=== PATIENT | male | born 1955 | race Caucasian/White ===

== ENCOUNTER 2017-04-17 06:22 | Emergency (ER) | payer SELFPAY ==
[~2017-04-17] VITALS: Ht 188 cm; Wt 73.0 kg
[~2017-04-17 06:22] MED LIST: ADVAI500I PO; ALBU8I INH; BENZ1TAB PO; CLIN1CAP5 PO; HYDR1CAP30 PO; IBUP800T23 PO; OMEP20CA5 PO; PARO40TA PO; PERP8TAB7 PO
[2017-04-17 06:31] VITALS: PULSE 69; RESP 18; TEMP 98.8; O2SAT 97
--- NOTE | 2017-04-17 06:38 | PD ---
HPI Chief Complaint: alcohol intoxication Time Seen by Provider: 06:31 Travel History International Travel<30 days: No Contact w/Intl Traveler<30days: No Traveled to known affect area: No History of Present Illness HPI 61-year-old male was [place] acted and brought in for evaluation. Patient admitted to alcohol consumption tonight. Patient denies any headache. Patient denies any neck pain. Patient denies any chest pain or shortness of breath. Patient denies abdominal pain. Patient denies any focal weakness or numbness of extremity. Patient denies any illicit drug abuse. PFSH Past Medical History Blood Disorders: Yes (hep a) Depression: Yes COPD: Yes Respiratory: Yes (copd) Integumentary: Yes (schizoeffective disorder) Immunizations Current: Yes Past Surgical History Appendectomy: Yes Other Surgery: Yes (ing hernia) Social History Alcohol Use: Yes (12 beers Per day) Tobacco Use: Yes Substance Use: Yes (occasional marijuana) Allergies-Medications (Allergen,Severity, Reaction): Coded Allergies: No Known Allergies (Unverified , 06/21/15) Reported Meds & Prescriptions Reported Meds & Active Scripts Active Prilosec 20 mg (Omeprazole) 20 Mg Capcr 20 Mg PO DAILY Ventolin Hfa (Albuterol Sulfate) 8 Gm Aero 1 Puff INH Q6 * SHAKE WELL BEFORE USE * Advair Diskus 500/50 (Salmeterol Xinafoate/Fluticasone) Fluticasone/Salmeterol 500/50 Inh 1 Puff PO BID Ibuprofen 800 Mg Tab 800 Mg PO TID PRN Reported Clindamycin Hcl (Clindamycin HCl) 150 Mg Cap 300 Mg PO QID Hydroxyzine Pamoate 25 Mg Cap 25 Mg PO HS PRN Trilafon 8 mg (Perphenazine) 8 Mg Tab 1 Tab PO HS Paroxetine Hcl (Paroxetine HCl) 40 Mg Tab 40 Mg PO HS Benztropine Mesylate 1 Mg Tab 1 Mg PO DAILY Review of Systems General / Constitutional: No: Fever Eyes: No: Visual changes HENT: No: Headaches Cardiovascular: No: Chest Pain or Discomfort Respiratory: No: Shortness of Breath Gastrointestinal: No: Abdominal Pain Genitourinary: No: Dysuria Musculoskeletal: No: Pain Skin: No Rash Neurologic: No: Weakness Psychiatric: No: Depression Endocrine: No: Polydipsia Hematologic/Lymphatic: No: Easy Bruising Physical Exam Narrative GENERAL: Well-nourished, well-developed patient. SKIN: Focused skin assessment warm/dry. HEAD: Normocephalic. EYES: No scleral icterus. No injection or drainage. NECK: Supple, trachea midline. No JVD or lymphadenopathy. CARDIOVASCULAR: Regular rate and rhythm without murmurs, gallops, or rubs. RESPIRATORY: Breath sounds equal bilaterally. No accessory muscle use. GASTROINTESTINAL: Abdomen soft, non-tender, nondistended. MUSCULOSKELETAL: No cyanosis, or edema. BACK: Nontender without obvious deformity. No CVA tenderness. Neurologic exam: Patient's intoxicated however answer questions appropriately. Patient moves all extremity well. No obvious focal neurological deficit. Data Data Orders Orders Complete Blood Count With Diff (04/17/17 06:31) Comprehensive Metabolic Panel (04/17/17 06:31) Lipase (04/17/17 06:31) Iv Access Insert/Monitor (04/17/17 06:31) Ecg Monitoring (04/17/17 06:31) Oximetry (04/17/17 06:31) Alcohol (Ethanol) (04/17/17 06:31) MDM Medical Decision Making Medical Screen Exam Complete: Yes Emergency Medical Condition: Yes Differential Diagnosis Differential diagnosis including alcohol intoxication, electrolyte abnormality, dehydration. Narrative Course 61-year-old male was [place] acted and brought in for evaluation. Jaskaran Vila MD Apr 17, 2017 06:38
[2017-04-17 07:34] LABS: AUTOMATED NEUTROPHIL # 4.2 TH/MM3 (1.8-7.7); BASOPHIL % 0.6 % (0.0-2.0); EOSINOPHIL % 0.5 % (0.0-4.0); HEMATOCRIT 38.2 % (39.0-51.0); HEMO FLAGS DIFF FINAL; LYMPH % 32.3 % (9.0-44.0); LYMPHOCYTE # 2.5 TH/MM3 (1.0-4.8); MEAN CORPUSCULAR HEMOGLOBIN 29.4 PG (27.0-34.0); MEAN CORPUSCULAR HGB CONC 33.5 % (32.0-36.0); MONO % 13.4 % (0.0-8.0); NEUT % 53.2 % (16.0-70.0); PLATELET COUNT 211 TH/MM3 (150-450); RED BLOOD COUNT 4.34 MIL/MM3 (4.50-5.90); RED CELL DISTRIBUTION WIDTH 13.5 % (11.6-17.2); WHITE BLOOD COUNT 7.9 TH/MM3 (4.0-11.0)
[2017-04-17 08:00] LABS: ALT (GPT) 158 U/L (12-78); ANION GAP 10 MEQ/L (5-15); AST (GOT) 66 U/L (15-37); BICARBONATE 25.7 MEQ/L (21.0-32.0); BLOOD UREA NITROGEN 13 MG/DL (7-18); CHLORIDE 102 MEQ/L (98-107); GLOMERULAR FILTRATION RATE 87 ML/MIN (>89); POTASSIUM 3.3 MEQ/L (3.5-5.1); SODIUM (NA) 138 MEQ/L (136-145)
[2017-04-17 08:02] LABS: ALKALINE PHOSPHATASE 105 U/L (45-117); TOTAL BILIRUBIN ADULT 0.4 MG/DL (0.2-1.0)
[2017-04-17 08:06] LABS: ALCOHOL 166 MG/DL (0-5)
--- NOTE | 2017-04-17 10:10 | PD ---
Physical Exam Date Seen by Provider: Apr 17, 2017 Time Seen by Provider: 10:08 Narrative 61-year-old male was brought to the emergency room intoxicated. He was seen by the previous ER physician. Sign out was to follow-up on the blood test result and once patient shelly up he can go home. Alcohol level is 166. Patient has been walking around and appears to be clinically sober. I'm okay discharging him home at this point. He's been in the department for almost 4 hours. Data Data Last Documented VS Vital Signs Date Time Temp Pulse Resp B/P (MAP) Pulse Ox O2 Delivery O2 Flow Rate FiO2 04/17/17 07:25 Room Air 04/17/17 06:31 98.8 69 18 97 Orders Orders Complete Blood Count With Diff (04/17/17 06:31) Comprehensive Metabolic Panel (04/17/17 06:31) Lipase (04/17/17 06:31) Iv Access Insert/Monitor (04/17/17 06:31) Ecg Monitoring (04/17/17 06:31) Oximetry (04/17/17 06:31) Alcohol (Ethanol) (04/17/17 06:31) Labs Laboratory Tests Test 04/17/17 07:20 White Blood Count 7.9 TH/MM3 Red Blood Count 4.34 MIL/MM3 Hemoglobin 12.8 GM/DL Hematocrit 38.2 % Mean Corpuscular Volume 88.0 FL Mean Corpuscular Hemoglobin 29.4 PG Mean Corpuscular Hemoglobin Concent 33.5 % Red Cell Distribution Width 13.5 % Platelet Count 211 TH/MM3 Mean Platelet Volume 8.0 FL Neutrophils (%) (Auto) 53.2 % Lymphocytes (%) (Auto) 32.3 % Monocytes (%) (Auto) 13.4 % Eosinophils (%) (Auto) 0.5 % Basophils (%) (Auto) 0.6 % Neutrophils # (Auto) 4.2 TH/MM3 Lymphocytes # (Auto) 2.5 TH/MM3 Monocytes # (Auto) 1.1 TH/MM3 Eosinophils # (Auto) 0.0 TH/MM3 Basophils # (Auto) 0.0 TH/MM3 CBC Comment DIFF FINAL Differential Comment Blood Urea Nitrogen 13 MG/DL Creatinine 0.88 MG/DL Random Glucose 99 MG/DL Total Protein 7.4 GM/DL Albumin 3.7 GM/DL Calcium Level 8.0 MG/DL Alkaline Phosphatase 105 U/L Aspartate Amino Transf (AST/SGOT) 66 U/L Alanine Aminotransferase (ALT/SGPT) 158 U/L Total Bilirubin 0.4 MG/DL Sodium Level 138 MEQ/L Potassium Level 3.3 MEQ/L Chloride Level 102 MEQ/L Carbon Dioxide Level 25.7 MEQ/L Anion Gap 10 MEQ/L Estimat Glomerular Filtration Rate 87 ML/MIN Lipase 147 U/L Ethyl Alcohol Level 166 MG/DL MDM Supervised Visit with RANJANA: No Diagnosis Primary Impression: Alcohol intoxication Qualified Codes: F10.929 - Alcohol use, unspecified with intoxication, unspecified Referrals: Primary Care Physician Additional Instruction: Drink alcohol in moderation only. Follow-up with your primary care. Disposition: 01 DISCHARGE HOME Condition: Stable Octavio Roy MD Apr 17, 2017 10:10
== END 2017-04-17 10:50 | disposition home or self-care (01) ==
LOC: NEPE 06:22
DX: F10.129 Alcohol abuse with intoxication, unspecified (principal); B15.9 Hepatitis A without hepatic coma; J44.9 Chronic obstructive pulmonary disease, unspecified; F25.9 Schizoaffective disorder, unspecified; Z72.0 Tobacco use; Z79.1 Long term (current) use of non-steroidal anti-inflammatories (NSAID); Z79.52 Long term (current) use of systemic steroids; Z79.899 Other long term (current) drug therapy
CPT/HCPCS: 80053; 80307; 83690; 85025; 99283

== ENCOUNTER 2017-09-12 20:25 | Inpatient (IN) | payer SELFPAY ==
[~2017-09-12] VITALS: Ht 188 cm; Wt 67.3 kg
[2017-09-12 20:29] VITALS: BP 138/84; PULSE 84; RESP 18; TEMP 98; O2SAT 97
[2017-09-12] MEDS ORDERED: OMEP20TA93 PO (20:40)
[2017-09-12] MEDS ORDERED: VIST50CA PO (20:40)
[2017-09-12] MEDS ORDERED: PROZ40CA PO (20:40)
[2017-09-12] MEDS ORDERED: IBUP1TAB7 PO (20:40)
[2017-09-12] MEDS ORDERED: BENZ0.5T PO (20:40)
--- NOTE | 2017-09-12 21:00 | PD ---
HPI Chief Complaint: Fall Time Seen by Provider: 20:48 Travel History International Travel<30 days: No Contact w/Intl Traveler<30days: No Traveled to known affect area: No History of Present Illness HPI 62-year-old white male presents to emergency department by EMS for evaluation of a trip and fall. Patient admits to drinking this evening. The patient states that he had fallen on his right side injuring his right hip, neck and back. Patient states the pain is moderate but can be more severe when he attempts to move and stand. He denies syncope. Denies any focal numbness, tingling. He states that he feels somewhat weak in his right leg due to pain. Denies seizure. PFSH Past Medical History Narrative Medical Hepatitis A, COPD, schizoaffective disorder, alcohol abuse Blood Disorders: Yes (hep a) Depression: Yes COPD: Yes Psychiatric: Yes (schizoeffective disorder) Respiratory: Yes (copd) Integumentary: Yes (schizoeffective disorder) Immunizations Current: Yes Tetanus Vaccination: Unknown Past Surgical History Narrative Surgical Appendectomy, herniorrhaphy Appendectomy: Yes Other Surgery: Yes (ing hernia) Social History Alcohol Use: Yes Tobacco Use: Yes (/2 ppd) Substance Use: No Allergies-Medications (Allergen,Severity, Reaction): Coded Allergies: No Known Allergies (Unverified , 06/21/15) Reported Meds & Prescriptions Reported Meds & Active Scripts Active Reported Ibuprofen 800 Mg Tab 800 Mg PO TID Benztropine (Benztropine Mesylate) 0.5 Mg Tab 0.5 Mg PO BID Omeprazole 20 Mg Tab 20 Mg PO DAILY Vistaril (Hydroxyzine Pamoate) 50 Mg Cap 50 Mg PO BID Prozac (Fluoxetine HCl) 40 Mg Cap 40 Mg PO DAILY Review of Systems General / Constitutional: No: Fever Eyes: No: Visual changes HENT: Positive: Neck Pain, No: Headaches, Neck Stiffness Cardiovascular: No: Chest Pain or Discomfort Respiratory: Positive: Shortness of Breath (chronic) Gastrointestinal: No: Abdominal Pain Genitourinary: No: Dysuria Musculoskeletal: Positive: Arthralgias, Limited ROM, Weakness, Pain Skin: No Rash Neurologic: No: Weakness, Syncope, Paresthesia, Incontinence, Seizures Psychiatric: No: Depression Endocrine: No: Polydipsia Hematologic/Lymphatic: No: Easy Bruising Physical Exam Narrative GENERAL: Well-developed, well-nourished in no apparent distress. Nontoxic appearing. HEAD: Normocephalic, atraumatic. EYES: Pupils equal round and reactive. Extraocular motions intact. No scleral icterus. No injection or drainage. ENT: Nose clear. Throat without erythema, tonsillar hypertrophy or exudate. Uvula midline. Airway patent. NECK: Trachea midline. Supple, nontender, moves head freely. No central bony tenderness or spasm. CARDIOVASCULAR: Regular rate and rhythm without murmurs, gallops, or rubs. RESPIRATORY: Clear to auscultation. Breath sounds equal bilaterally. No wheezes , rales, or rhonchi. GASTROINTESTINAL: Abdomen soft, non-tender, nondistended. No hepato-splenomegaly , or palpable masses. No guarding. EXTREMITIES: No clubbing, cyanosis, or edema. Examination of the upper extremities are unremarkable. Examination of the left lower extremities unremarkable. Examination of the right lower extremity reveals pain in the right groin and hip. He has decreased ability to internally and externally rotate the hip. No pain in the knee, ankle or foot. He has intact gross sensation. BACK: No central bony tenderness to palpation of the dorsal and lumbar spine. She complains of upper parathoracic tenderness. No lower lumbar tenderness. Able to sit up in bed at 90. Without deformity. No flank tenderness. NEUROLOGICAL: Awake, alert and oriented x 3 .Cranial nerves grossly intact. Motor and sensory grossly within normal limits. Normal speech. Data Data Last Documented VS Vital Signs Date Time Temp Pulse Resp B/P (MAP) Pulse Ox O2 Delivery O2 Flow Rate FiO2 09/12/17 20:29 98.0 84 18 138/84 (102) 97 Orders Orders Hip, Uni(Ap&Lat) W Ap Pelvis (09/12/17 20:53) Spine, Cervical - Ltd (Ap&Lat) (09/12/17 20:53) Chest, Single Ap (09/12/17 21:00) Spine, Thoracic - Ap Only (09/12/17 20:53) Electrocardiogram (09/12/17 22:56) Complete Blood Count With Diff (09/12/17 22:56) Comprehensive Metabolic Panel (09/12/17 22:56) Prothrombin Time / Inr (Pt) (09/12/17 22:56) Act Partial Throm Time (Ptt) (1/20/18 22:56) Ua Includes Microscopic (09/12/17 22:56) Iv Access Insert/Monitor (09/12/17 22:56) Ecg Monitoring (09/12/17 22:56) Type And Screen (09/12/17 22:56) Alcohol (Ethanol) (09/12/17 22:56) Lactated Ringer's 1000 Ml Inj (Lr 1000 M (09/12/17 23:00) Fentanyl Inj (Fentanyl Inj) (09/12/17 23:00) Ondansetron Inj (Zofran Inj) (09/12/17 23:00) Admit To Inpatient (09/12/17 ) Vital Signs (Adult) Q4H (09/12/17 23:06) Activity Bed Rest (09/12/17 23:06) Diet Npo (09/13/17 Breakfast) Sodium Chloride 0.9% Flush (Ns Flush) (09/12/17 23:15) Sodium Chloride 0.9% Flush (Ns Flush) (09/13/17 09:00) Acetaminophen (Tylenol) (09/12/17 23:15) Ondansetron Inj (Zofran Inj) (09/12/17 23:15) Basic Metabolic Panel (Bmp) (09/13/17 06:00) Complete Blood Count With Diff (09/13/17 06:00) Scd Bilateral/Knee High CATRACHITA.BID (09/12/17 23:06) Inpatient Certification (09/12/17 ) Consult Orthopedic (09/12/17 ) Vital Signs (Adult) Q4H (09/12/17 23:07) Activity Bed Rest (09/12/17 23:07) Notify Dr: Other (09/12/17 23:07) Admit Order (Ed Use Only) (09/12/17 ) Vital Signs (Adult) Q4H (09/12/17 23:07) Activity Bed Rest (09/12/17 23:07) Notify Dr: Other (09/12/17 23:07) [facility] Medical Decision Making Medical Screen Exam Complete: Yes Emergency Medical Condition: Yes Medical Record Reviewed: Yes Interpretation(s) Last 24 hours Impressions Hip and Pelvis X-Ray 09/12/172052 Signed Impressions: Service Date/Time: Tuesday, September 12, 2017 22:38 - CONCLUSION: 1. Right femoral intertrochanteric fracture. Sahil Gregorio MD Chest x-ray: Negative for infiltrate. COPD changes, evidence of old rib fractures C-spine: Negative for acute fracture. Degenerative changes. T-spine: Limited T-spine no obvious fractured and 5. Pelvis with right hip: Patient has an intertrochanteric fracture. Differential Diagnosis MDM: High Differential diagnoses: Fracture, sprain, strain, dislocation, contusion, neurovascular injury Narrative Course IV access is obtained. Patient's given 1 L bolus of lactated Ringer's, Zofran form a grams IV, fentanyl 25 g IV. X-rays confirm a right hip fracture. This is right hip fracture, intoxication, fall I spoke with Mackenzie the nurse practitioner that works with Dr. Egan who is excepted the patient is admission with orthopedic consult. She is aware that he has a closed right intertrochanteric fracture. Diagnosis Primary Impression: Closed right hip fracture Qualified Codes: S72.001A - Fracture of unspecified part of neck of right femur, initial encounter for closed fracture Additional Impressions: intoxication fall Admitting Information Admitting Physician Requests: Admit Condition: Stable Matthieu Persaud Sep 12, 2017 21:00
[2017-09-12] MEDS ORDERED: ONDANSETRON HCL 4 MG/2 ML VIAL IV PUSH ONE (23:00)
[2017-09-12] MEDS ORDERED: LACTATED RINGER'S 1000 ML INJ 1,000 ML IV ONE (23:00)
--- NOTE | 2017-09-12 23:02 | RADRPT ---
EXAM DATE/TIME: 09/12/2017 22:38 [facility] COMPARISON: No previous studies available for comparison. INDICATIONS : Right hip pain, fall. MEDICAL HISTORY : None. SURGICAL HISTORY : Left hip replacement. ENCOUNTER: Initial ACUITY: 1 day PAIN SCORE: 10 LOCATION: Right hip FINDINGS: Right intertrochanteric femoral fracture with angulation of the distal fragment. Compression screw an d intramedullary rob fixation of the left femur. Remaining osseous structures are intact. SI joints a nd pubic symphysis are maintained. Soft tissues are grossly unremarkable. CONCLUSION: 1. Right femoral intertrochanteric fracture. Sahil Gregorio MD on September 12, 2017 at 22:59 Board Certified Radiologist. This report was verified electronically.
--- NOTE | 2017-09-12 23:04 | RADRPT ---
EXAM DATE/TIME: 09/12/2017 22:42 [facility] COMPARISON: No previous studies available for comparison. INDICATIONS : Back pain, fall. MEDICAL HISTORY : None. SURGICAL HISTORY : None. ENCOUNTER: Initial ACUITY: 1 day PAIN SCORE: 3/10 LOCATION: Upper back FINDINGS: AP view of the thoracic spine was performed. There is normal alignment of the thoracic vertebral bod ies. Vertebral body heights are grossly maintained. No evidence of significant fracture or subluxat ion. Visualized portions of the lungs demonstrate no pneumothorax or effusion. CONCLUSION: 1. Limited AP view of the thoracic spine demonstrates no gross fracture or subluxation. Sahil Gregorio MD on September 12, 2017 at 23:01 Board Certified Radiologist. This report was verified electronically.
--- NOTE | 2017-09-12 23:06 | RADRPT ---
EXAM DATE/TIME: 09/12/2017 22:32 [facility] COMPARISON: CHEST SINGLE AP, June 08, 2015, 1:01. INDICATIONS : Shortness of breath. MEDICAL HISTORY : Chronic obstructive pulmonary disease. SURGICAL HISTORY : None. ENCOUNTER: Initial ACUITY: 1 day PAIN SCORE: 0/10 LOCATION: Bilateral chest FINDINGS: Lungs are hyperexpanded with diffuse interstitial prominence. No significant new focal pleural or par enchymal opacities. Cardiome cell contours are stable given differences in technique. Redemonstration of old left-sided rib fractures. CONCLUSION: 1. Changes of obstructive pulmonary disease without acute abnormality or significant interval change. Sahil Gregorio MD on September 12, 2017 at 23:04 Board Certified Radiologist. This report was verified electronically.
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
[2017-09-12] MEDS ORDERED: MORPHINE SULFATE 2 MG/ML INJ IV PUSH PRN (23:15)
[2017-09-12] MEDS ORDERED: SODIUM CHLORIDE 0.9% FLUSH 10 ML FLUSH IV FLUSH PRN (23:15)
[2017-09-13] VITALS (7 sets, daily range): BP systolic 107–160; BP diastolic 69–93; PULSE 92–110; RESP 17–18; TEMP 96.8–98.7; O2SAT 93–100
[2017-09-13 00:14] LABS: AUTOMATED NEUTROPHIL # 8.8 TH/MM3 (1.8-7.7); BASOPHIL % 0.3 % (0.0-2.0); EOSINOPHIL % 0.1 % (0.0-4.0); HEMATOCRIT 35.8 % (39.0-51.0); HEMOGLOBIN 12.4 GM/DL (13.0-17.0); LYMPH % 11.4 % (9.0-44.0); LYMPHOCYTE # 1.2 TH/MM3 (1.0-4.8); MEAN CELL VOLUME 89.2 FL (80.0-100.0); MEAN CORPUSCULAR HEMOGLOBIN 30.9 PG (27.0-34.0); MEAN CORPUSCULAR HGB CONC 34.6 % (32.0-36.0); MEAN PLATELET VOLUME 8.4 FL (7.0-11.0); MONOCYTE # 0.8 TH/MM3 (0-0.9); NEUT % 81.2 % (16.0-70.0); PLATELET COUNT 210 TH/MM3 (150-450); RED BLOOD COUNT 4.01 MIL/MM3 (4.50-5.90); RED CELL DISTRIBUTION WIDTH 11.8 % (11.6-17.2); WHITE BLOOD COUNT 10.8 TH/MM3 (4.0-11.0)
[2017-09-13 00:20] LABS: ALBUMIN 3.8 GM/DL (3.4-5.0); ALT (GPT) 162 U/L (12-78); AST (GOT) 107 U/L (15-37); BICARBONATE 24.3 MEQ/L (21.0-32.0); BLOOD UREA NITROGEN 16 MG/DL (7-18); CALCIUM 8.1 MG/DL (8.5-10.1); CHLORIDE 99 MEQ/L (98-107); CREATININE 0.72 MG/DL (0.60-1.30); GLOMERULAR FILTRATION RATE 110 ML/MIN (>89); GLUCOSE,RANDOM 90 MG/DL (74-106); SODIUM (NA) 134 MEQ/L (136-145)
[2017-09-13 00:22] LABS: ALKALINE PHOSPHATASE 129 U/L (45-117); TOTAL BILIRUBIN ADULT 0.6 MG/DL (0.2-1.0); TOTAL PROTEIN 7.5 GM/DL (6.4-8.2)
[2017-09-13 00:27] LABS: PROTHROMBIN TIME - PATIENT 10.6 SEC (9.8-11.6)
[2017-09-13] MEDS: MORPHINE SULFATE 4 MG/ML INJ IV PUSH PRN ×2 (00:34→06:10)
[2017-09-13] MEDS ORDERED: POVIDONE IODINE 5% (ANTISEPSIS KIT) 4 APPLICATIONS EACH NARE PRN (00:45)
[2017-09-13] MEDS ORDERED: LACTATED RINGER'S 1000 ML IV PRN (00:45)
[2017-09-13] MEDS ORDERED: CHLORHEXIDINE GLUCONATE 2 % 1 PACK (2 CLOTHS) TOPICAL PRN (00:45)
[2017-09-13] MEDS ORDERED: METOPROLOL TARTRATE 25 MG TAB PO PRN (00:45)
[2017-09-13] MEDS ORDERED: SODIUM CHLORID 0.9% 500 ML IV PRN (00:45)
[2017-09-13] MEDS: ONDANSETRON HCL 4 MG/2 ML VIAL IVP PRN (06:09)
[2017-09-13] MEDS ORDERED: FLUMAZENIL 0.5 MG/5 ML VIAL IV PUSH PRN (06:30)
[2017-09-13] MEDS ORDERED: LORazepam 2 MG TAB PO PRN (06:30)
[2017-09-13] MEDS ORDERED: HALOPERIDOL LACTATE 5 MG/ML AMP IM PRN (06:30)
[2017-09-13] MEDS ORDERED: LORazepam 2 MG/ML VIAL IV PUSH PRN ×4 (06:30)
[2017-09-13] MEDS ORDERED: LORazepam 1 MG TAB PO PRN (06:30)
[2017-09-13 06:45] LABS: AUTOMATED NEUTROPHIL # 7.3 TH/MM3 (1.8-7.7); BASOPHIL % 0.2 % (0.0-2.0); EOSINOPHIL % 0.1 % (0.0-4.0); HEMATOCRIT 32.2 % (39.0-51.0); HEMOGLOBIN 11.5 GM/DL (13.0-17.0); LYMPH % 12.1 % (9.0-44.0); LYMPHOCYTE # 1.2 TH/MM3 (1.0-4.8); MEAN CELL VOLUME 88.7 FL (80.0-100.0); MEAN CORPUSCULAR HEMOGLOBIN 31.8 PG (27.0-34.0); MEAN CORPUSCULAR HGB CONC 35.9 % (32.0-36.0); MEAN PLATELET VOLUME 8.6 FL (7.0-11.0); MONO % 11.2 % (0.0-8.0); MONOCYTE # 1.1 TH/MM3 (0-0.9); NEUT % 76.4 % (16.0-70.0); PLATELET COUNT 197 TH/MM3 (150-450); RED BLOOD COUNT 3.63 MIL/MM3 (4.50-5.90); RED CELL DISTRIBUTION WIDTH 11.9 % (11.6-17.2); WHITE BLOOD COUNT 9.5 TH/MM3 (4.0-11.0)
[2017-09-13 06:46] LABS: BICARBONATE 25.7 MEQ/L (21.0-32.0); CALCIUM 8.3 MG/DL (8.5-10.1); CREATININE 0.58 MG/DL (0.60-1.30)
[2017-09-13] MEDS: SODIUM CHLORIDE 0.9% FLUSH 10 ML FLUSH IV FLUSH SCH ×3 (08:48→21:00)
[2017-09-13] MEDS: THIAMINE HCL 100 MG TAB PO SCH (08:48)
[2017-09-13] MEDS: PANTOPRAZOLE SOD 40 MG DELAYED RELEASE TAB PO SCH (08:48)
[2017-09-13] MEDS: FOLIC ACID 1 MG TAB PO SCH (08:50)
[2017-09-13] MEDS ORDERED: ceFAZolin 2 GM PREMIX 50 ML ONE (11:48)
[2017-09-13] MEDS ORDERED: GENTAMICIN SULFATE 80 MG/2 ML VIAL ONE (11:48)
[2017-09-13] MEDS ORDERED: VANCOMYCIN HCL 1000 MG VIAL ONE (11:48)
[2017-09-13] MEDS ORDERED: SODIUM CHLOR 0.9% 250 ML INJ 250 ML IV ONE (12:00)
[2017-09-13] MEDS ORDERED: ceFAZolin INJ 1,000 MG VIAL IV ONE (12:00)
[2017-09-13] MEDS ORDERED: PHENYLEPH/NS 1000 MCG/10 ML SYR IV ONE (12:00)
[2017-09-13] MEDS ORDERED: DEXAMETHASONE SOD PHOS 4 MG/ML VIAL IV ONE (12:00)
[2017-09-13] MEDS ORDERED: SODIUM CHLORIDE 0.9% 20 ML VIAL IV ONE (12:00)
[2017-09-13] MEDS ORDERED: LACTATED RINGER'S 1000 ML INJ 1,000 ML IV ONE (12:00)
[2017-09-13] MEDS ORDERED: PROPOFOL 200 MG/20 ML AMP IV ONE (12:00)
[2017-09-13] MEDS ORDERED: LIDOCAINE HCL 1% PF 5 ML SYRINGE OTHER ONE (12:00)
[2017-09-13] MEDS ORDERED: ONDANSETRON HCL 4 MG/2 ML VIAL IV ONE (12:00)
[2017-09-13] MEDS ORDERED: PERC5TAB12 PO (12:28)
[2017-09-13] MEDS ORDERED: XARE10TA PO (12:28)
--- NOTE | 2017-09-13 12:53 | EKG ---
Date Performed: 09/12/2017 Time Performed: 23:55:36 PTAGE: 62 years EKG: Sinus rhythm VOLTAGE CRITERIA FOR LVH NONSPECIFIC T-WAVE ABNORMALITY ABNORMAL ECG Since PREVIOUS TRACING , no significant change noted PREVIOUS TRACIN06/08/2015 01.00 DOCTOR: Robert Patrick Interpretating Date/Time 09/13/2017 12:51:58
[2017-09-13] MEDS ORDERED: DO NOT ADM ANY ANTICOAGULANT DRUGS PRN (14:05)
[2017-09-13] MEDS ORDERED: MIDAZOLAM HCL 2 MG/2 ML VIAL ONE (14:14)
--- NOTE | 2017-09-13 14:20 | PD.OP ---
cc: Bon Boles Jr., MD Operative Report Date of Surgery: Sep 13, 2017 Preoperative Diagnosis: Right intertrochanteric femur fracture Postoperative Diagnosis: Same Procedure: Right hip intramedullary rob fixation Surgeon: Bon Boles Sole Skiver(s): Staff Resident Surgeon: None Operation and Findings: Estimated blood loss: 50 cc The patient received intravenous ancef. After the appropriate anesthesia was administered, and the patient was transferred to the fracture table. The fracture was anatomically reduced under fluoroscopic imaging. The hip was prepped and draped in usual sterile fashion. We made incision just proximal to the tip of the greater trochanter. We dissected down through the deep fascia. We used a threaded guidewire at the tip of the greater trochanter which was placed down to the metaphyseal region on both the AP and lateral views. We reamed proximally. Using fluoroscopic analysis we templated the appropriate size for the short nail. This nail was then placed into position under fluoroscopic guidance. We made incision laterally based on the position of the associated jig. We then placed a threaded guidewire into the center, center of the femoral head. The appropriate length for the screw was measured. We drilled laterally and then step reamed the femoral neck and femoral head region. The screw was placed into position. We then tightened the proximal set screw, which was followed by releasing one turn off of the screw to allow for compression. Traction was released from the leg and then manual compression was performed. The nail was secured distally with a single screw off of the jig using fluoroscopic guidance. We took final fluoroscopic imaging which revealed that the fracture was in very good position. The hardware was in good position as well. The wounds were thoroughly irrigated and then closed with a 0 Vicryl followed by 2-0 Vicryl and asif. The postoperative plan is to start 50% weightbearing. Additionally, we will initiate postoperative antibiotics for 24 hours along with DVT prophylaxis consisting of early mobilization, SCDs, compression stockings, and lovenox. IMPLANTS USED Synthes intermediate trochanteric nail, size: 10 POSTP-OP PLAN OF ACTIVITY Antibiotics: Ancef Antiocoagulation: Lovenox Weight bearing status: 50% Dressing: Change daily, by RN starting postop day 2 Future procedure planned: none Dispo: expected discharge 2-3 days. Bon Boles Jr., MD Sep 13, 2017 14:20
--- NOTE | 2017-09-13 14:24 | PD.CONS ---
cc: Bon Boles Jr., MD HPI Service [facility] Consult Requested By Primary Care Physician Unknown Admission Diagnosis right hip fracture, intoxication, fall Diagnoses: Chief Complaint: Right hip fracture History of Present Illness 62-year-old white male presents to emergency department by EMS for evaluation of a trip and fall. Patient admits to drinking this evening. . -c/o right hip pain and inability bear weight. -X-ray taken the emergency department reveal displaced right IT fem fracture. -Denies any head injuries. Denies loss of consciousness. -Currently is alert, pain localized at right hip, patient's is 3 out of 10, exacerbated by any range of motion, WB, relieved at rest and with IV pain medicine, pain is sharp nonradiating, not associated with any paresthesia and numbness to the extremity. History PFSH Past Medical History Narrative Medical Hepatitis A, COPD, schizoaffective disorder, alcohol abuse Blood Disorders: Yes (hep a) Depression: Yes COPD: Yes Psychiatric: Yes (schizoeffective disorder) Respiratory: Yes (copd) Integumentary: Yes (schizoeffective disorder) Immunizations Current: Yes Tetanus Vaccination: Unknown Past Surgical History Narrative Surgical Appendectomy, herniorrhaphy Appendectomy: Yes Other Surgery: Yes (ing hernia) Social History Alcohol Use: Yes Tobacco Use: Yes (1/2 ppd) Substance Use: No Allergies-Medications Allergies-Medications (Allergen,Severity, Reaction): Coded Allergies: No Known Allergies (Unverified , 06/21/15) Reported Meds & Prescriptions Reported Meds & Active Scripts Active Reported Ibuprofen 800 Mg Tab 800 Mg PO TID Benztropine (Benztropine Mesylate) 0.5 Mg Tab 0.5 Mg PO BID Omeprazole 20 Mg Tab 20 Mg PO DAILY Vistaril (Hydroxyzine Pamoate) 50 Mg Cap 50 Mg PO BID Prozac (Fluoxetine HCl) 40 Mg Cap 40 Mg PO DAILY Review of Systems Constitutional: DENIES: Diaphoretic episodes, Fatigue, Fever, Weight gain, Weight loss, Chills, Dizziness, Change in appetite, Night Sweats Endocrine: DENIES: Heat/cold intolerance, Polydipsia, Polyuria, Polyphagia Eyes: DENIES: Blurred vision, Diplopia, Eye inflammation, Eye pain, Vision loss , Photosensitivity, Double Vision Ears, nose, mouth, throat: DENIES: Tinnitus, Hearing loss, Vertigo, Nasal discharge, Oral lesions, Throat pain, Hoarseness, Ear Pain, Running Nose, Epistaxis, Sinus Pain, Toothache, Odynophagia Respiratory: DENIES: Apneas, Cough, Snoring, Wheezing, Hemoptysis, Sputum production, Shortness of breath Past Family Social History Allergies: Coded Allergies: No Known Allergies (Unverified Allergy, Unknown, 09/12/17) Active Ordered Medications Current Medications Medications (Trade) Dose Ordered Sig/Micah Route Start Time Stop Time Status Last Admin (NS Flush) 2 ml UNSCH PRN IV FLUSH 09/12/17 23:15 (NS Flush) 2 ml BID IV FLUSH 09/13/17 09:00 09/13/17 08:48 (Tylenol) 650 mg Q4H PRN PO 09/12/17 23:15 (Zofran Inj) 4 mg Q6H PRN IVP 09/12/17 23:15 09/13/17 06:09 (Morphine Inj) 2 mg Q3H PRN IV PUSH 09/12/17 23:15 (Morphine Inj) 4 mg Q3H PRN IV PUSH 09/12/17 23:15 09/13/17 06:10 Lactated Ringer's 1,000 ml @ 30 mls/hr Q24H PRN IV 09/13/17 00:45 09/16/17 00:44 09/13/17 08:44 Sodium Chloride 500 ml @ 30 mls/hr [id number] PRN IV 09/13/17 00:45 09/16/17 00:44 (Lopressor) 25 mg GEAR NICKER PRN PO 09/13/17 00:45 09/16/17 00:44 (Betadine 5% Antisepsis Kit) 1 applic GEAR NICKER PRN EACH NARE 09/13/17 00:45 09/16/17 00:44 (Chlorhexidine 2% Cloth) 3 pack GEAR NICKER PRN TOPICAL 09/13/17 00:45 09/16/17 00:44 (Folate) 1 mg DAILY PO 09/13/17 09:00 09/18/17 08:59 (Vitamin B1) 100 mg DAILY PO 09/13/17 09:00 (Protonix) 40 mg DAILY PO 09/13/17 09:00 (Romazicon Inj) 0.2 mg Q1M PRN IV PUSH 09/13/17 06:30 (Ativan) 1 mg Q4H PRN PO 09/13/17 06:30 (Ativan Inj) 1 mg Q4H PRN IV PUSH 09/13/17 06:30 (Ativan) 2 mg Q2H PRN PO 09/13/17 06:30 (Ativan Inj) 2 mg Q2H PRN IV PUSH 09/13/17 06:30 (Ativan Inj) 2 mg Q1H PRN IV PUSH 09/13/17 06:30 (Ativan Inj) 2 mg Q15M PRN IV PUSH 09/13/17 06:30 (Haldol Inj) 2 mg Q15M PRN IM 09/13/17 06:30 Reported Meds & Active Scripts Active Xarelto (Rivaroxaban) 10 Mg Tab 10 Mg PO DAILY Percocet (Oxycodone-Acetaminophen) 5-325 mg Tab 1 Tab PO Q4H PRN Reported Ibuprofen 800 Mg Tab 800 Mg PO TID Benztropine (Benztropine Mesylate) 0.5 Mg Tab 0.5 Mg PO BID Omeprazole 20 Mg Tab 20 Mg PO DAILY Vistaril (Hydroxyzine Pamoate) 50 Mg Cap 50 Mg PO BID Prozac (Fluoxetine HCl) 40 Mg Cap 40 Mg PO DAILY Physical Exam Vital Signs Vital Signs Date Time Temp Pulse Resp B/P (MAP) Pulse Ox O2 Delivery O2 Flow Rate FiO2 09/13/17 12:00 98.4 100 17 160/93 (115) 95 09/13/17 07:44 96.8 99 18 146/84 (104) 93 09/13/17 04:03 98.7 98 17 113/69 (84) 96 09/13/17 00:25 96.9 92 17 136/85 (102) 96 09/12/17 20:29 98.0 84 18 138/84 (102) 97 Physical Exam Alert awake and oriented -3. No acute distress. Pulmonary: Normal respiratory effort. Abdomen soft Right lower extremity: Shortened and externally rotated. Neurovascularly intact , +EHL/FHL,+ PT/DP pulses. Supple compartments. Negative Homans sign. Left lower extremity: neurovascularly intact no deformity.. Laboratory Laboratory Tests Test 09/12/17 23:30 09/13/17 05:11 White Blood Count 10.8 9.5 Red Blood Count 4.01 3.63 Hemoglobin 12.4 11.5 Hematocrit 35.8 32.2 Mean Corpuscular Volume 89.2 88.7 Mean Corpuscular Hemoglobin 30.9 31.8 Mean Corpuscular Hemoglobin Concent 34.6 35.9 Red Cell Distribution Width 11.8 11.9 Platelet Count 210 197 Mean Platelet Volume 8.4 8.6 Neutrophils (%) (Auto) 81.2 76.4 Lymphocytes (%) (Auto) 11.4 12.1 Monocytes (%) (Auto) 7.0 11.2 Eosinophils (%) (Auto) 0.1 0.1 Basophils (%) (Auto) 0.3 0.2 Neutrophils # (Auto) 8.8 7.3 Lymphocytes # (Auto) 1.2 1.2 Monocytes # (Auto) 0.8 1.1 Eosinophils # (Auto) 0.0 0.0 Basophils # (Auto) 0.0 0.0 CBC Comment DIFF FINAL DIFF FINAL Differential Comment Prothrombin Time 10.6 Prothromb Time International Ratio 1.0 Activated Partial Thromboplast Time 27.0 Blood Urea Nitrogen 16 14 Creatinine 0.72 0.58 Random Glucose 90 81 Total Protein 7.5 Albumin 3.8 Calcium Level 8.1 8.3 Alkaline Phosphatase 129 Aspartate Amino Transf (AST/SGOT) 107 Alanine Aminotransferase (ALT/SGPT) 162 Total Bilirubin 0.6 Sodium Level 134 134 Potassium Level 3.8 3.8 Chloride Level 99 97 Carbon Dioxide Level 24.3 25.7 Anion Gap 11 11 Estimat Glomerular Filtration Rate 110 141 Ethyl Alcohol Level 94 Result Diagram: 09/13/17 0511 09/13/17 0511 Imaging Last 72 hours Impressions Chest X-Ray 09/12/17 2100 Signed Impressions: Service Date/Time: Tuesday, September 12, 2017 22:32 - CONCLUSION: 1. Changes of obstructive pulmonary disease without acute abnormality or significant interval change. Sahil Gregorio MD Thoracic Spine X-Ray 09/12/172052 Signed Impressions: Service Date/Time: Tuesday, September 12, 2017 22:42 - CONCLUSION: 1. Limited AP view of the thoracic spine demonstrates no gross fracture or subluxation. Sahil Gregorio MD Hip and Pelvis X-Ray 09/12/172052 Signed Impressions: Service Date/Time: Tuesday, September 12, 2017 22:38 - CONCLUSION: 1. Right femoral intertrochanteric fracture. Sahil Gregorio MD Cervical Spine X-Ray 09/12/172052 Signed Impressions: Service Date/Time: Tuesday, September 12, 2017 22:43 - CONCLUSION: 1. Limited lateral examination with nonvisualization of C7-T1. 2. Otherwise, no acute fracture or subluxation. 3. Degenerative spondylosis of the lower cervical spine. Sahil Gregorio MD Assessment & Plan Assessment and Plan 62-year-old male sustained a fall at home possibly from EtOH, sustained a right intertrochanteric femur fracture. He presented to emergency department complaining of right hip pain and inability to bear weight. I had a long discussion with the patient. I recommend right hip intramedullary rob fixation. I discussed my treatment plans with the patient, as well as risks, benefits and alternatives of surgical Intervention versus nonoperative treatment. In this case, the risks of operative intervention involves bleeding , infection, nonunion, malunion, risks of damage to neurovascular structures, the risk of needing further surgery, posttraumatic arthritis and the risks involved with complication from anesthesia. We will proceed with the above procedure. The patient accepts these risks; understands and agrees with my recommendations. I also discussed my proposed postoperative care and follow-up plan. All questions were answered. Plan for OR Bon Boles Jr., MD Sep 13, 2017 14:24
[2017-09-13] MEDS ORDERED: SODIUM CHLORIDE 0.9% FLUSH 10 ML FLUSH IV FLUSH PRN (14:30)
[2017-09-13] MEDS ORDERED: BISACODYL 10 MG SUPP RECTAL PRN (14:30)
[2017-09-13] MEDS ORDERED: Post-op Orders (for Pharmacy) XX ONE (14:30)
--- NOTE | 2017-09-13 14:42 | RADRPT ---
EXAM DATE/TIME: 09/13/2017 13:43 [facility] COMPARISON: HIP RIGHT (AP&LAT 2/3VWS) W AP PELVIS, September 12, 2017, 22:38. INDICATIONS : Post hardware placement right hip MEDICAL HISTORY : None. SURGICAL HISTORY : None. ENCOUNTER: Subsequent ACUITY: 2 days PAIN SCORE: Non-responsive. LOCATION: Right Hip FINDINGS: Intramedullary rob is present traversing the femur with fixation screws proximally and distally. Ther e is gross anatomical alignment of the fracture fragments. There is excellent anatomical alignment. CONCLUSION: Intact postsurgical changes. Marco Antonio Ferreira MD on September 13, 2017 at 14:39 Board Certified Radiologist. This report was verified electronically.
[2017-09-13] MEDS: KETOROLAC TROMETHAMINE 30 MG/ML (IVP) VIAL IVP SCH ×2 (15:33→20:52)
--- NOTE | 2017-09-13 18:22 | HHI.PR ---
Addendum to Inpatient Note Additional Information Attempted to see patient earlier this afternoon. He was taken to OR for surgery. Will see patient in the AM. Shimon De Jesus DO Sep 13, 2017 18:22
[2017-09-13] MEDS: DOCUSATE SODIUM 50 MG/SENNA 8.6 MG TAB PO SCH (20:52)
[2017-09-13] MEDS: MAGNESIUM HYDROXIDE SUSP 30 ML CUP PO PRN (20:52)
[2017-09-13] MEDS ORDERED: ZOLPIDEM TARTRATE 5 MG TAB PO PRN (21:00)
[2017-09-14] VITALS (7 sets, daily range): BP systolic 93–117; BP diastolic 54–76; PULSE 69–92; RESP 17–18; TEMP 96–98.2; O2SAT 93–100
[2017-09-14] MEDS: ENOXAPARIN SODIUM 30 MG/0.3 ML SYRINGE SQ SCH ×2 (02:00→14:01)
[2017-09-14] MEDS: KETOROLAC TROMETHAMINE 30 MG/ML (IVP) VIAL IVP SCH ×4 (02:03→21:17)
[2017-09-14] MEDS: SODIUM CHLORIDE 0.9% FLUSH 10 ML FLUSH IV FLUSH SCH ×3 (08:32→21:19)
[2017-09-14] MEDS: oxyCODONE/ACETAMINOPHEN 5 MG/325 MG TAB PO PRN ×3 (08:32→17:47)
[2017-09-14] MEDS: DOCUSATE SODIUM 50 MG/SENNA 8.6 MG TAB PO SCH ×2 (08:32→21:16)
[2017-09-14] MEDS: PANTOPRAZOLE SOD 40 MG DELAYED RELEASE TAB PO SCH (08:32)
[2017-09-14] MEDS: FOLIC ACID 1 MG TAB PO SCH (08:32)
[2017-09-14] MEDS: THIAMINE HCL 100 MG TAB PO SCH (08:32)
--- NOTE | 2017-09-14 10:07 | HHI.HP ---
[facility] Unknown Admission Diagnosis right hip fracture, intoxication, fall Diagnoses: Chief Complaint: Fall, right hip pain Travel History International Travel<30 Days: No Contact w/Intl Traveler <30 Da: No Traveled to Known Affected Are: No History of Present Illness Mr. Dove is a pleasant 62-year-old male with a history of COPD, bipolar disorder, alcohol abuse who presents to the emergency department on 09/12/2017 after a trip and fall. Patient was drinking in the evening on the day of admission. He denies any chest pain, shortness of breath, fever or chills. No changes in bowel or bladder habits. Imaging studies indicated right femoral intertrochanteric fracture. Patient was evaluated by orthopedic surgery and patient underwent surgical intervention on 09/13/2017. Review of Systems Except as stated in HPI: all other systems reviewed are Neg Past Family Social History Past Medical History COPD, schizoaffective disorder, bipolar disorder, depression Past Surgical History Inguinal hernia repair, appendectomy Reported Medications Ibuprofen 800 Mg Tab 800 Mg PO TID Benztropine (Benztropine Mesylate) 0.5 Mg Tab 0.5 Mg PO BID Omeprazole 20 Mg Tab 20 Mg PO DAILY Vistaril (Hydroxyzine Pamoate) 50 Mg Cap 50 Mg PO BID Prozac (Fluoxetine HCl) 40 Mg Cap 40 Mg PO DAILY Allergies: Coded Allergies: No Known Allergies (Unverified Allergy, Unknown, 09/12/17) Family History Mother - Lung cancer. Social History He drinks alcohol. Smokes about 1/2 to 1 ppd. No illicit drugs. Physical Exam Vital Signs Vital Signs Date Time Temp Pulse Resp B/P (MAP) Pulse Ox O2 Delivery O2 Flow Rate FiO2 09/14/17 07:54 96.0 69 18 117/74 (88) 100 09/14/17 04:15 97.6 76 17 99/69 (79) 99 09/14/17 00:23 98.2 92 17 110/76 (87) 97 09/13/17 20:25 98.0 110 17 107/75 (86) 97 09/13/17 19:32 100 Nasal Cannula 2.00 1/21/18 17:17 97.6 94 18 136/89 (105) 100 09/13/17 17:00 98.0 90 13 133/91 (105) 99 Nasal Cannula 2 09/13/17 16:15 80 12 129/81 (97) 100 09/13/17 16:00 68 11 135/79 (97) 100 09/13/17 15:45 67 11 142/81 (101) 100 09/13/17 15:30 66 10 155/90 (111) 100 09/13/17 15:15 67 12 140/89 (106) 100 09/13/17 15:00 68 12 139/85 (103) 100 09/13/17 14:45 66 12 139/85 (103) 100 09/13/17 14:30 68 8 134/84 (101) 100 09/13/17 14:15 65 13 129/81 (97) 100 Nasal Cannula 2 09/13/17 14:11 98.0 64 9 131/81 (98) 98 Nasal Cannula 2 09/13/17 12:00 98.4 100 17 160/93 (115) 95 Physical Exam GENERAL: This is a well-nourished, well-developed patient, in no apparent distress. SKIN: No rashes, ecchymoses or lesions. Warm and dry. HEAD: Atraumatic. Normocephalic. No temporal or scalp tenderness. EYES: Pupils equal round and reactive. No injection or drainage. ENT: Nose without bleeding, purulent drainage or septal hematoma. Airway patent. NECK: Trachea midline. No lymphadenopathy. Supple, nontender, no meningeal signs. CARDIOVASCULAR: Regular rate and rhythm without murmurs, gallops, or rubs. No JVD. RESPIRATORY: Clear to auscultation. Breath sounds equal bilaterally. No wheezes , rales, or rhonchi. GASTROINTESTINAL: Abdomen soft, non-tender, nondistended. No guarding. MUSCULOSKELETAL: Extremities without clubbing, cyanosis, or edema. Status post right hip intramedullary rob fixation NEUROLOGICAL: Awake and alert. Cranial nerves II through XII intact. No focal neurological deficits. Normal speech. Result Diagram: 09/13/17 0511 09/13/17 0511 Imaging Last Impressions Hip X-Ray 09/13/17 0000 Signed Impressions: Service Date/Time: Wednesday, September 13, 2017 13:43 - CONCLUSION: Intact postsurgical changes. Marco Antonio Ferreira MD Chest X-Ray 09/12/172099 Signed Impressions: Service Date/Time: Tuesday, September 12, 2017 22:32 - CONCLUSION: 1. Changes of obstructive pulmonary disease without acute abnormality or significant interval change. Sahil Gregorio MD Thoracic Spine X-Ray 09/12/172052 Signed Impressions: Service Date/Time: Tuesday, September 12, 2017 22:42 - CONCLUSION: 1. Limited AP view of the thoracic spine demonstrates no gross fracture or subluxation. Sahil Gregorio MD Hip and Pelvis X-Ray 09/12/172052 Signed Impressions: Service Date/Time: Tuesday, September 12, 2017 22:38 - CONCLUSION: 1. Right femoral intertrochanteric fracture. Sahil Gregorio MD Cervical Spine X-Ray 09/12/172052 Signed Impressions: Service Date/Time: Tuesday, September 12, 2017 22:43 - CONCLUSION: 1. Limited lateral examination with nonvisualization of C7-T1. 2. Otherwise, no acute fracture or subluxation. 3. Degenerative spondylosis of the lower cervical spine. MD Brionna Rai VTE Risk Assessment Caprini VTE Risk Assessment: Mod/High Risk (score >= 2) Caprini Risk Assessment Model Point Value = 1 Point Value = 2 Point Value = 3 Point Value = 5 Age 41-60 Minor surgery BMI > 25 kg/m2 Swollen legs Varicose veins or History of unexplained or recurrent spontaneous Oral contraceptives or hormone replacement Sepsis (< 1 month) Serious lung disease, including pneumonia (< 1 month) Abnormal pulmonary function Acute myocardial infarction Congestive heart failure (< 1 month) History of inflammatory bowel disease Medical patient at bed rest Age 61-74 Arthroscopic surgery Major open surgery (> 45 min) Laparoscopic surgery (> 45 min) Malignancy Confined to bed (> 72 hours) Immobilizing plaster cast Central venous access Age >= 75 History of VTE Family history of VTE Factor V Leiden Prothrombin [id number] Lupus anticoagulant Anticardiolipin antibodies Elevated serum homocysteine Heparin-induced thrombocytopenia Other congenital or acquired thrombophilia Stroke (< 1 month) Elective arthroplasty Hip, pelvis, or leg fracture Acute spinal cord injury (< 1 month) Prophylaxis Regimen Total Risk Factor Score Risk Level Prophylaxis Regimen 0-1 Low Early ambulation 2 Moderate Order ONE of the following: *Sequential Compression Device (SCD) *Heparin 5000 units SQ BID 3-4 Higher Order ONE of the following medications: *Heparin 5000 units SQ TID *Enoxaparin/Lovenox 40 mg SQ daily (WT < 150 kg, CrCl > 30 mL/min) *Enoxaparin/Lovenox 30 mg SQ daily (WT < 150 kg, CrCl > 10-29 mL/min) *Enoxaparin/Lovenox 30 mg SQ BID (WT < 150 kg, CrCl > 30 mL/min) AND/OR *Sequential Compression Device (SCD) 5 or more Highest Order ONE of the following medications: *Heparin 5000 units SQ TID (Preferred with Epidurals) *Enoxaparin/Lovenox 40 mg SQ daily (WT < 150 kg, CrCl > 30 mL/min) *Enoxaparin/Lovenox 30 mg SQ daily (WT < 150 kg, CrCl > 10-29 mL/min) *Enoxaparin/Lovenox 30 mg SQ BID (WT < 150 kg, CrCl > 30 mL/min) AND *Sequential Compression Device (SCD) Assessment and Plan Problem List: (1) Closed right hip fracture ICD Code: S72.001A - Fracture of unspecified part of neck of right femur, initial encounter for closed fracture Status: Acute (2) Schizoaffective disorder ICD Code: F25.9 - Schizoaffective disorder Status: Acute Assessment and Plan Mr. Dove is a pleasant 62-year-old male who was admitted to the hospital after a fall. He sustained a right hip fracture. He underwent intramedullary rob fixation on 09/13/2017. - Right hip fracture - Status post intramedullary rbo fixation - Percocet, morphine for pain. - Lovenox 30 mg every 12 hours. - Bowel regimen. - Alcohol abuse - continue CIWA protocol, thiamine, folic acid. - Depression - GERD - Continue home medications Prozac, PPI. Full code. Lovenox. Physician Certification 2 Midnight Certification Type: Admission for Inpatient Services Order for Inpatient Services The services are ordered in accordance with Medicare regulations or non- Medicare payer requirements, as applicable. In the case of services not specified as inpatient-only, they are appropriately provided as inpatient services in accordance with the 2-midnight benchmark. Estimated LOS (days): 2 days is the estimated time the patient will need to remain in the hospital, assuming treatment plan goals are met and no additional complications. Post-Hospital Plan: Home Problem Qualifiers (1) Closed right hip fracture: Qualified Codes: S72.001A - Fracture of unspecified part of neck of right femur , initial encounter for closed fracture Shimon De Jesus DO Sep 14, 2017 10:07 am
[2017-09-14] MEDS: PROMETHAZINE HCL 25 MG TAB PO PRN (14:08)
--- NOTE | 2017-09-14 15:44 | PD.ORT.PN ---
Subjective Subjective Remarks no issues. pain controlled Objective Vitals Vital Signs Date Time Temp Pulse Resp B/P (MAP) Pulse Ox O2 Delivery O2 Flow Rate FiO2 09/14/17 12:00 97.1 75 18 101/62 (75) 96 09/14/17 07:54 96.0 69 18 117/74 (88) 100 09/14/17 04:15 97.6 76 17 99/69 (79) 99 09/14/17 00:23 98.2 92 17 110/76 (87) 97 09/13/17 20:25 98.0 110 17 107/75 (86) 97 09/13/17 19:32 100 Nasal Cannula 2.00 09/13/17 17:17 97.6 94 18 136/89 (105) 100 09/13/17 17:00 98.0 90 13 133/91 (105) 99 Nasal Cannula 2 09/13/17 16:15 80 12 129/81 (97) 100 09/13/17 16:00 68 11 135/79 (97) 100 09/13/17 15:45 67 11 142/81 (101) 100 I/O 09/13/17 09/13/17 09/13/17 09/14/17 09/14/17 09/14/17 07:00 15:00 23:00 07:00 15:00 23:00 Intake Total 0 ml 900 ml 360 ml 480 ml Output Total 250 ml 450 ml 500 ml Balance 0 ml 650 ml -90 ml -20 ml Intake Oral 0 ml 360 ml 480 ml Other 900 ml Output Urine Total 200 ml 450 ml 500 ml Estimated Blood Loss 50 ml # Voids 0 1 # Bowel Movements 0 0 0 0 Result Diagram: 09/13/17 0511 09/13/17 0511 Objective Remarks RLE: nvi. dressing CDI. SILT distally Assessment & Plan Assessment and Plan POSTP-OP day 1 - right hip IMN doing well. pain controlled Antibiotics: Ancef Antiocoagulation: Lovenox Weight bearing status: 50% Dressing: Change daily, by RN starting postop day 2 Future procedure planned: none Dispo: expected discharge 2-3 days SNF Bon Boles Jr., MD Sep 14, 2017 15:44
[2017-09-14] MEDS: BENZTROPINE MESYLATE 1 MG TAB PO SCH (21:20)
[2017-09-15] VITALS (7 sets, daily range): BP systolic 96–126; BP diastolic 64–74; PULSE 67–98; RESP 16–18; TEMP 96.5–98.9; O2SAT 94–98
[2017-09-15] MEDS: ENOXAPARIN SODIUM 30 MG/0.3 ML SYRINGE SQ SCH ×2 (03:40→14:21)
[2017-09-15] MEDS: KETOROLAC TROMETHAMINE 30 MG/ML (IVP) VIAL IVP SCH ×2 (03:45→08:46)
[2017-09-15] MEDS: SODIUM CHLORIDE 0.9% FLUSH 10 ML FLUSH IV FLUSH SCH ×2 (08:46→21:27)
[2017-09-15] MEDS: FOLIC ACID 1 MG TAB PO SCH (08:47)
[2017-09-15] MEDS: THIAMINE HCL 100 MG TAB PO SCH (08:47)
[2017-09-15] MEDS: PANTOPRAZOLE SOD 40 MG DELAYED RELEASE TAB PO SCH (08:47)
[2017-09-15] MEDS: FLUoxetine HCL 20 MG CAP PO SCH (08:47)
[2017-09-15] MEDS: BENZTROPINE MESYLATE 1 MG TAB PO SCH ×2 (08:47→21:23)
[2017-09-15] MEDS: DOCUSATE SODIUM 50 MG/SENNA 8.6 MG TAB PO SCH ×2 (08:48→21:23)
[2017-09-15] MEDS: oxyCODONE/ACETAMINOPHEN 5 MG/325 MG TAB PO PRN ×3 (08:48→16:53)
[2017-09-15] MEDS ORDERED: NON-FORMULARY DRUG (Omeprazole 20 MG) PO SCH (09:00)
[2017-09-15] MEDS ORDERED: FLUOXETINE 40 MG PO SCH (09:00)
--- NOTE | 2017-09-15 10:30 | HHI.PR ---
Subjective Remarks Follow up for right hip fracture s/p intramedullary rob fixation. Patient is currently doing well. No acute concerns. No fever, chills. Objective Vitals Vital Signs Date Time Temp Pulse Resp B/P (MAP) Pulse Ox O2 Delivery O2 Flow Rate FiO2 09/15/17 09:35 94 21 09/15/17 07:21 97.6 67 16 111/67 (82) 97 09/15/17 04:04 96.9 68 18 114/68 (83) 96 09/15/17 00:04 96.5 69 18 96/64 (75) 96 09/14/17 20:10 97.8 89 18 99/65 (76) 97 09/14/17 17:17 93 Nasal Cannula 2.00 09/14/17 16:00 97.4 80 18 93/54 (67) 93 09/14/17 12:00 97.1 75 18 101/62 (75) 96 I/O 09/14/17 09/14/17 09/14/17 09/15/17 09/15/17 09/15/17 06:59 14:59 22:59 06:59 14:59 22:59 Intake Total 480 ml 720 ml 360 ml 120 ml Output Total 500 ml 300 ml 400 ml 200 ml Balance -20 ml 720 ml 60 ml -280 ml -200 ml Intake Oral 480 ml 720 ml 360 ml 120 ml Output Urine Total 500 ml 300 ml 400 ml 200 ml # Voids 2 1 # Bowel Movements 0 1 0 0 Result Diagram: 09/13/17 0511 09/13/17 0511 Imaging Last Impressions Hip X-Ray 09/13/17 0000 Signed Impressions: Service Date/Time: Wednesday, September 13, 2017 13:43 - CONCLUSION: Intact postsurgical changes. Marco Antonio Ferreira MD Chest X-Ray 09/12/17 2100 Signed Impressions: Service Date/Time: Tuesday, September 12, 2017 22:32 - CONCLUSION: 1. Changes of obstructive pulmonary disease without acute abnormality or significant interval change. Sahil Gregorio MD Thoracic Spine X-Ray 09/12/172052 Signed Impressions: Service Date/Time: Tuesday, September 12, 2017 22:42 - CONCLUSION: 1. Limited AP view of the thoracic spine demonstrates no gross fracture or subluxation. Sahil Gregorio MD Hip and Pelvis X-Ray 09/12/172052 Signed Impressions: Service Date/Time: Tuesday, September 12, 2017 22:38 - CONCLUSION: 1. Right femoral intertrochanteric fracture. Sahil Gregorio MD Cervical Spine X-Ray 09/12/172052 Signed Impressions: Service Date/Time: Tuesday, September 12, 2017 22:43 - CONCLUSION: 1. Limited lateral examination with nonvisualization of C7-T1. 2. Otherwise, no acute fracture or subluxation. 3. Degenerative spondylosis of the lower cervical spine. Sahil Gregorio MD Objective Remarks GENERAL: Alert, NAD. SKIN: Warm and dry. HEAD: Normocephalic. EYES: No scleral icterus. No injection or drainage. NECK: Supple, trachea midline. No JVD or lymphadenopathy. CARDIOVASCULAR: Regular rate and rhythm without murmurs, gallops, or rubs. RESPIRATORY: Breath sounds equal bilaterally. No accessory muscle use. GASTROINTESTINAL: Abdomen soft, non-tender, nondistended. MUSCULOSKELETAL: No cyanosis, or edema. s/p right hip intramedullary rob fixation. BACK: Nontender without obvious deformity. No CVA tenderness. Procedures 09/13/2017 Right hip intramedullary rob fixation A/P Problem List: (1) Closed right hip fracture ICD Code: S72.001A - Fracture of unspecified part of neck of right femur, initial encounter for closed fracture Status: Acute (2) Schizoaffective disorder ICD Code: F25.9 - Schizoaffective disorder Status: Acute Assessment and Plan Mr. Dove is a pleasant 62-year-old male who was admitted to the hospital after a fall. He sustained a right hip fracture. He underwent intramedullary rob fixation on 09/13/2017. - Right hip fracture - Status post intramedullary rob fixation - Percocet, morphine for pain. - Lovenox 30 mg every 12 hours. - Bowel regimen. - Alcohol abuse - continue CIWA protocol, thiamine, folic acid. - Depression - GERD - Continue home medications Prozac, PPI. Full code. Lovenox. Discharge plan: Per orthopedic surgery, discharge in 1-2 days. Problem Qualifiers (1) Closed right hip fracture: Qualified Codes: S72.001A - Fracture of unspecified part of neck of right femur , initial encounter for closed fracture Shimon De Jesus DO Sep 15, 2017 10:30 am
[2017-09-16] VITALS (7 sets, daily range): BP systolic 116–163; BP diastolic 68–95; PULSE 55–88; RESP 16–18; TEMP 96.8–98.2; O2SAT 94–99
[2017-09-16] MEDS: oxyCODONE/ACETAMINOPHEN 5 MG/325 MG TAB PO PRN ×3 (00:09→14:34)
[2017-09-16] MEDS: ENOXAPARIN SODIUM 30 MG/0.3 ML SYRINGE SQ SCH ×2 (02:21→14:34)
[2017-09-16] MEDS: DOCUSATE SODIUM 50 MG/SENNA 8.6 MG TAB PO SCH ×2 (08:36→20:59)
[2017-09-16] MEDS: THIAMINE HCL 100 MG TAB PO SCH (08:37)
[2017-09-16] MEDS: SODIUM CHLORIDE 0.9% FLUSH 10 ML FLUSH IV FLUSH SCH ×2 (08:37→21:00)
[2017-09-16] MEDS: BENZTROPINE MESYLATE 1 MG TAB PO SCH ×2 (08:37→20:59)
[2017-09-16] MEDS: FLUoxetine HCL 20 MG CAP PO SCH (08:37)
[2017-09-16] MEDS: PANTOPRAZOLE SOD 40 MG DELAYED RELEASE TAB PO SCH (08:37)
[2017-09-16] MEDS: FOLIC ACID 1 MG TAB PO SCH (08:37)
--- NOTE | 2017-09-16 14:49 | HHI.PR ---
Subjective Remarks Follow up for right hip fracture s/p intramedullary rob fixation. Patient is currently doing well, sitting in his chair eating lunch. He worked with PT earlier. No fever or chills. Objective Vitals Vital Signs Date Time Temp Pulse Resp B/P (MAP) Pulse Ox O2 Delivery O2 Flow Rate FiO2 09/16/17 11:19 20 09/16/17 08:37 94 21 09/16/17 04:10 97.5 76 18 121/76 (91) 94 09/16/17 00:10 98.2 81 18 138/85 (102) 98 09/15/17 20:25 21 09/15/17 20:10 98.9 98 17 126/73 (90) 94 09/15/17 16:34 98.9 88 18 121/74 (90) 95 I/O 09/15/17 09/15/17 09/15/17 09/16/17 09/16/17 09/16/17 07:00 15:00 23:00 07:00 15:00 23:00 Intake Total 120 ml 720 ml 360 ml 240 ml Output Total 400 ml 200 ml Balance -280 ml 520 ml 360 ml 240 ml Intake Oral 120 ml 720 ml 360 ml 240 ml Output Urine Total 400 ml 200 ml # Voids 4 1 1 # Bowel Movements 0 0 0 0 Result Diagram: 09/13/17 0511 09/13/17 0511 Imaging Last Impressions Hip X-Ray 09/13/17 0000 Signed Impressions: Service Date/Time: Wednesday, September 13, 2017 13:43 - CONCLUSION: Intact postsurgical changes. KMckay Ferreira MD Chest X-Ray 09/12/172099 Signed Impressions: Service Date/Time: Tuesday, September 12, 2017 22:32 - CONCLUSION: 1. Changes of obstructive pulmonary disease without acute abnormality or significant interval change. Sahil Gregorio MD Thoracic Spine X-Ray 09/12/172052 Signed Impressions: Service Date/Time: Tuesday, September 12, 2017 22:42 - CONCLUSION: 1. Limited AP view of the thoracic spine demonstrates no gross fracture or subluxation. Sahil Gregorio MD Hip and Pelvis X-Ray 09/12/172052 Signed Impressions: Service Date/Time: Tuesday, September 12, 2017 22:38 - CONCLUSION: 1. Right femoral intertrochanteric fracture. Sahil Gregorio MD Cervical Spine X-Ray 09/12/172052 Signed Impressions: Service Date/Time: Tuesday, September 12, 2017 22:43 - CONCLUSION: 1. Limited lateral examination with nonvisualization of C7-T1. 2. Otherwise, no acute fracture or subluxation. 3. Degenerative spondylosis of the lower cervical spine. Sahil Gregorio MD Objective Remarks GENERAL: Alert, NAD. SKIN: Warm and dry. HEAD: Normocephalic. EYES: No scleral icterus. No injection or drainage. NECK: Supple, trachea midline. No JVD or lymphadenopathy. CARDIOVASCULAR: Regular rate and rhythm without murmurs, gallops, or rubs. RESPIRATORY: Breath sounds equal bilaterally. No accessory muscle use. GASTROINTESTINAL: Abdomen soft, non-tender, nondistended. MUSCULOSKELETAL: No cyanosis, or edema. s/p right hip intramedullary rob fixation. BACK: Nontender without obvious deformity. No CVA tenderness. Procedures 09/13/2017 Right hip intramedullary rob fixation A/P Problem List: (1) Closed right hip fracture ICD Code: S72.001A - Fracture of unspecified part of neck of right femur, initial encounter for closed fracture Status: Acute (2) Schizoaffective disorder ICD Code: F25.9 - Schizoaffective disorder Status: Acute Assessment and Plan Mr. Dove is a pleasant 62-year-old male who was admitted to the hospital after a fall. He sustained a right hip fracture. He underwent intramedullary rob fixation on 09/13/2017. - Right hip fracture - Status post intramedullary rob fixation - Percocet, morphine for pain. - Lovenox 30 mg every 12 hours. - Bowel regimen. - Continue with physical therapy. PT recommends SNF which might be difficult to arrange due to lack of insurance. - However patient has family members in [place]. Home health would be an option. - Alcohol abuse - continue CIWA protocol, thiamine, folic acid. - Depression - GERD - Continue home medications Prozac, PPI. Full code. Lovenox. Problem Qualifiers (1) Closed right hip fracture: Qualified Codes: S72.001A - Fracture of unspecified part of neck of right femur , initial encounter for closed fracture Shimon De Jesus DO Sep 16, 2017 2:49 pm
[2017-09-17 00:10] VITALS: BP 121/77; PULSE 79; RESP 17; TEMP 97.1; O2SAT 95
[2017-09-17] MEDS: ENOXAPARIN SODIUM 30 MG/0.3 ML SYRINGE SQ SCH ×2 (02:07→12:16)
[2017-09-17 08:00] VITALS: BP 142/87; PULSE 76; RESP 17; TEMP 97.3; O2SAT 97
[2017-09-17] MEDS: DOCUSATE SODIUM 50 MG/SENNA 8.6 MG TAB PO SCH ×2 (08:42→20:08)
[2017-09-17] MEDS: PANTOPRAZOLE SOD 40 MG DELAYED RELEASE TAB PO SCH (08:42)
[2017-09-17] MEDS: FLUoxetine HCL 20 MG CAP PO SCH (08:42)
[2017-09-17] MEDS: FOLIC ACID 1 MG TAB PO SCH (08:42)
[2017-09-17] MEDS: THIAMINE HCL 100 MG TAB PO SCH (08:42)
[2017-09-17] MEDS: BENZTROPINE MESYLATE 1 MG TAB PO SCH ×2 (08:43→20:08)
[2017-09-17] MEDS: SENNOSIDES 8.6 MG TAB PO PRN (08:43)
[2017-09-17] MEDS: SODIUM CHLORIDE 0.9% FLUSH 10 ML FLUSH IV FLUSH SCH ×2 (08:43→20:08)
[2017-09-17] MEDS: oxyCODONE/ACETAMINOPHEN 5 MG/325 MG TAB PO PRN ×2 (08:43→16:43)
[2017-09-17] MEDS: PROMETHAZINE HCL 25 MG TAB PO PRN (08:48)
[2017-09-17 12:16] VITALS: BP 133/83; PULSE 79; RESP 19; TEMP 96.7; O2SAT 96
[2017-09-17 16:41] VITALS: BP 142/91; PULSE 70; RESP 17; TEMP 99.3; O2SAT 100
--- NOTE | 2017-09-17 17:56 | HHI.PR ---
Subjective Remarks Pain better controlled denies cp/sob Objective Vitals Vital Signs Date Time Temp Pulse Resp B/P (MAP) Pulse Ox O2 Delivery O2 Flow Rate FiO2 09/17/17 16:41 99.3 70 17 142/91 (108) 100 09/17/17 12:16 96.7 79 19 133/83 (100) 96 09/17/17 08:00 97.3 76 17 142/87 (105) 97 09/17/17 00:10 97.1 79 17 121/77 (92) 95 09/16/17 20:10 97.6 88 17 116/70 (85) 95 I/O 09/16/17 09/16/17 09/16/17 09/17/17 09/17/17 09/17/17 07:00 15:00 23:00 07:00 15:00 23:00 Intake Total 240 ml 840 ml 240 ml 480 ml Output Total 1200 ml 625 ml Balance 240 ml -360 ml 240 ml -625 ml 480 ml Intake Oral 240 ml 840 ml 240 ml 480 ml Output Urine Total 1200 ml 625 ml # Voids 1 1 3 5 # Bowel Movements 0 0 0 1 0 Result Diagram: 09/13/17 0511 09/13/17 0511 Imaging Last Impressions Hip X-Ray 09/13/17 0000 Signed Impressions: Service Date/Time: Wednesday, September 13, 2017 13:43 - CONCLUSION: Intact postsurgical changes. KMckay Ferreira MD Chest X-Ray 09/12/172099 Signed Impressions: Service Date/Time: Tuesday, September 12, 2017 22:32 - CONCLUSION: 1. Changes of obstructive pulmonary disease without acute abnormality or significant interval change. Sahil Gregorio MD Thoracic Spine X-Ray 09/12/172052 Signed Impressions: Service Date/Time: Tuesday, September 12, 2017 22:42 - CONCLUSION: 1. Limited AP view of the thoracic spine demonstrates no gross fracture or subluxation. Sahil Gregorio MD Hip and Pelvis X-Ray 09/12/172052 Signed Impressions: Service Date/Time: Tuesday, September 12, 2017 22:38 - CONCLUSION: 1. Right femoral intertrochanteric fracture. Sahil Gregorio MD Cervical Spine X-Ray 09/12/172052 Signed Impressions: Service Date/Time: Tuesday, September 12, 2017 22:43 - CONCLUSION: 1. Limited lateral examination with nonvisualization of C7-T1. 2. Otherwise, no acute fracture or subluxation. 3. Degenerative spondylosis of the lower cervical spine. Sahil Gregorio MD Objective Remarks GENERAL: Alert, NAD. SKIN: Warm and dry. HEAD: Normocephalic. EYES: No scleral icterus. No injection or drainage. NECK: Supple, trachea midline. No JVD or lymphadenopathy. CARDIOVASCULAR: Regular rate and rhythm without murmurs, gallops, or rubs. RESPIRATORY: Breath sounds equal bilaterally. No accessory muscle use. GASTROINTESTINAL: Abdomen soft, non-tender, nondistended. MUSCULOSKELETAL: No cyanosis, or edema. s/p right hip intramedullary rob fixation. BACK: Nontender without obvious deformity. No CVA tenderness. Procedures 09/13/2017 Right hip intramedullary rob fixation Medications and IVs Current Medications Medications (Trade) Dose Ordered Sig/Micah Route Start Time Stop Time Status Last Admin (Tylenol) 650 mg Q4H PRN PO 09/12/17 23:15 (Zofran Inj) 4 mg Q6H PRN IVP 09/12/17 23:15 09/13/17 06:09 (Morphine Inj) 2 mg Q3H PRN IV PUSH 09/12/17 23:15 (Morphine Inj) 4 mg Q3H PRN IV PUSH 09/12/17 23:15 09/13/17 06:10 (Vitamin B1) 100 mg DAILY PO 09/13/17 09:00 09/18/17 09:19 (Protonix) 40 mg DAILY PO 09/13/17 09:00 09/18/17 09:19 (Romazicon Inj) 0.2 mg Q1M PRN IV PUSH 09/13/17 06:30 (Ativan) 1 mg Q4H PRN PO 09/13/17 06:30 (Ativan Inj) 1 mg Q4H PRN IV PUSH 09/13/17 06:30 (Ativan) 2 mg Q2H PRN PO 09/13/17 06:30 (Ativan Inj) 2 mg Q2H PRN IV PUSH 09/13/17 06:30 (Ativan Inj) 2 mg Q1H PRN IV PUSH 09/13/17 06:30 (Ativan Inj) 2 mg Q15M PRN IV PUSH 09/13/17 06:30 (Haldol Inj) 2 mg Q15M PRN IM 09/13/17 06:30 (NS Flush) 2 ml UNSCH PRN IV FLUSH 09/13/17 14:30 (NS Flush) 2 ml BID IV FLUSH 09/13/17 21:00 09/18/17 09:00 (Lovenox Inj) 30 mg Q12H SQ 09/14/17 02:00 09/18/17 01:09 (Percocet 5-325 Mg) 1 tab Q4H PRN PO 09/13/17 14:30 09/18/17 06:07 (Percocet 5-325 Mg) 2 tab Q4H PRN PO 09/13/17 14:30 09/16/17 10:19 (Phenergan) 25 mg Q4H PRN PO 09/13/17 14:30 09/17/17 08:48 (Ambien) 5 mg HS PRN PO 09/13/17 21:00 (Vicky-Colace) 1 tab BID PO 09/13/17 21:00 09/18/17 09:21 (Milk Of Magnesia Liq) 30 ml Q12H PRN PO 09/13/17 14:30 09/13/17 20:52 (Senokot) 17.2 mg Q12H PRN PO 09/13/17 14:30 09/17/17 08:43 (Dulcolax Supp) 10 mg DAILY PRN RECTAL 09/13/17 14:30 (Lactulose Liq) 30 ml DAILY PRN PO 09/13/17 14:30 (Cogentin) 0.5 mg BID PO 09/14/17 21:00 09/18/17 09:20 (Vistaril) 50 mg BID PO 09/14/17 21:00 09/18/17 09:19 (PROzac) 40 mg DAILY PO 09/15/17 09:00 09/18/17 09:19 A/P Problem List: (1) Closed right hip fracture ICD Code: S72.001A - Fracture of unspecified part of neck of right femur, initial encounter for closed fracture Status: Acute (2) Schizoaffective disorder ICD Code: F25.9 - Schizoaffective disorder Status: Acute Assessment and Plan Mr. Dove is a pleasant 62-year-old male who was admitted to the hospital after a fall. He sustained a right hip fracture. He underwent intramedullary rob fixation on 09/13/2017. - Right hip fracture - Status post intramedullary rob fixation - Percocet, morphine for pain. - Lovenox 30 mg every 12 hours. - Bowel regimen. - Continue with physical therapy. PT recommends SNF which might be difficult to arrange due to lack of insurance. - However patient has family members in [place]. Home health would be an option. - Alcohol abuse - continue CIWA protocol, thiamine, folic acid. - Depression - GERD - Continue home medications Prozac, PPI. Full code. Lovenox. Discharge Planning Dc pending ortho clearance. Problem Qualifiers (1) Closed right hip fracture: Qualified Codes: S72.001A - Fracture of unspecified part of neck of right femur , initial encounter for closed fracture Aravind Duran MD Sep 17, 2017 17:56
[2017-09-17 20:40] VITALS: BP 112/69; PULSE 88; RESP 18; TEMP 97.1; O2SAT 96
[2017-09-18 00:32] VITALS: BP 113/76; PULSE 70; RESP 17; TEMP 96.9; O2SAT 97
[2017-09-18] MEDS: ENOXAPARIN SODIUM 30 MG/0.3 ML SYRINGE SQ SCH ×2 (01:09→14:29)
[2017-09-18 04:15] VITALS: BP 130/84; PULSE 71; RESP 17; TEMP 97.4; O2SAT 97
[2017-09-18] MEDS: oxyCODONE/ACETAMINOPHEN 5 MG/325 MG TAB PO PRN ×3 (06:07→19:39)
[2017-09-18 07:59] VITALS: BP 110/71; PULSE 69; RESP 17; TEMP 96.3; O2SAT 97
[2017-09-18] MEDS: SODIUM CHLORIDE 0.9% FLUSH 10 ML FLUSH IV FLUSH SCH ×2 (09:00→22:00)
[2017-09-18] MEDS: FLUoxetine HCL 20 MG CAP PO SCH (09:19)
[2017-09-18] MEDS: PANTOPRAZOLE SOD 40 MG DELAYED RELEASE TAB PO SCH (09:19)
[2017-09-18] MEDS: THIAMINE HCL 100 MG TAB PO SCH (09:19)
[2017-09-18] MEDS: BENZTROPINE MESYLATE 1 MG TAB PO SCH ×2 (09:20→21:54)
[2017-09-18] MEDS: DOCUSATE SODIUM 50 MG/SENNA 8.6 MG TAB PO SCH ×2 (09:21→21:54)
[2017-09-18 12:00] VITALS: BP 124/75; PULSE 85; RESP 17; TEMP 96.4; O2SAT 99
--- NOTE | 2017-09-18 14:44 | HHI.PR ---
Subjective Remarks Pain controlled. Denies cp, sob. Stable vital signs Objective Vitals Vital Signs Date Time Temp Pulse Resp B/P (MAP) Pulse Ox O2 Delivery O2 Flow Rate FiO2 09/18/17 12:00 96.4 85 17 124/75 (91) 99 09/18/17 07:59 96.3 69 17 110/71 (84) 97 09/18/17 04:15 97.4 71 17 130/84 (99) 97 09/18/17 00:32 96.9 70 17 113/76 (88) 97 09/17/17 20:40 97.1 88 18 112/69 (83) 96 09/17/17 16:41 99.3 70 17 142/91 (108) 100 I/O 09/17/17 09/17/17 09/17/17 09/18/17 09/18/17 09/18/17 07:00 15:00 23:00 07:00 15:00 23:00 Intake Total 240 ml 840 ml 240 ml Output Total 625 ml 600 ml Balance 240 ml -625 ml 840 ml -360 ml Intake Oral 240 ml 840 ml 240 ml Output Urine Total 625 ml 600 ml # Voids 3 6 # Bowel Movements 0 1 0 0 Imaging Last Impressions Hip X-Ray 09/13/17 0000 Signed Impressions: Service Date/Time: Wednesday, September 13, 2017 13:43 - CONCLUSION: Intact postsurgical changes. Marco Antonio Ferreira MD Chest X-Ray 09/12/172099 Signed Impressions: Service Date/Time: Tuesday, September 12, 2017 22:32 - CONCLUSION: 1. Changes of obstructive pulmonary disease without acute abnormality or significant interval change. Sahil Gregorio MD Thoracic Spine X-Ray 09/12/172052 Signed Impressions: Service Date/Time: Tuesday, September 12, 2017 22:42 - CONCLUSION: 1. Limited AP view of the thoracic spine demonstrates no gross fracture or subluxation. Sahil Gregorio MD Hip and Pelvis X-Ray 09/12/172052 Signed Impressions: Service Date/Time: Tuesday, September 12, 2017 22:38 - CONCLUSION: 1. Right femoral intertrochanteric fracture. Sahil Gregorio MD Cervical Spine X-Ray 09/12/172052 Signed Impressions: Service Date/Time: Tuesday, September 12, 2017 22:43 - CONCLUSION: 1. Limited lateral examination with nonvisualization of C7-T1. 2. Otherwise, no acute fracture or subluxation. 3. Degenerative spondylosis of the lower cervical spine. Sahil Gregorio MD Objective Remarks GENERAL: Alert, NAD. SKIN: Warm and dry. HEAD: Normocephalic. EYES: No scleral icterus. No injection or drainage. NECK: Supple, trachea midline. No JVD or lymphadenopathy. CARDIOVASCULAR: Regular rate and rhythm without murmurs, gallops, or rubs. RESPIRATORY: Breath sounds equal bilaterally. No accessory muscle use. GASTROINTESTINAL: Abdomen soft, non-tender, nondistended. MUSCULOSKELETAL: No cyanosis, or edema. s/p right hip intramedullary rob fixation. BACK: Nontender without obvious deformity. No CVA tenderness. Procedures 09/13/2017 Right hip intramedullary rob fixation Medications and IVs Current Medications Medications (Trade) Dose Ordered Sig/Micah Route Start Time Stop Time Status Last Admin (Tylenol) 650 mg Q4H PRN PO 09/12/17 23:15 (Zofran Inj) 4 mg Q6H PRN IVP 09/12/17 23:15 09/13/17 06:09 (Morphine Inj) 2 mg Q3H PRN IV PUSH 09/12/17 23:15 (Morphine Inj) 4 mg Q3H PRN IV PUSH 09/12/17 23:15 09/13/17 06:10 (Vitamin B1) 100 mg DAILY PO 09/13/17 09:00 09/18/17 09:19 (Protonix) 40 mg DAILY PO 09/13/17 09:00 09/18/17 09:19 (Romazicon Inj) 0.2 mg Q1M PRN IV PUSH 09/13/17 06:30 (Ativan) 1 mg Q4H PRN PO 09/13/17 06:30 (Ativan Inj) 1 mg Q4H PRN IV PUSH 09/13/17 06:30 (Ativan) 2 mg Q2H PRN PO 09/13/17 06:30 (Ativan Inj) 2 mg Q2H PRN IV PUSH 09/13/17 06:30 (Ativan Inj) 2 mg Q1H PRN IV PUSH 09/13/17 06:30 (Ativan Inj) 2 mg Q15M PRN IV PUSH 09/13/17 06:30 (Haldol Inj) 2 mg Q15M PRN IM 09/13/17 06:30 (NS Flush) 2 ml UNSCH PRN IV FLUSH 09/13/17 14:30 (NS Flush) 2 ml BID IV FLUSH 09/13/17 21:00 09/18/17 09:00 (Lovenox Inj) 30 mg Q12H SQ 09/14/17 02:00 09/18/17 14:29 (Percocet 5-325 Mg) 1 tab Q4H PRN PO 09/13/17 14:30 09/18/17 10:22 (Percocet 5-325 Mg) 2 tab Q4H PRN PO 09/13/17 14:30 09/16/17 10:19 (Phenergan) 25 mg Q4H PRN PO 09/13/17 14:30 09/17/17 08:48 (Ambien) 5 mg HS PRN PO 09/13/17 21:00 (Vicky-Colace) 1 tab BID PO 09/13/17 21:00 09/18/17 09:21 (Milk Of Magnesia Liq) 30 ml Q12H PRN PO 09/13/17 14:30 09/13/17 20:52 (Senokot) 17.2 mg Q12H PRN PO 09/13/17 14:30 09/17/17 08:43 (Dulcolax Supp) 10 mg DAILY PRN RECTAL 09/13/17 14:30 (Lactulose Liq) 30 ml DAILY PRN PO 09/13/17 14:30 (Cogentin) 0.5 mg BID PO 09/14/17 21:00 09/18/17 09:20 (Vistaril) 50 mg BID PO 09/14/17 21:00 09/18/17 09:19 (PROzac) 40 mg DAILY PO 09/15/17 09:00 09/18/17 09:19 A/P Problem List: (1) Closed right hip fracture ICD Code: S72.001A - Fracture of unspecified part of neck of right femur, initial encounter for closed fracture Status: Acute (2) Schizoaffective disorder ICD Code: F25.9 - Schizoaffective disorder Status: Acute Assessment and Plan Mr. Dove is a pleasant 62-year-old male who was admitted to the hospital after a fall. He sustained a right hip fracture. He underwent intramedullary rob fixation on 09/13/2017. - Right hip fracture - Status post intramedullary rob fixation - Percocet, morphine for pain. - Lovenox 30 mg every 12 hours. - Bowel regimen. - Continue with physical therapy. PT recommends SNF which might be difficult to arrange due to lack of insurance. - However patient has family members in [place]. Home health would be an option. - Alcohol abuse - continue CIWA protocol, thiamine, folic acid. - Depression - GERD - Continue home medications Prozac, PPI. Full code. Lovenox. Discharge Planning Dc pending ortho clearance.At this time, no safe discharge disposition for patient - no payer source for rehab or HHC. Problem Qualifiers (1) Closed right hip fracture: Qualified Codes: S72.001A - Fracture of unspecified part of neck of right femur , initial encounter for closed fracture Aravind Duran MD Sep 18, 2017 14:44
[2017-09-18 16:00] VITALS: BP 113/73; PULSE 83; RESP 17; TEMP 99; O2SAT 98
[2017-09-18 20:45] VITALS: BP 123/76; PULSE 80; RESP 18; TEMP 96.9; O2SAT 96
[2017-09-19 00:50] VITALS: BP 131/80; PULSE 71; RESP 18; TEMP 97.2; O2SAT 96
[2017-09-19] MEDS: ENOXAPARIN SODIUM 30 MG/0.3 ML SYRINGE SQ SCH ×2 (02:30→14:00)
[2017-09-19 04:25] VITALS: BP 119/72; PULSE 72; RESP 18; TEMP 96.8; O2SAT 95
[2017-09-19 08:00] VITALS: BP 119/72; PULSE 64; RESP 18; TEMP 98.2; O2SAT 99
[2017-09-19] MEDS: FLUoxetine HCL 20 MG CAP PO SCH (08:55)
[2017-09-19] MEDS: DOCUSATE SODIUM 50 MG/SENNA 8.6 MG TAB PO SCH ×2 (08:55→20:24)
[2017-09-19] MEDS: PANTOPRAZOLE SOD 40 MG DELAYED RELEASE TAB PO SCH (08:55)
[2017-09-19] MEDS: BENZTROPINE MESYLATE 1 MG TAB PO SCH ×2 (08:55→20:24)
[2017-09-19] MEDS: THIAMINE HCL 100 MG TAB PO SCH (08:55)
[2017-09-19] MEDS: oxyCODONE/ACETAMINOPHEN 5 MG/325 MG TAB PO PRN ×2 (08:59→17:11)
[2017-09-19] MEDS: SODIUM CHLORIDE 0.9% FLUSH 10 ML FLUSH IV FLUSH SCH ×2 (08:59→20:24)
[2017-09-19 11:59] VITALS: BP 108/72; PULSE 85; RESP 18; TEMP 98.4; O2SAT 98
--- NOTE | 2017-09-19 15:36 | HHI.PR ---
Subjective Remarks c/o nausea, denies vomiting. States pain controlled denies fevers or chills Objective Vitals Vital Signs Date Time Temp Pulse Resp B/P (MAP) Pulse Ox O2 Delivery O2 Flow Rate FiO2 09/19/17 11:59 98.4 85 18 108/72 (84) 98 09/19/17 08:00 98.2 64 18 119/72 (88) 99 09/19/17 04:25 96.8 72 18 119/72 (88) 95 09/19/17 00:50 97.2 71 18 131/80 (97) 96 09/18/17 20:45 96.9 80 18 123/76 (92) 96 09/18/17 16:00 99.0 83 17 113/73 (86) 98 I/O 09/18/17 09/18/17 09/18/17 09/19/17 09/19/17 09/19/17 07:00 15:00 23:00 07:00 15:00 23:00 Intake Total 240 ml 420 ml 360 ml 360 ml Output Total 600 ml Balance -360 ml 420 ml 360 ml 360 ml Intake Oral 240 ml 420 ml 360 ml 360 ml Output Urine Total 600 ml # Voids 5 2 2 # Bowel Movements 0 1 0 0 Imaging Last Impressions Hip X-Ray 09/13/17 0000 Signed Impressions: Service Date/Time: Wednesday, September 13, 2017 13:43 - CONCLUSION: Intact postsurgical changes. KMckay Ferreira MD Chest X-Ray 09/12/172099 Signed Impressions: Service Date/Time: Tuesday, September 12, 2017 22:32 - CONCLUSION: 1. Changes of obstructive pulmonary disease without acute abnormality or significant interval change. Sahil Gregorio MD Thoracic Spine X-Ray 09/12/172052 Signed Impressions: Service Date/Time: Tuesday, September 12, 2017 22:42 - CONCLUSION: 1. Limited AP view of the thoracic spine demonstrates no gross fracture or subluxation. Sahil Gregorio MD Hip and Pelvis X-Ray 09/12/172052 Signed Impressions: Service Date/Time: Tuesday, September 12, 2017 22:38 - CONCLUSION: 1. Right femoral intertrochanteric fracture. Sahil Gregorio MD Cervical Spine X-Ray 09/12/172052 Signed Impressions: Service Date/Time: Tuesday, September 12, 2017 22:43 - CONCLUSION: 1. Limited lateral examination with nonvisualization of C7-T1. 2. Otherwise, no acute fracture or subluxation. 3. Degenerative spondylosis of the lower cervical spine. Sahil Gregorio MD Objective Remarks GENERAL: Alert, NAD. SKIN: Warm and dry. HEAD: Normocephalic. EYES: No scleral icterus. No injection or drainage. NECK: Supple, trachea midline. No JVD or lymphadenopathy. CARDIOVASCULAR: Regular rate and rhythm without murmurs, gallops, or rubs. RESPIRATORY: Breath sounds equal bilaterally. No accessory muscle use. GASTROINTESTINAL: Abdomen soft, non-tender, nondistended. MUSCULOSKELETAL: No cyanosis, or edema. s/p right hip intramedullary rob fixation. BACK: Nontender without obvious deformity. No CVA tenderness. Procedures 09/13/2017 Right hip intramedullary rob fixation Medications and IVs Current Medications Medications (Trade) Dose Ordered Sig/Micah Route Start Time Stop Time Status Last Admin (Tylenol) 650 mg Q4H PRN PO 09/12/17 23:15 (Zofran Inj) 4 mg Q6H PRN IVP 09/12/17 23:15 09/13/17 06:09 (Morphine Inj) 2 mg Q3H PRN IV PUSH 09/12/17 23:15 (Morphine Inj) 4 mg Q3H PRN IV PUSH 09/12/17 23:15 09/13/17 06:10 (Vitamin B1) 100 mg DAILY PO 09/13/17 09:00 09/19/17 08:55 (Protonix) 40 mg DAILY PO 09/13/17 09:00 09/19/17 08:55 (Romazicon Inj) 0.2 mg Q1M PRN IV PUSH 09/13/17 06:30 (Ativan) 1 mg Q4H PRN PO 09/13/17 06:30 (Ativan Inj) 1 mg Q4H PRN IV PUSH 09/13/17 06:30 (Ativan) 2 mg Q2H PRN PO 09/13/17 06:30 (Ativan Inj) 2 mg Q2H PRN IV PUSH 09/13/17 06:30 (Ativan Inj) 2 mg Q1H PRN IV PUSH 09/13/17 06:30 (Ativan Inj) 2 mg Q15M PRN IV PUSH 09/13/17 06:30 (Haldol Inj) 2 mg Q15M PRN IM 09/13/17 06:30 (NS Flush) 2 ml UNSCH PRN IV FLUSH 09/13/17 14:30 (NS Flush) 2 ml BID IV FLUSH 09/13/17 21:00 09/19/17 08:59 (Lovenox Inj) 30 mg Q12H SQ 09/14/17 02:00 09/19/17 02:30 (Percocet 5-325 Mg) 1 tab Q4H PRN PO 09/13/17 14:30 09/19/17 08:59 (Percocet 5-325 Mg) 2 tab Q4H PRN PO 09/13/17 14:30 09/16/17 10:19 (Phenergan) 25 mg Q4H PRN PO 09/13/17 14:30 09/17/17 08:48 (Ambien) 5 mg HS PRN PO 09/13/17 21:00 (Vicky-Colace) 1 tab BID PO 09/13/17 21:00 09/19/17 08:55 (Milk Of Magnesia Liq) 30 ml Q12H PRN PO 09/13/17 14:30 09/13/17 20:52 (Senokot) 17.2 mg Q12H PRN PO 09/13/17 14:30 09/17/17 08:43 (Dulcolax Supp) 10 mg DAILY PRN RECTAL 09/13/17 14:30 (Lactulose Liq) 30 ml DAILY PRN PO 09/13/17 14:30 (Cogentin) 0.5 mg BID PO 09/14/17 21:00 09/19/17 08:55 (Vistaril) 50 mg BID PO 09/14/17 21:00 09/19/17 08:55 (PROzac) 40 mg DAILY PO 09/15/17 09:00 09/19/17 08:55 A/P Problem List: (1) Closed right hip fracture ICD Code: S72.001A - Fracture of unspecified part of neck of right femur, initial encounter for closed fracture Status: Acute (2) Schizoaffective disorder ICD Code: F25.9 - Schizoaffective disorder Status: Acute Assessment and Plan Mr. Dove is a pleasant 62-year-old male who was admitted to the hospital after a fall. He sustained a right hip fracture. He underwent intramedullary rob fixation on 09/13/2017. - Right hip fracture - Status post intramedullary rob fixation - Percocet, morphine for pain. - Lovenox 30 mg every 12 hours. - Bowel regimen. - Continue with physical therapy. PT recommends SNF which might be difficult to arrange due to lack of insurance. - However patient has family members in [place]. Home health would be an option. - Alcohol abuse - continue CIWA protocol, thiamine, folic acid. -NO evidence of withdrawal - Depression - GERD - Continue home medications Prozac, PPI. - Nausea - Possibly due to GERD. On phenergan. Full code. Lovenox. Discharge Planning Dc pending ortho clearance.At this time, no safe discharge disposition for patient - no payer source for rehab or HHC. Problem Qualifiers (1) Closed right hip fracture: Qualified Codes: S72.001A - Fracture of unspecified part of neck of right femur , initial encounter for closed fracture Aravind Duran MD Sep 19, 2017 15:36
[2017-09-19 16:00] VITALS: BP 116/71; PULSE 82; RESP 18; TEMP 98.4; O2SAT 92
[2017-09-19] MEDS: ONDANSETRON HCL 4 MG/2 ML VIAL IVP PRN ×2 (17:11→23:02)
[2017-09-19 20:00] VITALS: BP 105/66; PULSE 83; RESP 17; TEMP 99.7; O2SAT 95
[2017-09-20] VITALS: BP 107/60; PULSE 70; RESP 16; TEMP 97.8; O2SAT 96
[2017-09-20] MEDS: ENOXAPARIN SODIUM 30 MG/0.3 ML SYRINGE SQ SCH ×2 (02:44→12:16)
[2017-09-20] MEDS: oxyCODONE/ACETAMINOPHEN 5 MG/325 MG TAB PO PRN ×3 (02:44→19:28)
[2017-09-20 08:00] VITALS: BP 107/64; PULSE 84; RESP 18; TEMP 98.8; O2SAT 95
[2017-09-20] MEDS: DOCUSATE SODIUM 50 MG/SENNA 8.6 MG TAB PO SCH ×2 (08:19→19:27)
[2017-09-20] MEDS: PANTOPRAZOLE SOD 40 MG DELAYED RELEASE TAB PO SCH (08:19)
[2017-09-20] MEDS: BENZTROPINE MESYLATE 1 MG TAB PO SCH ×2 (08:19→19:27)
[2017-09-20] MEDS: THIAMINE HCL 100 MG TAB PO SCH (08:19)
[2017-09-20] MEDS: FLUoxetine HCL 20 MG CAP PO SCH (08:20)
[2017-09-20] MEDS: SODIUM CHLORIDE 0.9% FLUSH 10 ML FLUSH IV FLUSH SCH ×2 (08:24→19:28)
[2017-09-20 12:00] VITALS: BP 105/68; PULSE 87; RESP 18; TEMP 98.7; O2SAT 94
[2017-09-20 16:00] VITALS: BP 123/69; PULSE 69; RESP 18; TEMP 97.8; O2SAT 99
--- NOTE | 2017-09-20 16:49 | HHI.PR ---
Subjective Remarks Patient denies cp, sob. Pain controlled. Ambulating well Objective Vitals Vital Signs Date Time Temp Pulse Resp B/P (MAP) Pulse Ox O2 Delivery O2 Flow Rate FiO2 09/20/17 12:00 98.7 87 18 105/68 (80) 94 09/20/17 08:00 98.8 84 18 107/64 (78) 95 09/20/17 00:00 97.8 70 16 107/60 (76) 96 09/19/17 20:00 99.7 83 17 105/66 (79) 95 I/O 09/19/17 09/19/17 09/19/17 09/20/17 09/20/17 09/20/17 07:00 15:00 23:00 07:00 15:00 23:00 Intake Total 360 ml 600 ml 600 ml 480 ml Output Total 450 ml Balance 360 ml 600 ml 150 ml 480 ml Intake Oral 360 ml 600 ml 600 ml 480 ml Output Urine Total 450 ml # Voids 2 3 1 # Bowel Movements 0 1 Imaging Last Impressions Hip X-Ray 09/13/17 0000 Signed Impressions: Service Date/Time: Wednesday, September 13, 2017 13:43 - CONCLUSION: Intact postsurgical changes. Marco Antonio Ferreira MD Chest X-Ray 09/12/172099 Signed Impressions: Service Date/Time: Tuesday, September 12, 2017 22:32 - CONCLUSION: 1. Changes of obstructive pulmonary disease without acute abnormality or significant interval change. Sahil Gregorio MD Thoracic Spine X-Ray 09/12/172052 Signed Impressions: Service Date/Time: Tuesday, September 12, 2017 22:42 - CONCLUSION: 1. Limited AP view of the thoracic spine demonstrates no gross fracture or subluxation. Sahil Gregorio MD Hip and Pelvis X-Ray 09/12/172052 Signed Impressions: Service Date/Time: Tuesday, September 12, 2017 22:38 - CONCLUSION: 1. Right femoral intertrochanteric fracture. Sahil Gregorio MD Cervical Spine X-Ray 09/12/172052 Signed Impressions: Service Date/Time: Tuesday, September 12, 2017 22:43 - CONCLUSION: 1. Limited lateral examination with nonvisualization of C7-T1. 2. Otherwise, no acute fracture or subluxation. 3. Degenerative spondylosis of the lower cervical spine. Sahil Gregorio MD Objective Remarks GENERAL: Alert, NAD. SKIN: Warm and dry. HEAD: Normocephalic. EYES: No scleral icterus. No injection or drainage. NECK: Supple, trachea midline. No JVD or lymphadenopathy. CARDIOVASCULAR: Regular rate and rhythm without murmurs, gallops, or rubs. RESPIRATORY: Breath sounds equal bilaterally. No accessory muscle use. GASTROINTESTINAL: Abdomen soft, non-tender, nondistended. MUSCULOSKELETAL: No cyanosis, or edema. s/p right hip intramedullary rob fixation. BACK: Nontender without obvious deformity. No CVA tenderness. Procedures 09/13/2017 Right hip intramedullary rob fixation Medications and IVs Current Medications Medications (Trade) Dose Ordered Sig/Micah Route Start Time Stop Time Status Last Admin (Tylenol) 650 mg Q4H PRN PO 09/12/17 23:15 (Zofran Inj) 4 mg Q6H PRN IVP 09/12/17 23:15 09/19/17 23:02 (Morphine Inj) 2 mg Q3H PRN IV PUSH 09/12/17 23:15 (Morphine Inj) 4 mg Q3H PRN IV PUSH 09/12/17 23:15 09/13/17 06:10 (Vitamin B1) 100 mg DAILY PO 09/13/17 09:00 09/20/17 08:19 (Protonix) 40 mg DAILY PO 09/13/17 09:00 09/20/17 08:19 (Romazicon Inj) 0.2 mg Q1M PRN IV PUSH 09/13/17 06:30 (Ativan) 1 mg Q4H PRN PO 09/13/17 06:30 (Ativan Inj) 1 mg Q4H PRN IV PUSH 09/13/17 06:30 (Ativan) 2 mg Q2H PRN PO 09/13/17 06:30 (Ativan Inj) 2 mg Q2H PRN IV PUSH 09/13/17 06:30 (Ativan Inj) 2 mg Q1H PRN IV PUSH 09/13/17 06:30 (Ativan Inj) 2 mg Q15M PRN IV PUSH 09/13/17 06:30 (Haldol Inj) 2 mg Q15M PRN IM 09/13/17 06:30 (NS Flush) 2 ml UNSCH PRN IV FLUSH 09/13/17 14:30 (NS Flush) 2 ml BID IV FLUSH 09/13/17 21:00 09/20/17 19:28 (Lovenox Inj) 30 mg Q12H SQ 09/14/17 02:00 09/20/17 12:16 (Percocet 5-325 Mg) 1 tab Q4H PRN PO 09/13/17 14:30 09/20/17 08:20 (Percocet 5-325 Mg) 2 tab Q4H PRN PO 09/13/17 14:30 09/20/17 19:28 (Phenergan) 25 mg Q4H PRN PO 09/13/17 14:30 09/20/17 19:28 (Ambien) 5 mg HS PRN PO 09/13/17 21:00 (Vicky-Colace) 1 tab BID PO 09/13/17 21:00 09/20/17 19:27 (Milk Of Magnesia Liq) 30 ml Q12H PRN PO 09/13/17 14:30 09/13/17 20:52 (Senokot) 17.2 mg Q12H PRN PO 09/13/17 14:30 09/17/17 08:43 (Dulcolax Supp) 10 mg DAILY PRN RECTAL 09/13/17 14:30 (Lactulose Liq) 30 ml DAILY PRN PO 09/13/17 14:30 (Cogentin) 0.5 mg BID PO 09/14/17 21:00 09/20/17 19:27 (Vistaril) 50 mg BID PO 09/14/17 21:00 09/20/17 19:27 (PROzac) 40 mg DAILY PO 09/15/17 09:00 09/20/17 08:20 A/P Problem List: (1) Closed right hip fracture ICD Code: S72.001A - Fracture of unspecified part of neck of right femur, initial encounter for closed fracture Status: Acute (2) Schizoaffective disorder ICD Code: F25.9 - Schizoaffective disorder Status: Acute Assessment and Plan Mr. Dove is a pleasant 62-year-old male who was admitted to the hospital after a fall. He sustained a right hip fracture. He underwent intramedullary rob fixation on 09/13/2017. - Right hip fracture - Status post intramedullary rob fixation - Percocet, morphine for pain. - Lovenox 30 mg every 12 hours. - Bowel regimen. - Continue with physical therapy. PT recommends SNF which might be difficult to arrange due to lack of insurance. - However patient has family members in [place]. Home health would be an option. - Alcohol abuse - continue CIWA protocol, thiamine, folic acid. -NO evidence of withdrawal - Depression - GERD - Continue home medications Prozac, PPI. - Nausea - Possibly due to GERD. On phenergan. Full code. Lovenox. Discharge Planning Dc pending ortho clearance.At this time, no safe discharge disposition for patient - no payer source for rehab or HHC. Problem Qualifiers (1) Closed right hip fracture: Qualified Codes: S72.001A - Fracture of unspecified part of neck of right femur , initial encounter for closed fracture Aravind Duran MD Sep 20, 2017 16:49
[2017-09-20] MEDS: PROMETHAZINE HCL 25 MG TAB PO PRN (19:28)
[2017-09-20 19:37] VITALS: BP 109/68; PULSE 87; RESP 18; TEMP 98.9; O2SAT 99
[2017-09-20 23:38] VITALS: BP 95/58; PULSE 67; RESP 18; TEMP 97.4; O2SAT 96
[2017-09-21] MEDS: ENOXAPARIN SODIUM 30 MG/0.3 ML SYRINGE SQ SCH ×2 (03:22→15:48)
[2017-09-21 08:00] VITALS: BP 125/73; PULSE 63; RESP 17; TEMP 97.8; O2SAT 95
[2017-09-21] MEDS: BENZTROPINE MESYLATE 1 MG TAB PO SCH ×2 (11:06→20:45)
[2017-09-21] MEDS: THIAMINE HCL 100 MG TAB PO SCH (11:07)
[2017-09-21] MEDS: FLUoxetine HCL 20 MG CAP PO SCH (11:07)
[2017-09-21] MEDS: oxyCODONE/ACETAMINOPHEN 5 MG/325 MG TAB PO PRN ×3 (11:07→20:55)
[2017-09-21] MEDS: DOCUSATE SODIUM 50 MG/SENNA 8.6 MG TAB PO SCH ×2 (11:07→20:45)
[2017-09-21] MEDS: PANTOPRAZOLE SOD 40 MG DELAYED RELEASE TAB PO SCH (11:07)
[2017-09-21] MEDS: SODIUM CHLORIDE 0.9% FLUSH 10 ML FLUSH IV FLUSH SCH ×2 (11:07→20:46)
[2017-09-21 12:00] VITALS: BP 125/76; PULSE 86; RESP 17; TEMP 98.2; O2SAT 98
[2017-09-21 16:00] VITALS: BP 102/67; PULSE 78; RESP 17; TEMP 98.7; O2SAT 96
--- NOTE | 2017-09-21 16:23 | HHI.PR ---
Subjective Remarks no complaints. Pain controlled Objective Vitals Vital Signs Date Time Temp Pulse Resp B/P (MAP) Pulse Ox O2 Delivery O2 Flow Rate FiO2 09/21/17 16:00 98.7 78 17 102/67 (79) 96 09/21/17 12:00 98.2 86 17 125/76 (92) 98 09/21/17 08:00 97.8 63 17 125/73 (90) 95 09/20/17 23:38 97.4 67 18 95/58 (70) 96 09/20/17 19:37 98.9 87 18 109/68 (82) 99 I/O 09/20/17 09/20/17 09/20/17 09/21/17 09/21/17 09/21/17 07:00 15:00 23:00 07:00 15:00 23:00 Intake Total 480 ml 650 ml 480 ml 480 ml 480 ml Output Total 500 ml Balance 480 ml 650 ml 480 ml -20 ml 480 ml Intake Oral 480 ml 650 ml 480 ml 480 ml 480 ml Output Urine Total 500 ml # Voids 1 4 2 6 # Bowel Movements 1 0 0 1 Objective Remarks GENERAL: Alert, NAD. SKIN: Warm and dry. HEAD: Normocephalic. EYES: No scleral icterus. No injection or drainage. NECK: Supple, trachea midline. No JVD or lymphadenopathy. CARDIOVASCULAR: Regular rate and rhythm without murmurs, gallops, or rubs. RESPIRATORY: Breath sounds equal bilaterally. No accessory muscle use. GASTROINTESTINAL: Abdomen soft, non-tender, nondistended. MUSCULOSKELETAL: No cyanosis, or edema. s/p right hip intramedullary rob fixation. BACK: Nontender without obvious deformity. No CVA tenderness. Procedures 09/13/2017 Right hip intramedullary rob fixation A/P Problem List: (1) Closed right hip fracture ICD Code: S72.001A - Fracture of unspecified part of neck of right femur, initial encounter for closed fracture Status: Acute (2) Schizoaffective disorder ICD Code: F25.9 - Schizoaffective disorder Status: Acute Assessment and Plan Mr. Dove is a pleasant 62-year-old male who was admitted to the hospital after a fall. He sustained a right hip fracture. He underwent intramedullary rob fixation on 09/13/2017. - Right hip fracture - Status post intramedullary rob fixation - Percocet, morphine for pain. - Lovenox 30 mg every 12 hours. - Bowel regimen. - Continue with physical therapy. PT recommends SNF which might be difficult to arrange due to lack of insurance. - However patient has family members in [place]. Home health would be an option. - Alcohol abuse - continue CIWA protocol, thiamine, folic acid. -NO evidence of withdrawal - Depression - GERD - Continue home medications Prozac, PPI. - Nausea - Possibly due to GERD. On phenergan. Full code. Lovenox. Discharge Planning Dc pending ortho clearance.At this time, no safe discharge disposition for patient - no payer source for rehab or HHC. PAtient states that he is not homeless and apparently patient has a girlfriend - Discussed with caseworker intake who will look into this. Problem Qualifiers (1) Closed right hip fracture: Qualified Codes: S72.001A - Fracture of unspecified part of neck of right femur , initial encounter for closed fracture Aravind Duran MD Sep 21, 2017 16:23
[2017-09-21 21:03] VITALS: BP 107/69; PULSE 76; RESP 17; TEMP 97.8; O2SAT 95
[2017-09-22 01:26] VITALS: BP 100/62; PULSE 65; RESP 17; TEMP 97.7; O2SAT 96
[2017-09-22] MEDS: ENOXAPARIN SODIUM 30 MG/0.3 ML SYRINGE SQ SCH ×2 (01:58→15:02)
[2017-09-22 07:53] VITALS: BP 112/69; PULSE 69; RESP 19; TEMP 99.1; O2SAT 97
[2017-09-22] MEDS: PROMETHAZINE HCL 25 MG TAB PO PRN ×2 (08:27→20:25)
[2017-09-22] MEDS: PANTOPRAZOLE SOD 40 MG DELAYED RELEASE TAB PO SCH (08:28)
[2017-09-22] MEDS: oxyCODONE/ACETAMINOPHEN 5 MG/325 MG TAB PO PRN ×2 (08:28→20:26)
[2017-09-22] MEDS: THIAMINE HCL 100 MG TAB PO SCH (08:28)
[2017-09-22] MEDS: FLUoxetine HCL 20 MG CAP PO SCH (08:28)
[2017-09-22] MEDS: DOCUSATE SODIUM 50 MG/SENNA 8.6 MG TAB PO SCH ×2 (08:28→20:25)
[2017-09-22] MEDS: BENZTROPINE MESYLATE 1 MG TAB PO SCH ×2 (08:28→20:25)
[2017-09-22] MEDS: SODIUM CHLORIDE 0.9% FLUSH 10 ML FLUSH IV FLUSH SCH ×2 (08:29→20:26)
[2017-09-22 11:57] VITALS: BP 108/61; PULSE 76; RESP 19; TEMP 99; O2SAT 98
[2017-09-22 15:37] VITALS: BP 108/64; PULSE 68; RESP 19; TEMP 99; O2SAT 98
--- NOTE | 2017-09-22 15:58 | HHI.PR ---
Subjective Remarks The patient was resting comfortably in bed. Awake denied chest pain, short of breath, fevers, chills. Objective Vitals Vital Signs Date Time Temp Pulse Resp B/P (MAP) Pulse Ox O2 Delivery O2 Flow Rate FiO2 09/22/17 15:37 99.0 68 19 108/64 (79) 98 09/22/17 11:57 99.0 76 19 108/61 (77) 98 09/22/17 07:53 99.1 69 19 112/69 (83) 97 09/22/17 01:26 97.7 65 17 100/62 (75) 96 09/21/17 21:03 97.8 76 17 107/69 (82) 95 09/21/17 16:00 98.7 78 17 102/67 (79) 96 I/O 09/21/17 09/21/17 09/21/17 09/22/17 09/22/17 09/22/17 07:00 15:00 23:00 07:00 15:00 23:00 Intake Total 480 ml 480 ml 360 ml 240 ml 900 ml Output Total 500 ml Balance -20 ml 480 ml 360 ml 240 ml 900 ml Intake Oral 480 ml 480 ml 360 ml 240 ml 900 ml Output Urine Total 500 ml # Voids 6 1 1 2 # Bowel Movements 0 1 0 Imaging Last Impressions Hip X-Ray 09/13/17 0000 Signed Impressions: Service Date/Time: Wednesday, September 13, 2017 13:43 - CONCLUSION: Intact postsurgical changes. Marco Antonio Ferreira MD Chest X-Ray 09/12/172099 Signed Impressions: Service Date/Time: Tuesday, September 12, 2017 22:32 - CONCLUSION: 1. Changes of obstructive pulmonary disease without acute abnormality or significant interval change. Sahil Gregorio MD Thoracic Spine X-Ray 09/12/172052 Signed Impressions: Service Date/Time: Tuesday, September 12, 2017 22:42 - CONCLUSION: 1. Limited AP view of the thoracic spine demonstrates no gross fracture or subluxation. Sahil Gregorio MD Hip and Pelvis X-Ray 09/12/172052 Signed Impressions: Service Date/Time: Tuesday, September 12, 2017 22:38 - CONCLUSION: 1. Right femoral intertrochanteric fracture. Sahil Gregorio MD Cervical Spine X-Ray 09/12/172052 Signed Impressions: Service Date/Time: Tuesday, September 12, 2017 22:43 - CONCLUSION: 1. Limited lateral examination with nonvisualization of C7-T1. 2. Otherwise, no acute fracture or subluxation. 3. Degenerative spondylosis of the lower cervical spine. Sahil Gregorio MD Objective Remarks GENERAL: Alert, NAD. SKIN: Warm and dry. HEAD: Normocephalic. EYES: No scleral icterus. No injection or drainage. NECK: Supple, trachea midline. No JVD or lymphadenopathy. CARDIOVASCULAR: Regular rate and rhythm without murmurs, gallops, or rubs. RESPIRATORY: Breath sounds equal bilaterally. No accessory muscle use. GASTROINTESTINAL: Abdomen soft, non-tender, nondistended. MUSCULOSKELETAL: No cyanosis, or edema. s/p right hip intramedullary rob fixation. BACK: Nontender without obvious deformity. No CVA tenderness. Procedures 09/13/2017 Right hip intramedullary rob fixation Medications and IVs Current Medications Medications (Trade) Dose Ordered Sig/Micah Route Start Time Stop Time Status Last Admin (Tylenol) 650 mg Q4H PRN PO 09/12/17 23:15 (Zofran Inj) 4 mg Q6H PRN IVP 09/12/17 23:15 09/19/17 23:02 (Morphine Inj) 2 mg Q3H PRN IV PUSH 09/12/17 23:15 (Morphine Inj) 4 mg Q3H PRN IV PUSH 09/12/17 23:15 09/13/17 06:10 (Vitamin B1) 100 mg DAILY PO 09/13/17 09:00 09/22/17 08:28 (Protonix) 40 mg DAILY PO 09/13/17 09:00 09/22/17 08:28 (Romazicon Inj) 0.2 mg Q1M PRN IV PUSH 09/13/17 06:30 (Ativan) 1 mg Q4H PRN PO 09/13/17 06:30 (Ativan Inj) 1 mg Q4H PRN IV PUSH 09/13/17 06:30 (Ativan) 2 mg Q2H PRN PO 09/13/17 06:30 (Ativan Inj) 2 mg Q2H PRN IV PUSH 09/13/17 06:30 (Ativan Inj) 2 mg Q1H PRN IV PUSH 09/13/17 06:30 (Ativan Inj) 2 mg Q15M PRN IV PUSH 09/13/17 06:30 (Haldol Inj) 2 mg Q15M PRN IM 09/13/17 06:30 (NS Flush) 2 ml UNSCH PRN IV FLUSH 09/13/17 14:30 (NS Flush) 2 ml BID IV FLUSH 09/13/17 21:00 09/22/17 08:29 (Lovenox Inj) 30 mg Q12H SQ 09/14/17 02:00 09/22/17 15:02 (Percocet 5-325 Mg) 1 tab Q4H PRN PO 09/13/17 14:30 09/22/17 08:28 (Percocet 5-325 Mg) 2 tab Q4H PRN PO 09/13/17 14:30 09/20/17 19:28 (Phenergan) 25 mg Q4H PRN PO 09/13/17 14:30 09/22/17 08:27 (Ambien) 5 mg HS PRN PO 09/13/17 21:00 (Vicky-Colace) 1 tab BID PO 09/13/17 21:00 09/22/17 08:28 (Milk Of Magnesia Liq) 30 ml Q12H PRN PO 09/13/17 14:30 09/13/17 20:52 (Senokot) 17.2 mg Q12H PRN PO 09/13/17 14:30 09/17/17 08:43 (Dulcolax Supp) 10 mg DAILY PRN RECTAL 09/13/17 14:30 (Lactulose Liq) 30 ml DAILY PRN PO 09/13/17 14:30 (Cogentin) 0.5 mg BID PO 09/14/17 21:00 09/22/17 08:28 (Vistaril) 50 mg BID PO 09/14/17 21:00 09/22/17 08:28 (PROzac) 40 mg DAILY PO 09/15/17 09:00 09/22/17 08:28 A/P Problem List: (1) Closed right hip fracture ICD Code: S72.001A - Fracture of unspecified part of neck of right femur, initial encounter for closed fracture Status: Acute (2) Schizoaffective disorder ICD Code: F25.9 - Schizoaffective disorder Status: Acute Assessment and Plan Mr. Dove is a pleasant 62-year-old male who was admitted to the hospital after a fall. He sustained a right hip fracture. He underwent intramedullary rob fixation on 09/13/2017. - Right hip fracture - Status post intramedullary rob fixation - Percocet, morphine for pain. - Lovenox 30 mg every 12 hours. - Bowel regimen. - Continue with physical therapy. PT recommends SNF which might be difficult to arrange due to lack of insurance. - However patient has family members in [place]. Home health would be an option. - Alcohol abuse - continue CIWA protocol, thiamine, folic acid. -NO evidence of withdrawal - Depression - GERD - Continue home medications Prozac, PPI. - Nausea - Possibly due to GERD. On phenergan. Full code. Lovenox. Discharge Planning Dc pending ortho clearance.At this time, no safe discharge disposition for patient - no payer source for rehab or C. Patient states that he is not homeless and apparently patient has a girlfriend - Discussed with community case manager who will look into this. Problem Qualifiers (1) Closed right hip fracture: Qualified Codes: S72.001A - Fracture of unspecified part of neck of right femur , initial encounter for closed fracture Aravind Duran MD Sep 22, 2017 15:58
[2017-09-22] MEDS: MAGNESIUM HYDROXIDE SUSP 30 ML CUP PO PRN (20:24)
[2017-09-22 20:45] VITALS: BP 112/62; PULSE 75; RESP 17; TEMP 96.8; O2SAT 96
[2017-09-23 00:40] VITALS: BP 119/70; PULSE 66; RESP 17; TEMP 96.7; O2SAT 97
[2017-09-23] MEDS: ENOXAPARIN SODIUM 30 MG/0.3 ML SYRINGE SQ SCH ×2 (02:00→13:21)
[2017-09-23 07:46] VITALS: BP 106/65; PULSE 60; RESP 19; TEMP 95.9; O2SAT 97
[2017-09-23] MEDS: FLUoxetine HCL 20 MG CAP PO SCH (08:18)
[2017-09-23] MEDS: THIAMINE HCL 100 MG TAB PO SCH (08:18)
[2017-09-23] MEDS: PANTOPRAZOLE SOD 40 MG DELAYED RELEASE TAB PO SCH (08:18)
[2017-09-23] MEDS: DOCUSATE SODIUM 50 MG/SENNA 8.6 MG TAB PO SCH ×2 (08:18→20:27)
[2017-09-23] MEDS: BENZTROPINE MESYLATE 1 MG TAB PO SCH ×2 (08:18→20:27)
[2017-09-23] MEDS: SODIUM CHLORIDE 0.9% FLUSH 10 ML FLUSH IV FLUSH SCH ×2 (08:19→20:27)
[2017-09-23 11:35] VITALS: BP 123/72; PULSE 77; RESP 18; TEMP 95.6; O2SAT 97
[2017-09-23 15:45] VITALS: BP 110/70; PULSE 76; RESP 18; TEMP 99.7; O2SAT 96
--- NOTE | 2017-09-23 16:55 | HHI.PR ---
Subjective Remarks no major overnight events. States only has pain in her right hip when he walks. Objective Vitals Vital Signs Date Time Temp Pulse Resp B/P (MAP) Pulse Ox O2 Delivery O2 Flow Rate FiO2 09/23/17 15:45 99.7 76 18 110/70 (83) 96 09/23/17 11:35 95.6 77 18 123/72 (89) 97 09/23/17 07:46 95.9 60 19 106/65 (79) 97 09/23/17 00:40 96.7 66 17 119/70 (86) 97 09/22/17 20:45 96.8 75 17 112/62 (79) 96 I/O 09/22/17 09/22/17 09/22/17 09/23/17 09/23/17 09/23/17 07:00 15:00 23:00 07:00 15:00 23:00 Intake Total 240 ml 900 ml 360 ml 240 ml 900 ml Output Total 400 ml 400 ml Balance 240 ml 900 ml 360 ml -160 ml 500 ml Intake Oral 240 ml 900 ml 360 ml 240 ml 900 ml Output Urine Total 400 ml 400 ml # Voids 1 2 1 1 # Bowel Movements 0 0 0 Imaging Last Impressions Hip X-Ray 09/13/17 0000 Signed Impressions: Service Date/Time: Wednesday, September 13, 2017 13:43 - CONCLUSION: Intact postsurgical changes. Marco Antonio Ferreira MD Chest X-Ray 09/12/172099 Signed Impressions: Service Date/Time: Tuesday, September 12, 2017 22:32 - CONCLUSION: 1. Changes of obstructive pulmonary disease without acute abnormality or significant interval change. Sahil Gregorio MD Thoracic Spine X-Ray 09/12/172052 Signed Impressions: Service Date/Time: Tuesday, September 12, 2017 22:42 - CONCLUSION: 1. Limited AP view of the thoracic spine demonstrates no gross fracture or subluxation. Sahil Gregorio MD Hip and Pelvis X-Ray 09/12/172052 Signed Impressions: Service Date/Time: Tuesday, September 12, 2017 22:38 - CONCLUSION: 1. Right femoral intertrochanteric fracture. Sahil Gregorio MD Cervical Spine X-Ray 09/12/172052 Signed Impressions: Service Date/Time: Tuesday, September 12, 2017 22:43 - CONCLUSION: 1. Limited lateral examination with nonvisualization of C7-T1. 2. Otherwise, no acute fracture or subluxation. 3. Degenerative spondylosis of the lower cervical spine. Sahil Gregorio MD Objective Remarks GENERAL: Alert, NAD. SKIN: Warm and dry. HEAD: Normocephalic. EYES: No scleral icterus. No injection or drainage. NECK: Supple, trachea midline. No JVD or lymphadenopathy. CARDIOVASCULAR: Regular rate and rhythm without murmurs, gallops, or rubs. RESPIRATORY: Breath sounds equal bilaterally. No accessory muscle use. GASTROINTESTINAL: Abdomen soft, non-tender, nondistended. MUSCULOSKELETAL: No cyanosis, or edema. s/p right hip intramedullary rob fixation. BACK: Nontender without obvious deformity. No CVA tenderness. Procedures 09/13/2017 Right hip intramedullary rob fixation Medications and IVs Current Medications Medications (Trade) Dose Ordered Sig/Micah Route Start Time Stop Time Status Last Admin (Tylenol) 650 mg Q4H PRN PO 09/12/17 23:15 (Zofran Inj) 4 mg Q6H PRN IVP 09/12/17 23:15 09/19/17 23:02 (Morphine Inj) 2 mg Q3H PRN IV PUSH 09/12/17 23:15 (Morphine Inj) 4 mg Q3H PRN IV PUSH 09/12/17 23:15 09/13/17 06:10 (Vitamin B1) 100 mg DAILY PO 09/13/17 09:00 09/23/17 08:18 (Protonix) 40 mg DAILY PO 09/13/17 09:00 09/23/17 08:18 (Romazicon Inj) 0.2 mg Q1M PRN IV PUSH 09/13/17 06:30 (Ativan) 1 mg Q4H PRN PO 09/13/17 06:30 (Ativan Inj) 1 mg Q4H PRN IV PUSH 09/13/17 06:30 (Ativan) 2 mg Q2H PRN PO 09/13/17 06:30 (Ativan Inj) 2 mg Q2H PRN IV PUSH 09/13/17 06:30 (Ativan Inj) 2 mg Q1H PRN IV PUSH 09/13/17 06:30 (Ativan Inj) 2 mg Q15M PRN IV PUSH 09/13/17 06:30 (Haldol Inj) 2 mg Q15M PRN IM 09/13/17 06:30 (NS Flush) 2 ml UNSCH PRN IV FLUSH 09/13/17 14:30 (NS Flush) 2 ml BID IV FLUSH 09/13/17 21:00 09/23/17 08:19 (Lovenox Inj) 30 mg Q12H SQ 09/14/17 02:00 09/23/17 13:21 (Percocet 5-325 Mg) 1 tab Q4H PRN PO 09/13/17 14:30 09/22/17 20:26 (Percocet 5-325 Mg) 2 tab Q4H PRN PO 09/13/17 14:30 09/20/17 19:28 (Phenergan) 25 mg Q4H PRN PO 09/13/17 14:30 09/22/17 20:25 (Ambien) 5 mg HS PRN PO 09/13/17 21:00 (Vicky-Colace) 1 tab BID PO 09/13/17 21:00 09/23/17 08:18 (Milk Of Magnesia Liq) 30 ml Q12H PRN PO 09/13/17 14:30 09/22/17 20:24 (Senokot) 17.2 mg Q12H PRN PO 09/13/17 14:30 09/17/17 08:43 (Dulcolax Supp) 10 mg DAILY PRN RECTAL 09/13/17 14:30 (Lactulose Liq) 30 ml DAILY PRN PO 09/13/17 14:30 (Cogentin) 0.5 mg BID PO 09/14/17 21:00 09/23/17 08:18 (Vistaril) 50 mg BID PO 09/14/17 21:00 09/23/17 08:18 (PROzac) 40 mg DAILY PO 09/15/17 09:00 09/23/17 08:18 A/P Problem List: (1) Closed right hip fracture ICD Code: S72.001A - Fracture of unspecified part of neck of right femur, initial encounter for closed fracture Status: Acute (2) Schizoaffective disorder ICD Code: F25.9 - Schizoaffective disorder Status: Acute Assessment and Plan Mr. Dove is a pleasant 62-year-old male who was admitted to the hospital after a fall. He sustained a right hip fracture. He underwent intramedullary rob fixation on 09/13/2017. - Right hip fracture - Status post intramedullary rob fixation - Percocet, morphine for pain. - Lovenox 30 mg every 12 hours. - Bowel regimen. - Continue with physical therapy. PT recommends SNF which might be difficult to arrange due to lack of insurance. - However patient has family members in [place]. Home health would be an option. - Alcohol abuse - continue CIWA protocol, thiamine, folic acid. -NO evidence of withdrawal - Depression - GERD - Continue home medications Prozac, PPI. - Nausea - Possibly due to GERD. On phenergan. Full code. Lovenox. Discharge Planning Dc pending ortho clearance.At this time, no safe discharge disposition for patient - no payer source for rehab or HHC. Patient is homeless. Discussed with case reviewer. Problem Qualifiers (1) Closed right hip fracture: Qualified Codes: S72.001A - Fracture of unspecified part of neck of right femur , initial encounter for closed fracture Aravind Duran MD Sep 23, 2017 16:55
[2017-09-23] MEDS: PROMETHAZINE HCL 25 MG TAB PO PRN (20:27)
[2017-09-23 21:17] VITALS: BP 120/71; PULSE 76; RESP 18; TEMP 96.9; O2SAT 98
[2017-09-23 23:05] VITALS: BP 121/70; PULSE 69; RESP 18; TEMP 97.9; O2SAT 96
[2017-09-24] MEDS: ENOXAPARIN SODIUM 30 MG/0.3 ML SYRINGE SQ SCH ×2 (02:05→15:50)
[2017-09-24 07:39] VITALS: BP 115/71; PULSE 71; RESP 18; TEMP 99; O2SAT 97
[2017-09-24] MEDS: BENZTROPINE MESYLATE 1 MG TAB PO SCH ×2 (08:18→19:36)
[2017-09-24] MEDS: DOCUSATE SODIUM 50 MG/SENNA 8.6 MG TAB PO SCH ×2 (08:18→19:36)
[2017-09-24] MEDS: LACTULOSE SYRUP 20 GM/30 ML CUP PO PRN (08:18)
[2017-09-24] MEDS: PANTOPRAZOLE SOD 40 MG DELAYED RELEASE TAB PO SCH (08:18)
[2017-09-24] MEDS: FLUoxetine HCL 20 MG CAP PO SCH (08:18)
[2017-09-24] MEDS: THIAMINE HCL 100 MG TAB PO SCH (08:18)
[2017-09-24] MEDS: SODIUM CHLORIDE 0.9% FLUSH 10 ML FLUSH IV FLUSH SCH ×2 (08:18→19:37)
[2017-09-24] MEDS: oxyCODONE/ACETAMINOPHEN 5 MG/325 MG TAB PO PRN ×2 (08:22→19:36)
[2017-09-24 11:51] VITALS: BP 114/75; PULSE 77; RESP 18; TEMP 99.1; O2SAT 99
--- NOTE | 2017-09-24 15:39 | HHI.PR ---
Subjective Remarks Patient reports he is feeling ok. States he is working with PT to get stronger. Objective Vitals Vital Signs Date Time Temp Pulse Resp B/P (MAP) Pulse Ox O2 Delivery O2 Flow Rate FiO2 09/24/17 11:51 99.1 77 18 114/75 (88) 99 09/24/17 07:39 99.0 71 18 115/71 (86) 97 09/23/17 23:05 97.9 69 18 121/70 (87) 96 09/23/17 21:17 96.9 76 18 120/71 (87) 98 09/23/17 15:45 99.7 76 18 110/70 (83) 96 I/O 09/23/17 09/23/17 09/23/17 09/24/17 09/24/17 09/24/17 07:00 15:00 23:00 07:00 15:00 23:00 Intake Total 240 ml 900 ml 480 ml 480 ml 800 ml Output Total 400 ml 400 ml 1000 ml 500 ml Balance -160 ml 500 ml 480 ml -520 ml 300 ml Intake Oral 240 ml 900 ml 480 ml 480 ml 800 ml Output Urine Total 400 ml 400 ml 1000 ml 500 ml # Voids 1 3 2 # Bowel Movements 0 0 0 1 Objective Remarks GENERAL: no acute distress. CARDIOVASCULAR: Regular rate and rhythm without murmurs, gallops, or rubs. RESPIRATORY: Clear to auscultation. Breath sounds equal bilaterally. No wheezes , rales, or rhonchi. GASTROINTESTINAL: Abdomen soft, non-tender, nondistended. Normal active bowel sounds MUSCULOSKELETAL: Extremities without clubbing, cyanosis, or edema. NEURO: Alert & Oriented x4 to person, place, time, situation. Moves all ext x4 Procedures 09/13/2017 Right hip intramedullary rob fixation A/P Problem List: (1) Closed right hip fracture ICD Code: S72.001A - Fracture of unspecified part of neck of right femur, initial encounter for closed fracture Status: Acute Assessment and Plan 62-year-old male who was admitted to the hospital after a fall. He sustained a right hip fracture. He underwent intramedullary rob fixation on 09/13/2017. - Right hip fracture - Status post intramedullary rob fixation - Percocet, morphine for pain. - Lovenox 30 mg every 12 hours. - Bowel regimen. - Continue with physical therapy. PT recommends SNF which might be difficult to arrange due to lack of insurance. - Continue rehab efforts. CM following. - Alcohol abuse - continue thiamine, folic acid. -NO evidence of withdrawal - Depression - GERD - Continue home medications Prozac, PPI. - Nausea - Possibly due to GERD. On phenergan. Full code. Lovenox. Discharge Planning No safe DC plans at this time. Patient has nowhere to go. Continue rehab efforts. CM following. Problem Qualifiers (1) Closed right hip fracture: Qualified Codes: S72.001A - Fracture of unspecified part of neck of right femur , initial encounter for closed fracture Christine Martinez MD Sep 24, 2017 15:39
[2017-09-24 16:00] VITALS: BP 111/63; PULSE 72; RESP 18; TEMP 98.1; O2SAT 97
[2017-09-24 19:00] VITALS: BP 120/69; PULSE 70; RESP 19; TEMP 96.4; O2SAT 97
[2017-09-24 23:11] VITALS: BP 104/59; PULSE 65; RESP 18; TEMP 96.9; O2SAT 97
[2017-09-25] MEDS: ENOXAPARIN SODIUM 30 MG/0.3 ML SYRINGE SQ SCH ×2 (02:33→14:39)
[2017-09-25 08:00] VITALS: BP 118/66; PULSE 63; RESP 17; TEMP 98.9; O2SAT 98
[2017-09-25] MEDS: SODIUM CHLORIDE 0.9% FLUSH 10 ML FLUSH IV FLUSH SCH ×2 (09:00→21:00)
[2017-09-25] MEDS: DOCUSATE SODIUM 50 MG/SENNA 8.6 MG TAB PO SCH ×2 (09:20→21:00)
[2017-09-25] MEDS: FLUoxetine HCL 20 MG CAP PO SCH (09:20)
[2017-09-25] MEDS: BENZTROPINE MESYLATE 1 MG TAB PO SCH ×2 (09:20→21:00)
[2017-09-25 12:00] VITALS: BP 119/70; PULSE 66; RESP 17; TEMP 98.6; O2SAT 98
--- NOTE | 2017-09-25 12:27 | HHI.PR ---
Subjective Remarks No new issues. Patient states he is doing ok. Objective Vitals Vital Signs Date Time Temp Pulse Resp B/P (MAP) Pulse Ox O2 Delivery O2 Flow Rate FiO2 09/24/17 23:11 96.9 65 18 104/59 (74) 97 09/24/17 19:00 96.4 70 19 120/69 (86) 97 09/24/17 16:00 98.1 72 18 111/63 (79) 97 I/O 09/24/17 09/24/17 09/24/17 09/25/17 09/25/17 09/25/17 07:00 15:00 23:00 07:00 15:00 23:00 Intake Total 480 ml 800 ml 480 ml 480 ml Output Total 1000 ml 500 ml 475 ml Balance -520 ml 300 ml 480 ml 5 ml Intake Oral 480 ml 800 ml 480 ml 480 ml Output Urine Total 1000 ml 500 ml 475 ml # Voids 2 3 # Bowel Movements 0 1 0 0 Objective Remarks GENERAL: no acute distress. CARDIOVASCULAR: Regular rate and rhythm without murmurs, gallops, or rubs. RESPIRATORY: Clear to auscultation. Breath sounds equal bilaterally. No wheezes , rales, or rhonchi. GASTROINTESTINAL: Abdomen soft, non-tender, nondistended. Normal active bowel sounds MUSCULOSKELETAL: Extremities without clubbing, cyanosis, or edema. NEURO: Alert & Oriented x4 to person, place, time, situation. Moves all ext x4 Procedures 09/13/2017 Right hip intramedullary rob fixation A/P Problem List: (1) Closed right hip fracture ICD Code: S72.001A - Fracture of unspecified part of neck of right femur, initial encounter for closed fracture Status: Acute Assessment and Plan 62-year-old male who was admitted to the hospital after a fall. He sustained a right hip fracture. He underwent intramedullary rob fixation on 09/13/2017. - Right hip fracture - Status post intramedullary rob fixation - Percocet PRN pain. - Lovenox 30 mg every 12 hours. - Bowel regimen. - Continue with physical therapy. PT recommends SNF but patient has no benefit. - Continue rehab efforts. CM following. - Alcohol abuse - continue thiamine, folic acid. -No evidence of withdrawal - Depression - GERD - Continue home medications Prozac, PPI. Full code. Lovenox. Discharge Planning No safe DC plans at this time. Patient has nowhere to go. Continue rehab efforts. CM following. Problem Qualifiers (1) Closed right hip fracture: Qualified Codes: S72.001A - Fracture of unspecified part of neck of right femur , initial encounter for closed fracture Christine Martinez MD Sep 25, 2017 12:27
[2017-09-25] MEDS: PROMETHAZINE HCL 25 MG TAB PO PRN (15:10)
[2017-09-25 16:00] VITALS: BP 117/64; PULSE 60; RESP 18; TEMP 98.4; O2SAT 98
[2017-09-25] MEDS: oxyCODONE/ACETAMINOPHEN 5 MG/325 MG TAB PO PRN (18:38)
[2017-09-25 20:00] VITALS: BP 106/65; PULSE 71; RESP 18; TEMP 97.7; O2SAT 96
[2017-09-26] VITALS: BP 110/70; PULSE 77; RESP 16; TEMP 98; O2SAT 95
[2017-09-26] MEDS: ENOXAPARIN SODIUM 30 MG/0.3 ML SYRINGE SQ SCH ×2 (02:11→14:48)
[2017-09-26 07:58] VITALS: BP 109/70; PULSE 62; RESP 18; TEMP 97.3; O2SAT 97
[2017-09-26] MEDS: FLUoxetine HCL 20 MG CAP PO SCH (08:19)
[2017-09-26] MEDS: BENZTROPINE MESYLATE 1 MG TAB PO SCH ×2 (08:19→19:45)
[2017-09-26] MEDS: DOCUSATE SODIUM 50 MG/SENNA 8.6 MG TAB PO SCH ×2 (08:19→19:45)
[2017-09-26] MEDS: SODIUM CHLORIDE 0.9% FLUSH 10 ML FLUSH IV FLUSH SCH ×2 (08:19→19:45)
[2017-09-26 11:17] VITALS: BP 107/65; PULSE 77; RESP 18; TEMP 98.6; O2SAT 97
--- NOTE | 2017-09-26 12:06 | HHI.PR ---
Subjective Remarks "Trying to get my right leg stronger". He has no new complaints. Objective Vitals Vital Signs Date Time Temp Pulse Resp B/P (MAP) Pulse Ox O2 Delivery O2 Flow Rate FiO2 09/26/17 11:17 98.6 77 18 107/65 (79) 97 09/26/17 07:58 97.3 62 18 109/70 (83) 97 09/26/17 00:00 98.0 77 16 110/70 (83) 95 09/25/17 20:00 97.7 71 18 106/65 (79) 96 09/25/17 16:00 98.4 60 18 117/64 (81) 98 I/O 09/25/17 09/25/17 09/25/17 09/26/17 09/26/17 09/26/17 07:00 15:00 23:00 07:00 15:00 23:00 Intake Total 480 ml 750 ml 720 ml 480 ml Output Total 475 ml 900 ml Balance 5 ml -150 ml 720 ml 480 ml Intake Oral 480 ml 750 ml 720 ml 480 ml Output Urine Total 475 ml 900 ml # Voids 2 2 # Bowel Movements 0 Objective Remarks GENERAL: no acute distress. CARDIOVASCULAR: Regular rate and rhythm without murmurs, gallops, or rubs. RESPIRATORY: Clear to auscultation. Breath sounds equal bilaterally. No wheezes , rales, or rhonchi. GASTROINTESTINAL: Abdomen soft, non-tender, nondistended. Normal active bowel sounds MUSCULOSKELETAL: Extremities without clubbing, cyanosis, or edema. NEURO: Alert & Oriented x4 to person, place, time, situation. Moves all ext x4. Right lower extremity 4+ out of 5. Procedures 09/13/2017 Right hip intramedullary rob fixation A/P Problem List: (1) Closed right hip fracture ICD Code: S72.001A - Fracture of unspecified part of neck of right femur, initial encounter for closed fracture Status: Acute Assessment and Plan 62-year-old male who was admitted to the hospital after a fall. He sustained a right hip fracture. He underwent intramedullary rob fixation on 09/13/2017. - Right hip fracture - Status post intramedullary rob fixation - Percocet PRN pain. - Lovenox 30 mg every 12 hours. - Bowel regimen. - Continue with physical therapy. PT recommends SNF but patient has no benefit. - Continue rehab efforts. CM following. - Alcohol abuse - continue thiamine, folic acid. -No evidence of withdrawal - Depression - GERD - Continue home medications Prozac, PPI. Full code. Lovenox. Discharge Planning No safe DC plans at this time. Patient has nowhere to go. Continue rehab efforts. CM following. Problem Qualifiers (1) Closed right hip fracture: Qualified Codes: S72.001A - Fracture of unspecified part of neck of right femur , initial encounter for closed fracture Christine Martinez MD Sep 26, 2017 12:05
[2017-09-26 16:00] VITALS: BP 111/69; PULSE 65; RESP 18; TEMP 98; O2SAT 97
[2017-09-26] MEDS: oxyCODONE/ACETAMINOPHEN 5 MG/325 MG TAB PO PRN ×2 (17:11→22:08)
[2017-09-26 20:00] VITALS: BP 114/70; PULSE 67; RESP 18; TEMP 98.2; O2SAT 97
[2017-09-27] VITALS: BP 111/70; PULSE 80; RESP 16; TEMP 97.7; O2SAT 98
[2017-09-27] MEDS: ENOXAPARIN SODIUM 30 MG/0.3 ML SYRINGE SQ SCH ×2 (02:07→13:33)
[2017-09-27] MEDS: DOCUSATE SODIUM 50 MG/SENNA 8.6 MG TAB PO SCH ×2 (07:56→19:50)
[2017-09-27] MEDS: BENZTROPINE MESYLATE 1 MG TAB PO SCH ×2 (07:56→19:51)
[2017-09-27 08:00] VITALS: BP 119/69; PULSE 57; RESP 18; TEMP 98.2; O2SAT 99
[2017-09-27] MEDS: FLUoxetine HCL 20 MG CAP PO SCH (08:04)
[2017-09-27] MEDS: SODIUM CHLORIDE 0.9% FLUSH 10 ML FLUSH IV FLUSH SCH ×2 (08:06→19:50)
[2017-09-27 11:56] VITALS: BP 107/67; PULSE 62; RESP 18; TEMP 96.5; O2SAT 96
--- NOTE | 2017-09-27 13:35 | HHI.PR ---
Subjective Remarks Patient reports is feeling okay. States the right leg is getting stronger. Objective Vitals Vital Signs Date Time Temp Pulse Resp B/P (MAP) Pulse Ox O2 Delivery O2 Flow Rate FiO2 09/27/17 11:56 96.5 62 18 107/67 (80) 96 09/27/17 08:00 98.2 57 18 119/69 (86) 99 09/27/17 00:00 97.7 80 16 111/70 (84) 98 09/26/17 20:00 98.2 67 18 114/70 (85) 97 09/26/17 18:11 16 09/26/17 16:00 98.0 65 18 111/69 (83) 97 I/O 09/26/17 09/26/17 09/26/17 09/27/17 09/27/17 09/27/17 07:00 15:00 23:00 07:00 15:00 23:00 Intake Total 480 ml 720 ml 480 ml Balance 480 ml 720 ml 480 ml Intake Oral 480 ml 720 ml 480 ml # Voids 2 2 2 Objective Remarks GENERAL: no acute distress. CARDIOVASCULAR: Regular rate and rhythm without murmurs, gallops, or rubs. RESPIRATORY: Clear to auscultation. Breath sounds equal bilaterally. No wheezes , rales, or rhonchi. GASTROINTESTINAL: Abdomen soft, non-tender, nondistended. Normal active bowel sounds MUSCULOSKELETAL: Extremities without clubbing, cyanosis, or edema. NEURO: Alert & Oriented x4 to person, place, time, situation. Moves all ext x4. Right lower extremity 4+ out of 5. Procedures 09/13/2017 Right hip intramedullary rob fixation A/P Problem List: (1) Closed right hip fracture ICD Code: S72.001A - Fracture of unspecified part of neck of right femur, initial encounter for closed fracture Status: Acute Assessment and Plan 62-year-old male who was admitted to the hospital after a fall. He sustained a right hip fracture. He underwent intramedullary rob fixation on 09/13/2017. - Right hip fracture - Status post intramedullary rob fixation - Percocet PRN pain. - Lovenox 30 mg every 12 hours. - Bowel regimen. - Continue with physical therapy. PT recommends SNF but patient has no benefit. - Continue rehab efforts. CM following. Awaiting for patient to get strong enough - Alcohol abuse - continue thiamine, folic acid. -No evidence of withdrawal - Depression - GERD - Continue home medications Prozac, PPI. Full code. Lovenox. Discharge Planning No safe DC plans at this time. Patient has nowhere to go. Continue rehab efforts. CM following. Problem Qualifiers (1) Closed right hip fracture: Qualified Codes: S72.001A - Fracture of unspecified part of neck of right femur , initial encounter for closed fracture Christine Martinez MD Sep 27, 2017 13:35
[2017-09-27] MEDS: oxyCODONE/ACETAMINOPHEN 5 MG/325 MG TAB PO PRN (15:17)
[2017-09-27 20:00] VITALS: BP 109/65; PULSE 64; RESP 16; TEMP 98.1; O2SAT 96
[2017-09-28] MEDS: ENOXAPARIN SODIUM 30 MG/0.3 ML SYRINGE SQ SCH ×2 (04:12→14:07)
[2017-09-28 08:23] VITALS: BP 115/70; PULSE 72; RESP 17; TEMP 97.3; O2SAT 97
[2017-09-28] MEDS: DOCUSATE SODIUM 50 MG/SENNA 8.6 MG TAB PO SCH ×2 (08:24→20:12)
[2017-09-28] MEDS: FLUoxetine HCL 20 MG CAP PO SCH (08:24)
[2017-09-28] MEDS: BENZTROPINE MESYLATE 1 MG TAB PO SCH ×2 (08:24→20:12)
[2017-09-28] MEDS: LACTULOSE SYRUP 20 GM/30 ML CUP PO PRN (08:28)
[2017-09-28] MEDS: SODIUM CHLORIDE 0.9% FLUSH 10 ML FLUSH IV FLUSH SCH ×2 (08:30→20:10)
--- NOTE | 2017-09-28 09:08 | HHI.PR ---
Subjective Remarks Patient reports he is feeling stronger overall. He is sitting up in the chair. Objective Vitals Vital Signs Date Time Temp Pulse Resp B/P (MAP) Pulse Ox O2 Delivery O2 Flow Rate FiO2 09/28/17 08:23 97.3 72 17 115/70 (85) 97 09/27/17 20:00 98.1 64 16 109/65 (80) 96 09/27/17 18:46 Room Air 09/27/17 16:17 17 09/27/17 11:56 96.5 62 18 107/67 (80) 96 I/O 09/27/17 09/27/17 09/27/17 09/28/17 09/28/17 09/28/17 07:00 15:00 23:00 07:00 15:00 23:00 Intake Total 480 ml 720 ml 900 ml 800 ml Output Total 1250 ml 200 ml 700 ml Balance 480 ml -530 ml 700 ml 100 ml Intake Oral 480 ml 720 ml 900 ml 800 ml Output Urine Total 1250 ml 200 ml 700 ml # Voids 2 1 2 # Bowel Movements 0 Objective Remarks GENERAL: no acute distress. CARDIOVASCULAR: Regular rate and rhythm without murmurs, gallops, or rubs. RESPIRATORY: Clear to auscultation. Breath sounds equal bilaterally. No wheezes , rales, or rhonchi. GASTROINTESTINAL: Abdomen soft, non-tender, nondistended. Normal active bowel sounds MUSCULOSKELETAL: Extremities without clubbing, cyanosis, or edema. NEURO: Alert & Oriented x4 to person, place, time, situation. Moves all ext x4. Right lower extremity 4+ out of 5. Procedures 09/13/2017 Right hip intramedullary rob fixation A/P Problem List: (1) Closed right hip fracture ICD Code: S72.001A - Fracture of unspecified part of neck of right femur, initial encounter for closed fracture Status: Acute Assessment and Plan 62-year-old male who was admitted to the hospital after a fall. He sustained a right hip fracture. He underwent intramedullary rob fixation on 09/13/2017. The patient is getting daily physical therapy. He is currently not strong enough to discharge home. He has no benefit for SNF placement - Right hip fracture - Status post intramedullary rob fixation - Percocet PRN pain. - Lovenox 30 mg every 12 hours. - Bowel regimen. - Continue with physical therapy. PT recommends SNF but patient has no benefit. - Continue rehab efforts. CM following. Awaiting for patient to get strong enough - Alcohol abuse - continue thiamine, folic acid. -No evidence of withdrawal - Depression - GERD - Continue home medications Prozac, PPI. Full code. Lovenox. Discharge Planning No safe DC plans at this time. Patient has nowhere to go. Continue rehab efforts. CM following. Problem Qualifiers (1) Closed right hip fracture: Qualified Codes: S72.001A - Fracture of unspecified part of neck of right femur , initial encounter for closed fracture Christine Martinez MD Sep 28, 2017 09:07
[2017-09-28 12:22] VITALS: BP 97/69; PULSE 87; RESP 18; TEMP 98.7; O2SAT 97
[2017-09-28] MEDS: oxyCODONE/ACETAMINOPHEN 5 MG/325 MG TAB PO PRN ×2 (16:32→20:12)
[2017-09-28 16:44] VITALS: BP 108/70; PULSE 67; RESP 18; TEMP 97.6; O2SAT 96
[2017-09-28 19:17] VITALS: BP 107/69; PULSE 62; RESP 18; TEMP 98.1; O2SAT 96
[2017-09-29 00:27] VITALS: BP 96/62; PULSE 71; RESP 18; TEMP 96.7; O2SAT 96
[2017-09-29] MEDS: ENOXAPARIN SODIUM 30 MG/0.3 ML SYRINGE SQ SCH ×2 (03:41→13:18)
[2017-09-29 08:00] VITALS: BP 109/67; PULSE 58; RESP 16; TEMP 96.9; O2SAT 98
[2017-09-29] MEDS: SODIUM CHLORIDE 0.9% FLUSH 10 ML FLUSH IV FLUSH SCH ×2 (08:30→19:30)
[2017-09-29] MEDS: oxyCODONE/ACETAMINOPHEN 5 MG/325 MG TAB PO PRN ×2 (08:31→19:22)
[2017-09-29] MEDS: DOCUSATE SODIUM 50 MG/SENNA 8.6 MG TAB PO SCH ×2 (08:31→19:30)
[2017-09-29] MEDS: BENZTROPINE MESYLATE 1 MG TAB PO SCH ×2 (08:31→19:31)
[2017-09-29] MEDS: FLUoxetine HCL 20 MG CAP PO SCH (08:31)
--- NOTE | 2017-09-29 11:20 | HHI.PR ---
Subjective Remarks he says he is feeling all right. Reports pain is controlled. Says he is getting stronger. Objective Vital Signs Date Time Temp Pulse Resp B/P (MAP) Pulse Ox O2 Delivery O2 Flow Rate FiO2 09/29/17 08:00 96.9 58 16 109/67 (81) 98 09/29/17 00:27 96.7 71 18 96/62 (73) 96 09/28/17 21:53 Room Air 09/28/17 21:11 18 09/28/17 19:17 98.1 62 18 107/69 (82) 96 09/28/17 17:32 17 09/28/17 16:44 97.6 67 18 108/70 (83) 96 09/28/17 12:22 98.7 87 18 97/69 (78) 97 I/O 09/28/17 09/28/17 09/28/17 09/29/17 09/29/17 09/29/17 07:00 15:00 23:00 07:00 15:00 23:00 Intake Total 800 ml 1200 ml 480 ml Output Total 700 ml 775 ml Balance 100 ml 425 ml 480 ml Intake Oral 800 ml 1200 ml 480 ml Output Urine Total 700 ml 775 ml # Voids 2 5 3 # Bowel Movements 0 0 Objective Remarks GENERAL: Patient sitting up in bed. Appears comfortable. SKIN: Warm and dry. HEAD: Normocephalic. EYES: No scleral icterus. No injection or drainage. NECK: Supple, trachea midline. No JVD or lymphadenopathy. CARDIOVASCULAR: Regular rate and rhythm without murmurs, gallops, or rubs. RESPIRATORY: Breath sounds equal bilaterally. No accessory muscle use. GASTROINTESTINAL: Abdomen soft, non-tender, nondistended. MUSCULOSKELETAL: No cyanosis, or edema. Right hip with dressing clean dry and intact. BACK: Nontender without obvious deformity. No CVA tenderness. A/P Assessment and Plan Assessment and Plan 62-year-old male who was admitted to the hospital after a fall. He sustained a right hip fracture. He underwent intramedullary rob fixation on 09/13/2017. The patient is getting daily physical therapy. He is currently not strong enough to discharge home. He has no benefit for SNF placement //Closed Right hip fracture - Status post intramedullary rob fixation - Percocet PRN pain. - Lovenox 30 mg every 12 hours. - Bowel regimen. - Continue with physical therapy. PT recommends SNF but patient has no benefit. - Continue rehab efforts. CM following. Awaiting for patient to get strong enough =2/6 Ortho to removed asif. Discussed with nursing. Appreciate assistance. //Postop anemia //Cellulitis on admission. -Likely both secondary to alcohol. Will recheck as would be done at regular outpatient follow-up. //Alcohol abuse - continue thiamine, folic acid. -No evidence of withdrawal //Depression //GERD - Continue home medications Prozac, PPI. Full code. Lovenox. Discharge Planning No safe DC plans at this time. Appreciate case management assistance. Discussed with case management and nursing at [facility] Raoul Ordaz MD Sep 29, 2017 11:20
[2017-09-29 12:00] VITALS: BP 108/61; PULSE 70; RESP 16; TEMP 97.2; O2SAT 97
[2017-09-29] MEDS ORDERED: THIAMINE HCL 100 MG TAB PO ONE (12:00)
--- NOTE | 2017-09-29 14:28 | RADRPT ---
EXAM DATE/TIME: 09/29/2017 13:27 [facility] COMPARISON: HIP RIGHT (AP&LAT 2/3VWS) WO AP PELVIS, September 13, 2017, 13:43. INDICATIONS : Fell 2 weeks ago MEDICAL HISTORY : None. SURGICAL HISTORY : right hip surgery 08/2017 ENCOUNTER: Initial ACUITY: 1 day PAIN SCORE: 8/10 LOCATION: Right hip FINDINGS: The patient is status post ORIF of right proximal femur fracture with hardware in good position. CONCLUSION: Status post ORIF of right proximal femur fracture with hardware in good position. Keo Carter MD on September 29, 2017 at 14:26 Board Certified Radiologist. This report was verified electronically.
[2017-09-29 15:13] LABS: AUTOMATED NEUTROPHIL # 3.2 TH/MM3 (1.8-7.7); BASOPHIL # 0.1 TH/MM3 (0-0.2); BASOPHIL % 1.4 % (0.0-2.0); EOSINOPHIL # 0.2 TH/MM3 (0-0.4); EOSINOPHIL % 3.3 % (0.0-4.0); HEMATOCRIT 28.7 % (39.0-51.0); HEMOGLOBIN 10.2 GM/DL (13.0-17.0); LYMPH % 31.1 % (9.0-44.0); LYMPHOCYTE # 1.8 TH/MM3 (1.0-4.8); MEAN CELL VOLUME 88.6 FL (80.0-100.0); MEAN CORPUSCULAR HEMOGLOBIN 31.5 PG (27.0-34.0); MEAN CORPUSCULAR HGB CONC 35.6 % (32.0-36.0); MEAN PLATELET VOLUME 6.9 FL (7.0-11.0); MONO % 10.3 % (0.0-8.0); MONOCYTE # 0.6 TH/MM3 (0-0.9); NEUT % 53.9 % (16.0-70.0); PLATELET COUNT 506 TH/MM3 (150-450); RED BLOOD COUNT 3.24 MIL/MM3 (4.50-5.90); RED CELL DISTRIBUTION WIDTH 12.8 % (11.6-17.2); WHITE BLOOD COUNT 5.9 TH/MM3 (4.0-11.0)
[2017-09-29 15:33] LABS: ALBUMIN 3.1 GM/DL (3.4-5.0); AST (GOT) 52 U/L (15-37); BICARBONATE 30.6 MEQ/L (21.0-32.0); BLOOD UREA NITROGEN 12 MG/DL (7-18); CALCIUM 8.1 MG/DL (8.5-10.1); CHLORIDE 102 MEQ/L (98-107); CREATININE 0.77 MG/DL (0.60-1.30); GLOMERULAR FILTRATION RATE 102 ML/MIN (>89); GLUCOSE,RANDOM 85 MG/DL (74-106); SODIUM (NA) 138 MEQ/L (136-145)
[2017-09-29 15:59] LABS: ALKALINE PHOSPHATASE 156 U/L (45-117); ALT (GPT) 78 U/L (12-78); TOTAL BILIRUBIN ADULT 0.4 MG/DL (0.2-1.0); TOTAL PROTEIN 6.9 GM/DL (6.4-8.2)
[2017-09-29 16:00] VITALS: BP 108/61; PULSE 62; RESP 16; TEMP 97.2; O2SAT 96
[2017-09-29 17:00] VITALS: BP 141/92; PULSE 128
--- NOTE | 2017-09-29 17:50 | PD.ORT.PN ---
Subjective Subjective Remarks no issues. pain controlled Objective Vitals Vital Signs Date Time Temp Pulse Resp B/P (MAP) Pulse Ox O2 Delivery O2 Flow Rate FiO2 09/29/17 17:00 128 141/92 (108) 09/29/17 16:00 97.2 62 16 108/61 (77) 96 09/29/17 12:00 97.2 70 16 108/61 (77) 97 09/29/17 08:00 96.9 58 16 109/67 (81) 98 09/29/17 00:27 96.7 71 18 96/62 (73) 96 09/28/17 21:53 Room Air 09/28/17 21:11 18 09/28/17 19:17 98.1 62 18 107/69 (82) 96 I/O 09/28/17 09/28/17 09/28/17 09/29/17 09/29/17 09/29/17 07:00 15:00 23:00 07:00 15:00 23:00 Intake Total 800 ml 1200 ml 480 ml Output Total 700 ml 775 ml Balance 100 ml 425 ml 480 ml Intake Oral 800 ml 1200 ml 480 ml Output Urine Total 700 ml 775 ml # Voids 2 5 3 # Bowel Movements 0 0 Result Diagram: 09/29/17 1426 09/29/17 1426 Imaging Last 24 hours Impressions Hip X-Ray 09/29/17 0000 Signed Impressions: Service Date/Time: Friday, September 29, 2017 13:27 - CONCLUSION: Status post ORIF of right proximal femur fracture with hardware in good position. Keo Carter MD Objective Remarks aaox3, NAD RLE: nvi. dressing CDI. small distal wound hematoma. no drainage. SILT distally Assessment & Plan Assessment and Plan DOS: Sep 13, 2017 POSTP-OP- Right hip IMN Doing well Antiocoagulation: Lovenox or chemical ppx up to 4 wks postop Weight bearing status: WBAT Dressing: Change daily, by RN. dc sutures Dispo: clear to dc per ortho. F/U 2 wks outpatient Bon Boles Jr., MD Sep 29, 2017 17:49
[2017-09-29] MEDS: MAGNESIUM HYDROXIDE SUSP 30 ML CUP PO PRN (19:30)
[2017-09-29 20:40] VITALS: BP 112/63; PULSE 77; RESP 18; TEMP 97.8; O2SAT 98
[2017-09-30 00:20] VITALS: BP 103/66; PULSE 74; RESP 18; TEMP 96.7; O2SAT 96
[2017-09-30] MEDS: ENOXAPARIN SODIUM 30 MG/0.3 ML SYRINGE SQ SCH ×2 (01:30→14:25)
[2017-09-30 08:00] VITALS: BP 130/77; PULSE 63; RESP 18; TEMP 97.5; O2SAT 97
[2017-09-30] MEDS: LACTULOSE SYRUP 20 GM/30 ML CUP PO PRN (08:40)
[2017-09-30] MEDS: DOCUSATE SODIUM 50 MG/SENNA 8.6 MG TAB PO SCH ×2 (08:41→22:11)
[2017-09-30] MEDS: THIAMINE HCL 100 MG TAB PO SCH (08:41)
[2017-09-30] MEDS: oxyCODONE/ACETAMINOPHEN 5 MG/325 MG TAB PO PRN ×3 (08:41→22:15)
[2017-09-30] MEDS: BENZTROPINE MESYLATE 1 MG TAB PO SCH ×2 (08:41→22:11)
[2017-09-30] MEDS: FLUoxetine HCL 20 MG CAP PO SCH (08:41)
[2017-09-30] MEDS: SODIUM CHLORIDE 0.9% FLUSH 10 ML FLUSH IV FLUSH SCH ×2 (08:44→22:11)
[2017-09-30 12:00] VITALS: BP 108/69; PULSE 75; RESP 18; TEMP 98.4; O2SAT 93
[2017-09-30 16:00] VITALS: BP 115/69; PULSE 65; RESP 18; TEMP 97.8; O2SAT 97
--- NOTE | 2017-09-30 17:57 | HHI.PR ---
Subjective Remarks Patient seen this morning. Sitting up in chair. He reports pain is under control. Denies any chest pain or shortness of breath. He does report some constipation. Requesting mild laxative Objective Vital Signs Date Time Temp Pulse Resp B/P (MAP) Pulse Ox O2 Delivery O2 Flow Rate FiO2 09/30/17 16:00 97.8 65 18 115/69 (84) 97 09/30/17 12:00 98.4 75 18 108/69 (82) 93 09/30/17 08:00 97.5 63 18 130/77 (94) 97 09/30/17 00:20 96.7 74 18 103/66 (78) 96 09/29/17 21:35 Room Air 09/29/17 20:40 97.8 77 18 112/63 (79) 98 09/29/17 20:38 18 I/O 09/29/17 09/29/17 09/29/17 09/30/17 09/30/17 09/30/17 07:00 15:00 23:00 07:00 15:00 23:00 Intake Total 480 ml 1340 ml 360 ml 720 ml Output Total 775 ml 950 ml Balance 480 ml 565 ml 360 ml -230 ml Intake Oral 480 ml 1340 ml 360 ml 720 ml Output Urine Total 775 ml 950 ml # Voids 3 3 2 # Bowel Movements 0 0 0 0 Result Diagram: 09/29/17 1426 09/29/17 1426 Objective Remarks GENERAL: Patient sitting up in chair. Appears comfortable. no change on exam SKIN: Warm and dry. HEAD: Normocephalic. EYES: No scleral icterus. No injection or drainage. NECK: Supple, trachea midline. No JVD or lymphadenopathy. CARDIOVASCULAR: Regular rate and rhythm without murmurs, gallops, or rubs. RESPIRATORY: Breath sounds equal bilaterally. No accessory muscle use. GASTROINTESTINAL: Abdomen soft, non-tender, nondistended. MUSCULOSKELETAL: No cyanosis, or edema. Right hip with dressing clean dry and intact. BACK: Nontender without obvious deformity. No CVA tenderness. A/P Assessment and Plan Assessment and Plan 62-year-old male who was admitted to the hospital after a fall. He sustained a right hip fracture. He underwent intramedullary rob fixation on 09/13/2017. The patient is getting daily physical therapy. He is currently not strong enough to discharge home. He has no benefit for SNF placement //Closed Right hip fracture - Status post intramedullary rob fixation - Percocet PRN pain. - Lovenox 30 mg every 12 hours. - Bowel regimen. - Continue with physical therapy. PT recommends SNF but patient has no benefit. - Continue rehab efforts. CM following. Awaiting for patient to get strong enough =09/29 Ortho to removed asif. Discussed with nursing. Appreciate assistance. = 09/30. Patient cleared for weightbearing status, however still walking with some difficulty in the hallway with PT. Appreciate PT assistance on strengthening. //Postop anemia //Cellulitis on admission. -Likely both secondary to alcohol. Will recheck as would be done at regular outpatient follow-up. = Hemoglobin 10. Stable. Check iron studies. //Alcohol abuse - continue thiamine, folic acid. -No evidence of withdrawal -LFTs improving. Case management to supplied patient with rehabilitation information. //Depression //GERD - Continue home medications Prozac, PPI. Full code. Lovenox. Discharge Planning Patient walking with walker and assistance. =Expect to be able to discharge to a ground floor residence in the next few days. = difficulty finding a ground floor residence. Appreciate case management assistance. Raoul Ordaz MD Sep 30, 2017 17:57
[2017-09-30] MEDS: SENNOSIDES 8.6 MG TAB PO PRN (18:33)
[2017-09-30] MEDS: MAGNESIUM HYDROXIDE SUSP 30 ML CUP PO PRN (18:33)
[2017-09-30 20:13] VITALS: BP 112/62; PULSE 63; RESP 17; TEMP 96.7; O2SAT 96
[2017-09-30 21:35] LABS: % SATURATION IRON PROFILE 17.1 % (20-50); IRON (FE) 60 MCG/DL (65-175); TOTAL IRON BINDING CAPACITY 351 MCG/DL (250-450)
[2017-09-30 21:38] LABS: FERRITIN 223 NG/ML (26-388)
[2017-10-01 00:19] VITALS: BP 102/60; PULSE 60; RESP 18; TEMP 97.1; O2SAT 96
[2017-10-01] MEDS: ENOXAPARIN SODIUM 30 MG/0.3 ML SYRINGE SQ SCH ×2 (02:06→13:18)
[2017-10-01 08:00] VITALS: BP 115/71; PULSE 55; RESP 18; TEMP 96.5; O2SAT 98
[2017-10-01] MEDS: THIAMINE HCL 100 MG TAB PO SCH (09:28)
[2017-10-01] MEDS: BENZTROPINE MESYLATE 1 MG TAB PO SCH ×2 (09:28→21:13)
[2017-10-01] MEDS: DOCUSATE SODIUM 50 MG/SENNA 8.6 MG TAB PO SCH ×2 (09:28→21:13)
[2017-10-01] MEDS: oxyCODONE/ACETAMINOPHEN 5 MG/325 MG TAB PO PRN ×4 (09:28→21:12)
[2017-10-01] MEDS: FLUoxetine HCL 20 MG CAP PO SCH (09:28)
[2017-10-01] MEDS: SODIUM CHLORIDE 0.9% FLUSH 10 ML FLUSH IV FLUSH SCH ×2 (09:33→21:13)
[2017-10-01 12:00] VITALS: BP 108/73; PULSE 86; RESP 18; TEMP 97.8; O2SAT 99
[2017-10-01 16:00] VITALS: BP 117/65; PULSE 98; RESP 18; TEMP 99.4; O2SAT 95
[2017-10-01] MEDS ORDERED: WALKER WHEELS/F1 MIS (17:28)
[2017-10-01] MEDS ORDERED: CANE/ALUMINUM/A1 MIS (17:28)
--- NOTE | 2017-10-01 17:39 | HHI.PR ---
Subjective Remarks Patient seen walking around the [place]. Appears comfortable. Patient says he is feeling well. Discussed with case management, PTT. PT is walk patient upstairs , feels like he will be able to go home to his second floor apartment tomorrow. Objective Vital Signs Date Time Temp Pulse Resp B/P (MAP) Pulse Ox O2 Delivery O2 Flow Rate FiO2 10/01/17 16:00 99.4 98 18 117/65 (82) 95 10/01/17 12:00 97.8 86 18 108/73 (85) 99 10/01/17 09:33 Room Air 10/01/17 08:00 96.5 55 18 115/71 (86) 98 10/01/17 00:19 97.1 60 18 102/60 (74) 96 09/30/17 23:22 18 09/30/17 22:57 Room Air 09/30/17 20:13 96.7 63 17 112/62 (79) 96 I/O 09/30/17 09/30/17 09/30/17 10/01/17 10/01/17 10/01/17 07:00 15:00 23:00 07:00 15:00 23:00 Intake Total 360 ml 720 ml 480 ml 360 ml 800 ml Output Total 950 ml 1050 ml Balance 360 ml -230 ml 480 ml 360 ml -250 ml Intake Oral 360 ml 720 ml 480 ml 360 ml 800 ml Output Urine Total 950 ml 1050 ml # Voids 2 3 3 # Bowel Movements 0 0 0 0 2 Result Diagram: 09/29/17 1426 09/29/17 1426 Objective Remarks GENERAL: Patient sitting up in chair. Appears comfortable. seen walking in [place] as well. appears in good spirits. A/P Assessment and Plan Assessment and Plan 62-year-old male who was admitted to the hospital after a fall. He sustained a right hip fracture. He underwent intramedullary rob fixation on 09/13/2017. The patient is getting daily physical therapy. He is currently not strong enough to discharge home. He has no benefit for SNF placement //Closed Right hip fracture - Status post intramedullary rob fixation - Percocet PRN pain. - Lovenox 30 mg every 12 hours. - Bowel regimen. - Continue with physical therapy. PT recommends SNF but patient has no benefit. - Continue rehab efforts. CM following. Awaiting for patient to get strong enough =2/6 Ortho to removed asif. Discussed with nursing. Appreciate assistance. = 09/30. Patient cleared for weightbearing status, however still walking with some difficulty in the hallway with PT. Appreciate PT assistance on strengthening. = 10/01. Hopefully discharge home in the next 1-2 days when cleared by PT for 1 flight of stairs, and arrangements were made by case management. //Postop anemia //Cellulitis on admission. -Likely both secondary to alcohol. Will recheck as would be done at regular outpatient follow-up. = Hemoglobin 10. Stable. Check iron studies. = B12 within normal limits. Iron studies with ferritin 223, slightly low iron, high TIBC. Nonspecific, likely secondary to chronic liver disease. Alcohol cessation information to be provided by case management. //Alcohol abuse - continue thiamine, folic acid. -No evidence of withdrawal -LFTs improving. Case management to supplied patient with rehabilitation information. //Depression //GERD - Continue home medications Prozac, PPI. Full code. Lovenox. Discharge Planning Patient walking with walker and assistance. = Discharge to second floor residence when cleared by PT. Appreciate case management assistance. Raoul Ordaz MD Oct 01, 2017 17:39
[2017-10-01 20:50] VITALS: BP 109/66; PULSE 84; RESP 18; TEMP 98.9; O2SAT 96
[2017-10-02 00:55] VITALS: BP 102/63; PULSE 73; RESP 18; TEMP 99; O2SAT 97
[2017-10-02] MEDS: ENOXAPARIN SODIUM 30 MG/0.3 ML SYRINGE SQ SCH ×2 (03:11→13:17)
[2017-10-02] MEDS: oxyCODONE/ACETAMINOPHEN 5 MG/325 MG TAB PO PRN ×5 (06:38→18:10)
[2017-10-02 08:00] VITALS: BP 106/67; PULSE 75; RESP 18; TEMP 100.1; O2SAT 96
[2017-10-02] MEDS: DOCUSATE SODIUM 50 MG/SENNA 8.6 MG TAB PO SCH ×2 (09:46→20:45)
[2017-10-02] MEDS: BENZTROPINE MESYLATE 1 MG TAB PO SCH ×2 (09:46→20:49)
[2017-10-02] MEDS: THIAMINE HCL 100 MG TAB PO SCH (09:46)
[2017-10-02] MEDS: FLUoxetine HCL 20 MG CAP PO SCH (09:47)
[2017-10-02] MEDS: SODIUM CHLORIDE 0.9% FLUSH 10 ML FLUSH IV FLUSH SCH ×2 (09:48→20:50)
--- NOTE | 2017-10-02 10:50 | HHI.PR ---
Subjective Remarks Patient says he is feeling well. Denies any chest pain or shortness breath. He does report significant pain in his hip after going up the stairs yesterday. Patient denies any cough, sore throat, dysuria. Objective Vital Signs Date Time Temp Pulse Resp B/P (MAP) Pulse Ox O2 Delivery O2 Flow Rate FiO2 10/02/17 10:01 Room Air 10/02/17 08:00 100.1 75 18 106/67 (80) 96 10/02/17 00:55 99.0 73 18 102/63 (76) 97 10/01/17 21:12 Room Air 10/01/17 20:50 98.9 84 18 109/66 (80) 96 10/01/17 16:00 99.4 98 18 117/65 (82) 95 10/01/17 12:00 97.8 86 18 108/73 (85) 99 I/O 10/01/17 10/01/17 10/01/17 10/02/17 10/02/17 10/02/17 07:00 15:00 23:00 07:00 15:00 23:00 Intake Total 360 ml 800 ml 480 ml 360 ml Output Total 1050 ml Balance 360 ml -250 ml 480 ml 360 ml Intake Oral 360 ml 800 ml 480 ml 360 ml Output Urine Total 1050 ml # Voids 3 2 3 # Bowel Movements 0 2 0 0 Result Diagram: 09/29/17 1426 09/29/17 1426 Objective Remarks GENERAL: Patient sitting up in recliner. Appears comfortable. SKIN: Warm and dry. HEAD: Normocephalic. EYES: No scleral icterus. No injection or drainage. NECK: Supple, trachea midline. No JVD or lymphadenopathy. CARDIOVASCULAR: Regular rate and rhythm without murmurs, gallops, or rubs. RESPIRATORY: Breath sounds equal bilaterally. No accessory muscle use. GASTROINTESTINAL: Abdomen soft, non-tender, nondistended. MUSCULOSKELETAL: No cyanosis, or edema. Right hip dressing clean dry and intact. BACK: Nontender without obvious deformity. No CVA tenderness. A/P Assessment and Plan Assessment and Plan 62-year-old male who was admitted to the hospital after a fall. He sustained a right hip fracture. He underwent intramedullary rob fixation on 09/13/2017. The patient is getting daily physical therapy. He is currently not strong enough to discharge home. He has no benefit for SNF placement //Closed Right hip fracture - Status post intramedullary rob fixation - Percocet PRN pain. - Lovenox 30 mg every 12 hours. - Bowel regimen. - Continue with physical therapy. PT recommends SNF but patient has no benefit. - Continue rehab efforts. CM following. Awaiting for patient to get strong enough =09/29 Ortho to removed asif. Discussed with nursing. Appreciate assistance. = 09/30. Patient cleared for weightbearing status, however still walking with some difficulty in the hallway with PT. Appreciate PT assistance on strengthening. = 10/01. Hopefully discharge home in the next 1-2 days when cleared by PT for 1 flight of stairs, and arrangements were made by case management. = 10/02. Significant pain and right hip after going up stairs yesterday. Expected to some extent, however Discussed again with physical therapy, who will work with patient. //Low-grade fever 100.1. Likely secondary to pain. No signs of infection. Continue to monitor. //Postop anemia //Cellulitis on admission. -Likely both secondary to alcohol. Will recheck as would be done at regular outpatient follow-up. = Hemoglobin 10. Stable. Check iron studies. = B12 within normal limits. Iron studies with ferritin 223, slightly low iron, high TIBC. Nonspecific, likely secondary to chronic liver disease. Alcohol cessation information to be provided by case management. //Alcohol abuse - continue thiamine, folic acid. -No evidence of withdrawal -LFTs improving. Case management to supplied patient with rehabilitation information. //Depression //GERD - Continue home medications Prozac, PPI. Full code. Lovenox. Discharge Planning Patient walking with walker and assistance. = Discharge to second floor residence when cleared by PT. Appreciate case management assistance. Raoul Ordaz MD Oct 02, 2017 10:50
[2017-10-02 12:00] VITALS: BP 103/67; PULSE 76; RESP 18; TEMP 98.3; O2SAT 94
[2017-10-02 16:00] VITALS: BP 110/69; PULSE 77; RESP 19; TEMP 100.7; O2SAT 96
--- NOTE | 2017-10-02 19:25 | RADRPT ---
EXAM DATE/TIME: 10/02/2017 18:59 [facility] COMPARISON: CHEST SINGLE AP, September 12, 2017, 22:32. INDICATIONS : Fever and shortness of breath. MEDICAL HISTORY : Chronic obstructive pulmonary disease. SURGICAL HISTORY : Right hip surgery 08/2017. ENCOUNTER: Initial ACUITY: 1 day PAIN SCORE: 0/10 LOCATION: Bilateral chest FINDINGS: A single view of the chest demonstrates the lungs to be symmetrically aerated without evidence of mas s, infiltrate or effusion. The cardiomediastinal contours are unremarkable. Osseous structures are intact. There are multiple old bilateral healed rib fractures. Unchanged compared to the prior study. CONCLUSION: No acute disease. No significant change has occurred. Darius Sanchez MD on October 02, 2017 at 19:23 Board Certified Radiologist. This report was verified electronically.
[2017-10-02 20:40] VITALS: BP 107/66; PULSE 79; RESP 18; TEMP 98.5; O2SAT 94
[2017-10-03 00:37] LABS: BASOPHIL % 0.4 % (0.0-2.0); EOSINOPHIL % 0.2 % (0.0-4.0); HEMATOCRIT 32.4 % (39.0-51.0); HEMOGLOBIN 11.1 GM/DL (13.0-17.0); LYMPH % 9.6 % (9.0-44.0); LYMPHOCYTE # 1.2 TH/MM3 (1.0-4.8); MEAN CELL VOLUME 88.7 FL (80.0-100.0); MEAN CORPUSCULAR HEMOGLOBIN 30.4 PG (27.0-34.0); MEAN CORPUSCULAR HGB CONC 34.3 % (32.0-36.0); MEAN PLATELET VOLUME 7.7 FL (7.0-11.0); MONO % 11.6 % (0.0-8.0); MONOCYTE # 1.5 TH/MM3 (0-0.9); NEUT % 78.2 % (16.0-70.0); PLATELET COUNT 424 TH/MM3 (150-450); RED BLOOD COUNT 3.65 MIL/MM3 (4.50-5.90); RED CELL DISTRIBUTION WIDTH 12.6 % (11.6-17.2); WHITE BLOOD COUNT 12.8 TH/MM3 (4.0-11.0)
[2017-10-03 00:50] VITALS: BP 117/72; PULSE 80; RESP 18; TEMP 99.7; O2SAT 95
[2017-10-03 00:59] LABS: ALBUMIN 3.1 GM/DL (3.4-5.0); ALT (GPT) 55 U/L (12-78); AST (GOT) 24 U/L (15-37); BICARBONATE 27.8 MEQ/L (21.0-32.0); BLOOD UREA NITROGEN 10 MG/DL (7-18); CALCIUM 8.7 MG/DL (8.5-10.1); CHLORIDE 100 MEQ/L (98-107); CREATININE 0.86 MG/DL (0.60-1.30); GLOMERULAR FILTRATION RATE 90 ML/MIN (>89); GLUCOSE,RANDOM 104 MG/DL (74-106); SODIUM (NA) 133 MEQ/L (136-145)
[2017-10-03 01:01] LABS: ALKALINE PHOSPHATASE 144 U/L (45-117); TOTAL BILIRUBIN ADULT 0.9 MG/DL (0.2-1.0); TOTAL PROTEIN 7.5 GM/DL (6.4-8.2)
[2017-10-03] MEDS: ENOXAPARIN SODIUM 30 MG/0.3 ML SYRINGE SQ SCH ×2 (01:55→13:37)
[2017-10-03] MEDS: oxyCODONE/ACETAMINOPHEN 5 MG/325 MG TAB PO PRN ×3 (01:56→21:42)
[2017-10-03 07:59] VITALS: BP 108/66; PULSE 69; RESP 17; TEMP 100.3; O2SAT 92
[2017-10-03] MEDS: BENZTROPINE MESYLATE 1 MG TAB PO SCH ×2 (09:29→20:34)
[2017-10-03] MEDS: THIAMINE HCL 100 MG TAB PO SCH (09:29)
[2017-10-03] MEDS: FLUoxetine HCL 20 MG CAP PO SCH (09:29)
[2017-10-03] MEDS: DOCUSATE SODIUM 50 MG/SENNA 8.6 MG TAB PO SCH ×2 (09:29→20:33)
[2017-10-03] MEDS: SODIUM CHLORIDE 0.9% FLUSH 10 ML FLUSH IV FLUSH SCH ×2 (09:30→20:34)
[2017-10-03 11:09] LABS: BILIRUBIN, URINE NEG (NEG); BLOOD, URINE NEG (NEG); GLUCOSE,URINE 1000 mg/dL (NEG); KETONE, URINE TRACE mg/dL (NEG); MUCUS URINE FEW /lpf (OCC); NITRITE,URINE NEG (NEG); SQUAMOUS EPITHELIAL CELL URINE <1 /hpf (0-5); URINE COLOR YELLOW (YELLW/STRAW); URINE LEUKOCYTE ESTERASE NEG (NEG)
[2017-10-03] MEDS: ONDANSETRON HCL 4 MG/2 ML VIAL IVP PRN (11:25)
[2017-10-03 11:44] VITALS: BP 115/68; PULSE 73; RESP 18; TEMP 98.9; O2SAT 95
[2017-10-03 16:40] VITALS: BP 124/75; PULSE 79; RESP 17; TEMP 99.5; O2SAT 97
--- NOTE | 2017-10-03 19:01 | HHI.PR ---
Subjective Remarks per RJN patient is very confused today. Patient still having low grade fevers w a tmax of 100.3 few episodes of oxygen desaturation observed. WBC trending up - now 12.8 Objective Vitals Vital Signs Date Time Temp Pulse Resp B/P (MAP) Pulse Ox O2 Delivery O2 Flow Rate FiO2 10/03/17 16:40 99.5 79 17 124/75 (91) 97 10/03/17 11:44 98.9 73 18 115/68 (84) 95 10/03/17 07:59 100.3 69 17 108/66 (80) 92 10/03/17 00:50 99.7 80 18 117/72 (87) 95 10/02/17 20:53 Room Air 10/02/17 20:40 98.5 79 18 107/66 (80) 94 I/O 10/02/17 10/02/17 10/02/17 10/03/17 10/03/17 10/03/17 07:00 15:00 23:00 07:00 15:00 23:00 Intake Total 360 ml 480 ml 360 ml 800 ml Output Total 825 ml Balance 360 ml 480 ml 360 ml -25 ml Intake Oral 360 ml 480 ml 360 ml 800 ml Output Urine Total 825 ml # Voids 3 4 1 1 # Bowel Movements 0 0 0 0 Result Diagram: 10/03/17 0002 10/03/17 0002 Imaging Last Impressions Chest X-Ray 10/02/17 0000 Signed Impressions: Service Date/Time: Monday, October 02, 2017 18:59 - CONCLUSION: No acute disease. No significant change has occurred. Darius Sanchez MD Hip X-Ray 09/29/17 0000 Signed Impressions: Service Date/Time: Friday, September 29, 2017 13:27 - CONCLUSION: Status post ORIF of right proximal femur fracture with hardware in good position. Keo Carter MD Thoracic Spine X-Ray 09/12/172052 Signed Impressions: Service Date/Time: Tuesday, September 12, 2017 22:42 - CONCLUSION: 1. Limited AP view of the thoracic spine demonstrates no gross fracture or subluxation. Sahil Gregorio MD Hip and Pelvis X-Ray 09/12/172052 Signed Impressions: Service Date/Time: Tuesday, September 12, 2017 22:38 - CONCLUSION: 1. Right femoral intertrochanteric fracture. Sahil Gregorio MD Cervical Spine X-Ray 09/12/172052 Signed Impressions: Service Date/Time: Tuesday, September 12, 2017 22:43 - CONCLUSION: 1. Limited lateral examination with nonvisualization of C7-T1. 2. Otherwise, no acute fracture or subluxation. 3. Degenerative spondylosis of the lower cervical spine. Sahil rGegorio MD Objective Remarks GENERAL: Alert, NAD. SKIN: Warm and dry. Very warm to touch. HEAD: Normocephalic. EYES: No scleral icterus. No injection or drainage. NECK: Supple, trachea midline. No JVD or lymphadenopathy. CARDIOVASCULAR: Regular rate and rhythm without murmurs, gallops, or rubs. RESPIRATORY: Breath sounds equal bilaterally. No accessory muscle use. (+) rales in right lower lobe. GASTROINTESTINAL: Abdomen soft, non-tender, nondistended. MUSCULOSKELETAL: No cyanosis, or edema. s/p right hip intramedullary rob fixation. BACK: Nontender without obvious deformity. No CVA tenderness. Procedures 09/13/2017 Right hip intramedullary rob fixation Medications and IVs Current Medications Medications (Trade) Dose Ordered Sig/Micah Route Start Time Stop Time Status Last Admin (Tylenol) 650 mg Q4H PRN PO 09/12/17 23:15 (Zofran Inj) 4 mg Q6H PRN IVP 09/12/17 23:15 10/03/17 11:25 (NS Flush) 2 ml UNSCH PRN IV FLUSH 09/13/17 14:30 (NS Flush) 2 ml BID IV FLUSH 09/13/17 21:00 10/03/17 09:30 (Lovenox Inj) 30 mg Q12H SQ 09/14/17 02:00 10/03/17 13:37 (Percocet 5-325 Mg) 1 tab Q4H PRN PO 09/13/17 14:30 10/03/17 09:28 (Percocet 5-325 Mg) 2 tab Q4H PRN PO 09/13/17 14:30 09/28/17 20:12 (Phenergan) 25 mg Q4H PRN PO 09/13/17 14:30 09/25/17 15:10 (Ambien) 5 mg HS PRN PO 09/13/17 21:00 (Vicky-Colace) 1 tab BID PO 09/13/17 21:00 10/03/17 09:29 (Milk Of Magnesia Liq) 30 ml Q12H PRN PO 09/13/17 14:30 09/30/17 18:33 (Senokot) 17.2 mg Q12H PRN PO 09/13/17 14:30 09/30/17 18:33 (Dulcolax Supp) 10 mg DAILY PRN RECTAL 09/13/17 14:30 10/01/17 09:28 (Lactulose Liq) 30 ml DAILY PRN PO 09/13/17 14:30 09/30/17 08:40 (Cogentin) 0.5 mg BID PO 09/14/17 21:00 10/03/17 09:29 (Vistaril) 50 mg BID PO 09/14/17 21:00 10/03/17 09:29 (PROzac) 40 mg DAILY PO 09/15/17 09:00 10/03/17 09:29 (Vitamin B1) 100 mg DAILY PO 09/30/17 09:00 10/03/17 09:29 A/P Problem List: (1) Closed right hip fracture ICD Code: S72.001A - Fracture of unspecified part of neck of right femur, initial encounter for closed fracture Status: Acute (2) SIRS (systemic inflammatory response syndrome) ICD Code: R65.10 - Systemic inflammatory response syndrome (SIRS) of non- infectious origin without acute organ dysfunction Plan: Patient with low grade fever and leukocytosis >12. Right lower lung rales on exam. Chest x-ray (10/02) reviewed by me shows a possible developing right lower lobe infiltrate. UA negative Suspect due to HCAP vs aspiration pna. Will start patient on IV Vancomycin and IV zosyn, check blood cultures. repeat cxr in am (3) Encephalopathy acute ICD Code: G93.40 - Encephalopathy, unspecified Status: Acute Plan: RN reported the patient is getting confused. Likely due to metabolic encephalopathy due to developing pna as stated above. Monitor neurological status. Assessment and Plan Mr. Dove is a pleasant 62-year-old male who was admitted to the hospital after a fall. He sustained a right hip fracture. He underwent intramedullary rob fixation on 09/13/2017. - Right hip fracture - Status post intramedullary rob fixation - Percocet, morphine for pain. - Lovenox 30 mg every 12 hours. - Bowel regimen. - Continue with physical therapy. PT recommends SNF which might be difficult to arrange due to lack of insurance. - However patient has family members in [place]. Home health would be an option. - Alcohol abuse - continue CIWA protocol, thiamine, folic acid. -NO evidence of withdrawal - Depression - GERD - Continue home medications Prozac, PPI. - Nausea - Possibly due to GERD. On phenergan. Full code. Lovenox. Discharge Planning Dc pending ortho clearance.At this time, no safe discharge disposition for patient - no payer source for rehab or HHC. Patient is homeless. Discussed with case management manager. Problem Qualifiers (1) Closed right hip fracture: Qualified Codes: S72.001A - Fracture of unspecified part of neck of right femur , initial encounter for closed fracture Aravind Duran MD Oct 03, 2017 19:01
[2017-10-03] MEDS ORDERED: Vancomycin Consult Pharmacy 1 EA OTHER SCH (19:15)
[2017-10-03 20:00] VITALS: BP 134/76; PULSE 69; RESP 18; TEMP 97.7; O2SAT 95
[2017-10-03] MEDS: VANCOMYCIN INJ 1,000 MG in SODIUM CHLOR 0.9% 250 ML INJ 250 ML IV SCH (20:33)
[2017-10-03] MEDS: PIPERACIL-TAZO 4.5 GM PREMIX 100 ML IV SCH (21:47)
[2017-10-04] VITALS: BP 131/79; PULSE 66; RESP 19; TEMP 98.1; O2SAT 96
[2017-10-04] MEDS: ENOXAPARIN SODIUM 30 MG/0.3 ML SYRINGE SQ SCH ×2 (01:42→12:29)
[2017-10-04 04:00] VITALS: BP 131/82; PULSE 68; RESP 18; TEMP 97.5; O2SAT 98
[2017-10-04] MEDS: PIPERACIL-TAZO 4.5 GM PREMIX 100 ML IV SCH ×3 (04:22→20:07)
[2017-10-04 07:44] LABS: AUTOMATED NEUTROPHIL # 7.7 TH/MM3 (1.8-7.7); BASOPHIL % 0.2 % (0.0-2.0); EOSINOPHIL % 0.4 % (0.0-4.0); HEMATOCRIT 31.1 % (39.0-51.0); HEMOGLOBIN 10.8 GM/DL (13.0-17.0); LYMPH % 11.2 % (9.0-44.0); LYMPHOCYTE # 1.1 TH/MM3 (1.0-4.8); MEAN CELL VOLUME 88.2 FL (80.0-100.0); MEAN CORPUSCULAR HEMOGLOBIN 30.7 PG (27.0-34.0); MEAN CORPUSCULAR HGB CONC 34.8 % (32.0-36.0); MEAN PLATELET VOLUME 7.7 FL (7.0-11.0); MONO % 10.7 % (0.0-8.0); MONOCYTE # 1.1 TH/MM3 (0-0.9); NEUT % 77.5 % (16.0-70.0); PLATELET COUNT 380 TH/MM3 (150-450); RED BLOOD COUNT 3.52 MIL/MM3 (4.50-5.90); RED CELL DISTRIBUTION WIDTH 12.5 % (11.6-17.2); WHITE BLOOD COUNT 9.9 TH/MM3 (4.0-11.0)
[2017-10-04 07:58] VITALS: BP 108/67; PULSE 68; RESP 17; TEMP 99.1; O2SAT 96
[2017-10-04 08:06] LABS: ALBUMIN 2.9 GM/DL (3.4-5.0); ALT (GPT) 40 U/L (12-78); AST (GOT) 19 U/L (15-37); BICARBONATE 27.8 MEQ/L (21.0-32.0); BLOOD UREA NITROGEN 8 MG/DL (7-18); CALCIUM 8.6 MG/DL (8.5-10.1); CHLORIDE 99 MEQ/L (98-107); CREATININE 0.76 MG/DL (0.60-1.30); GLOMERULAR FILTRATION RATE 103 ML/MIN (>89); GLUCOSE,RANDOM 95 MG/DL (74-106); PHOSPHORUS 3.6 MG/DL (2.5-4.9); SODIUM (NA) 134 MEQ/L (136-145)
[2017-10-04 08:08] LABS: ALKALINE PHOSPHATASE 128 U/L (45-117); TOTAL BILIRUBIN ADULT 0.7 MG/DL (0.2-1.0); TOTAL PROTEIN 7.4 GM/DL (6.4-8.2)
[2017-10-04] MEDS: SODIUM CHLORIDE 0.9% FLUSH 10 ML FLUSH IV FLUSH SCH ×2 (09:12→20:07)
[2017-10-04] MEDS: THIAMINE HCL 100 MG TAB PO SCH (09:12)
[2017-10-04] MEDS: VANCOMYCIN INJ 1,000 MG in SODIUM CHLOR 0.9% 250 ML INJ 250 ML IV SCH ×2 (09:12→20:06)
[2017-10-04] MEDS: DOCUSATE SODIUM 50 MG/SENNA 8.6 MG TAB PO SCH ×2 (09:12→20:07)
[2017-10-04] MEDS: FLUoxetine HCL 20 MG CAP PO SCH (09:12)
[2017-10-04] MEDS: oxyCODONE/ACETAMINOPHEN 5 MG/325 MG TAB PO PRN ×2 (09:13→20:15)
[2017-10-04] MEDS: BENZTROPINE MESYLATE 1 MG TAB PO SCH ×2 (09:13→20:07)
[2017-10-04 12:06] VITALS: BP 112/71; PULSE 75; RESP 18; TEMP 99.3; O2SAT 96
[2017-10-04] MEDS: ACETAMINOPHEN 325 MG TAB PO PRN (15:03)
[2017-10-04] MEDS: ONDANSETRON HCL 4 MG/2 ML VIAL IVP PRN (15:40)
[2017-10-04 16:00] VITALS: BP 129/72; PULSE 79; RESP 17; TEMP 101.7; O2SAT 97
--- NOTE | 2017-10-04 16:19 | HHI.PR ---
Subjective Remarks The first entry, the patient was seen earlier at 10:30 AM. Patient is still febrile. Patient remains confused. c/o pain in right lower extremity Objective Vitals Vital Signs Date Time Temp Pulse Resp B/P (MAP) Pulse Ox O2 Delivery O2 Flow Rate FiO2 10/04/17 16:00 101.7 79 17 129/72 (91) 97 10/04/17 12:06 99.3 75 18 112/71 (85) 96 10/04/17 07:58 99.1 68 17 108/67 (81) 96 10/04/17 04:00 97.5 68 18 131/82 (98) 98 10/04/17 00:00 98.1 66 19 131/79 (96) 96 10/03/17 20:00 97.7 69 18 134/76 (95) 95 10/03/17 16:40 99.5 79 17 124/75 (91) 97 I/O 10/03/17 10/03/17 10/03/17 10/04/17 10/04/17 10/04/17 07:00 15:00 23:00 07:00 15:00 23:00 Intake Total 360 ml 1150 ml 591 ml Output Total 825 ml 300 ml Balance 360 ml 325 ml 291 ml Intake Oral 360 ml 800 ml IV Total 350 ml 591 ml Output Urine Total 825 ml 300 ml # Voids 1 # Bowel Movements 0 0 Result Diagram: 10/04/17 0710 10/04/17 0710 Imaging Last Impressions Chest X-Ray 10/02/17 0000 Signed Impressions: Service Date/Time: Monday, October 02, 2017 18:59 - CONCLUSION: No acute disease. No significant change has occurred. Darius Sanchez MD Hip X-Ray 09/29/17 0000 Signed Impressions: Service Date/Time: Friday, September 29, 2017 13:27 - CONCLUSION: Status post ORIF of right proximal femur fracture with hardware in good position. Keo Carter MD Thoracic Spine X-Ray 09/12/172052 Signed Impressions: Service Date/Time: Tuesday, September 12, 2017 22:42 - CONCLUSION: 1. Limited AP view of the thoracic spine demonstrates no gross fracture or subluxation. Sahil Gregorio MD Hip and Pelvis X-Ray 09/12/172052 Signed Impressions: Service Date/Time: Tuesday, September 12, 2017 22:38 - CONCLUSION: 1. Right femoral intertrochanteric fracture. Sahil Gregorio MD Cervical Spine X-Ray 09/12/172052 Signed Impressions: Service Date/Time: Tuesday, September 12, 2017 22:43 - CONCLUSION: 1. Limited lateral examination with nonvisualization of C7-T1. 2. Otherwise, no acute fracture or subluxation. 3. Degenerative spondylosis of the lower cervical spine. Sahil Gregorio MD Objective Remarks GENERAL: Alert, NAD. SKIN: Warm and dry. Very warm to touch. HEAD: Normocephalic. EYES: No scleral icterus. No injection or drainage. NECK: Supple, trachea midline. No JVD or lymphadenopathy. CARDIOVASCULAR: Regular rate and rhythm without murmurs, gallops, or rubs. RESPIRATORY: Breath sounds equal bilaterally. No accessory muscle use. (+) rales in right lower lobe. GASTROINTESTINAL: Abdomen soft, non-tender, nondistended. MUSCULOSKELETAL: No cyanosis, or edema. s/p right hip intramedullary rob fixation. BACK: Nontender without obvious deformity. No CVA tenderness. Procedures 09/13/2017 Right hip intramedullary rob fixation Medications and IVs Current Medications Medications (Trade) Dose Ordered Sig/Micah Route Start Time Stop Time Status Last Admin (Tylenol) 650 mg Q4H PRN PO 09/12/17 23:15 10/04/17 15:03 (Zofran Inj) 4 mg Q6H PRN IVP 09/12/17 23:15 10/04/17 15:40 (NS Flush) 2 ml UNSCH PRN IV FLUSH 09/13/17 14:30 (NS Flush) 2 ml BID IV FLUSH 09/13/17 21:00 10/04/17 09:12 (Lovenox Inj) 30 mg Q12H SQ 09/14/17 02:00 10/04/17 12:29 (Percocet 5-325 Mg) 1 tab Q4H PRN PO 09/13/17 14:30 10/04/17 09:13 (Percocet 5-325 Mg) 2 tab Q4H PRN PO 09/13/17 14:30 09/28/17 20:12 (Phenergan) 25 mg Q4H PRN PO 09/13/17 14:30 09/25/17 15:10 (Ambien) 5 mg HS PRN PO 09/13/17 21:00 (Vicky-Colace) 1 tab BID PO 09/13/17 21:00 10/04/17 09:12 (Milk Of Magnesia Liq) 30 ml Q12H PRN PO 09/13/17 14:30 09/30/17 18:33 (Senokot) 17.2 mg Q12H PRN PO 09/13/17 14:30 09/30/17 18:33 (Dulcolax Supp) 10 mg DAILY PRN RECTAL 09/13/17 14:30 10/01/17 09:28 (Lactulose Liq) 30 ml DAILY PRN PO 09/13/17 14:30 09/30/17 08:40 (Cogentin) 0.5 mg BID PO 09/14/17 21:00 10/04/17 09:13 (Vistaril) 50 mg BID PO 09/14/17 21:00 10/04/17 09:12 (PROzac) 40 mg DAILY PO 09/15/17 09:00 10/04/17 09:12 (Vitamin B1) 100 mg DAILY PO 09/30/17 09:00 10/04/17 09:12 Vancomycin HCl 1000 mg/Sodium Chloride 250 ml @ 250 mls/hr Q12H IV 10/03/17 20:00 10/04/17 09:12 Pharmacy Profile Note 0 ml @ 0 mls/hr UNSCH OTHER 10/03/17 19:15 Piperacillin Sod/ Tazobactam Sod 100 ml @ 200 mls/hr Q8H IV 10/03/17 20:00 10/04/17 12:27 Miscellaneous Information SPECIFIC LAB TO BE DRAWN:PATRICIA MADRIGAL DATE TO BE DRDelfina. ONCE ONCE .XX 10/05/17 07:45 10/05/17 07:46 A/P Problem List: (1) Closed right hip fracture ICD Code: S72.001A - Fracture of unspecified part of neck of right femur, initial encounter for closed fracture Status: Acute (2) SIRS (systemic inflammatory response syndrome) ICD Code: R65.10 - Systemic inflammatory response syndrome (SIRS) of non- infectious origin without acute organ dysfunction Plan: Patient with low grade fever and leukocytosis >12. Right lower lung rales on exam. Chest x-ray (10/02) reviewed by me shows a possible developing right lower lobe infiltrate. UA negative Suspect due to HCAP vs aspiration pna. Will start patient on IV Vancomycin and IV zosyn, check blood cultures. 10/04 Patient still with fever, will check recheck CXR, check blood cultures and consult ID. Check venous dopplers BL to r/o DVT (3) Encephalopathy acute ICD Code: G93.40 - Encephalopathy, unspecified Status: Acute Plan: RN reported the patient is getting confused. Likely due to metabolic encephalopathy due to developing pna as stated above. Monitor neurological status. Assessment and Plan Mr. Dove is a pleasant 62-year-old male who was admitted to the hospital after a fall. He sustained a right hip fracture. He underwent intramedullary rob fixation on 09/13/2017. - Right hip fracture - Status post intramedullary rob fixation - Percocet, morphine for pain. - Lovenox 30 mg every 12 hours. - Bowel regimen. - Continue with physical therapy. PT recommends SNF which might be difficult to arrange due to lack of insurance. - However patient has family members in [place]. Home health would be an option. - Alcohol abuse - continue CIWA protocol, thiamine, folic acid. -NO evidence of withdrawal - Depression - GERD - Continue home medications Prozac, PPI. - Nausea - Possibly due to GERD. On phenergan. Full code. Lovenox. Discharge Planning Dc pending ortho clearance.At this time, no safe discharge disposition for patient - no payer source for rehab or C. Patient is homeless. Discussed with onsite case manager. Problem Qualifiers (1) Closed right hip fracture: Qualified Codes: S72.001A - Fracture of unspecified part of neck of right femur , initial encounter for closed fracture Aravind Duran MD Oct 04, 2017 16:19
--- NOTE | 2017-10-04 17:43 | RADRPT ---
EXAM DATE/TIME: 10/04/2017 16:22 [facility] COMPARISON: CHEST SINGLE AP, October 02, 2017, 18:59. INDICATIONS : Shortness of breath and fever for three days. MEDICAL HISTORY : Chronic obstructive pulmonary disease. SURGICAL HISTORY : Right hip surgery. ENCOUNTER: Subsequent ACUITY: 3 days PAIN SCORE: 0/10 LOCATION: Bilateral chest FINDINGS: Frontal view of the chest demonstrates the lungs to be hyperaerated. No focal opacities seen. The h eart is normal size. Both hemidiaphragms are well delineated. No healed fractures of the left 4th t hrough 8th ribs and the right 5th through 7th ribs similar to prior. No evidence of pneumothorax. CONCLUSION: Hyperaerated lungs. No focal infiltrates seen. Elgin Willard MD on October 04, 2017 at 17:38 Board Certified Radiologist. This report was verified electronically.
--- NOTE | 2017-10-04 17:47 | RADRPT ---
EXAM DATE/TIME: 10/04/2017 17:10 [facility] COMPARISON: No previous studies available for comparison. INDICATIONS : Bilateral leg swelling. MEDICAL HISTORY : Chronic obstructive pulmonary disease. Gastroesophageal reflux disease. Hepatitis A. Asthma. Schizoph kelechi. Inguinal hernia. SURGICAL HISTORY : Tonsillectomy.Appendectomy. Prosthetic left hip. ENCOUNTER: Initial ACUITY: 3 days PAIN SCORE: 2/10 LOCATION: Bilateral legs. TECHNIQUE: Venous ultrasound of the left and right leg was performed from the inguinal ligament to the proximal calf. Real-time, color Doppler and spectral tracing, compression and augmentation techniques were us ed. FINDINGS: RIGHT LEG: There is normal compressibility of the deep venous system from the inguinal region to the proximal ca lf. No echogenic clot is seen in the lumen of the common femoral, femoral, popliteal, and posterior tibial veins. There is a normal response of the venous system to proximal and distal augmentation an d respiration. LEFT LEG: There is normal compressibility of the deep venous system from the inguinal region to the proximal ca lf. No echogenic clot is seen in the lumen of the common femoral, femoral, popliteal, and posterior tibial veins. There is a normal response of the venous system to proximal and distal augmentation an d respiration. CONCLUSION: Negative for deep venous thrombosis bilateral lower extremity. Elgin Willard MD on October 04, 2017 at 17:44 Board Certified Radiologist. This report was verified electronically.
[2017-10-04] MEDS: LACTULOSE SYRUP 20 GM/30 ML CUP PO PRN (18:25)
[2017-10-04] MEDS: MAGNESIUM HYDROXIDE SUSP 30 ML CUP PO PRN (20:07)
[2017-10-04 20:09] VITALS: BP 110/66; PULSE 65; RESP 18; TEMP 100.6; O2SAT 96
[2017-10-05 00:12] VITALS: TEMP 100.4
[2017-10-05] MEDS: ENOXAPARIN SODIUM 30 MG/0.3 ML SYRINGE SQ SCH ×2 (01:29→12:43)
[2017-10-05] MEDS: PIPERACIL-TAZO 4.5 GM PREMIX 100 ML IV SCH (05:00)
[2017-10-05] MEDS ORDERED: PHARMACY ORDERED LAB ONE (07:45)
[2017-10-05 08:00] VITALS: BP 109/66; PULSE 65; RESP 18; TEMP 100.1; O2SAT 96
[2017-10-05] MEDS: BENZTROPINE MESYLATE 1 MG TAB PO SCH ×2 (08:40→20:17)
[2017-10-05] MEDS: DOCUSATE SODIUM 50 MG/SENNA 8.6 MG TAB PO SCH ×2 (08:40→20:17)
[2017-10-05] MEDS: THIAMINE HCL 100 MG TAB PO SCH (08:40)
[2017-10-05] MEDS: VANCOMYCIN INJ 1,000 MG in SODIUM CHLOR 0.9% 250 ML INJ 250 ML IV SCH (08:40)
[2017-10-05] MEDS: SODIUM CHLORIDE 0.9% FLUSH 10 ML FLUSH IV FLUSH SCH ×2 (08:41→20:17)
[2017-10-05] MEDS: FLUoxetine HCL 20 MG CAP PO SCH (08:41)
[2017-10-05] MEDS: LACTULOSE SYRUP 20 GM/30 ML CUP PO PRN (08:41)
[2017-10-05] MEDS: oxyCODONE/ACETAMINOPHEN 5 MG/325 MG TAB PO PRN (10:48)
--- NOTE | 2017-10-05 11:10 | PD.CONS ---
History of Present Illness Service Infectious disease Consult Requested By Dr. Lopes Reason for Consult Evaluate patient with persistent fevers Primary Care Physician Unknown Diagnoses: History of Present Illness Patient seen and examined. Records reviewed. Patient is a 62-year-old male, admitted to the hospital after he tripped and fell. He was apparently drinking alcohol that day. He was found to have a right femoral intertrochanteric fracture. Orthopedics of the patient and the patient underwent IM rob fixation of his fracture on September 13. Patient was doing well postoperatively, and has required continued hospitalization due to disposition problems. He does not really offer any complaint except for some intermittent constipation. He has been doing well with physical therapy, and has progressed to full weightbearing on his right lower extremity. Since October 02, the patient started having some fevers. Initially it was low-grade , and overnight temperatures have been more persistent up to 101. He denies any significant respiratory complaint. Denies any nausea or vomiting. No diarrhea, and actually has some constipation, last bowel movement was about 3 days ago. He denies any problem with dysuria or any other voiding problem. His white count is normal. His urinalysis unremarkable. Chest x-ray is normal. Patient was started on vancomycin and Zosyn on October 03. Infectious disease consultation has been requested to evaluate the patient with persistent fevers. Review of Systems Constitutional: COMPLAINS OF: Fever, DENIES: Chills, Change in appetite, Night Sweats Eyes: DENIES: Eye pain Ears, nose, mouth, throat: DENIES: Nasal discharge, Oral lesions, Throat pain, Ear Pain, Sinus Pain Respiratory: DENIES: Cough, Shortness of breath Cardiovascular: DENIES: Chest pain, Palpitations, Syncope Gastrointestinal: COMPLAINS OF: Constipation, DENIES: Abdominal pain, Diarrhea , Nausea, Vomiting, Difficulty Swallowing Genitourinary: DENIES: Urgency, Hematuria, Dysuria Musculoskeletal: COMPLAINS OF: Joint pain Integumentary: DENIES: Pruritus, Rash Neurologic: DENIES: Headache, Localized weakness Psychiatric: COMPLAINS OF: Confusion, DENIES: Hallucinations Past Family Social History Allergies: Coded Allergies: No Known Allergies (Unverified Allergy, Unknown, 09/12/17) Past Medical History COPD Schizoaffective disorder, Bipolar disorder, depression Past Surgical History Inguinal hernia repair appendectomy Active Ordered Medications Current Medications Medications (Trade) Dose Ordered Sig/Micah Route Start Time Stop Time Status Last Admin (Tylenol) 650 mg Q4H PRN PO 09/12/17 23:15 10/04/17 15:03 (Zofran Inj) 4 mg Q6H PRN IVP 09/12/17 23:15 10/04/17 15:40 (NS Flush) 2 ml UNSCH PRN IV FLUSH 09/13/17 14:30 (NS Flush) 2 ml BID IV FLUSH 09/13/17 21:00 10/05/17 08:41 (Lovenox Inj) 30 mg Q12H SQ 09/14/17 02:00 10/05/17 01:29 (Percocet 5-325 Mg) 1 tab Q4H PRN PO 09/13/17 14:30 10/04/17 20:15 (Percocet 5-325 Mg) 2 tab Q4H PRN PO 09/13/17 14:30 10/05/17 10:48 (Phenergan) 25 mg Q4H PRN PO 09/13/17 14:30 09/25/17 15:10 (Ambien) 5 mg HS PRN PO 09/13/17 21:00 (Vicky-Colace) 1 tab BID PO 09/13/17 21:00 10/05/17 08:40 (Milk Of Magnesia Liq) 30 ml Q12H PRN PO 09/13/17 14:30 10/04/17 20:07 (Senokot) 17.2 mg Q12H PRN PO 09/13/17 14:30 09/30/17 18:33 (Dulcolax Supp) 10 mg DAILY PRN RECTAL 09/13/17 14:30 10/01/17 09:28 (Lactulose Liq) 30 ml DAILY PRN PO 09/13/17 14:30 10/05/17 08:41 (Cogentin) 0.5 mg BID PO 09/14/17 21:00 10/05/17 08:40 (Vistaril) 50 mg BID PO 09/14/17 21:00 10/05/17 08:40 (PROzac) 40 mg DAILY PO 09/15/17 09:00 10/05/17 08:41 (Vitamin B1) 100 mg DAILY PO 09/30/17 09:00 10/05/17 08:40 Pharmacy Profile Note 0 ml @ 0 mls/hr UNSCH OTHER 10/03/17 19:15 Piperacillin Sod/ Tazobactam Sod 100 ml @ 200 mls/hr Q8H IV 10/03/17 20:00 10/05/17 05:00 Vancomycin HCl 1500 mg/Sodium Chloride 515 ml @ 257.5 mls/ hr Q12H IV 10/05/17 20:00 Miscellaneous Information SPECIFIC LAB TO BE DRAWN:VANCO TROUGH DATE TO... ONCE ONCE .XX 10/07/17 07:45 10/07/17 07:46 Family History Noncontributory Social History Smokes half a pack to a pack a day of cigarettes, states he quit about a month ago Drinks alcohol Denies illicit drug use Physical Exam Vital Signs Vital Signs Date Time Temp Pulse Resp B/P (MAP) Pulse Ox O2 Delivery O2 Flow Rate FiO2 10/05/17 08:00 100.1 65 18 109/66 (80) 96 10/05/17 00:12 100.4 10/05/17 00:07 10/04/17 20:09 100.6 65 18 110/66 (81) 96 10/04/17 16:00 101.7 79 17 129/72 (91) 97 10/04/17 12:06 99.3 75 18 112/71 (85) 96 Physical Exam GENERAL: Patient is a well-nourished, well-developed male, awake and alert, not in respiratory distress. SKIN: Warm and dry. No generalized rash, no ecchymoses and no evidence of embolic lesions. HEAD: Atraumatic. Normocephalic. No temporal wasting, or tenderness. EYES: [place] conjunctiva. No petechia or hemorrhage. Pupils equal, round and reactive to light. Extraocular movements full and intact. No scleral icterus. No injection or drainage. EARS, NOSE AND THROAT: Nose without bleeding or purulent nasal discharge. No sinus tenderness. Mucous membranes pink and moist. No oral lesions noted. No exudate. No oral thrush. He is edentulous NECK: Trachea midline. Supple and not tender, no meningeal signs CARDIOVASCULAR: Regular rate and rhythm. No murmurs, rubs or gallops heard RESPIRATORY: Clear to auscultation. Breath sounds equal bilaterally. No rales , wheezing or rhonchi ABDOMEN: Soft, non-tender, nondistended. Bowel sounds present and normoactive. No guarding. No rebound. No organomegaly. EXTREMITIES: No clubbing, cyanosis Has mild edema R ankle. Incision R hip with ecchymoses in upper 2/3, and in lowermost portion there is an area of erythema with an area that seem sto have fluid, amnd has mall amount of serous drainage in dressing. No calf tenderness. Well perfused and warm. NEUROLOGICAL: Awake and alert. Cranial nerves grossly intact. Motor grossly within normal limits. PSYCHIATRIC: Normal affect, calm and cooperative. LINE: No evidence of infection Laboratory Laboratory Tests Test 10/05/17 07:30 Vancomycin Level Trough 8.1 Date/Time Source Procedure Growth Status 10/05/17 06:08 Blood Peripheral Aerobic Blood Culture Pending Received 10/05/17 06:08 Blood Peripheral Anaerobic Blood Culture Pending Received Result Diagram: 10/04/17 0710 10/04/17 0710 Imaging Last Impressions Lower Extremity Ultrasound 10/04/17 0000 Signed Impressions: Service Date/Time: Wednesday, October 04, 2017 17:10 - CONCLUSION: Negative for deep venous thrombosis bilateral lower extremity. Elgin Willard MD Chest X-Ray 10/04/17 0000 Signed Impressions: Service Date/Time: Wednesday, October 04, 2017 16:22 - CONCLUSION: Hyperaerated lungs. No focal infiltrates seen. Elgin Willard MD Hip X-Ray 09/29/17 0000 Signed Impressions: Service Date/Time: Friday, September 29, 2017 13:27 - CONCLUSION: Status post ORIF of right proximal femur fracture with hardware in good position. Keo Carter MD Thoracic Spine X-Ray 09/12/172052 Signed Impressions: Service Date/Time: Tuesday, September 12, 2017 22:42 - CONCLUSION: 1. Limited AP view of the thoracic spine demonstrates no gross fracture or subluxation. Sahil Gregorio MD Hip and Pelvis X-Ray 09/12/172052 Signed Impressions: Service Date/Time: Tuesday, September 12, 2017 22:38 - CONCLUSION: 1. Right femoral intertrochanteric fracture. Sahil Gregorio MD Cervical Spine X-Ray 09/12/172052 Signed Impressions: Service Date/Time: Tuesday, September 12, 2017 22:43 - CONCLUSION: 1. Limited lateral examination with nonvisualization of C7-T1. 2. Otherwise, no acute fracture or subluxation. 3. Degenerative spondylosis of the lower cervical spine. Sahil Gregorio MD Assessment and Plan Assessment and Plan IMPRESSION Fevers, etiology? - ?due to R hip, ?hematoma - no resp GI or Gu complaints - no lines S/P IM rob fication ER hip fracture RECOMMENDATION Continue IV Vanco for now Stop Zosyn Monitor R hip incision, if more drainage send C/S Will ask ortho to eval the R hip incision Check ESR and CRP Follow temps Monitor progress Will determine need for Abx depending on clinical course I will follow along with you Thank you for this consultation Discussed Condition With D/W RN Explained plan to the patient Yanet Foss MD Oct 05, 2017 11:10
[2017-10-05 12:00] VITALS: BP 112/69; PULSE 72; RESP 18; TEMP 96.7; O2SAT 95
[2017-10-05] MEDS: LEVOFLOXACIN 750 MG TAB PO SCH (12:43)
--- NOTE | 2017-10-05 15:40 | HHI.PR ---
Subjective Remarks Patient still having fevers with a T-max of 100.1. The patient states that he has been ambulating, denies chills, diarrhea, nausea , headache. Objective Vitals Vital Signs Date Time Temp Pulse Resp B/P (MAP) Pulse Ox O2 Delivery O2 Flow Rate FiO2 10/05/17 12:00 96.7 72 18 112/69 (83) 95 10/05/17 08:00 100.1 65 18 109/66 (80) 96 10/05/17 00:12 100.4 10/05/17 00:07 10/04/17 20:09 100.6 65 18 110/66 (81) 96 10/04/17 16:00 101.7 79 17 129/72 (91) 97 I/O 10/04/17 10/04/17 10/04/17 10/05/17 10/05/17 10/05/17 06:59 14:59 22:59 06:59 14:59 22:59 Intake Total 591 ml 850 ml 350 ml 100 ml Output Total 300 ml 775 ml 650 ml Balance 291 ml 75 ml 350 ml -550 ml Intake Oral 850 ml IV Total 591 ml 350 ml 100 ml Output Urine Total 300 ml 775 ml 650 ml # Bowel Movements 0 0 Result Diagram: 10/04/17 0710 10/04/17 0710 Imaging Last Impressions Lower Extremity Ultrasound 10/04/17 0000 Signed Impressions: Service Date/Time: Wednesday, October 04, 2017 17:10 - CONCLUSION: Negative for deep venous thrombosis bilateral lower extremity. Elgin Willard MD Chest X-Ray 10/04/17 0000 Signed Impressions: Service Date/Time: Wednesday, October 04, 2017 16:22 - CONCLUSION: Hyperaerated lungs. No focal infiltrates seen. Elgin Willard MD Hip X-Ray 09/29/17 0000 Signed Impressions: Service Date/Time: Friday, September 29, 2017 13:27 - CONCLUSION: Status post ORIF of right proximal femur fracture with hardware in good position. Keo Carter MD Thoracic Spine X-Ray 09/12/172052 Signed Impressions: Service Date/Time: Tuesday, September 12, 2017 22:42 - CONCLUSION: 1. Limited AP view of the thoracic spine demonstrates no gross fracture or subluxation. Sahil Gregorio MD Hip and Pelvis X-Ray 09/12/172052 Signed Impressions: Service Date/Time: Tuesday, September 12, 2017 22:38 - CONCLUSION: 1. Right femoral intertrochanteric fracture. Sahil Gregorio MD Cervical Spine X-Ray 09/12/172052 Signed Impressions: Service Date/Time: Tuesday, September 12, 2017 22:43 - CONCLUSION: 1. Limited lateral examination with nonvisualization of C7-T1. 2. Otherwise, no acute fracture or subluxation. 3. Degenerative spondylosis of the lower cervical spine. Sahil Gregorio MD Objective Remarks GENERAL: Alert, NAD. SKIN: Warm and dry. Very warm to touch. HEAD: Normocephalic. EYES: No scleral icterus. No injection or drainage. NECK: Supple, trachea midline. No JVD or lymphadenopathy. CARDIOVASCULAR: Regular rate and rhythm without murmurs, gallops, or rubs. RESPIRATORY: Breath sounds equal bilaterally. No accessory muscle use. GASTROINTESTINAL: Abdomen soft, non-tender, nondistended. MUSCULOSKELETAL: No cyanosis, or edema. s/p right hip intramedullary rob fixation - dressing seems C/D/I. BACK: Nontender without obvious deformity. No CVA tenderness. Procedures 09/13/2017 Right hip intramedullary rob fixation Medications and IVs Current Medications Medications (Trade) Dose Ordered Sig/Micah Route Start Time Stop Time Status Last Admin (Tylenol) 650 mg Q4H PRN PO 09/12/17 23:15 10/04/17 15:03 (Zofran Inj) 4 mg Q6H PRN IVP 09/12/17 23:15 10/04/17 15:40 (NS Flush) 2 ml UNSCH PRN IV FLUSH 09/13/17 14:30 (NS Flush) 2 ml BID IV FLUSH 09/13/17 21:00 10/05/17 08:41 (Lovenox Inj) 30 mg Q12H SQ 09/14/17 02:00 10/05/17 12:43 (Percocet 5-325 Mg) 1 tab Q4H PRN PO 09/13/17 14:30 10/04/17 20:15 (Percocet 5-325 Mg) 2 tab Q4H PRN PO 09/13/17 14:30 10/05/17 10:48 (Phenergan) 25 mg Q4H PRN PO 09/13/17 14:30 09/25/17 15:10 (Ambien) 5 mg HS PRN PO 09/13/17 21:00 (Vicky-Colace) 1 tab BID PO 09/13/17 21:00 10/05/17 08:40 (Milk Of Magnesia Liq) 30 ml Q12H PRN PO 09/13/17 14:30 10/04/17 20:07 (Senokot) 17.2 mg Q12H PRN PO 09/13/17 14:30 09/30/17 18:33 (Dulcolax Supp) 10 mg DAILY PRN RECTAL 09/13/17 14:30 10/01/17 09:28 (Lactulose Liq) 30 ml DAILY PRN PO 09/13/17 14:30 10/05/17 08:41 (Cogentin) 0.5 mg BID PO 09/14/17 21:00 10/05/17 08:40 (Vistaril) 50 mg BID PO 09/14/17 21:00 10/05/17 08:40 (PROzac) 40 mg DAILY PO 09/15/17 09:00 10/05/17 08:41 (Vitamin B1) 100 mg DAILY PO 09/30/17 09:00 10/05/17 08:40 Pharmacy Profile Note 0 ml @ 0 mls/hr UNSCH OTHER 10/03/17 19:15 Vancomycin HCl 1500 mg/Sodium Chloride 515 ml @ 257.5 mls/ hr Q12H IV 10/05/17 20:00 Miscellaneous Information SPECIFIC LAB TO BE DRAWN:VANCO TROUGH DATE TO... ONCE ONCE .XX 10/07/17 07:45 10/07/17 07:46 (Levaquin) 750 mg DAILY PO 10/05/17 11:00 10/05/17 12:43 A/P Problem List: (1) Closed right hip fracture ICD Code: S72.001A - Fracture of unspecified part of neck of right femur, initial encounter for closed fracture Status: Acute (2) SIRS (systemic inflammatory response syndrome) ICD Code: R65.10 - Systemic inflammatory response syndrome (SIRS) of non- infectious origin without acute organ dysfunction Plan: Patient with low grade fever and leukocytosis >12. Right lower lung rales on exam. Chest x-ray (10/02) reviewed by me shows a possible developing right lower lobe infiltrate. UA negative Suspect due to HCAP vs aspiration pna. Will start patient on IV Vancomycin and IV zosyn, check blood cultures. 10/05 bilateral venous Doppler negative for DVT. Appreciate ID consultation and recommendations. The case was discussed with Dr. Foss, ID recommends orthopedic surgery evaluation. H CAP versus aspiration pneumonia ruled out given the chest x-ray is clear, this was reviewed by me. Urinalysis negative. Possible wound infection versus hematoma. (3) Encephalopathy acute ICD Code: G93.40 - Encephalopathy, unspecified Status: Acute Plan: RN reported the patient is getting confused. Likely due to metabolic encephalopathy due to developing pna as stated above. Monitor neurological status. 10/05 patient is still confused, however seems to be slightly improved. Assessment and Plan Mr. Dove is a pleasant 62-year-old male who was admitted to the hospital after a fall. He sustained a right hip fracture. He underwent intramedullary rob fixation on 09/13/2017. - Right hip fracture - Status post intramedullary rob fixation - Percocet, morphine for pain. - Lovenox 30 mg every 12 hours. - Bowel regimen. - Continue with physical therapy. PT recommends SNF which might be difficult to arrange due to lack of insurance. - However patient has family members in [place]. Home health would be an option. - Alcohol abuse - continue CIWA protocol, thiamine, folic acid. -NO evidence of withdrawal - Depression - GERD - Continue home medications Prozac, PPI. - Nausea - Possibly due to GERD. On phenergan. Full code. Lovenox. Discharge Planning Dc pending ortho clearance.At this time, no safe discharge disposition for patient - no payer source for rehab or HHC. Patient is homeless. Discussed with disease case manager rn. Problem Qualifiers (1) Closed right hip fracture: Qualified Codes: S72.001A - Fracture of unspecified part of neck of right femur , initial encounter for closed fracture Aravind Duran MD Oct 05, 2017 15:40
[2017-10-05 16:00] VITALS: BP 121/72; PULSE 70; RESP 18; TEMP 99.8; O2SAT 99
--- NOTE | 2017-10-05 18:59 | PD.ORT.PN ---
Subjective Subjective Remarks No issues. Pain controlled. Objective Vitals Vital Signs Date Time Temp Pulse Resp B/P (MAP) Pulse Ox O2 Delivery O2 Flow Rate FiO2 10/05/17 12:00 96.7 72 18 112/69 (83) 95 10/05/17 08:00 100.1 65 18 109/66 (80) 96 10/05/17 00:12 100.4 10/05/17 00:07 10/04/17 20:09 100.6 65 18 110/66 (81) 96 I/O 10/04/17 10/04/17 10/04/17 10/05/17 10/05/17 10/05/17 07:00 15:00 23:00 07:00 15:00 23:00 Intake Total 591 ml 850 ml 350 ml 100 ml Output Total 300 ml 775 ml 650 ml Balance 291 ml 75 ml 350 ml -550 ml Intake Oral 850 ml IV Total 591 ml 350 ml 100 ml Output Urine Total 300 ml 775 ml 650 ml # Bowel Movements 0 0 Result Diagram: 10/04/17 0710 10/04/17 0710 Imaging Last 24 hours Impressions Hip X-Ray 09/29/17 0000 Signed Impressions: Service Date/Time: Friday, September 29, 2017 13:27 - CONCLUSION: Status post ORIF of right proximal femur fracture with hardware in good position. Keo Carter MD Objective Remarks sleepy, NAD RLE: nvi.moderate of amount of serous and serosanguinous fluid was expressed at the distal part to the midshaft wound, no erythema. SILT distally Assessment & Plan Assessment and Plan DOS: Sep 13, 2017 POSTP-OP- Right hip IMN Antiocoagulation: Lovenox Weight bearing status: WBAT Dressing: Change daily, by RN Moderate amount of serosanguinous material expressed in the distal thigh wound. will re-eval tomorrow. continue vanc. zosyn per ID. WBC 9 keep NPO Bon Boles Jr., MD Oct 05, 2017 18:59
[2017-10-05 19:25] VITALS: BP 117/69; PULSE 89; RESP 18; TEMP 99.8; O2SAT 95
[2017-10-05] MEDS: VANCOMYCIN 1,500 MG/NS 500 ML IV SCH ×2 (20:17)
[2017-10-06 00:13] VITALS: BP 110/58; PULSE 80; RESP 18; TEMP 98.9; O2SAT 97
[2017-10-06] MEDS: ENOXAPARIN SODIUM 30 MG/0.3 ML SYRINGE SQ SCH ×2 (02:02→14:08)
[2017-10-06 08:00] VITALS: BP 110/69; PULSE 66; RESP 18; TEMP 99; O2SAT 93
[2017-10-06] MEDS: DOCUSATE SODIUM 50 MG/SENNA 8.6 MG TAB PO SCH ×2 (09:10→20:19)
[2017-10-06] MEDS: FLUoxetine HCL 20 MG CAP PO SCH (09:10)
[2017-10-06] MEDS: LEVOFLOXACIN 750 MG TAB PO SCH (09:10)
[2017-10-06] MEDS: oxyCODONE/ACETAMINOPHEN 5 MG/325 MG TAB PO PRN ×2 (09:10→20:23)
[2017-10-06] MEDS: BENZTROPINE MESYLATE 1 MG TAB PO SCH ×2 (09:10→20:20)
[2017-10-06] MEDS: THIAMINE HCL 100 MG TAB PO SCH (09:10)
[2017-10-06] MEDS: SENNOSIDES 8.6 MG TAB PO PRN (09:10)
[2017-10-06] MEDS: MAGNESIUM HYDROXIDE SUSP 30 ML CUP PO PRN (09:10)
[2017-10-06] MEDS: SODIUM CHLORIDE 0.9% FLUSH 10 ML FLUSH IV FLUSH SCH ×2 (09:11→20:20)
[2017-10-06 09:12] LABS: CREATININE 0.62 MG/DL (0.60-1.30)
[2017-10-06] MEDS: VANCOMYCIN 1,500 MG/NS 500 ML IV SCH ×4 (09:15→20:20)
--- NOTE | 2017-10-06 10:19 | HHI.PR ---
Subjective Remarks Still having fevers with a T max of 100.4. Patient denies chills, nausea or vomiting. Objective Vitals Vital Signs Date Time Temp Pulse Resp B/P (MAP) Pulse Ox O2 Delivery O2 Flow Rate FiO2 10/06/17 08:00 99.0 66 18 110/69 (83) 93 10/06/17 00:13 98.9 80 18 110/58 (75) 97 10/05/17 19:25 99.8 89 18 117/69 (85) 95 10/05/17 16:00 99.8 70 18 121/72 (88) 99 10/05/17 12:00 96.7 72 18 112/69 (83) 95 I/O 10/05/17 10/05/17 10/05/17 10/06/17 10/06/17 10/06/17 07:00 15:00 23:00 07:00 15:00 23:00 Intake Total 100 ml 480 ml 360 ml 875 ml Output Total 650 ml 250 ml Balance -550 ml 230 ml 360 ml 875 ml Intake Oral 480 ml 360 ml 360 ml IV Total 100 ml 515 ml Output Urine Total 650 ml 250 ml # Voids 4 3 # Bowel Movements 0 0 0 0 Result Diagram: 10/04/17 0710 10/06/17 0710 Imaging Last Impressions Lower Extremity Ultrasound 10/04/17 0000 Signed Impressions: Service Date/Time: Wednesday, October 04, 2017 17:10 - CONCLUSION: Negative for deep venous thrombosis bilateral lower extremity. Elgin Willard MD Chest X-Ray 10/04/17 0000 Signed Impressions: Service Date/Time: Wednesday, October 04, 2017 16:22 - CONCLUSION: Hyperaerated lungs. No focal infiltrates seen. Elgin Willard MD Hip X-Ray 09/29/17 0000 Signed Impressions: Service Date/Time: Friday, September 29, 2017 13:27 - CONCLUSION: Status post ORIF of right proximal femur fracture with hardware in good position. Keo Carter MD Thoracic Spine X-Ray 09/12/172052 Signed Impressions: Service Date/Time: Tuesday, September 12, 2017 22:42 - CONCLUSION: 1. Limited AP view of the thoracic spine demonstrates no gross fracture or subluxation. Sahil Gregorio MD Hip and Pelvis X-Ray 09/12/172052 Signed Impressions: Service Date/Time: Tuesday, September 12, 2017 22:38 - CONCLUSION: 1. Right femoral intertrochanteric fracture. Sahil Gregorio MD Cervical Spine X-Ray 09/12/172052 Signed Impressions: Service Date/Time: Tuesday, September 12, 2017 22:43 - CONCLUSION: 1. Limited lateral examination with nonvisualization of C7-T1. 2. Otherwise, no acute fracture or subluxation. 3. Degenerative spondylosis of the lower cervical spine. Sahil Gregorio MD Objective Remarks GENERAL: Alert, NAD. SKIN: Warm and dry. Very warm to touch. HEAD: Normocephalic. EYES: No scleral icterus. No injection or drainage. NECK: Supple, trachea midline. No JVD or lymphadenopathy. CARDIOVASCULAR: Regular rate and rhythm without murmurs, gallops, or rubs. RESPIRATORY: Breath sounds equal bilaterally. No accessory muscle use. GASTROINTESTINAL: Abdomen soft, non-tender, nondistended. MUSCULOSKELETAL: No cyanosis, or edema. s/p right hip intramedullary rob fixation - dressing seems C/D/I. BACK: Nontender without obvious deformity. No CVA tenderness. Procedures 09/13/2017 Right hip intramedullary rob fixation Medications and IVs Current Medications Medications (Trade) Dose Ordered Sig/Micah Route Start Time Stop Time Status Last Admin (Tylenol) 650 mg Q4H PRN PO 09/12/17 23:15 10/04/17 15:03 (Zofran Inj) 4 mg Q6H PRN IVP 09/12/17 23:15 10/04/17 15:40 (NS Flush) 2 ml UNSCH PRN IV FLUSH 09/13/17 14:30 (NS Flush) 2 ml BID IV FLUSH 09/13/17 21:00 10/06/17 09:11 (Lovenox Inj) 30 mg Q12H SQ 09/14/17 02:00 10/06/17 02:02 (Percocet 5-325 Mg) 1 tab Q4H PRN PO 09/13/17 14:30 10/06/17 09:10 (Percocet 5-325 Mg) 2 tab Q4H PRN PO 09/13/17 14:30 10/05/17 10:48 (Phenergan) 25 mg Q4H PRN PO 09/13/17 14:30 09/25/17 15:10 (Ambien) 5 mg HS PRN PO 09/13/17 21:00 (Vicky-Colace) 1 tab BID PO 09/13/17 21:00 10/06/17 09:10 (Milk Of Magnesia Liq) 30 ml Q12H PRN PO 09/13/17 14:30 10/06/17 09:10 (Senokot) 17.2 mg Q12H PRN PO 09/13/17 14:30 10/06/17 09:10 (Dulcolax Supp) 10 mg DAILY PRN RECTAL 09/13/17 14:30 10/01/17 09:28 (Lactulose Liq) 30 ml DAILY PRN PO 09/13/17 14:30 10/05/17 08:41 (Cogentin) 0.5 mg BID PO 09/14/17 21:00 10/06/17 09:10 (Vistaril) 50 mg BID PO 09/14/17 21:00 10/06/17 09:10 (PROzac) 40 mg DAILY PO 09/15/17 09:00 10/06/17 09:10 (Vitamin B1) 100 mg DAILY PO 09/30/17 09:00 10/06/17 09:10 Pharmacy Profile Note 0 ml @ 0 mls/hr UNSCH OTHER 10/03/17 19:15 Vancomycin HCl 1500 mg/Sodium Chloride 515 ml @ 257.5 mls/ hr Q12H IV 10/05/17 20:00 10/06/17 09:15 Miscellaneous Information SPECIFIC LAB TO BE DRAWN:VANCO TROUGH DATE TO... ONCE ONCE .XX 10/07/17 07:45 10/07/17 07:46 (Levaquin) 750 mg DAILY PO 10/05/17 11:00 10/06/17 09:10 A/P Problem List: (1) Closed right hip fracture ICD Code: S72.001A - Fracture of unspecified part of neck of right femur, initial encounter for closed fracture Status: Acute (2) SIRS (systemic inflammatory response syndrome) ICD Code: R65.10 - Systemic inflammatory response syndrome (SIRS) of non- infectious origin without acute organ dysfunction Plan: Patient with low grade fever and leukocytosis >12. Right lower lung rales on exam. Chest x-ray (10/02) reviewed by me shows a possible developing right lower lobe infiltrate. UA negative Suspect due to HCAP vs aspiration pna. Will start patient on IV Vancomycin and IV zosyn, check blood cultures. Bilateral venous Doppler negative for DVT. Appreciate ID consultation and recommendations. The case was discussed with Dr. Foss, ID recommends orthopedic surgery evaluation. HCAP versus aspiration pneumonia ruled out given the chest x-ray is clear, this was reviewed by me. Urinalysis negative. Possible wound infection versus hematoma. 10/06 Patient still having fevers. Continue antibiotics as per ID recommendations. Blood culture still pending. (3) Encephalopathy acute ICD Code: G93.40 - Encephalopathy, unspecified Status: Acute Assessment and Plan Mr. Dove is a pleasant 62-year-old male who was admitted to the hospital after a fall. He sustained a right hip fracture. He underwent intramedullary rob fixation on 09/13/2017. - Right hip fracture - Status post intramedullary rob fixation - Percocet, morphine for pain. - Lovenox 30 mg every 12 hours. - Bowel regimen. - Continue with physical therapy. PT recommends SNF which might be difficult to arrange due to lack of insurance. - Alcohol abuse - continue CIWA protocol, thiamine, folic acid. -NO evidence of withdrawal - Depression - GERD - Continue home medications Prozac, PPI. - Nausea - Possibly due to GERD. On phenergan. Full code. Lovenox. Discharge Planning Dc pending ortho clearance.At this time, no safe discharge disposition for patient - no payer source for rehab or C. Patient is homeless. Discussed with shoe parts caser. Problem Qualifiers (1) Closed right hip fracture: Qualified Codes: S72.001A - Fracture of unspecified part of neck of right femur , initial encounter for closed fracture Aravind Duran MD Oct 06, 2017 10:19
--- NOTE | 2017-10-06 11:02 | HHI.IDPN ---
Subjective Subjective Remarks Patient is a 62-year-old male, admitted to the hospital after he tripped and fell. He was apparently drinking alcohol that day. He was found to have a right femoral intertrochanteric fracture. Orthopedics of the patient and the patient underwent IM rob fixation of his fracture on September 13. Patient was doing well postoperatively, and has required continued hospitalization due to disposition problems. He does not really offer any complaint except for some intermittent constipation. He has been doing well with physical therapy, and has progressed to full weightbearing on his right lower extremity. Since October 02, the patient started having some fevers. Initially it was low-grade , and overnight temperatures have been more persistent up to 101. He denies any significant respiratory complaint. Denies any nausea or vomiting. No diarrhea, and actually has some constipation, last bowel movement was about 3 days ago. He denies any problem with dysuria or any other voiding problem. His white count is normal. His urinalysis unremarkable. Chest x-ray is normal. Patient was started on vancomycin and Zosyn on October 03. Infectious disease consultation has been requested to evaluate the patient with persistent fevers. Notes reviewed temps low grade ortho notes reviewed BC negative ESR and CRP both high Antibiotics Current Medications Vancomycin Levaquin Medications (Trade) Dose Ordered Sig/Micah Route Start Time Stop Time Status Last Admin (Tylenol) 650 mg Q4H PRN PO 09/12/17 23:15 10/04/17 15:03 (Zofran Inj) 4 mg Q6H PRN IVP 09/12/17 23:15 10/04/17 15:40 (NS Flush) 2 ml UNSCH PRN IV FLUSH 09/13/17 14:30 (NS Flush) 2 ml BID IV FLUSH 09/13/17 21:00 10/06/17 09:11 (Lovenox Inj) 30 mg Q12H SQ 09/14/17 02:00 10/06/17 02:02 (Percocet 5-325 Mg) 1 tab Q4H PRN PO 09/13/17 14:30 10/06/17 09:10 (Percocet 5-325 Mg) 2 tab Q4H PRN PO 09/13/17 14:30 10/05/17 10:48 (Phenergan) 25 mg Q4H PRN PO 09/13/17 14:30 09/25/17 15:10 (Ambien) 5 mg HS PRN PO 09/13/17 21:00 (Vicky-Colace) 1 tab BID PO 09/13/17 21:00 10/06/17 09:10 (Milk Of Magnesia Liq) 30 ml Q12H PRN PO 09/13/17 14:30 10/06/17 09:10 (Senokot) 17.2 mg Q12H PRN PO 09/13/17 14:30 10/06/17 09:10 (Dulcolax Supp) 10 mg DAILY PRN RECTAL 09/13/17 14:30 10/01/17 09:28 (Lactulose Liq) 30 ml DAILY PRN PO 09/13/17 14:30 10/05/17 08:41 (Cogentin) 0.5 mg BID PO 09/14/17 21:00 10/06/17 09:10 (Vistaril) 50 mg BID PO 09/14/17 21:00 10/06/17 09:10 (PROzac) 40 mg DAILY PO 09/15/17 09:00 10/06/17 09:10 (Vitamin B1) 100 mg DAILY PO 09/30/17 09:00 10/06/17 09:10 Pharmacy Profile Note 0 ml @ 0 mls/hr UNSCH OTHER 10/03/17 19:15 Vancomycin HCl 1500 mg/Sodium Chloride 515 ml @ 257.5 mls/ hr Q12H IV 10/05/17 20:00 10/06/17 09:15 Miscellaneous Information SPECIFIC LAB TO BE DRAWN:VANCO TROUGH DATE TO... ONCE ONCE .XX 10/07/17 07:45 10/07/17 07:46 (Levaquin) 750 mg DAILY PO 10/05/17 11:00 10/06/17 09:10 Lines PIV Past Medical History COPD Schizoaffective disorder, Bipolar disorder, depression Past Surgical History Inguinal hernia repair appendectomy Allergies: Coded Allergies: No Known Allergies (Unverified Allergy, Unknown, 09/12/17) Objective . Vital Signs Date Time Temp Pulse Resp B/P (MAP) Pulse Ox O2 Delivery O2 Flow Rate FiO2 10/06/17 08:00 99.0 66 18 110/69 (83) 93 10/06/17 00:13 98.9 80 18 110/58 (75) 97 2/12/18 19:25 99.8 89 18 117/69 (85) 95 10/05/17 16:00 99.8 70 18 121/72 (88) 99 10/05/17 12:00 96.7 72 18 112/69 (83) 95 . Laboratory Tests Test 10/06/17 07:10 Erythrocyte Sedimentation Rate 115 mm/hr Laboratory Tests Test 10/06/17 07:10 Creatinine 0.62 MG/DL C-Reactive Protein 23.00 MG/DL Microbiology Date/Time Source Procedure Growth Status 10/05/17 06:08 Blood Peripheral Aerobic Blood Culture Pending Received 10/05/17 06:08 Blood Peripheral Anaerobic Blood Culture Pending Received 10/05/17 06:03 Blood Peripheral Aerobic Blood Culture Pending Received 10/05/17 06:03 Blood Peripheral Anaerobic Blood Culture Pending Received Imaging Last Impressions Lower Extremity Ultrasound 10/04/17 0000 Signed Impressions: Service Date/Time: Wednesday, October 04, 2017 17:10 - CONCLUSION: Negative for deep venous thrombosis bilateral lower extremity. Elgin Willard MD Chest X-Ray 10/04/17 0000 Signed Impressions: Service Date/Time: Wednesday, October 04, 2017 16:22 - CONCLUSION: Hyperaerated lungs. No focal infiltrates seen. Elgin Willadr MD Hip X-Ray 09/29/17 0000 Signed Impressions: Service Date/Time: Friday, September 29, 2017 13:27 - CONCLUSION: Status post ORIF of right proximal femur fracture with hardware in good position. Keo Carter MD Thoracic Spine X-Ray 09/12/172052 Signed Impressions: Service Date/Time: Tuesday, September 12, 2017 22:42 - CONCLUSION: 1. Limited AP view of the thoracic spine demonstrates no gross fracture or subluxation. Sahil Gregorio MD Hip and Pelvis X-Ray 09/12/172052 Signed Impressions: Service Date/Time: Tuesday, September 12, 2017 22:38 - CONCLUSION: 1. Right femoral intertrochanteric fracture. Sahil Gregorio MD Cervical Spine X-Ray 09/12/172052 Signed Impressions: Service Date/Time: Tuesday, September 12, 2017 22:43 - CONCLUSION: 1. Limited lateral examination with nonvisualization of C7-T1. 2. Otherwise, no acute fracture or subluxation. 3. Degenerative spondylosis of the lower cervical spine. Sahil Gregorio MD Physical Exam GENERAL: awake and alert, not in respiratory distress. SKIN: Warm and dry. No generalized rash, no ecchymoses and no evidence of embolic lesions. HEAD: Atraumatic. Normocephalic. No temporal wasting, or tenderness. EYES: [place] conjunctiva. No petechia or hemorrhage. Pupils equal, round and reactive to light. Extraocular movements full and intact. No scleral icterus. No injection or drainage. EARS, NOSE AND THROAT: Nose without bleeding or purulent nasal discharge. No sinus tenderness. Mucous membranes pink and moist. No oral lesions noted. He is edentulous NECK: Trachea midline. Supple and not tender, no meningeal signs CARDIOVASCULAR: Regular rate and rhythm. No murmurs, rubs or gallops heard RESPIRATORY: Clear to auscultation. Breath sounds equal bilaterally. No rales , wheezing or rhonchi ABDOMEN: Soft, non-tender, nondistended. Bowel sounds present and normoactive. No guarding. No rebound. No organomegaly. EXTREMITIES: No clubbing, cyanosis Has mild edema R ankle. Incision R hip with ecchymoses in upper 2/3, and in lowermost portion there is an area that is about 2 inches long that has some serosanguineous drainage, it looks flatter compared to yesterday and redness minimal. Not tender. No calf tenderness. Well perfused and warm. NEUROLOGICAL: Awake and alert. Cranial nerves grossly intact. Motor grossly within normal limits. PSYCHIATRIC: Normal affect, calm and cooperative. LINE: No evidence of infection Assessment & Plan Remarks IMPRESSION Fevers, etiology? - ?due to R hip, ?hematoma - no resp GI or Gu complaints - no lines S/P IM rob fication ER hip fracture RECOMMENDATION Continue IV Vanco for now Continue Levaquin Ortho evaluating patient Follow temps Monitor progress Follow C/S Yanet Foss MD Oct 06, 2017 11:02
[2017-10-06 12:00] VITALS: BP 96/59; PULSE 99; RESP 18; TEMP 99.7; O2SAT 93
[2017-10-06 16:00] VITALS: BP 108/59; PULSE 65; RESP 20; TEMP 99.8; O2SAT 98
--- NOTE | 2017-10-06 19:09 | PD.ORT.PN ---
Subjective Subjective Remarks No issues. Pain controlled. Objective Vitals Vital Signs Date Time Temp Pulse Resp B/P (MAP) Pulse Ox O2 Delivery O2 Flow Rate FiO2 10/06/17 12:00 99.7 99 18 96/59 (71) 93 10/06/17 08:00 99.0 66 18 110/69 (83) 93 10/06/17 00:13 98.9 80 18 110/58 (75) 97 10/05/17 19:25 99.8 89 18 117/69 (85) 95 I/O 10/05/17 10/05/17 10/05/17 10/06/17 10/06/17 10/06/17 07:00 15:00 23:00 07:00 15:00 23:00 Intake Total 100 ml 480 ml 360 ml 875 ml Output Total 650 ml 250 ml Balance -550 ml 230 ml 360 ml 875 ml Intake Oral 480 ml 360 ml 360 ml IV Total 100 ml 515 ml Output Urine Total 650 ml 250 ml # Voids 4 3 # Bowel Movements 0 0 0 0 Result Diagram: 10/04/17 0710 10/06/17 0710 Imaging Last 24 hours Impressions Hip X-Ray 09/29/17 0000 Signed Impressions: Service Date/Time: Friday, September 29, 2017 13:27 - CONCLUSION: Status post ORIF of right proximal femur fracture with hardware in good position. Keo Carter MD Objective Remarks AAOx3, NAD RLE: nvi.increased in the amount of serous and serosanguinous fluid expressed at the distal part to the midshaft wound, no erythema. SILT distally Assessment & Plan Assessment and Plan DOS: Sep 13, 2017 POSTP-OP- Right hip IMN Doing well. MCC placement issues increased and persistent wound drainage in the right thigh NPO midnight OR tomorrow for wound I&D Antiocoagulation: Lovenox Weight bearing status: WBAT Dressing: Change daily, by RN Continue abx per ID Bon Boles Jr., MD Oct 06, 2017 19:09
[2017-10-06 20:00] VITALS: BP 111/63; PULSE 72; RESP 15; TEMP 100.4; O2SAT 96
[2017-10-07] VITALS: BP 104/64; PULSE 55; RESP 15; TEMP 97.3; O2SAT 97
[2017-10-07] MEDS: ENOXAPARIN SODIUM 30 MG/0.3 ML SYRINGE SQ SCH ×2 (02:13→14:00)
[2017-10-07] MEDS ORDERED: PHARMACY ORDERED LAB ONE (07:45)
[2017-10-07 08:00] VITALS: BP 99/57; PULSE 63; RESP 18; TEMP 99.6; O2SAT 96
[2017-10-07] MEDS: FLUoxetine HCL 20 MG CAP PO SCH (09:14)
--- NOTE | 2017-10-07 09:15 | HHI.IDPN ---
Subjective Subjective Remarks Patient is a 62-year-old male, admitted to the hospital after he tripped and fell. He was apparently drinking alcohol that day. He was found to have a right femoral intertrochanteric fracture. Orthopedics of the patient and the patient underwent IM rob fixation of his fracture on September 13. Patient was doing well postoperatively, and has required continued hospitalization due to disposition problems. He does not really offer any complaint except for some intermittent constipation. He has been doing well with physical therapy, and has progressed to full weightbearing on his right lower extremity. Since October 02, the patient started having some fevers. Initially it was low-grade , and overnight temperatures have been more persistent up to 101. He denies any significant respiratory complaint. Denies any nausea or vomiting. No diarrhea, and actually has some constipation, last bowel movement was about 3 days ago. He denies any problem with dysuria or any other voiding problem. His white count is normal. His urinalysis unremarkable. Chest x-ray is normal. Patient was started on vancomycin and Zosyn on October 03. Infectious disease consultation has been requested to evaluate the patient with persistent fevers. Notes reviewed Still with low grade temps On NPO, OPR for today Ortho notes reviewed BC negative ESR and CRP both high Antibiotics Current Medications Vanco IV Levaquin Medications (Trade) Dose Ordered Sig/Micah Route Start Time Stop Time Status Last Admin (Tylenol) 650 mg Q4H PRN PO 09/12/17 23:15 10/04/17 15:03 (Zofran Inj) 4 mg Q6H PRN IVP 09/12/17 23:15 10/04/17 15:40 (NS Flush) 2 ml UNSCH PRN IV FLUSH 09/13/17 14:30 (NS Flush) 2 ml BID IV FLUSH 09/13/17 21:00 10/06/17 20:20 (Lovenox Inj) 30 mg Q12H SQ 09/14/17 02:00 10/07/17 02:13 (Percocet 5-325 Mg) 1 tab Q4H PRN PO 09/13/17 14:30 10/06/17 09:10 (Percocet 5-325 Mg) 2 tab Q4H PRN PO 09/13/17 14:30 10/06/17 20:23 (Phenergan) 25 mg Q4H PRN PO 09/13/17 14:30 09/25/17 15:10 (Ambien) 5 mg HS PRN PO 09/13/17 21:00 (Vicky-Colace) 1 tab BID PO 09/13/17 21:00 10/06/17 20:19 (Milk Of Magnesia Liq) 30 ml Q12H PRN PO 09/13/17 14:30 10/06/17 09:10 (Senokot) 17.2 mg Q12H PRN PO 09/13/17 14:30 10/06/17 09:10 (Dulcolax Supp) 10 mg DAILY PRN RECTAL 09/13/17 14:30 10/01/17 09:28 (Lactulose Liq) 30 ml DAILY PRN PO 09/13/17 14:30 10/05/17 08:41 (Cogentin) 0.5 mg BID PO 09/14/17 21:00 10/06/17 20:20 (Vistaril) 50 mg BID PO 09/14/17 21:00 10/06/17 20:19 (PROzac) 40 mg DAILY PO 09/15/17 09:00 10/06/17 09:10 (Vitamin B1) 100 mg DAILY PO 09/30/17 09:00 10/06/17 09:10 Pharmacy Profile Note 0 ml @ 0 mls/hr UNSCH OTHER 10/03/17 19:15 Vancomycin HCl 1500 mg/Sodium Chloride 515 ml @ 257.5 mls/ hr Q12H IV 10/05/17 20:00 10/06/17 20:20 (Levaquin) 750 mg DAILY PO 10/05/17 11:00 10/06/17 09:10 Lines PIV Past Medical History COPD Schizoaffective disorder, Bipolar disorder, depression Past Surgical History Inguinal hernia repair appendectomy Allergies: Coded Allergies: No Known Allergies (Unverified Allergy, Unknown, 09/12/17) Objective . Vital Signs Date Time Temp Pulse Resp B/P (MAP) Pulse Ox O2 Delivery O2 Flow Rate FiO2 10/07/17 00:00 97.3 55 15 104/64 (77) 97 10/06/17 20:00 100.4 72 15 111/63 (79) 96 10/06/17 16:00 99.8 65 20 108/59 (75) 98 10/06/17 12:00 99.7 99 18 96/59 (71) 93 . Laboratory Tests Test 10/06/17 07:10 Erythrocyte Sedimentation Rate 115 mm/hr Laboratory Tests Test 10/06/17 07:10 Creatinine 0.62 MG/DL C-Reactive Protein 23.00 MG/DL Microbiology Date/Time Source Procedure Growth Status 10/05/17 06:08 Blood Peripheral Aerobic Blood Culture - Preliminary NO GROWTH IN 1 DAY Resulted 10/05/17 06:08 Blood Peripheral Anaerobic Blood Culture - Preliminary NO GROWTH IN 1 DAY Resulted 10/05/17 06:03 Blood Peripheral Aerobic Blood Culture - Preliminary NO GROWTH IN 1 DAY Resulted 10/05/17 06:03 Blood Peripheral Anaerobic Blood Culture - Preliminary NO GROWTH IN 1 DAY Resulted Imaging Last Impressions Lower Extremity Ultrasound 10/04/17 0000 Signed Impressions: Service Date/Time: Wednesday, October 04, 2017 17:10 - CONCLUSION: Negative for deep venous thrombosis bilateral lower extremity. Elgin Willard MD Chest X-Ray 10/04/17 0000 Signed Impressions: Service Date/Time: Wednesday, October 04, 2017 16:22 - CONCLUSION: Hyperaerated lungs. No focal infiltrates seen. Elgin Willard MD Hip X-Ray 09/29/17 0000 Signed Impressions: Service Date/Time: Friday, September 29, 2017 13:27 - CONCLUSION: Status post ORIF of right proximal femur fracture with hardware in good position. Keo Carter MD Thoracic Spine X-Ray 09/12/172052 Signed Impressions: Service Date/Time: Tuesday, September 12, 2017 22:42 - CONCLUSION: 1. Limited AP view of the thoracic spine demonstrates no gross fracture or subluxation. Sahil Gregorio MD Hip and Pelvis X-Ray 09/12/172052 Signed Impressions: Service Date/Time: Tuesday, September 12, 2017 22:38 - CONCLUSION: 1. Right femoral intertrochanteric fracture. Sahil Gregorio MD Cervical Spine X-Ray 09/12/172052 Signed Impressions: Service Date/Time: Tuesday, September 12, 2017 22:43 - CONCLUSION: 1. Limited lateral examination with nonvisualization of C7-T1. 2. Otherwise, no acute fracture or subluxation. 3. Degenerative spondylosis of the lower cervical spine. Sahil Gregorio MD Physical Exam GENERAL: awake and alert, not in respiratory distress. SKIN: Warm and dry. No generalized rash, no ecchymoses and no evidence of embolic lesions. HEAD: Atraumatic. Normocephalic. No temporal wasting, or tenderness. EYES: [place] conjunctiva. No petechia or hemorrhage. Pupils equal, round and reactive to light. Extraocular movements full and intact. No scleral icterus. No injection or drainage. EARS, NOSE AND THROAT: Nose without bleeding or purulent nasal discharge. No sinus tenderness. Mucous membranes pink and moist. No oral lesions noted. He is edentulous NECK: Trachea midline. Supple and not tender, no meningeal signs CARDIOVASCULAR: Regular rate and rhythm. No murmurs, rubs or gallops heard RESPIRATORY: Clear to auscultation. Breath sounds equal bilaterally. No rales , wheezing or rhonchi ABDOMEN: Soft, non-tender, nondistended. Bowel sounds present and normoactive. No guarding. No rebound. No organomegaly. EXTREMITIES: No clubbing, cyanosis Has mild edema R ankle. Incision R hip with ecchymoses in upper 2/3, and in lowermost portion there is an area that is about 2 inches long that has some serosanguineous drainage, mild redness. Not tender. No calf tenderness. Well perfused and warm. NEUROLOGICAL: Grossly non-focal PSYCHIATRIC: Normal affect, calm and cooperative. LINE: No evidence of infection Assessment & Plan Remarks IMPRESSION Fevers, etiology? - ?due to R hip, ?hematoma - no resp GI or Gu complaints - no lines S/P IM rob fication ER hip fracture RECOMMENDATION Continue IV Vanco for now Continue Levaquin Ortho to do surgery on patient today Follow temps Monitor progress Follow C/S Yanet Foss MD Oct 07, 2017 09:15
[2017-10-07] MEDS: oxyCODONE/ACETAMINOPHEN 5 MG/325 MG TAB PO PRN ×2 (09:16→22:04)
[2017-10-07] MEDS: VANCOMYCIN 1,500 MG/NS 500 ML IV SCH ×4 (09:16→22:03)
[2017-10-07] MEDS: THIAMINE HCL 100 MG TAB PO SCH (09:16)
[2017-10-07] MEDS: DOCUSATE SODIUM 50 MG/SENNA 8.6 MG TAB PO SCH ×2 (09:16→22:04)
[2017-10-07] MEDS: LEVOFLOXACIN 750 MG TAB PO SCH (09:16)
[2017-10-07] MEDS: SODIUM CHLORIDE 0.9% FLUSH 10 ML FLUSH IV FLUSH SCH ×2 (09:16→21:00)
[2017-10-07] MEDS: BENZTROPINE MESYLATE 1 MG TAB PO SCH ×2 (09:25→22:04)
[2017-10-07] MEDS ORDERED: ROCURONIUM INJ 50 MG/5 ML SYRINGE IV PUSH ONE (12:00)
[2017-10-07] MEDS ORDERED: PHENYLEPH/NS 1000 MCG/10 ML SYR IV ONE (12:00)
[2017-10-07] MEDS ORDERED: PROPOFOL 200 MG/20 ML AMP IV ONE (12:00)
[2017-10-07] MEDS ORDERED: KETOROLAC TROMETHAMINE 30 MG/ML (IVP) VIAL IV PUSH ONE (12:00)
[2017-10-07] MEDS ORDERED: SUCCINYLCHOLINE CHLORIDE 200 MG/10 ML VIAL IV ONE (12:00)
[2017-10-07] MEDS ORDERED: LIDOCAINE HCL 1% PF 5 ML SYRINGE OTHER ONE (12:00)
[2017-10-07] MEDS ORDERED: DEXAMETHASONE SOD PHOS 4 MG/ML VIAL IV ONE (12:00)
[2017-10-07] MEDS ORDERED: ePHEDrine/NS 25 MG/5 ML SYRINGE IV ONE (12:00)
[2017-10-07] MEDS ORDERED: ONDANSETRON HCL 4 MG/2 ML VIAL IV ONE (12:00)
[2017-10-07] MEDS ORDERED: GENTAMICIN SULFATE 80 MG/2 ML VIAL ONE (12:05)
[2017-10-07] MEDS ORDERED: SODIUM CHLORIDE 0.9% FLUSH 10 ML FLUSH IV FLUSH PRN (12:30)
[2017-10-07] MEDS ORDERED: BISACODYL 10 MG SUPP RECTAL PRN (12:30)
[2017-10-07] MEDS ORDERED: Post-op Orders (for Pharmacy) XX ONE (12:30)
[2017-10-07] MEDS ORDERED: ZOLPIDEM TARTRATE 5 MG TAB PO PRN (12:30)
[2017-10-07] MEDS ORDERED: PROMETHAZINE HCL 25 MG SUPP RECTAL PRN (12:30)
[2017-10-07] MEDS ORDERED: MORPHINE SULFATE 8 MG/ML INJ IV PUSH PRN (12:30)
[2017-10-07] MEDS ORDERED: DO NOT ADM ANY ANTICOAGULANT DRUGS PRN (13:35)
[2017-10-07] MEDS ORDERED: MIDAZOLAM HCL 2 MG/2 ML VIAL ONE (13:41)
[2017-10-07] MEDS ORDERED: *morphine SULFATE 4 MG/ML PERIprocedure ONLY ONE (13:42)
[2017-10-07] MEDS ORDERED: *ONDANSETRON 4 MG VIAL PERIprocedural Use ONLY ONE (14:02)
[2017-10-07 16:00] VITALS: BP 106/68; PULSE 54; RESP 18; TEMP 97.8; O2SAT 98
--- NOTE | 2017-10-07 16:00 | HHI.PR ---
Subjective Remarks Follow-up right hip fracture 10/07/17-patient seen and examined, no acute event overnight. Vitals stable. Objective Vitals Vital Signs Date Time Temp Pulse Resp B/P (MAP) Pulse Ox O2 Delivery O2 Flow Rate FiO2 10/07/17 14:15 57 16 107/61 (76) 95 Nasal Cannula 2 10/07/17 14:00 59 16 107/59 (75) 95 Nasal Cannula 2 10/07/17 13:45 59 16 152/77 (102) 94 Nasal Cannula 2 10/07/17 13:35 98.6 67 16 146/74 (98) 92 Nasal Cannula 2 10/07/17 08:00 99.6 63 18 99/57 (71) 96 10/07/17 00:00 97.3 55 15 104/64 (77) 97 10/06/17 20:00 100.4 72 15 111/63 (79) 96 10/06/17 16:00 99.8 65 20 108/59 (75) 98 I/O 10/06/17 10/06/17 10/06/17 10/07/17 10/07/17 10/07/17 07:00 15:00 23:00 07:00 15:00 23:00 Intake Total 875 ml 400 ml Balance 875 ml 400 ml Intake Oral 360 ml 400 ml IV Total 515 ml # Voids 3 2 # Bowel Movements 0 Result Diagram: 10/04/17 0710 10/06/17 0710 Imaging Last Impressions Lower Extremity Ultrasound 10/04/17 0000 Signed Impressions: Service Date/Time: Wednesday, October 04, 2017 17:10 - CONCLUSION: Negative for deep venous thrombosis bilateral lower extremity. Elgin Willard MD Chest X-Ray 10/04/17 0000 Signed Impressions: Service Date/Time: Wednesday, October 04, 2017 16:22 - CONCLUSION: Hyperaerated lungs. No focal infiltrates seen. Elgin Willard MD Hip X-Ray 09/29/17 0000 Signed Impressions: Service Date/Time: Friday, September 29, 2017 13:27 - CONCLUSION: Status post ORIF of right proximal femur fracture with hardware in good position. Keo Carter MD Thoracic Spine X-Ray 09/12/172052 Signed Impressions: Service Date/Time: Tuesday, September 12, 2017 22:42 - CONCLUSION: 1. Limited AP view of the thoracic spine demonstrates no gross fracture or subluxation. Sahil Gregorio MD Hip and Pelvis X-Ray 09/12/172052 Signed Impressions: Service Date/Time: Tuesday, September 12, 2017 22:38 - CONCLUSION: 1. Right femoral intertrochanteric fracture. Sahil Gregorio MD Cervical Spine X-Ray 09/12/172052 Signed Impressions: Service Date/Time: Tuesday, September 12, 2017 22:43 - CONCLUSION: 1. Limited lateral examination with nonvisualization of C7-T1. 2. Otherwise, no acute fracture or subluxation. 3. Degenerative spondylosis of the lower cervical spine. Sahil Gregorio MD Objective Remarks GENERAL: NAD SKIN: Warm and dry. HEAD: Normocephalic. EYES: No scleral icterus. No injection or drainage. NECK: Supple, trachea midline. No JVD or lymphadenopathy. CARDIOVASCULAR: Regular rate and rhythm without murmurs, gallops, or rubs. RESPIRATORY: Breath sounds equal bilaterally. No accessory muscle use. GASTROINTESTINAL: Abdomen soft, non-tender, nondistended. MUSCULOSKELETAL: No cyanosis, or edema. BACK: Nontender without obvious deformity. No CVA tenderness. Procedures 09/13/2017 Right hip intramedullary rob fixation A/P Problem List: (1) Closed right hip fracture ICD Code: S72.001A - Fracture of unspecified part of neck of right femur, initial encounter for closed fracture Status: Acute (2) SIRS (systemic inflammatory response syndrome) ICD Code: R65.10 - Systemic inflammatory response syndrome (SIRS) of non- infectious origin without acute organ dysfunction (3) Encephalopathy acute ICD Code: G93.40 - Encephalopathy, unspecified Status: Acute Assessment and Plan 62-year-old man with SIRS (systemic inflammatory response syndrome) Suspect due to HCAP vs aspiration pna. Continue IV Vancomycin and Levaquin, pending blood cultures. Bilateral venous Doppler negative for DVT. Appreciate ID consultation and recommendations. - Right hip fracture - Status post intramedullary rob fixation - Percocet, morphine for pain. - Lovenox 30 mg every 12 hours. - Bowel regimen. - Continue with physical therapy. PT recommends SNF which might be difficult to arrange due to lack of insurance. - Alcohol abuse - continue CIWA protocol, thiamine, folic acid. -NO evidence of withdrawal - Depression - GERD - Continue home medications Prozac, PPI. - Nausea - Possibly due to GERD. On Phenergan. Full code. Lovenox. Problem Qualifiers (1) Closed right hip fracture: Qualified Codes: S72.001A - Fracture of unspecified part of neck of right femur , initial encounter for closed fracture Ricardo Villar MD Oct 07, 2017 16:00
[2017-10-07 20:00] VITALS: BP 92/56; PULSE 87; RESP 16; TEMP 96.5; O2SAT 97
--- NOTE | 2017-10-07 20:39 | PD.OP ---
cc: Bon Boles Jr., MD Operative Report Date of Surgery: Oct 07, 2017 Preoperative Diagnosis: Right wound drainage, postop Postoperative Diagnosis: same Procedure: Right thigh wound irrigation and debridement Anesthesia: gen Surgeon: Bon Boles Clerk(s): staff Resident Surgeon: none Operation and Findings: The patient received intravenous ancef. After the appropriate anesthesia was administered, and the patient was transferred to the fracture table supine. The hip was prepped and draped in usual sterile fashion. We made incision through the previous distal wound. dissection carried down to the subcutaneous tissue where a very small amount of serous fluid was expressed. there was no uriel pus. The IT band was still split and not healed. The wound was thouroughly irrigated with a pulse lavage and as well as deep to the IT band. Intraop cultures were taken. The wounds was thoroughly irrigated and then closed with a 0 PDS at the IT and, 3-0 PDS subcu and 2-0 nylon at the skin. The patient was extubated and transferred to recovery in stable condition. Bon Boles Jr., MD Oct 07, 2017 20:39
[2017-10-07 21:49] VITALS: O2SAT 98
[2017-10-07] MEDS: MAGNESIUM HYDROXIDE SUSP 30 ML CUP PO PRN (22:03)
[2017-10-08] VITALS (8 sets, daily range): BP systolic 98–120; BP diastolic 58–73; PULSE 50–64; RESP 15–18; TEMP 96.8–98.6; O2SAT 95–98
[2017-10-08] MEDS: ENOXAPARIN SODIUM 30 MG/0.3 ML SYRINGE SQ SCH ×2 (01:26→13:10)
[2017-10-08 06:40] LABS: CREATININE 0.56 MG/DL (0.60-1.30)
[2017-10-08] MEDS: FLUoxetine HCL 20 MG CAP PO SCH (08:32)
[2017-10-08] MEDS: oxyCODONE/ACETAMINOPHEN 5 MG/325 MG TAB PO PRN ×3 (08:32→21:51)
[2017-10-08] MEDS: LACTULOSE SYRUP 20 GM/30 ML CUP PO PRN (08:32)
[2017-10-08] MEDS: THIAMINE HCL 100 MG TAB PO SCH (08:32)
[2017-10-08] MEDS: BENZTROPINE MESYLATE 1 MG TAB PO SCH ×2 (08:32→21:51)
[2017-10-08] MEDS: DOCUSATE SODIUM 50 MG/SENNA 8.6 MG TAB PO SCH ×2 (08:32→21:51)
[2017-10-08] MEDS: LEVOFLOXACIN 750 MG TAB PO SCH (08:33)
[2017-10-08] MEDS: SODIUM CHLORIDE 0.9% FLUSH 10 ML FLUSH IV FLUSH SCH ×2 (08:37→21:51)
[2017-10-08] MEDS: VANCOMYCIN 1,500 MG/NS 500 ML IV SCH ×4 (08:38→21:51)
--- NOTE | 2017-10-08 12:39 | HHI.PR ---
Subjective Remarks Follow-up right hip fracture 10/07/17-patient seen and examined, no acute event overnight. Vitals stable. 10/08/17-patient seen and examined, denies any significant pain to right lower extremity. s/p I&D yesterday. Currently afebrile Objective Vitals Vital Signs Date Time Temp Pulse Resp B/P (MAP) Pulse Ox O2 Delivery O2 Flow Rate FiO2 10/08/17 11:38 95 21 10/08/17 11:35 97.0 62 18 100/58 (72) 95 10/08/17 07:55 97.8 53 18 100/63 (75) 96 10/08/17 06:00 96.8 50 15 101/64 (76) 98 10/08/17 00:00 98.6 52 15 98/64 (75) 98 10/07/17 23:04 18 10/07/17 23:01 Room Air 10/07/17 21:49 98 Nasal Cannula 2.00 10/07/17 20:00 96.5 87 16 92/56 (68) 97 10/07/17 16:00 97.8 54 18 106/68 (81) 98 10/07/17 14:15 57 16 107/61 (76) 95 Nasal Cannula 2 10/07/17 14:00 59 16 107/59 (75) 95 Nasal Cannula 2 10/07/17 13:45 59 16 152/77 (102) 94 Nasal Cannula 2 10/07/17 13:35 98.6 67 16 146/74 (98) 92 Nasal Cannula 2 I/O 10/07/17 10/07/17 10/07/17 10/08/17 10/08/17 10/08/17 07:00 15:00 23:00 07:00 15:00 23:00 Intake Total 400 ml 715 ml Output Total 20 ml Balance 380 ml 715 ml IV Total 715 ml Other 400 ml Estimated Blood Loss 20 ml # Voids 3 Result Diagram: 10/04/17 0710 10/08/17 0535 Objective Remarks GENERAL: NAD SKIN: Warm and dry. HEAD: Normocephalic. EYES: No scleral icterus. No injection or drainage. NECK: Supple, trachea midline. No JVD or lymphadenopathy. CARDIOVASCULAR: Regular rate and rhythm without murmurs, gallops, or rubs. RESPIRATORY: Breath sounds equal bilaterally. No accessory muscle use. GASTROINTESTINAL: Abdomen soft, non-tender, nondistended. MUSCULOSKELETAL: No cyanosis, or edema. BACK: Nontender without obvious deformity. No CVA tenderness. Procedures 09/13/2017 Right hip intramedullary rob fixation A/P Problem List: (1) Closed right hip fracture ICD Code: S72.001A - Fracture of unspecified part of neck of right femur, initial encounter for closed fracture Status: Acute (2) SIRS (systemic inflammatory response syndrome) ICD Code: R65.10 - Systemic inflammatory response syndrome (SIRS) of non- infectious origin without acute organ dysfunction (3) Encephalopathy acute ICD Code: G93.40 - Encephalopathy, unspecified Status: Acute Assessment and Plan 62-year-old man with SIRS (systemic inflammatory response syndrome) Suspect due to HCAP vs aspiration pna. s/p Right thigh wound irrigation and debridement 10/07/17 pending wound culture Continue IV Vancomycin and Levaquin, pending blood cultures. Bilateral venous Doppler negative for DVT. Appreciate ID consultation and recommendations. - Right hip fracture - Status post intramedullary rob fixation -s/p Right thigh wound irrigation and debridement 10/07/17 pending wound culture - Percocet, morphine for pain. - Lovenox 30 mg every 12 hours. - Bowel regimen. - Continue with physical therapy. PT recommends SNF which might be difficult to arrange due to lack of insurance. - Alcohol abuse - continue CIWA protocol, thiamine, folic acid. -NO evidence of withdrawal - Depression - GERD - Continue home medications Prozac, PPI. - Nausea - Possibly due to GERD. On Phenergan. Full code. Lovenox. Problem Qualifiers (1) Closed right hip fracture: Qualified Codes: S72.001A - Fracture of unspecified part of neck of right femur , initial encounter for closed fracture Ricardo Villar MD Oct 08, 2017 12:39
--- NOTE | 2017-10-08 14:28 | HHI.IDPN ---
Subjective Subjective Remarks Patient is a 62-year-old male, admitted to the hospital after he tripped and fell. He was apparently drinking alcohol that day. He was found to have a right femoral intertrochanteric fracture. Orthopedics of the patient and the patient underwent IM rob fixation of his fracture on September 13. Patient was doing well postoperatively, and has required continued hospitalization due to disposition problems. He does not really offer any complaint except for some intermittent constipation. He has been doing well with physical therapy, and has progressed to full weightbearing on his right lower extremity. Since October 02, the patient started having some fevers. Initially it was low-grade , and overnight temperatures have been more persistent up to 101. He denies any significant respiratory complaint. Denies any nausea or vomiting. No diarrhea, and actually has some constipation, last bowel movement was about 3 days ago. He denies any problem with dysuria or any other voiding problem. His white count is normal. His urinalysis unremarkable. Chest x-ray is normal. Patient was started on vancomycin and Zosyn on October 03. Infectious disease consultation has been requested to evaluate the patient with persistent fevers. Notes reviewed Temps better OR done yesterday - had debridement of lower wound, no purulence seen G/S no organism seen C/O mild pain BC negative ESR and CRP both high Antibiotics Current Medications Vanco IV Levaquin Medications (Trade) Dose Ordered Sig/Micah Route Start Time Stop Time Status Last Admin (Tylenol) 650 mg Q4H PRN PO 09/12/17 23:15 10/04/17 15:03 (Zofran Inj) 4 mg Q6H PRN IVP 09/12/17 23:15 10/04/17 15:40 (NS Flush) 2 ml UNSCH PRN IV FLUSH 09/13/17 14:30 (NS Flush) 2 ml BID IV FLUSH 09/13/17 21:00 10/06/17 20:20 (Lovenox Inj) 30 mg Q12H SQ 09/14/17 02:00 10/07/17 02:13 (Percocet 5-325 Mg) 1 tab Q4H PRN PO 09/13/17 14:30 10/06/17 09:10 (Percocet 5-325 Mg) 2 tab Q4H PRN PO 09/13/17 14:30 10/06/17 20:23 (Phenergan) 25 mg Q4H PRN PO 09/13/17 14:30 09/25/17 15:10 (Ambien) 5 mg HS PRN PO 09/13/17 21:00 (Vicky-Colace) 1 tab BID PO 09/13/17 21:00 10/06/17 20:19 (Milk Of Magnesia Liq) 30 ml Q12H PRN PO 09/13/17 14:30 10/06/17 09:10 (Senokot) 17.2 mg Q12H PRN PO 09/13/17 14:30 10/06/17 09:10 (Dulcolax Supp) 10 mg DAILY PRN RECTAL 09/13/17 14:30 10/01/17 09:28 (Lactulose Liq) 30 ml DAILY PRN PO 09/13/17 14:30 10/05/17 08:41 (Cogentin) 0.5 mg BID PO 09/14/17 21:00 10/06/17 20:20 (Vistaril) 50 mg BID PO 09/14/17 21:00 10/06/17 20:19 (PROzac) 40 mg DAILY PO 09/15/17 09:00 10/06/17 09:10 (Vitamin B1) 100 mg DAILY PO 09/30/17 09:00 10/06/17 09:10 Pharmacy Profile Note 0 ml @ 0 mls/hr UNSCH OTHER 10/03/17 19:15 Vancomycin HCl 1500 mg/Sodium Chloride 515 ml @ 257.5 mls/ hr Q12H IV 10/05/17 20:00 10/06/17 20:20 (Levaquin) 750 mg DAILY PO 10/05/17 11:00 10/06/17 09:10 Lines PIV Past Medical History COPD Schizoaffective disorder, Bipolar disorder, depression Past Surgical History Inguinal hernia repair appendectomy Allergies: Coded Allergies: No Known Allergies (Unverified Allergy, Unknown, 09/12/17) Objective . Vital Signs Date Time Temp Pulse Resp B/P (MAP) Pulse Ox O2 Delivery O2 Flow Rate FiO2 10/08/17 11:38 95 21 10/08/17 11:35 97.0 62 18 100/58 (72) 95 10/08/17 07:55 97.8 53 18 100/63 (75) 96 10/08/17 06:00 96.8 50 15 101/64 (76) 98 10/08/17 00:00 98.6 52 15 98/64 (75) 98 10/07/17 23:04 18 10/07/17 23:01 Room Air 10/07/17 21:49 98 Nasal Cannula 2.00 10/07/17 20:00 96.5 87 16 92/56 (68) 97 10/07/17 16:00 97.8 54 18 106/68 (81) 98 10/08/17 10/08/17 10/09/17 15:00 23:00 07:00 Intake Total 950 ml Output Total 600 ml Balance 350 ml Intake Oral 950 ml Output Urine Total 600 ml . Laboratory Tests Test 10/08/17 05:35 Creatinine 0.56 MG/DL Estimat Glomerular Filtration Rate 147 ML/MIN Microbiology Date/Time Source Procedure Growth Status 10/07/17 13:00 Wound Thigh Fungal Smear - Final NO FUNGAL ELEMENTS SEEN. Resulted 10/07/17 13:00 Wound Thigh Fungal Culture Pending Resulted 10/07/17 13:00 Wound Thigh Acid Fast Stain Pending Received 10/07/17 13:00 Wound Thigh Mycobacterial Culture Pending Received 10/07/17 13:00 Wound Thigh Gram Stain - Final Resulted 10/07/17 13:00 Wound Thigh Wound Culture Pending Resulted 10/07/17 12:59 Wound Thigh Fungal Smear - Final NO FUNGAL ELEMENTS SEEN. Resulted 10/07/17 12:59 Wound Thigh Fungal Culture Pending Resulted 10/07/17 12:59 Wound Thigh Acid Fast Stain Pending Received 10/07/17 12:59 Wound Thigh Mycobacterial Culture Pending Received 10/07/17 12:59 Wound Thigh Gram Stain - Final Resulted 10/07/17 12:59 Wound Thigh Wound Culture Pending Resulted Imaging Last Impressions Lower Extremity Ultrasound 10/04/17 0000 Signed Impressions: Service Date/Time: Wednesday, October 04, 2017 17:10 - CONCLUSION: Negative for deep venous thrombosis bilateral lower extremity. Elgin Willard MD Chest X-Ray 10/04/17 0000 Signed Impressions: Service Date/Time: Wednesday, October 04, 2017 16:22 - CONCLUSION: Hyperaerated lungs. No focal infiltrates seen. Elgin Willard MD Hip X-Ray 09/29/17 0000 Signed Impressions: Service Date/Time: Friday, September 29, 2017 13:27 - CONCLUSION: Status post ORIF of right proximal femur fracture with hardware in good position. Keo Carter MD Thoracic Spine X-Ray 09/12/172052 Signed Impressions: Service Date/Time: Tuesday, September 12, 2017 22:42 - CONCLUSION: 1. Limited AP view of the thoracic spine demonstrates no gross fracture or subluxation. Sahil Gregorio MD Hip and Pelvis X-Ray 09/12/172052 Signed Impressions: Service Date/Time: Tuesday, September 12, 2017 22:38 - CONCLUSION: 1. Right femoral intertrochanteric fracture. Sahil Gregorio MD Cervical Spine X-Ray 09/12/172052 Signed Impressions: Service Date/Time: Tuesday, September 12, 2017 22:43 - CONCLUSION: 1. Limited lateral examination with nonvisualization of C7-T1. 2. Otherwise, no acute fracture or subluxation. 3. Degenerative spondylosis of the lower cervical spine. Sahil Gregorio MD Physical Exam GENERAL: awake and alert, NAD SKIN: Warm and dry. No generalized rash HEAD: Atraumatic. Normocephalic. No temporal wasting, or tenderness. EYES: [place] conjunctiva. No petechia or hemorrhage. Pupils equal, round and reactive to light. EOM full and intact. No scleral icterus. No injection or drainage. EARS, NOSE AND THROAT: Nose without bleeding or purulent nasal discharge. No sinus tenderness. Mucous membranes pink and moist. No oral lesions noted. He is edentulous NECK: Trachea midline. Supple and not tender, no meningeal signs CARDIOVASCULAR: Regular rate and rhythm. No murmurs, rubs or gallops heard RESPIRATORY: Clear to auscultation. Breath sounds equal bilaterally. No rales , wheezing or rhonchi ABDOMEN: Soft, non-tender, nondistended. Bowel sounds present and normoactive. No guarding. No rebound. No organomegaly. EXTREMITIES: No clubbing, cyanosis R hip incision is dry; evolving ecchymoses in upper 2/3 of incision, no erythema noted. Not tender. No calf tenderness. Well perfused and warm. NEUROLOGICAL: Grossly non-focal PSYCHIATRIC: Normal affect, calm and cooperative. LINE: No evidence of infection Assessment & Plan Remarks IMPRESSION Fevers, etiology? - ?due to R hip, ?hematoma - S/P debridement, no purulence see, G/C no organism, C/S pending - no resp GI or complaints - no lines S/P IM rob fication ER hip fracture RECOMMENDATION Continue IV Vanco for now Continue Levaquin Follow temps Monitor progress Follow C/S Yanet Foss MD Oct 08, 2017 14:28
--- NOTE | 2017-10-08 16:02 | PD.ORT.PN ---
Subjective Subjective Remarks No issues. Pain controlled. Objective Vitals Vital Signs Date Time Temp Pulse Resp B/P (MAP) Pulse Ox O2 Delivery O2 Flow Rate FiO2 10/08/17 15:43 97.8 63 18 105/67 (80) 95 10/08/17 11:38 95 21 10/08/17 11:35 97.0 62 18 100/58 (72) 95 10/08/17 07:55 97.8 53 18 100/63 (75) 96 10/08/17 06:00 96.8 50 15 101/64 (76) 98 10/08/17 00:00 98.6 52 15 98/64 (75) 98 10/07/17 23:04 18 10/07/17 23:01 Room Air 10/07/17 21:49 98 Nasal Cannula 2.00 10/07/17 20:00 96.5 87 16 92/56 (68) 97 I/O 10/07/17 10/07/17 10/07/17 10/08/17 10/08/17 10/08/17 07:00 15:00 23:00 07:00 15:00 23:00 Intake Total 400 ml 715 ml 950 ml Output Total 20 ml 600 ml Balance 380 ml 715 ml 350 ml Intake Oral 950 ml IV Total 715 ml Other 400 ml Output Urine Total 600 ml Estimated Blood Loss 20 ml # Voids 3 Result Diagram: 10/04/17 0710 10/08/17 0535 Imaging Last 24 hours Impressions Hip X-Ray 09/29/17 0000 Signed Impressions: Service Date/Time: Friday, September 29, 2017 13:27 - CONCLUSION: Status post ORIF of right proximal femur fracture with hardware in good position. Keo Carter MD Objective Remarks AAOx3, NAD RLE: nvi. dressing CDI. SILT distally Assessment & Plan Assessment and Plan DOS: Sep 13, 2017- POSTP-OP- Right hip IMN POD- 1 right leg wound I&D for persistent drainage Doing well. technician terminal and repeater placement issues iv abx per ID. cultures negative to date Antiocoagulation: Lovenox Weight bearing status: WBAT Dressing: Change daily, by RN POD-2 clear for DC per Bon Munroe Jr., MD Oct 08, 2017 16:02
[2017-10-08] MEDS: MAGNESIUM HYDROXIDE SUSP 30 ML CUP PO PRN (16:39)
[2017-10-08] MEDS: SENNOSIDES 8.6 MG TAB PO PRN (21:51)
[2017-10-09] MEDS: ENOXAPARIN SODIUM 30 MG/0.3 ML SYRINGE SQ SCH ×2 (01:33→13:24)
[2017-10-09 08:00] VITALS: BP 119/69; PULSE 56; RESP 16; TEMP 98; O2SAT 96
[2017-10-09] MEDS: PROMETHAZINE HCL 25 MG TAB PO PRN ×2 (09:28→13:24)
[2017-10-09] MEDS: SODIUM CHLORIDE 0.9% FLUSH 10 ML FLUSH IV FLUSH SCH ×2 (09:29→21:43)
[2017-10-09] MEDS: MAGNESIUM HYDROXIDE SUSP 30 ML CUP PO PRN (09:29)
[2017-10-09] MEDS: LACTULOSE SYRUP 20 GM/30 ML CUP PO PRN (09:29)
[2017-10-09] MEDS: oxyCODONE/ACETAMINOPHEN 5 MG/325 MG TAB PO PRN ×3 (09:29→21:43)
[2017-10-09] MEDS: SENNOSIDES 8.6 MG TAB PO PRN (09:29)
[2017-10-09] MEDS: FLUoxetine HCL 20 MG CAP PO SCH (09:33)
[2017-10-09] MEDS: VANCOMYCIN 1,500 MG/NS 500 ML IV SCH ×4 (09:33→21:42)
[2017-10-09] MEDS: BENZTROPINE MESYLATE 1 MG TAB PO SCH ×2 (09:33→21:43)
[2017-10-09] MEDS: LEVOFLOXACIN 750 MG TAB PO SCH (09:33)
[2017-10-09] MEDS: THIAMINE HCL 100 MG TAB PO SCH (09:33)
[2017-10-09] MEDS: DOCUSATE SODIUM 50 MG/SENNA 8.6 MG TAB PO SCH ×2 (09:53→21:43)
--- NOTE | 2017-10-09 10:24 | HHI.PR ---
Subjective Remarks Follow-up right hip fracture 10/07/17-patient seen and examined, no acute event overnight. Vitals stable. 10/08/17-patient seen and examined, denies any significant pain to right lower extremity. s/p I&D yesterday. Currently afebrile 10/09/17-patient seen and examined, states he had a rough night sleeping last night ; still with some episode of nausea without any emesis. Currently afebrile. Objective Vitals Vital Signs Date Time Temp Pulse Resp B/P (MAP) Pulse Ox O2 Delivery O2 Flow Rate FiO2 10/08/17 23:45 Room Air 10/08/17 23:05 97.9 64 17 120/73 (89) 95 10/08/17 22:51 17 10/08/17 21:10 98.0 62 18 114/69 (84) 95 10/08/17 15:43 97.8 63 18 105/67 (80) 95 10/08/17 11:38 95 21 10/08/17 11:35 97.0 62 18 100/58 (72) 95 I/O 10/08/17 10/08/17 10/08/17 10/09/17 10/09/17 10/09/17 07:00 15:00 23:00 07:00 15:00 23:00 Intake Total 715 ml 950 ml 240 ml 515 ml Output Total 600 ml 450 ml 750 ml Balance 715 ml 350 ml -210 ml -235 ml Intake Oral 950 ml 240 ml IV Total 715 ml 515 ml Output Urine Total 600 ml 450 ml 750 ml # Voids 3 # Bowel Movements 0 Result Diagram: 10/08/17 0535 Objective Remarks GENERAL: NAD SKIN: Warm and dry. HEAD: Normocephalic. EYES: No scleral icterus. No injection or drainage. NECK: Supple, trachea midline. No JVD or lymphadenopathy. CARDIOVASCULAR: Regular rate and rhythm without murmurs, gallops, or rubs. RESPIRATORY: Breath sounds equal bilaterally. No accessory muscle use. GASTROINTESTINAL: Abdomen soft, non-tender, nondistended. MUSCULOSKELETAL: No cyanosis, or edema. BACK: Nontender without obvious deformity. No CVA tenderness. Procedures 09/13/2017 Right hip intramedullary rob fixation A/P Problem List: (1) Closed right hip fracture ICD Code: S72.001A - Fracture of unspecified part of neck of right femur, initial encounter for closed fracture Status: Acute (2) SIRS (systemic inflammatory response syndrome) ICD Code: R65.10 - Systemic inflammatory response syndrome (SIRS) of non- infectious origin without acute organ dysfunction (3) Encephalopathy acute ICD Code: G93.40 - Encephalopathy, unspecified Status: Acute Assessment and Plan 62-year-old man with SIRS (systemic inflammatory response syndrome) Suspect due to HCAP vs aspiration pna. s/p Right thigh wound irrigation and debridement 10/07/17 pending wound culture Continue IV Vancomycin and Levaquin, pending cultures report. Bilateral venous Doppler negative for DVT. Appreciate ID consultation and recommendations. - Right hip fracture - Status post intramedullary rob fixation -s/p Right thigh wound irrigation and debridement 10/07/17 pending wound culture - Percocet, morphine for pain. - Lovenox 30 mg every 12 hours. - Continue with physical therapy. PT recommends SNF which might be difficult to arrange due to lack of insurance. - Alcohol abuse - continue CIWA protocol, thiamine, folic acid. - Depression - GERD - Continue home medications Prozac, PPI. - Nausea- - Possibly due to GERD. On Phenergan. Full code. Lovenox. Problem Qualifiers (1) Closed right hip fracture: Qualified Codes: S72.001A - Fracture of unspecified part of neck of right femur , initial encounter for closed fracture Ricardo Villar MD Oct 09, 2017 10:24
--- NOTE | 2017-10-09 10:38 | HHI.IDPN ---
Subjective Subjective Remarks Patient is a 62-year-old male, admitted to the hospital after he tripped and fell. He was apparently drinking alcohol that day. He was found to have a right femoral intertrochanteric fracture. Orthopedics of the patient and the patient underwent IM rob fixation of his fracture on September 13. Patient was doing well postoperatively, and has required continued hospitalization due to disposition problems. He does not really offer any complaint except for some intermittent constipation. He has been doing well with physical therapy, and has progressed to full weightbearing on his right lower extremity. Since October 02, the patient started having some fevers. Initially it was low-grade , and overnight temperatures have been more persistent up to 101. He denies any significant respiratory complaint. Denies any nausea or vomiting. No diarrhea, and actually has some constipation, last bowel movement was about 3 days ago. He denies any problem with dysuria or any other voiding problem. His white count is normal. His urinalysis unremarkable. Chest x-ray is normal. Patient was started on vancomycin and Zosyn on October 03. Infectious disease consultation has been requested to evaluate the patient with persistent fevers. Notes reviewed Temps better OR done yesterday - had debridement of lower wound, no purulence seen G/S no organism seen C/O mild pain BC negative ESR and CRP both high Antibiotics Current Medications Medications (Trade) Dose Ordered Sig/Micah Route Start Time Stop Time Status Last Admin (Tylenol) 650 mg Q4H PRN PO 09/12/17 23:15 10/04/17 15:03 (Zofran Inj) 4 mg Q6H PRN IVP 09/12/17 23:15 10/04/17 15:40 (Percocet 5-325 Mg) 2 tab Q4H PRN PO 09/13/17 14:30 10/07/17 22:04 (Cogentin) 0.5 mg BID PO 09/14/17 21:00 10/09/17 09:33 (Vistaril) 50 mg BID PO 09/14/17 21:00 10/09/17 09:33 (PROzac) 40 mg DAILY PO 09/15/17 09:00 10/09/17 09:33 (Vitamin B1) 100 mg DAILY PO 09/30/17 09:00 10/09/17 09:33 Pharmacy Profile Note 0 ml @ 0 mls/hr UNSCH OTHER 10/03/17 19:15 Vancomycin HCl 1500 mg/Sodium Chloride 515 ml @ 257.5 mls/ hr Q12H IV 10/05/17 20:00 10/09/17 09:33 (Levaquin) 750 mg DAILY PO 10/05/17 11:00 10/09/17 09:33 (NS Flush) 2 ml UNSCH PRN IV FLUSH 10/07/17 12:30 (NS Flush) 2 ml BID IV FLUSH 10/07/17 21:00 10/09/17 09:29 (Lovenox Inj) 30 mg Q12H SQ 10/08/17 01:00 10/09/17 01:33 (Morphine Inj) 5 mg Q3H PRN IV PUSH 10/07/17 12:30 (Percocet 5-325 Mg) 1 tab Q4H PRN PO 10/07/17 12:30 10/09/17 09:29 (Phenergan) 25 mg Q4H PRN PO 10/07/17 12:30 10/09/17 09:28 (Phenergan Supp) 25 mg Q4H PRN RECTAL 10/07/17 12:30 (Ambien) 5 mg HS PRN PO 10/07/17 12:30 (Vicky-Colace) 1 tab BID PO 10/07/17 21:00 10/09/17 09:53 (Milk Of Magnesia Liq) 30 ml Q12H PRN PO 10/07/17 12:30 10/09/17 09:29 (Senokot) 17.2 mg Q12H PRN PO 10/07/17 12:30 10/09/17 09:29 (Dulcolax Supp) 10 mg DAILY PRN RECTAL 10/07/17 12:30 (Lactulose Liq) 30 ml DAILY PRN PO 10/07/17 12:30 10/09/17 09:29 Lines PIV Past Medical History COPD Schizoaffective disorder, Bipolar disorder, depression Past Surgical History Inguinal hernia repair appendectomy Allergies: Coded Allergies: No Known Allergies (Unverified Allergy, Unknown, 09/12/17) Objective . Vital Signs Date Time Temp Pulse Resp B/P (MAP) Pulse Ox O2 Delivery O2 Flow Rate FiO2 10/09/17 08:00 98.0 56 16 119/69 (86) 96 10/08/17 23:45 Room Air 10/08/17 23:05 97.9 64 17 120/73 (89) 95 10/08/17 22:51 17 10/08/17 21:10 98.0 62 18 114/69 (84) 95 10/08/17 15:43 97.8 63 18 105/67 (80) 95 10/08/17 11:38 95 21 10/08/17 11:35 97.0 62 18 100/58 (72) 95 . Laboratory Tests Test 10/08/17 05:35 Creatinine 0.56 MG/DL Estimat Glomerular Filtration Rate 147 ML/MIN Microbiology Date/Time Source Procedure Growth Status 10/07/17 13:00 Wound Thigh Fungal Smear - Final NO FUNGAL ELEMENTS SEEN. Resulted 10/07/17 13:00 Wound Thigh Fungal Culture Pending Resulted 10/07/17 13:00 Wound Thigh Acid Fast Stain - Final NO ACID FAST BACILLI SEEN Resulted 10/07/17 13:00 Wound Thigh Mycobacterial Culture Pending Resulted 10/07/17 13:00 Wound Thigh Gram Stain - Final Resulted 10/07/17 13:00 Wound Thigh Wound Culture - Preliminary NO GROWTH IN 48 HOURS. Resulted 10/07/17 12:59 Wound Thigh Fungal Smear - Final NO FUNGAL ELEMENTS SEEN. Resulted 10/07/17 12:59 Wound Thigh Fungal Culture Pending Resulted 10/07/17 12:59 Wound Thigh Acid Fast Stain - Final NO ACID FAST BACILLI SEEN Resulted 10/07/17 12:59 Wound Thigh Mycobacterial Culture Pending Resulted 10/07/17 12:59 Wound Thigh Gram Stain - Final Resulted 10/07/17 12:59 Wound Thigh Wound Culture - Preliminary Resulted Imaging Last Impressions Lower Extremity Ultrasound 10/04/17 0000 Signed Impressions: Service Date/Time: Wednesday, October 04, 2017 17:10 - CONCLUSION: Negative for deep venous thrombosis bilateral lower extremity. Elgin Willard MD Chest X-Ray 10/04/17 0000 Signed Impressions: Service Date/Time: Wednesday, October 04, 2017 16:22 - CONCLUSION: Hyperaerated lungs. No focal infiltrates seen. Elgin Willard MD Hip X-Ray 09/29/17 0000 Signed Impressions: Service Date/Time: Friday, September 29, 2017 13:27 - CONCLUSION: Status post ORIF of right proximal femur fracture with hardware in good position. Keo Carter MD Thoracic Spine X-Ray 09/12/172052 Signed Impressions: Service Date/Time: Tuesday, September 12, 2017 22:42 - CONCLUSION: 1. Limited AP view of the thoracic spine demonstrates no gross fracture or subluxation. Sahil Gregorio MD Hip and Pelvis X-Ray 09/12/172052 Signed Impressions: Service Date/Time: Tuesday, September 12, 2017 22:38 - CONCLUSION: 1. Right femoral intertrochanteric fracture. Sahil Gregorio MD Cervical Spine X-Ray 09/12/172052 Signed Impressions: Service Date/Time: Tuesday, September 12, 2017 22:43 - CONCLUSION: 1. Limited lateral examination with nonvisualization of C7-T1. 2. Otherwise, no acute fracture or subluxation. 3. Degenerative spondylosis of the lower cervical spine. Sahil Gregorio MD Physical Exam GENERAL: awake and alert, NAD SKIN: Warm and dry. No generalized rash HEAD: Atraumatic. Normocephalic. No temporal wasting, or tenderness. EYES: [place] conjunctiva. No petechia or hemorrhage. Pupils equal, round and reactive to light. EOM full and intact. No scleral icterus. No injection or drainage. EARS, NOSE AND THROAT: Nose without bleeding or purulent nasal discharge. No sinus tenderness. Mucous membranes pink and moist. No oral lesions noted. He is edentulous NECK: Trachea midline. Supple and not tender, no meningeal signs CARDIOVASCULAR: Regular rate and rhythm. No murmurs, rubs or gallops heard RESPIRATORY: Clear to auscultation. Breath sounds equal bilaterally. No rales , wheezing or rhonchi ABDOMEN: Soft, non-tender, nondistended. Bowel sounds present and normoactive. No guarding. No rebound. No organomegaly. EXTREMITIES: No clubbing, cyanosis R hip incision is dry; evolving ecchymoses in upper 2/3 of incision, no erythema noted. Not tender. No calf tenderness. Well perfused and warm. NEUROLOGICAL: Grossly non-focal PSYCHIATRIC: Normal affect, calm and cooperative. LINE: No evidence of infection Assessment & Plan Remarks IMPRESSION Fevers, etiology? - ?due to R hip, ?hematoma - S/P debridement, no purulence see, one of C/S with GPC - no resp GI or complaints - no lines S/P IM rob fixation ER hip fracture RECOMMENDATION Continue IV Vanco Continue Levaquin Follow temps Monitor progress Follow C/S Will D/W ortho Yanet Foss MD Oct 09, 2017 10:38
--- NOTE | 2017-10-09 15:42 | PD.ORT.PN ---
Subjective Subjective Remarks No issues. Pain controlled. Objective Vitals Vital Signs Date Time Temp Pulse Resp B/P (MAP) Pulse Ox O2 Delivery O2 Flow Rate FiO2 10/09/17 08:00 98.0 56 16 119/69 (86) 96 10/08/17 23:45 Room Air 10/08/17 23:05 97.9 64 17 120/73 (89) 95 10/08/17 22:51 17 10/08/17 21:10 98.0 62 18 114/69 (84) 95 10/08/17 15:43 97.8 63 18 105/67 (80) 95 I/O 10/08/17 10/08/17 10/08/17 10/09/17 10/09/17 10/09/17 07:00 15:00 23:00 07:00 15:00 23:00 Intake Total 715 ml 950 ml 240 ml 515 ml Output Total 600 ml 450 ml 750 ml Balance 715 ml 350 ml -210 ml -235 ml Intake Oral 950 ml 240 ml IV Total 715 ml 515 ml Output Urine Total 600 ml 450 ml 750 ml # Voids 3 # Bowel Movements 0 Result Diagram: 10/08/17 0535 Imaging Last 24 hours Impressions Hip X-Ray 09/29/17 0000 Signed Impressions: Service Date/Time: Friday, September 29, 2017 13:27 - CONCLUSION: Status post ORIF of right proximal femur fracture with hardware in good position. Keo Carter MD Objective Remarks AAOx3, NAD RLE: nvi. dressing CDI. SILT distally Assessment & Plan Assessment and Plan DOS: Sep 13, 2017- POSTP-OP- Right hip IMN POD- 2 right leg wound I&D for persistent drainage Doing well. 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 cultures + GPC Antiocoagulation: Lovenox Weight bearing status: WBAT Dressing: Change daily clear for DC per Bon Munroe Jr., MD Oct 09, 2017 15:42
[2017-10-09 20:00] VITALS: BP 108/68; PULSE 59; RESP 18; TEMP 99; O2SAT 95
[2017-10-10] VITALS: BP 126/73; PULSE 60; RESP 20; TEMP 99.2; O2SAT 96
[2017-10-10] MEDS: ENOXAPARIN SODIUM 30 MG/0.3 ML SYRINGE SQ SCH ×2 (00:35→13:20)
[2017-10-10 07:51] LABS: CREATININE 0.55 MG/DL (0.60-1.30)
[2017-10-10 08:00] VITALS: BP 140/79; PULSE 56; RESP 16; TEMP 98; O2SAT 97
--- NOTE | 2017-10-10 08:15 | PD.ORT.PN ---
Subjective Post Op Day #: 3 Subjective Remarks pain under control Objective Vitals Vital Signs Date Time Temp Pulse Resp B/P (MAP) Pulse Ox O2 Delivery O2 Flow Rate FiO2 10/10/17 00:00 99.2 60 20 126/73 (90) 96 10/09/17 22:15 19 10/09/17 22:10 Room Air 10/09/17 20:00 99.0 59 18 108/68 (81) 95 I/O 10/09/17 10/09/17 10/09/17 10/10/17 10/10/17 10/10/17 07:00 15:00 23:00 07:00 15:00 23:00 Intake Total 515 ml 1180 ml 995 ml Output Total 750 ml 1450 ml 600 ml Balance -235 ml -270 ml 395 ml Intake Oral 1180 ml 480 ml IV Total 515 ml 515 ml Output Urine Total 750 ml 1450 ml 600 ml # Bowel Movements 2 0 Result Diagram: 10/10/17 0655 Imaging Last 24 hours Impressions Hip X-Ray 09/29/17 0000 Signed Impressions: Service Date/Time: Friday, September 29, 2017 13:27 - CONCLUSION: Status post ORIF of right proximal femur fracture with hardware in good position. Keo Carter MD Objective Remarks AAOx3, NAD RLE: nvi. dressing CDI. SILT distally Assessment & Plan Ortho Post Op Day #: 3 Problem List: Assessment and Plan DOS: Sep 13, 2017- POSTP-OP- Right hip IMN POD- 3 right leg wound I&D for persistent drainage Doing well. 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 cultures + GPC Antiocoagulation: Lovenox Weight bearing status: WBAT Dressing: Change daily clear for DC per ortho Raoul Tomas Oct 10, 2017 08:15
[2017-10-10] MEDS: LEVOFLOXACIN 750 MG TAB PO SCH (08:59)
[2017-10-10] MEDS: FLUoxetine HCL 20 MG CAP PO SCH (08:59)
[2017-10-10] MEDS: BENZTROPINE MESYLATE 1 MG TAB PO SCH ×2 (09:00→20:48)
[2017-10-10] MEDS: THIAMINE HCL 100 MG TAB PO SCH (09:00)
[2017-10-10] MEDS: oxyCODONE/ACETAMINOPHEN 5 MG/325 MG TAB PO PRN ×2 (09:00→20:54)
[2017-10-10] MEDS: DOCUSATE SODIUM 50 MG/SENNA 8.6 MG TAB PO SCH ×2 (09:00→20:48)
[2017-10-10] MEDS: SODIUM CHLORIDE 0.9% FLUSH 10 ML FLUSH IV FLUSH SCH ×2 (09:01→20:48)
[2017-10-10] MEDS: VANCOMYCIN 1,500 MG/NS 500 ML IV SCH ×4 (09:01→20:48)
--- NOTE | 2017-10-10 12:56 | HHI.PR ---
Subjective Remarks Follow-up right hip fracture 10/07/17-patient seen and examined, no acute event overnight. Vitals stable. 10/08/17-patient seen and examined, denies any significant pain to right lower extremity. s/p I&D yesterday. Currently afebrile 10/09/17-patient seen and examined, states he had a rough night sleeping last night ; still with some episode of nausea without any emesis. Currently afebrile. 10/10/17-patient seen and examined, nausea improved and patient denies any significant right lower extremity pain. Afebrile in no acute event overnight. Objective Vitals Vital Signs Date Time Temp Pulse Resp B/P (MAP) Pulse Ox O2 Delivery O2 Flow Rate FiO2 10/10/17 10:00 16 10/10/17 08:00 98.0 56 16 140/79 (99) 97 10/10/17 00:00 99.2 60 20 126/73 (90) 96 10/09/17 22:10 Room Air 10/09/17 20:00 99.0 59 18 108/68 (81) 95 I/O 10/09/17 10/09/17 10/09/17 10/10/17 10/10/17 10/10/17 07:00 15:00 23:00 07:00 15:00 23:00 Intake Total 515 ml 1180 ml 995 ml Output Total 750 ml 1450 ml 600 ml Balance -235 ml -270 ml 395 ml Intake Oral 1180 ml 480 ml IV Total 515 ml 515 ml Output Urine Total 750 ml 1450 ml 600 ml # Bowel Movements 2 0 Result Diagram: 10/10/17 0655 Objective Remarks GENERAL: NAD SKIN: Warm and dry. HEAD: Normocephalic. EYES: No scleral icterus. No injection or drainage. NECK: Supple, trachea midline. No JVD or lymphadenopathy. CARDIOVASCULAR: Regular rate and rhythm without murmurs, gallops, or rubs. RESPIRATORY: Breath sounds equal bilaterally. No accessory muscle use. GASTROINTESTINAL: Abdomen soft, non-tender, nondistended. MUSCULOSKELETAL: No cyanosis, or edema. BACK: Nontender without obvious deformity. No CVA tenderness. Procedures 09/13/2017 Right hip intramedullary rob fixation A/P Problem List: (1) Closed right hip fracture ICD Code: S72.001A - Fracture of unspecified part of neck of right femur, initial encounter for closed fracture Status: Acute (2) SIRS (systemic inflammatory response syndrome) ICD Code: R65.10 - Systemic inflammatory response syndrome (SIRS) of non- infectious origin without acute organ dysfunction (3) Encephalopathy acute ICD Code: G93.40 - Encephalopathy, unspecified Status: Acute Assessment and Plan 62-year-old man with SIRS (systemic inflammatory response syndrome) Suspect due to HCAP vs aspiration pna. s/p Right thigh wound irrigation and debridement 10/07/17 pending wound culture Continue IV Vancomycin and Levaquin, pending final cultures report. Bilateral venous Doppler negative for DVT. Appreciate ID consultation and recommendations. - Right hip fracture - Status post intramedullary rob fixation -s/p Right thigh wound irrigation and debridement 10/07/17 pending wound culture - Percocet, morphine for pain. - Lovenox 30 mg every 12 hours. - Continue with physical therapy. PT recommends SNF which might be difficult to arrange due to lack of insurance. - Alcohol abuse - continue CIWA protocol, thiamine, folic acid. - Depression - GERD - Continue home medications Prozac, PPI. - Nausea- - Possibly due to GERD. Improving On Phenergan. Full code. Lovenox. Problem Qualifiers (1) Closed right hip fracture: Qualified Codes: S72.001A - Fracture of unspecified part of neck of right femur , initial encounter for closed fracture Ricardo Villar MD Oct 10, 2017 12:56
[2017-10-10 13:22] VITALS: O2SAT 97
[2017-10-10 20:00] VITALS: BP 115/69; PULSE 63; RESP 16; TEMP 97.7; O2SAT 96
[2017-10-11] VITALS: BP 157/69; PULSE 53; RESP 15; TEMP 96.8; O2SAT 95
[2017-10-11] MEDS: ENOXAPARIN SODIUM 30 MG/0.3 ML SYRINGE SQ SCH ×2 (01:27→14:05)
[2017-10-11] MEDS: DOCUSATE SODIUM 50 MG/SENNA 8.6 MG TAB PO SCH ×2 (07:26→21:00)
[2017-10-11] MEDS: BENZTROPINE MESYLATE 1 MG TAB PO SCH ×2 (07:26→21:00)
[2017-10-11] MEDS: FLUoxetine HCL 20 MG CAP PO SCH (07:26)
[2017-10-11] MEDS: LEVOFLOXACIN 750 MG TAB PO SCH (07:26)
[2017-10-11] MEDS: THIAMINE HCL 100 MG TAB PO SCH (07:26)
[2017-10-11] MEDS: oxyCODONE/ACETAMINOPHEN 5 MG/325 MG TAB PO PRN ×2 (07:27→14:05)
[2017-10-11] MEDS: VANCOMYCIN 1,500 MG/NS 500 ML IV SCH ×4 (07:35→20:00)
[2017-10-11] MEDS: LACTULOSE SYRUP 20 GM/30 ML CUP PO PRN (07:36)
[2017-10-11] MEDS: SODIUM CHLORIDE 0.9% FLUSH 10 ML FLUSH IV FLUSH SCH ×2 (07:39→21:00)
--- NOTE | 2017-10-11 08:21 | PD.ORT.PN ---
Subjective Subjective Remarks pain under control. has been WB without significant pain. Objective Vitals Vital Signs Date Time Temp Pulse Resp B/P (MAP) Pulse Ox O2 Delivery O2 Flow Rate FiO2 10/11/17 00:00 96.8 53 15 157/69 (98) 95 10/10/17 20:00 97.7 63 16 115/69 (84) 96 10/10/17 13:22 97 10/10/17 10:00 16 I/O 10/10/17 10/10/17 10/10/17 10/11/17 10/11/17 10/11/17 07:00 15:00 23:00 07:00 15:00 23:00 Intake Total 995 ml 400 ml Output Total 600 ml Balance 395 ml 400 ml Intake Oral 480 ml 400 ml IV Total 515 ml Output Urine Total 600 ml # Voids 1 # Bowel Movements 0 Result Diagram: 10/10/17 0655 Imaging Last 24 hours Impressions Hip X-Ray 09/29/17 0000 Signed Impressions: Service Date/Time: Friday, September 29, 2017 13:27 - CONCLUSION: Status post ORIF of right proximal femur fracture with hardware in good position. Keo Carter MD Objective Remarks AAOx3, NAD RLE: nvi. dressing CDI. SILT distally Assessment & Plan Assessment and Plan DOS: Sep 13, 2017- POSTP-OP- Right hip IMN POD- 4 right leg wound I&D for persistent drainage Doing well. 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 cultures + GPC Antiocoagulation: Lovenox Weight bearing status: WBAT Dressing: Change daily clear for DC per Raoul Tomlinson Oct 11, 2017 08:21
[2017-10-11] MEDS: PROMETHAZINE HCL 25 MG TAB PO PRN (08:37)
--- NOTE | 2017-10-11 11:33 | HHI.PR ---
Subjective Remarks Follow-up right hip fracture 10/07/17-patient seen and examined, no acute event overnight. Vitals stable. 10/08/17-patient seen and examined, denies any significant pain to right lower extremity. s/p I&D yesterday. Currently afebrile 10/09/17-patient seen and examined, states he had a rough night sleeping last night ; still with some episode of nausea without any emesis. Currently afebrile. 10/10/17-patient seen and examined, nausea improved and patient denies any significant right lower extremity pain. Afebrile in no acute event overnight. 10/11/17-patient seen and examined, stable and no complaint. Afebrile Objective Vitals Vital Signs Date Time Temp Pulse Resp B/P (MAP) Pulse Ox O2 Delivery O2 Flow Rate FiO2 10/11/17 08:27 16 10/11/17 00:00 96.8 53 15 157/69 (98) 95 10/10/17 20:00 97.7 63 16 115/69 (84) 96 10/10/17 13:22 97 I/O 10/10/17 10/10/17 10/10/17 10/11/17 10/11/17 10/11/17 07:00 15:00 23:00 07:00 15:00 23:00 Intake Total 995 ml 400 ml Output Total 600 ml Balance 395 ml 400 ml Intake Oral 480 ml 400 ml IV Total 515 ml Output Urine Total 600 ml # Voids 1 # Bowel Movements 0 Result Diagram: 10/10/17 0655 Objective Remarks GENERAL: NAD SKIN: Warm and dry. HEAD: Normocephalic. EYES: No scleral icterus. No injection or drainage. NECK: Supple, trachea midline. No JVD or lymphadenopathy. CARDIOVASCULAR: Regular rate and rhythm without murmurs, gallops, or rubs. RESPIRATORY: Breath sounds equal bilaterally. No accessory muscle use. GASTROINTESTINAL: Abdomen soft, non-tender, nondistended. MUSCULOSKELETAL: No cyanosis, or edema. BACK: Nontender without obvious deformity. No CVA tenderness. Procedures 09/13/2017 Right hip intramedullary rob fixation A/P Problem List: (1) Closed right hip fracture ICD Code: S72.001A - Fracture of unspecified part of neck of right femur, initial encounter for closed fracture Status: Acute (2) SIRS (systemic inflammatory response syndrome) ICD Code: R65.10 - Systemic inflammatory response syndrome (SIRS) of non- infectious origin without acute organ dysfunction (3) Encephalopathy acute ICD Code: G93.40 - Encephalopathy, unspecified Status: Acute Assessment and Plan 62-year-old man with SIRS (systemic inflammatory response syndrome) Suspect due to HCAP vs aspiration pna. s/p Right thigh wound irrigation and debridement 10/07/17 pending wound culture Continue IV Vancomycin and Levaquin, pending final cultures report. Bilateral venous Doppler negative for DVT. Appreciate ID consultation and recommendations. - Right hip fracture - Status post intramedullary rob fixation -s/p Right thigh wound irrigation and debridement 10/07/17 pending wound culture - Percocet, morphine for pain. - Lovenox 30 mg every 12 hours. - Continue with physical therapy. PT recommends SNF which might be difficult to arrange due to lack of insurance. - Alcohol abuse - continue CIWA protocol, thiamine, folic acid. - Depression - GERD - Continue home medications Prozac, PPI. - Nausea- - Possibly due to GERD. Improved On Phenergan. Full code. Lovenox. Problem Qualifiers (1) Closed right hip fracture: Qualified Codes: S72.001A - Fracture of unspecified part of neck of right femur , initial encounter for closed fracture Ricardo Villar MD Oct 11, 2017 11:33
[2017-10-11 17:51] VITALS: O2SAT 97
[2017-10-11 20:00] VITALS: BP 113/66; PULSE 58; RESP 15; TEMP 98.4; O2SAT 95
[2017-10-12] VITALS: BP 137/82; PULSE 54; RESP 15; TEMP 99.2; O2SAT 95
[2017-10-12] MEDS: ENOXAPARIN SODIUM 30 MG/0.3 ML SYRINGE SQ SCH ×2 (00:49→13:15)
[2017-10-12 04:00] VITALS: BP 128/71; PULSE 52; RESP 15; TEMP 98.4; O2SAT 96
[2017-10-12] MEDS: VANCOMYCIN 1,500 MG/NS 500 ML IV SCH ×2 (07:41)
[2017-10-12] MEDS: FLUoxetine HCL 20 MG CAP PO SCH (07:42)
[2017-10-12] MEDS: BENZTROPINE MESYLATE 1 MG TAB PO SCH ×2 (07:42→19:44)
[2017-10-12] MEDS: THIAMINE HCL 100 MG TAB PO SCH (07:42)
[2017-10-12] MEDS: LEVOFLOXACIN 750 MG TAB PO SCH (07:42)
[2017-10-12] MEDS: DOCUSATE SODIUM 50 MG/SENNA 8.6 MG TAB PO SCH ×2 (07:42→19:45)
[2017-10-12] MEDS: SODIUM CHLORIDE 0.9% FLUSH 10 ML FLUSH IV FLUSH SCH ×2 (07:43→19:45)
[2017-10-12 07:45] LABS: CREATININE 0.63 MG/DL (0.60-1.30)
[2017-10-12 08:00] VITALS: BP 138/80; PULSE 57; RESP 17; TEMP 98.1; O2SAT 95
--- NOTE | 2017-10-12 10:13 | HHI.IDPN ---
Subjective Subjective Remarks Patient is a 62-year-old male, admitted to the hospital after he tripped and fell. He was apparently drinking alcohol that day. He was found to have a right femoral intertrochanteric fracture. Orthopedics of the patient and the patient underwent IM rob fixation of his fracture on September 13. Patient was doing well postoperatively, and has required continued hospitalization due to disposition problems. He does not really offer any complaint except for some intermittent constipation. He has been doing well with physical therapy, and has progressed to full weightbearing on his right lower extremity. Since October 02, the patient started having some fevers. Initially it was low-grade , and overnight temperatures have been more persistent up to 101. He denies any significant respiratory complaint. Denies any nausea or vomiting. No diarrhea, and actually has some constipation, last bowel movement was about 3 days ago. He denies any problem with dysuria or any other voiding problem. His white count is normal. His urinalysis unremarkable. Chest x-ray is normal. Patient was started on vancomycin and Zosyn on October 03. Infectious disease consultation has been requested to evaluate the patient with persistent fevers. Notes reviewed Mane proctor D/W RN Possibly D/C today Going to work with PT this morning and reassess safety OR C/S with MRSA Per D/W ortho, Rx as superficial infection, infected hematoma Antibiotics Current Medications Medications (Trade) Dose Ordered Sig/Micah Route Start Time Stop Time Status Last Admin (Tylenol) 650 mg Q4H PRN PO 09/12/17 23:15 10/04/17 15:03 (Zofran Inj) 4 mg Q6H PRN IVP 09/12/17 23:15 10/04/17 15:40 (Percocet 5-325 Mg) 2 tab Q4H PRN PO 09/13/17 14:30 10/07/17 22:04 (Cogentin) 0.5 mg BID PO 09/14/17 21:00 10/12/17 07:42 (Vistaril) 50 mg BID PO 09/14/17 21:00 10/12/17 07:42 (PROzac) 40 mg DAILY PO 09/15/17 09:00 10/12/17 07:42 (Vitamin B1) 100 mg DAILY PO 09/30/17 09:00 10/12/17 07:42 Pharmacy Profile Note 0 ml @ 0 mls/hr UNSCH OTHER 10/03/17 19:15 Vancomycin HCl 1500 mg/Sodium Chloride 515 ml @ 257.5 mls/ hr Q12H IV 10/05/17 20:00 10/12/17 07:41 (Levaquin) 750 mg DAILY PO 10/05/17 11:00 10/12/17 07:42 (NS Flush) 2 ml UNSCH PRN IV FLUSH 10/07/17 12:30 (NS Flush) 2 ml BID IV FLUSH 10/07/17 21:00 10/12/17 07:43 (Lovenox Inj) 30 mg Q12H SQ 10/08/17 01:00 10/12/17 00:49 (Morphine Inj) 5 mg Q3H PRN IV PUSH 10/07/17 12:30 (Percocet 5-325 Mg) 1 tab Q4H PRN PO 10/07/17 12:30 10/11/17 14:05 (Phenergan) 25 mg Q4H PRN PO 10/07/17 12:30 10/11/17 08:37 (Phenergan Supp) 25 mg Q4H PRN RECTAL 10/07/17 12:30 (Ambien) 5 mg HS PRN PO 10/07/17 12:30 (Vicky-Colace) 1 tab BID PO 10/07/17 21:00 10/12/17 07:42 (Milk Of Magnesia Liq) 30 ml Q12H PRN PO 10/07/17 12:30 10/09/17 09:29 (Senokot) 17.2 mg Q12H PRN PO 10/07/17 12:30 10/09/17 09:29 (Dulcolax Supp) 10 mg DAILY PRN RECTAL 10/07/17 12:30 (Lactulose Liq) 30 ml DAILY PRN PO 10/07/17 12:30 10/11/17 07:36 Lines PIV Past Medical History COPD Schizoaffective disorder, Bipolar disorder, depression Past Surgical History Inguinal hernia repair appendectomy Allergies: Coded Allergies: No Known Allergies (Unverified Allergy, Unknown, 09/12/17) Objective . Vital Signs Date Time Temp Pulse Resp B/P (MAP) Pulse Ox O2 Delivery O2 Flow Rate FiO2 10/12/17 08:00 98.1 57 17 138/80 (99) 95 2/19/18 04:00 98.4 52 15 128/71 (90) 96 10/12/17 00:00 99.2 54 15 137/82 (100) 95 10/11/17 20:00 98.4 58 15 113/66 (82) 95 10/11/17 17:51 97 21 10/11/17 15:05 16 . Laboratory Tests Test 10/12/17 06:53 Creatinine 0.63 MG/DL Estimat Glomerular Filtration Rate 128 ML/MIN Imaging Last Impressions Lower Extremity Ultrasound 10/04/17 0000 Signed Impressions: Service Date/Time: Wednesday, October 04, 2017 17:10 - CONCLUSION: Negative for deep venous thrombosis bilateral lower extremity. Elgin Willard MD Chest X-Ray 10/04/17 0000 Signed Impressions: Service Date/Time: Wednesday, October 04, 2017 16:22 - CONCLUSION: Hyperaerated lungs. No focal infiltrates seen. Elgin Willard MD Hip X-Ray 09/29/17 Signed Impressions: Service Date/Time: Friday, September 29, 2017 13:27 - CONCLUSION: Status post ORIF of right proximal femur fracture with hardware in good position. Keo Carter MD Thoracic Spine X-Ray 09/12/[id number] Signed Impressions: Service Date/Time: Tuesday, September 12, 2017 22:42 - CONCLUSION: 1. Limited AP view of the thoracic spine demonstrates no gross fracture or subluxation. Sahil Gregorio MD Hip and Pelvis X-Ray 09/12/172052 Signed Impressions: Service Date/Time: Tuesday, September 12, 2017 22:38 - CONCLUSION: 1. Right femoral intertrochanteric fracture. Sahil Gregorio MD Cervical Spine X-Ray [id number]/12/172052 Signed Impressions: Service Date/Time: Tuesday, September 12, 2017 22:43 - CONCLUSION: 1. Limited lateral examination with nonvisualization of C7-T1. 2. Otherwise, no acute fracture or subluxation. 3. Degenerative spondylosis of the lower cervical spine. Sahil Gregorio MD Physical Exam GENERAL: awake and alert, NAD SKIN: Warm and dry. No generalized rash HEAD: Atraumatic. Normocephalic. No temporal wasting, or tenderness. EYES: Loiza conjunctiva. No petechia or hemorrhage. Pupils equal, round and reactive to light. EOM full and intact. No scleral icterus. No injection or drainage. EARS, NOSE AND THROAT: Nose without bleeding or purulent nasal discharge. No sinus tenderness. Mucous membranes pink and moist. No oral lesions noted. He is edentulous NECK: Trachea midline. Supple and not tender, no meningeal signs CARDIOVASCULAR: Regular rate and rhythm. No murmurs, rubs or gallops heard RESPIRATORY: Clear to auscultation. Breath sounds equal bilaterally. No rales , wheezing or rhonchi ABDOMEN: Soft, non-tender, nondistended. Bowel sounds present and normoactive. No guarding. No rebound. No organomegaly. EXTREMITIES: No clubbing, cyanosis R hip incision is dry; evolving ecchymoses in upper 2/3 of incision, no erythema noted. Not tender. No calf tenderness. Well perfused and warm. NEUROLOGICAL: Grossly non-focal PSYCHIATRIC: Normal affect, calm and cooperative. LINE: No evidence of infection Assessment & Plan Remarks IMPRESSION Fevers, etiology? resolved - ?due to R hip, ?hematoma - S/P debridement, no purulence see, one of C/S with GPC - no resp GI or complaints - no lines S/P debridement R hip incision/hematoma, C/S MRSA S/P IM rob fixation ER hip fracture RECOMMENDATION Change IV Vanco to po Clinda Continue Levaquin Possible D/C today Give oral Abx until October, end dates ordered in Graph Story D/W Yanet Manrique MD Oct 12, 2017 10:13
[2017-10-12] MEDS: oxyCODONE/ACETAMINOPHEN 5 MG/325 MG TAB PO PRN ×2 (11:00→19:45)
[2017-10-12 12:00] VITALS: BP 136/78; PULSE 60; RESP 17; TEMP 98.2; O2SAT 97
--- NOTE | 2017-10-12 12:12 | HHI.PR ---
Subjective Remarks Follow-up right hip fracture 10/07/17-patient seen and examined, no acute event overnight. Vitals stable. 10/08/17-patient seen and examined, denies any significant pain to right lower extremity. s/p I&D yesterday. Currently afebrile 10/09/17-patient seen and examined, states he had a rough night sleeping last night ; still with some episode of nausea without any emesis. Currently afebrile. 10/10/17-patient seen and examined, nausea improved and patient denies any significant right lower extremity pain. Afebrile in no acute event overnight. 10/11/17-patient seen and examined, stable and no complaint. Afebrile 10/12/17-patient seen and examined, afebrile, did work with PT however had a misstepped Objective Vitals Vital Signs Date Time Temp Pulse Resp B/P (MAP) Pulse Ox O2 Delivery O2 Flow Rate FiO2 10/12/17 08:00 98.1 57 17 138/80 (99) 95 10/12/17 04:00 98.4 52 15 128/71 (90) 96 10/12/17 00:00 99.2 54 15 137/82 (100) 95 10/11/17 20:00 98.4 58 15 113/66 (82) 95 10/11/17 17:51 97 21 10/11/17 15:05 16 I/O 10/11/17 10/11/17 10/11/17 10/12/17 10/12/17 10/12/17 07:00 15:00 23:00 07:00 15:00 23:00 Intake Total 1300 ml Output Total 1200 ml Balance 100 ml Intake Oral 1300 ml Output Urine Total 1200 ml # Voids 2 Result Diagram: 10/12/17 0653 Objective Remarks GENERAL: NAD SKIN: Warm and dry. HEAD: Normocephalic. EYES: No scleral icterus. No injection or drainage. NECK: Supple, trachea midline. No JVD or lymphadenopathy. CARDIOVASCULAR: Regular rate and rhythm without murmurs, gallops, or rubs. RESPIRATORY: Breath sounds equal bilaterally. No accessory muscle use. GASTROINTESTINAL: Abdomen soft, non-tender, nondistended. MUSCULOSKELETAL: No cyanosis, or edema. BACK: Nontender without obvious deformity. No CVA tenderness. Procedures 09/13/2017 Right hip intramedullary rob fixation A/P Problem List: (1) Closed right hip fracture ICD Code: S72.001A - Fracture of unspecified part of neck of right femur, initial encounter for closed fracture Status: Acute (2) SIRS (systemic inflammatory response syndrome) ICD Code: R65.10 - Systemic inflammatory response syndrome (SIRS) of non- infectious origin without acute organ dysfunction (3) Encephalopathy acute ICD Code: G93.40 - Encephalopathy, unspecified Status: Acute Assessment and Plan 62-year-old man with SIRS (systemic inflammatory response syndrome) Suspect due to HCAP vs aspiration pna. s/p Right thigh wound irrigation and debridement 10/07/17 pending wound culture s/p IV Vancomycin and continue with Levaquin Bilateral venous Doppler negative for DVT. Appreciate ID consultation and recommendations. - Right hip fracture - Status post intramedullary rob fixation -s/p Right thigh wound irrigation and debridement 10/07/17 pending wound culture - Percocet, morphine for pain. - Lovenox 30 mg every 12 hours. - Continue with physical therapy. PT recommends SNF which might be difficult to arrange due to lack of insurance. - Alcohol abuse - continue CIWA protocol, thiamine, folic acid. - Depression - GERD - Continue home medications Prozac, PPI. - Nausea- - Possibly due to GERD. Improved On Phenergan. Full code. Lovenox. Discharge Planning Problem Qualifiers (1) Closed right hip fracture: Qualified Codes: S72.001A - Fracture of unspecified part of neck of right femur , initial encounter for closed fracture Ricardo Villar MD Oct 12, 2017 12:12
[2017-10-12] MEDS: CLINDAMYCIN 150 MG CAP PO SCH ×2 (13:15→18:27)
[2017-10-12 19:55] VITALS: BP 114/73; PULSE 58; RESP 18; TEMP 97.3; O2SAT 99
[2017-10-13] MEDS: oxyCODONE/ACETAMINOPHEN 5 MG/325 MG TAB PO PRN ×4 (00:24→17:03)
[2017-10-13] MEDS: ENOXAPARIN SODIUM 30 MG/0.3 ML SYRINGE SQ SCH ×2 (00:24→11:49)
[2017-10-13] MEDS: CLINDAMYCIN 150 MG CAP PO SCH ×4 (00:24→17:02)
[2017-10-13 07:42] VITALS: BP 119/69; PULSE 65; RESP 18; TEMP 96.4; O2SAT 95
[2017-10-13] MEDS: DOCUSATE SODIUM 50 MG/SENNA 8.6 MG TAB PO SCH ×2 (09:32→19:41)
[2017-10-13] MEDS: BENZTROPINE MESYLATE 1 MG TAB PO SCH ×2 (09:33→19:41)
[2017-10-13] MEDS: THIAMINE HCL 100 MG TAB PO SCH (09:33)
[2017-10-13] MEDS: LEVOFLOXACIN 750 MG TAB PO SCH (09:33)
[2017-10-13] MEDS: SODIUM CHLORIDE 0.9% FLUSH 10 ML FLUSH IV FLUSH SCH ×2 (09:33→20:52)
[2017-10-13] MEDS: FLUoxetine HCL 20 MG CAP PO SCH (09:33)
[2017-10-13 10:00] VITALS: O2SAT 95
--- NOTE | 2017-10-13 13:26 | HHI.PR ---
Subjective Remarks Follow-up right hip fracture 10/07/17-patient seen and examined, no acute event overnight. Vitals stable. 10/08/17-patient seen and examined, denies any significant pain to right lower extremity. s/p I&D yesterday. Currently afebrile 10/09/17-patient seen and examined, states he had a rough night sleeping last night ; still with some episode of nausea without any emesis. Currently afebrile. 10/10/17-patient seen and examined, nausea improved and patient denies any significant right lower extremity pain. Afebrile in no acute event overnight. 10/11/17-patient seen and examined, stable and no complaint. Afebrile 10/12/17-patient seen and examined, afebrile, did work with PT however had a misstepped 10/13/17-patient seen and examined, stable, no change. States he's been working with PT Objective Vitals Vital Signs Date Time Temp Pulse Resp B/P (MAP) Pulse Ox O2 Delivery O2 Flow Rate FiO2 10/13/17 10:00 95 21 10/13/17 07:42 96.4 65 18 119/69 (86) 95 10/13/17 07:36 Room Air 10/12/17 19:55 97.3 58 18 114/73 (87) 99 I/O 10/12/17 10/12/17 10/12/17 10/13/17 10/13/17 10/13/17 07:00 15:00 23:00 07:00 15:00 23:00 Intake Total 360 ml 720 ml Output Total 400 ml 600 ml Balance -40 ml 120 ml Intake Oral 360 ml 720 ml Output Urine Total 400 ml 600 ml # Voids 3 # Bowel Movements 0 0 Result Diagram: 10/12/17 0653 Objective Remarks GENERAL: NAD SKIN: Warm and dry. HEAD: Normocephalic. EYES: No scleral icterus. No injection or drainage. NECK: Supple, trachea midline. No JVD or lymphadenopathy. CARDIOVASCULAR: Regular rate and rhythm without murmurs, gallops, or rubs. RESPIRATORY: Breath sounds equal bilaterally. No accessory muscle use. GASTROINTESTINAL: Abdomen soft, non-tender, nondistended. MUSCULOSKELETAL: No cyanosis, or edema. BACK: Nontender without obvious deformity. No CVA tenderness. Procedures 09/13/2017 Right hip intramedullary rob fixation A/P Problem List: (1) Closed right hip fracture ICD Code: S72.001A - Fracture of unspecified part of neck of right femur, initial encounter for closed fracture Status: Acute (2) SIRS (systemic inflammatory response syndrome) ICD Code: R65.10 - Systemic inflammatory response syndrome (SIRS) of non- infectious origin without acute organ dysfunction (3) Encephalopathy acute ICD Code: G93.40 - Encephalopathy, unspecified Status: Acute Assessment and Plan 62-year-old man with SIRS (systemic inflammatory response syndrome) Suspect due to HCAP vs aspiration pna. s/p Right thigh wound irrigation and debridement 10/07/17 pending wound culture s/p IV Vancomycin and continue with Levaquin Bilateral venous Doppler negative for DVT. Appreciate ID consultation and recommendations. - Right hip fracture - Status post intramedullary rob fixation -s/p Right thigh wound irrigation and debridement 10/07/17 pending wound culture - Percocet, morphine for pain. - Lovenox 30 mg every 12 hours. - Continue with physical therapy. PT recommends SNF which might be difficult to arrange due to lack of insurance. - Alcohol abuse - continue CIWA protocol, thiamine, folic acid. - Depression - GERD - Continue home medications Prozac, PPI. - Nausea- - Possibly due to GERD. Improved On Phenergan. Full code. Lovenox. Discharge Planning Problem Qualifiers (1) Closed right hip fracture: Qualified Codes: S72.001A - Fracture of unspecified part of neck of right femur , initial encounter for closed fracture Ricardo Villar MD Oct 13, 2017 13:26
[2017-10-13 19:39] VITALS: BP 106/58; PULSE 59; RESP 17; TEMP 98.9; O2SAT 96
[2017-10-14] MEDS: oxyCODONE/ACETAMINOPHEN 5 MG/325 MG TAB PO PRN ×2 (05:35→09:51)
[2017-10-14] MEDS: CLINDAMYCIN 150 MG CAP PO SCH ×4 (05:35→18:00)
[2017-10-14 08:00] VITALS: BP 134/77; PULSE 52; RESP 16; TEMP 98.2; O2SAT 98
[2017-10-14] MEDS: THIAMINE HCL 100 MG TAB PO SCH (08:40)
[2017-10-14] MEDS: BENZTROPINE MESYLATE 1 MG TAB PO SCH ×2 (08:40→20:40)
[2017-10-14] MEDS: DOCUSATE SODIUM 50 MG/SENNA 8.6 MG TAB PO SCH ×2 (08:40→20:40)
[2017-10-14] MEDS: LEVOFLOXACIN 750 MG TAB PO SCH (08:40)
[2017-10-14] MEDS: SODIUM CHLORIDE 0.9% FLUSH 10 ML FLUSH IV FLUSH SCH ×2 (08:45→20:40)
[2017-10-14] MEDS: FLUoxetine HCL 20 MG CAP PO SCH (08:45)
[2017-10-14 09:45] VITALS: O2SAT 96
[2017-10-14] MEDS: ENOXAPARIN SODIUM 30 MG/0.3 ML SYRINGE SQ SCH ×2 (12:22)
--- NOTE | 2017-10-14 13:03 | HHI.PR ---
Subjective Remarks Follow-up right hip fracture 10/07/17-patient seen and examined, no acute event overnight. Vitals stable. 10/08/17-patient seen and examined, denies any significant pain to right lower extremity. s/p I&D yesterday. Currently afebrile 10/09/17-patient seen and examined, states he had a rough night sleeping last night ; still with some episode of nausea without any emesis. Currently afebrile. 10/10/17-patient seen and examined, nausea improved and patient denies any significant right lower extremity pain. Afebrile in no acute event overnight. 10/11/17-patient seen and examined, stable and no complaint. Afebrile 10/12/17-patient seen and examined, afebrile, did work with PT however had a misstepped 10/13/17-patient seen and examined, stable, no change. States he's been working with PT 10/14/17-patient seen and examined, afebrile, working with PT Objective Vitals Vital Signs Date Time Temp Pulse Resp B/P (MAP) Pulse Ox O2 Delivery O2 Flow Rate FiO2 10/14/17 09:45 96 10/14/17 08:00 98.2 52 16 134/77 (96) 98 10/13/17 19:39 98.9 59 17 106/58 (74) 96 I/O 10/13/17 10/13/17 10/13/17 10/14/17 10/14/17 10/14/17 07:00 15:00 23:00 07:00 15:00 23:00 Intake Total 720 ml 900 ml 480 ml 480 ml Output Total 600 ml 400 ml 900 ml Balance 120 ml 500 ml 480 ml -420 ml Intake Oral 720 ml 900 ml 480 ml 480 ml Output Urine Total 600 ml 400 ml 900 ml # Voids 1 2 2 # Bowel Movements 0 0 0 Result Diagram: 10/12/17 0653 Objective Remarks GENERAL: NAD SKIN: Warm and dry. HEAD: Normocephalic. EYES: No scleral icterus. No injection or drainage. NECK: Supple, trachea midline. No JVD or lymphadenopathy. CARDIOVASCULAR: Regular rate and rhythm without murmurs, gallops, or rubs. RESPIRATORY: Breath sounds equal bilaterally. No accessory muscle use. GASTROINTESTINAL: Abdomen soft, non-tender, nondistended. MUSCULOSKELETAL: No cyanosis, or edema. BACK: Nontender without obvious deformity. No CVA tenderness. Procedures 09/13/2017 Right hip intramedullary rob fixation A/P Problem List: (1) Closed right hip fracture ICD Code: S72.001A - Fracture of unspecified part of neck of right femur, initial encounter for closed fracture Status: Acute (2) SIRS (systemic inflammatory response syndrome) ICD Code: R65.10 - Systemic inflammatory response syndrome (SIRS) of non- infectious origin without acute organ dysfunction (3) Encephalopathy acute ICD Code: G93.40 - Encephalopathy, unspecified Status: Acute Assessment and Plan 62-year-old man with SIRS (systemic inflammatory response syndrome) Suspect due to HCAP vs aspiration pna. s/p Right thigh wound irrigation and debridement 10/07/17 pending wound culture s/p IV Vancomycin and continue with Levaquin Bilateral venous Doppler negative for DVT. Appreciate ID consultation and recommendations. - Right hip fracture - Status post intramedullary rob fixation -s/p Right thigh wound irrigation and debridement 10/07/17 pending wound culture - Percocet, morphine for pain. - Lovenox 30 mg every 12 hours. - Continue with physical therapy. PT recommends SNF which might be difficult to arrange due to lack of insurance. - Alcohol abuse - continue CIWA protocol, thiamine, folic acid. - Depression - GERD - Continue home medications Prozac, PPI. - Nausea- - Possibly due to GERD. Improved On Phenergan. Full code. Lovenox. Discharge Planning Problem Qualifiers (1) Closed right hip fracture: Qualified Codes: S72.001A - Fracture of unspecified part of neck of right femur , initial encounter for closed fracture Ricardo Villar MD Oct 14, 2017 13:03
[2017-10-14 17:59] VITALS: O2SAT 96
[2017-10-14 19:03] VITALS: BP 93/57; PULSE 57; RESP 17; TEMP 97.1; O2SAT 92
[2017-10-15] MEDS: ENOXAPARIN SODIUM 30 MG/0.3 ML SYRINGE SQ SCH ×2 (00:29→13:21)
[2017-10-15] MEDS: CLINDAMYCIN 150 MG CAP PO SCH ×4 (00:29→17:40)
[2017-10-15] MEDS: THIAMINE HCL 100 MG TAB PO SCH (07:58)
[2017-10-15] MEDS: BENZTROPINE MESYLATE 1 MG TAB PO SCH ×2 (07:58→20:14)
[2017-10-15] MEDS: DOCUSATE SODIUM 50 MG/SENNA 8.6 MG TAB PO SCH ×2 (07:58→20:14)
[2017-10-15] MEDS: LEVOFLOXACIN 750 MG TAB PO SCH (07:58)
[2017-10-15] MEDS: oxyCODONE/ACETAMINOPHEN 5 MG/325 MG TAB PO PRN ×3 (07:59→17:40)
[2017-10-15] MEDS: FLUoxetine HCL 20 MG CAP PO SCH (07:59)
[2017-10-15 08:00] VITALS: BP 118/69; PULSE 55; RESP 18; TEMP 97; O2SAT 98
[2017-10-15] MEDS: SODIUM CHLORIDE 0.9% FLUSH 10 ML FLUSH IV FLUSH SCH ×2 (09:00→20:15)
[2017-10-15 10:47] VITALS: O2SAT 96
[2017-10-15 11:39] VITALS: BP 100/58; PULSE 62; RESP 18; TEMP 98.3; O2SAT 96
--- NOTE | 2017-10-15 12:29 | HHI.PR ---
Subjective Remarks Follow-up right hip fracture 10/07/17-patient seen and examined, no acute event overnight. Vitals stable. 10/08/17-patient seen and examined, denies any significant pain to right lower extremity. s/p I&D yesterday. Currently afebrile 10/09/17-patient seen and examined, states he had a rough night sleeping last night ; still with some episode of nausea without any emesis. Currently afebrile. 10/10/17-patient seen and examined, nausea improved and patient denies any significant right lower extremity pain. Afebrile in no acute event overnight. 10/11/17-patient seen and examined, stable and no complaint. Afebrile 10/12/17-patient seen and examined, afebrile, did work with PT however had a misstepped 10/13/17-patient seen and examined, stable, no change. States he's been working with PT 10/14/17-patient seen and examined, afebrile, working with PT 10/15/17-patient seen and examined, stable and no complaints. Objective Vitals Vital Signs Date Time Temp Pulse Resp B/P (MAP) Pulse Ox O2 Delivery O2 Flow Rate FiO2 10/15/17 11:39 98.3 62 18 100/58 (72) 96 10/15/17 10:47 96 21 10/15/17 08:00 97.0 55 18 118/69 (85) 98 10/14/17 19:03 97.1 57 17 93/57 (69) 92 10/14/17 17:59 96 21 I/O 10/14/17 10/14/17 10/14/17 10/15/17 10/15/17 10/15/17 07:00 15:00 23:00 07:00 15:00 23:00 Intake Total 480 ml 1060 ml 360 ml Output Total 900 ml 950 ml 950 ml Balance -420 ml 110 ml -590 ml Intake Oral 480 ml 1060 ml 360 ml Output Urine Total 900 ml 950 ml 950 ml # Voids 2 3 # Bowel Movements 0 1 0 Result Diagram: 10/12/17 0653 Objective Remarks GENERAL: NAD SKIN: Warm and dry. HEAD: Normocephalic. EYES: No scleral icterus. No injection or drainage. NECK: Supple, trachea midline. No JVD or lymphadenopathy. CARDIOVASCULAR: Regular rate and rhythm without murmurs, gallops, or rubs. RESPIRATORY: Breath sounds equal bilaterally. No accessory muscle use. GASTROINTESTINAL: Abdomen soft, non-tender, nondistended. MUSCULOSKELETAL: No cyanosis, or edema. BACK: Nontender without obvious deformity. No CVA tenderness. Procedures 09/13/2017 Right hip intramedullary rob fixation A/P Problem List: (1) Closed right hip fracture ICD Code: S72.001A - Fracture of unspecified part of neck of right femur, initial encounter for closed fracture Status: Acute (2) SIRS (systemic inflammatory response syndrome) ICD Code: R65.10 - Systemic inflammatory response syndrome (SIRS) of non- infectious origin without acute organ dysfunction (3) Encephalopathy acute ICD Code: G93.40 - Encephalopathy, unspecified Status: Acute Assessment and Plan 62-year-old man with SIRS (systemic inflammatory response syndrome) Suspect due to HCAP vs aspiration pna. s/p Right thigh wound irrigation and debridement 10/07/17 pending wound culture s/p IV Vancomycin and continue with Levaquin Bilateral venous Doppler negative for DVT. Appreciate ID consultation and recommendations. - Right hip fracture - Status post intramedullary rob fixation -s/p Right thigh wound irrigation and debridement 10/07/17 pending wound culture - Percocet, morphine for pain. - Lovenox 30 mg every 12 hours. - Continue with physical therapy. PT recommends SNF which might be difficult to arrange due to lack of insurance. - Alcohol abuse - continue CIWA protocol, thiamine, folic acid. - Depression - GERD - Continue home medications Prozac, PPI. - Nausea- - Possibly due to GERD. Improved On Phenergan. Full code. Lovenox. Discharge Planning Problem Qualifiers (1) Closed right hip fracture: Qualified Codes: S72.001A - Fracture of unspecified part of neck of right femur , initial encounter for closed fracture Ricardo Villar MD Oct 15, 2017 12:29
[2017-10-15 16:00] VITALS: BP 95/54; PULSE 62; RESP 18; TEMP 98.9; O2SAT 97
[2017-10-15 20:30] VITALS: BP 99/64; PULSE 55; RESP 17; TEMP 96.8; O2SAT 95
[2017-10-16] MEDS: oxyCODONE/ACETAMINOPHEN 5 MG/325 MG TAB PO PRN ×4 (00:13→17:32)
[2017-10-16] MEDS: CLINDAMYCIN 150 MG CAP PO SCH ×4 (00:13→17:32)
[2017-10-16] MEDS: ENOXAPARIN SODIUM 30 MG/0.3 ML SYRINGE SQ SCH ×2 (00:14→12:21)
[2017-10-16 00:40] VITALS: BP 113/63; PULSE 51; RESP 17; TEMP 96.9; O2SAT 97
[2017-10-16 08:00] VITALS: BP 107/65; PULSE 55; RESP 17; TEMP 97.5; O2SAT 99
[2017-10-16] MEDS: LEVOFLOXACIN 750 MG TAB PO SCH (08:08)
[2017-10-16] MEDS: FLUoxetine HCL 20 MG CAP PO SCH (08:08)
[2017-10-16] MEDS: THIAMINE HCL 100 MG TAB PO SCH (08:08)
[2017-10-16] MEDS: DOCUSATE SODIUM 50 MG/SENNA 8.6 MG TAB PO SCH ×2 (08:08→20:40)
[2017-10-16] MEDS: BENZTROPINE MESYLATE 1 MG TAB PO SCH ×2 (08:08→20:42)
[2017-10-16] MEDS: SODIUM CHLORIDE 0.9% FLUSH 10 ML FLUSH IV FLUSH SCH ×2 (09:00→20:42)
[2017-10-16 12:00] VITALS: BP 108/69; PULSE 89; RESP 17; TEMP 98.2; O2SAT 99
--- NOTE | 2017-10-16 12:52 | HHI.PR ---
Subjective Remarks Follow-up right hip fracture 10/07/17-patient seen and examined, no acute event overnight. Vitals stable. 10/08/17-patient seen and examined, denies any significant pain to right lower extremity. s/p I&D yesterday. Currently afebrile 10/09/17-patient seen and examined, states he had a rough night sleeping last night ; still with some episode of nausea without any emesis. Currently afebrile. 10/10/17-patient seen and examined, nausea improved and patient denies any significant right lower extremity pain. Afebrile in no acute event overnight. 10/11/17-patient seen and examined, stable and no complaint. Afebrile 10/12/17-patient seen and examined, afebrile, did work with PT however had a misstepped 10/13/17-patient seen and examined, stable, no change. States he's been working with PT 10/14/17-patient seen and examined, afebrile, working with PT 10/15/17-patient seen and examined, stable and no complaints. 10/16/17-patient seen and examined, states he was up and ambulated with PT without any severe right knee/hip pain Objective Vitals Vital Signs Date Time Temp Pulse Resp B/P (MAP) Pulse Ox O2 Delivery O2 Flow Rate FiO2 10/16/17 12:00 98.2 89 17 108/69 (82) 99 10/16/17 08:00 97.5 55 17 107/65 (79) 99 10/16/17 00:40 96.9 51 17 113/63 (80) 97 10/15/17 20:30 96.8 55 17 99/64 (76) 95 10/15/17 16:00 98.9 62 18 95/54 (68) 97 I/O 10/15/17 10/15/17 10/15/17 10/16/17 10/16/17 10/16/17 07:00 15:00 23:00 07:00 15:00 23:00 Intake Total 360 ml 960 ml 360 ml 360 ml Output Total 950 ml 500 ml Balance -590 ml 960 ml -140 ml 360 ml Intake Oral 360 ml 960 ml 360 ml 360 ml Output Urine Total 950 ml 500 ml # Voids 3 3 # Bowel Movements 0 1 0 0 Result Diagram: 10/12/17 0653 Objective Remarks GENERAL: NAD SKIN: Warm and dry. HEAD: Normocephalic. EYES: No scleral icterus. No injection or drainage. NECK: Supple, trachea midline. No JVD or lymphadenopathy. CARDIOVASCULAR: Regular rate and rhythm without murmurs, gallops, or rubs. RESPIRATORY: Breath sounds equal bilaterally. No accessory muscle use. GASTROINTESTINAL: Abdomen soft, non-tender, nondistended. MUSCULOSKELETAL: No cyanosis, or edema. BACK: Nontender without obvious deformity. No CVA tenderness. Procedures 09/13/2017 Right hip intramedullary rob fixation A/P Problem List: (1) Closed right hip fracture ICD Code: S72.001A - Fracture of unspecified part of neck of right femur, initial encounter for closed fracture Status: Acute (2) SIRS (systemic inflammatory response syndrome) ICD Code: R65.10 - Systemic inflammatory response syndrome (SIRS) of non- infectious origin without acute organ dysfunction (3) Encephalopathy acute ICD Code: G93.40 - Encephalopathy, unspecified Status: Acute Assessment and Plan 62-year-old man with SIRS (systemic inflammatory response syndrome) Suspect due to HCAP vs aspiration pna. s/p Right thigh wound irrigation and debridement 10/07/17 pending wound culture s/p Vancomycin and continue with Levaquin and clindamycin until 10/25/17 Bilateral venous Doppler negative for DVT. Appreciate ID consultation and recommendations. - Right hip fracture - Status post intramedullary rob fixation -s/p Right thigh wound irrigation and debridement 10/07/17 - Currently on an MRI seen and Levaquin until 10/25/17 - Percocet, morphine for pain. - Lovenox 30 mg every 12 hours. - Continue with physical therapy. PT recommends SNF which might be difficult to arrange due to lack of insurance. - Alcohol abuse - continue [facility] protocol, thiamine, folic acid. - Depression - GERD - Continue home medications Prozac, PPI. - Nausea- - Possibly due to GERD. Improved On Phenergan. Full code. Lovenox. Discharge Planning Problem Qualifiers (1) Closed right hip fracture: Qualified Codes: S72.001A - Fracture of unspecified part of neck of right femur , initial encounter for closed fracture Ricardo Villar MD Oct 16, 2017 12:52
[2017-10-16 16:00] VITALS: BP 115/74; PULSE 62; RESP 17; TEMP 98; O2SAT 99
[2017-10-16 20:00] VITALS: BP 106/63; PULSE 83; RESP 16; TEMP 96.1; O2SAT 98
--- NOTE | 2017-10-16 20:12 | RADRPT ---
EXAM DATE/TIME: 10/16/2017 19:57 [facility] COMPARISON: HIP RIGHT (AP&LAT 2/3VWS) WO AP PELVIS, September 29, 2017, 13:27. INDICATIONS : Right hip pain post surgery 1 month ago MEDICAL HISTORY : Right hip fracture SURGICAL HISTORY : ORIF right hip ENCOUNTER: Initial ACUITY: 1 month PAIN SCORE: 10/10 LOCATION: Right entire hip FINDINGS: One intramedullary rob with compression screw fixation of right femoral neck. Minimal bony remodeling in the interval with no significant periosteal reaction. Hardware appears intact without evidence fo r lacy-hardware lucency. No additional acute bony fracture. CONCLUSION: 1. Stable right femoral fracture intramedullary rob and compression screw fixation. No evidence for h ardware failure or acute fracture. Sahil Gregorio MD on October 16, 2017 at 20:09 Board Certified Radiologist. This report was verified electronically.
[2017-10-17] MEDS: ENOXAPARIN SODIUM 30 MG/0.3 ML SYRINGE SQ SCH ×2 (00:27→12:40)
[2017-10-17] MEDS: CLINDAMYCIN 150 MG CAP PO SCH ×4 (00:27→17:16)
[2017-10-17] MEDS: oxyCODONE/ACETAMINOPHEN 5 MG/325 MG TAB PO PRN ×3 (06:04→17:18)
[2017-10-17] MEDS: FLUoxetine HCL 20 MG CAP PO SCH (07:46)
[2017-10-17] MEDS: LEVOFLOXACIN 750 MG TAB PO SCH (07:46)
[2017-10-17] MEDS: DOCUSATE SODIUM 50 MG/SENNA 8.6 MG TAB PO SCH ×2 (07:47→20:30)
[2017-10-17] MEDS: BENZTROPINE MESYLATE 1 MG TAB PO SCH ×2 (07:47→20:30)
[2017-10-17] MEDS: THIAMINE HCL 100 MG TAB PO SCH (07:47)
[2017-10-17] MEDS: SODIUM CHLORIDE 0.9% FLUSH 10 ML FLUSH IV FLUSH SCH ×2 (07:47→20:31)
[2017-10-17 08:00] VITALS: BP 115/65; PULSE 58; RESP 17; TEMP 97.4; O2SAT 95
[2017-10-17] MEDS: PROMETHAZINE HCL 25 MG TAB PO PRN (10:37)
[2017-10-17 11:49] VITALS: BP 116/73; PULSE 56; RESP 17; TEMP 95.4; O2SAT 98
--- NOTE | 2017-10-17 14:12 | HHI.PR ---
Subjective Remarks Follow-up for right hip fracture. Patient is currently doing well. No acute concerns. He is working with physical therapy. However he is unable to uses stairs. No fever or chills. Tolerating diet well. Objective Vitals Vital Signs Date Time Temp Pulse Resp B/P (MAP) Pulse Ox O2 Delivery O2 Flow Rate FiO2 10/17/17 11:49 95.4 56 17 116/73 (87) 98 10/17/17 08:00 97.4 58 17 115/65 (82) 95 10/17/17 07:13 Room Air 10/16/17 20:00 96.1 83 16 106/63 (77) 98 10/16/17 16:00 98.0 62 17 115/74 (88) 99 I/O 10/16/17 10/16/17 10/16/17 10/17/17 10/17/17 10/17/17 07:00 15:00 23:00 07:00 15:00 23:00 Intake Total 360 ml 480 ml 600 ml 240 ml Output Total 300 ml Balance 360 ml 480 ml 600 ml -60 ml Intake Oral 360 ml 480 ml 600 ml 240 ml Output Urine Total 300 ml # Voids 3 8 1 # Bowel Movements 0 0 0 Imaging Last Impressions Hip X-Ray 10/16/17 0000 Signed Impressions: Service Date/Time: Monday, October 16, 2017 19:57 - CONCLUSION: 1. Stable right femoral fracture intramedullary rob and compression screw fixation. No evidence for hardware failure or acute fracture. Sahil Gregorio MD Lower Extremity Ultrasound 10/04/17 0000 Signed Impressions: Service Date/Time: Wednesday, October 04, 2017 17:10 - CONCLUSION: Negative for deep venous thrombosis bilateral lower extremity. Elgin Willard MD Chest X-Ray 10/04/17 0000 Signed Impressions: Service Date/Time: Wednesday, October 04, 2017 16:22 - CONCLUSION: Hyperaerated lungs. No focal infiltrates seen. Elgin Willard MD Thoracic Spine X-Ray [id number]/12/[id number] Signed Impressions: Service Date/Time: Tuesday, September 12, 2017 22:42 - CONCLUSION: 1. Limited AP view of the thoracic spine demonstrates no gross fracture or subluxation. Sahil Gregorio MD Hip and Pelvis X-Ray [id number]/12/172052 Signed Impressions: Service Date/Time: Tuesday, September 12, 2017 22:38 - CONCLUSION: 1. Right femoral intertrochanteric fracture. Sahil Gregorio MD Cervical Spine X-Ray [id number]/12/172052 Signed Impressions: Service Date/Time: Tuesday, September 12, 2017 22:43 - CONCLUSION: 1. Limited lateral examination with nonvisualization of C7-T1. 2. Otherwise, no acute fracture or subluxation. 3. Degenerative spondylosis of the lower cervical spine. Sahil Gregorio MD Objective Remarks GENERAL: Alert, NAD. SKIN: Warm and dry. HEAD: Normocephalic. EYES: No scleral icterus. No injection or drainage. NECK: Supple, trachea midline. No JVD or lymphadenopathy. CARDIOVASCULAR: Regular rate and rhythm without murmurs, gallops, or rubs. RESPIRATORY: Breath sounds equal bilaterally. No accessory muscle use. GASTROINTESTINAL: Abdomen soft, non-tender, nondistended. MUSCULOSKELETAL: No cyanosis, or edema. s/p right hip intramedullary rob fixation. BACK: Nontender without obvious deformity. No CVA tenderness. Procedures 09/13/2017 Right hip intramedullary rob fixation A/P Problem List: (1) Closed right hip fracture ICD Code: S72.001A - Fracture of unspecified part of neck of right femur, initial encounter for closed fracture Status: Acute (2) SIRS (systemic inflammatory response syndrome) ICD Code: R65.10 - Systemic inflammatory response syndrome (SIRS) of non- infectious origin without acute organ dysfunction (3) Encephalopathy acute ICD Code: G93.40 - Encephalopathy, unspecified Status: Acute Assessment and Plan Mr. Dove is a pleasant 62-year-old male who was admitted to the hospital after a fall. He sustained a right hip fracture. He underwent intramedullary rob fixation on 09/13/2017. Suspected HCAP vs aspiration PNA - Currently on Clindamycin PO 300mg Q6hrs and Levaquin 750mg Qday until 12/09. This is per ID recommendations. - Right hip fracture - Status post intramedullary rob fixation - s/p Right thigh wound irrigation and debridement 10/07/17 - Percocet, morphine for pain. - Lovenox 30 mg every 12 hours. - Continue with physical therapy. PT recommends SNF which might be difficult to arrange due to lack of insurance. - Alcohol abuse - continue CIWA protocol, thiamine, folic acid. - Depression - GERD - Continue home medications Prozac, PPI. - Nausea- - Possibly due to GERD. Improved On Phenergan. Full code. Lovenox. Discharge plan: Difficult discharge due to lack of insurance. Problem Qualifiers (1) Closed right hip fracture: Qualified Codes: S72.001A - Fracture of unspecified part of neck of right femur , initial encounter for closed fracture Shimon De Jesus DO Oct 17, 2017 2:12 pm
[2017-10-17 15:54] VITALS: BP 102/64; PULSE 59; RESP 17; TEMP 97.1; O2SAT 97
[2017-10-17 20:00] VITALS: BP 115/63; PULSE 52; RESP 20; TEMP 97.2; O2SAT 97
[2017-10-17] MEDS: MAGNESIUM HYDROXIDE SUSP 30 ML CUP PO PRN (20:30)
[2017-10-18] MEDS: CLINDAMYCIN 150 MG CAP PO SCH ×4 (01:06→17:56)
[2017-10-18] MEDS: ENOXAPARIN SODIUM 30 MG/0.3 ML SYRINGE SQ SCH ×2 (01:06→12:40)
[2017-10-18 08:00] VITALS: BP 120/70; PULSE 55; RESP 18; TEMP 97.6; O2SAT 97
[2017-10-18] MEDS: SODIUM CHLORIDE 0.9% FLUSH 10 ML FLUSH IV FLUSH SCH ×2 (09:00→20:45)
[2017-10-18] MEDS: BENZTROPINE MESYLATE 1 MG TAB PO SCH ×2 (09:55→19:38)
[2017-10-18] MEDS: THIAMINE HCL 100 MG TAB PO SCH (09:55)
[2017-10-18] MEDS: MAGNESIUM HYDROXIDE SUSP 30 ML CUP PO PRN (09:55)
[2017-10-18] MEDS: LEVOFLOXACIN 750 MG TAB PO SCH (09:55)
[2017-10-18] MEDS: DOCUSATE SODIUM 50 MG/SENNA 8.6 MG TAB PO SCH ×2 (09:55→19:38)
[2017-10-18] MEDS: FLUoxetine HCL 20 MG CAP PO SCH (09:55)
[2017-10-18] MEDS: oxyCODONE/ACETAMINOPHEN 5 MG/325 MG TAB PO PRN ×3 (10:02→19:38)
[2017-10-18 12:00] VITALS: BP 100/64; PULSE 79; RESP 18; TEMP 97.8; O2SAT 98
--- NOTE | 2017-10-18 14:27 | HHI.PR ---
Subjective Remarks Follow-up for right hip fracture. Continues to work with PT. No acute concerns. Sitting in his chair. Objective Vitals Vital Signs Date Time Temp Pulse Resp B/P (MAP) Pulse Ox O2 Delivery O2 Flow Rate FiO2 10/18/17 12:00 97.8 79 18 100/64 (76) 98 10/18/17 08:00 97.6 55 18 120/70 (87) 97 10/17/17 20:00 97.2 52 20 115/63 (80) 97 10/17/17 15:54 97.1 59 17 102/64 (77) 97 I/O 10/17/17 10/17/17 10/17/17 10/18/17 10/18/17 10/18/17 07:00 15:00 23:00 07:00 15:00 23:00 Intake Total 240 ml 480 ml 240 ml 120 ml Output Total 300 ml 200 ml 400 ml Balance -60 ml 480 ml 40 ml -280 ml Intake Oral 240 ml 480 ml 240 ml 120 ml Output Urine Total 300 ml 200 ml 400 ml # Voids 5 # Bowel Movements 0 0 Objective Remarks GENERAL: Alert, NAD. SKIN: Warm and dry. HEAD: Normocephalic. EYES: No scleral icterus. No injection or drainage. NECK: Supple, trachea midline. No JVD or lymphadenopathy. CARDIOVASCULAR: Regular rate and rhythm without murmurs, gallops, or rubs. RESPIRATORY: Breath sounds equal bilaterally. No accessory muscle use. GASTROINTESTINAL: Abdomen soft, non-tender, nondistended. MUSCULOSKELETAL: No cyanosis, or edema. s/p right hip intramedullary rob fixation. BACK: Nontender without obvious deformity. No CVA tenderness. Procedures 09/13/2017 Right hip intramedullary rob fixation A/P Problem List: (1) Closed right hip fracture ICD Code: S72.001A - Fracture of unspecified part of neck of right femur, initial encounter for closed fracture Status: Acute (2) SIRS (systemic inflammatory response syndrome) ICD Code: R65.10 - Systemic inflammatory response syndrome (SIRS) of non- infectious origin without acute organ dysfunction (3) Encephalopathy acute ICD Code: G93.40 - Encephalopathy, unspecified Status: Acute Assessment and Plan Mr. Dove is a pleasant 62-year-old male who was admitted to the hospital after a fall. He sustained a right hip fracture. He underwent intramedullary rob fixation on 09/13/2017. Suspected HCAP vs aspiration PNA - Currently on Clindamycin PO 300mg Q6hrs and Levaquin 750mg Qday until 12/09. This is per ID recommendations. - Right hip fracture - Status post intramedullary rob fixation - s/p Right thigh wound irrigation and debridement 10/07/17 - Percocet, morphine for pain. - Lovenox 30 mg every 12 hours. - Continue with physical therapy. PT recommends SNF which might be difficult to arrange due to lack of insurance. - Alcohol abuse - continue CIWA protocol, thiamine, folic acid. - Depression - GERD - Continue home medications Prozac, PPI. - Nausea- - Possibly due to GERD. Improved On Phenergan. Full code. Lovenox. Discharge plan: Continue daily PT. Difficult discharge due to lack of insurance. Problem Qualifiers (1) Closed right hip fracture: Qualified Codes: S72.001A - Fracture of unspecified part of neck of right femur , initial encounter for closed fracture Shimon De Jesus DO Oct 18, 2017 14:27
[2017-10-18 19:40] VITALS: BP 105/63; PULSE 62; RESP 17; TEMP 96.2; O2SAT 97
[2017-10-19] MEDS: CLINDAMYCIN 150 MG CAP PO SCH ×4 (00:18→18:01)
[2017-10-19] MEDS: ENOXAPARIN SODIUM 30 MG/0.3 ML SYRINGE SQ SCH ×2 (00:19→12:34)
[2017-10-19] MEDS: oxyCODONE/ACETAMINOPHEN 5 MG/325 MG TAB PO PRN ×3 (05:15→18:03)
[2017-10-19 08:00] VITALS: BP 115/65; PULSE 54; RESP 15; TEMP 96.1; O2SAT 98
[2017-10-19] MEDS: THIAMINE HCL 100 MG TAB PO SCH (10:03)
[2017-10-19] MEDS: BENZTROPINE MESYLATE 1 MG TAB PO SCH ×2 (10:03→20:58)
[2017-10-19] MEDS: LEVOFLOXACIN 750 MG TAB PO SCH (10:03)
[2017-10-19] MEDS: DOCUSATE SODIUM 50 MG/SENNA 8.6 MG TAB PO SCH ×2 (10:03→20:58)
[2017-10-19] MEDS: SODIUM CHLORIDE 0.9% FLUSH 10 ML FLUSH IV FLUSH SCH ×2 (10:04→20:58)
[2017-10-19] MEDS: FLUoxetine HCL 20 MG CAP PO SCH (10:06)
[2017-10-19 12:00] VITALS: BP 100/62; PULSE 69; RESP 16; TEMP 97.2; O2SAT 97
[2017-10-19 16:00] VITALS: BP 106/68; PULSE 65; RESP 15; TEMP 97.9; O2SAT 96
--- NOTE | 2017-10-19 19:51 | HHI.PR ---
Subjective Remarks Follow-up for right hip fracture. Patient is doing well. No acute concerns. Continues to work with PT. Objective Vitals Vital Signs Date Time Temp Pulse Resp B/P (MAP) Pulse Ox O2 Delivery O2 Flow Rate FiO2 10/19/17 16:00 97.9 65 15 106/68 (81) 96 10/19/17 12:00 97.2 69 16 100/62 (75) 97 10/19/17 08:00 96.1 54 15 115/65 (82) 98 10/19/17 07:15 Room Air I/O 10/18/17 10/18/17 10/18/17 10/19/17 10/19/17 10/19/17 07:00 15:00 23:00 07:00 15:00 23:00 Intake Total 120 ml 600 ml 480 ml 720 ml Output Total 400 ml 200 ml 500 ml Balance -280 ml 400 ml -20 ml 720 ml Intake Oral 120 ml 600 ml 480 ml 720 ml Output Urine Total 400 ml 200 ml 500 ml # Voids 1 6 # Bowel Movements 1 0 1 Objective Remarks GENERAL: Alert, NAD. SKIN: Warm and dry. HEAD: Normocephalic. EYES: No scleral icterus. No injection or drainage. NECK: Supple, trachea midline. No JVD or lymphadenopathy. CARDIOVASCULAR: Regular rate and rhythm without murmurs, gallops, or rubs. RESPIRATORY: Breath sounds equal bilaterally. No accessory muscle use. GASTROINTESTINAL: Abdomen soft, non-tender, nondistended. MUSCULOSKELETAL: No cyanosis, or edema. s/p right hip intramedullary rob fixation. BACK: Nontender without obvious deformity. No CVA tenderness. Procedures 09/13/2017 Right hip intramedullary rob fixation A/P Problem List: (1) Closed right hip fracture ICD Code: S72.001A - Fracture of unspecified part of neck of right femur, initial encounter for closed fracture Status: Acute (2) SIRS (systemic inflammatory response syndrome) ICD Code: R65.10 - Systemic inflammatory response syndrome (SIRS) of non- infectious origin without acute organ dysfunction (3) Encephalopathy acute ICD Code: G93.40 - Encephalopathy, unspecified Status: Acute Assessment and Plan Mr. Dove is a pleasant 62-year-old male who was admitted to the hospital after a fall. He sustained a right hip fracture. He underwent intramedullary rob fixation on 09/13/2017. Suspected HCAP vs aspiration PNA - Currently on Clindamycin PO 300mg Q6hrs and Levaquin 750mg Qday until 12/09. This is per ID recommendations. - Right hip fracture - Status post intramedullary rob fixation - s/p Right thigh wound irrigation and debridement 10/07/17 - Percocet, morphine for pain. - Lovenox 30 mg every 12 hours. - Continue with physical therapy. PT recommends SNF which might be difficult to arrange due to lack of insurance. - Alcohol abuse - continue CIWA protocol, thiamine, folic acid. - Depression - GERD - Continue home medications Prozac, PPI. - Nausea- - Possibly due to GERD. Improved On Phenergan. Full code. Lovenox. Discharge plan: Continue daily PT. Difficult discharge due to lack of insurance. No change in current management. Problem Qualifiers (1) Closed right hip fracture: Qualified Codes: S72.001A - Fracture of unspecified part of neck of right femur , initial encounter for closed fracture Shimon De Jesus DO Oct 19, 2017 19:51
[2017-10-19 20:50] VITALS: BP 113/65; PULSE 58; RESP 17; TEMP 96.9; O2SAT 96
[2017-10-20] MEDS: ENOXAPARIN SODIUM 30 MG/0.3 ML SYRINGE SQ SCH ×2 (00:43→14:38)
[2017-10-20] MEDS: CLINDAMYCIN 150 MG CAP PO SCH ×4 (00:43→17:27)
[2017-10-20 00:55] VITALS: BP 112/66; PULSE 52; RESP 17; TEMP 97.3; O2SAT 96
[2017-10-20 07:44] VITALS: BP 138/70; PULSE 56; RESP 19; TEMP 96.8; O2SAT 98
[2017-10-20] MEDS: SODIUM CHLORIDE 0.9% FLUSH 10 ML FLUSH IV FLUSH SCH ×2 (07:53→20:32)
[2017-10-20] MEDS: THIAMINE HCL 100 MG TAB PO SCH (07:56)
[2017-10-20] MEDS: FLUoxetine HCL 20 MG CAP PO SCH (07:56)
[2017-10-20] MEDS: BENZTROPINE MESYLATE 1 MG TAB PO SCH ×2 (07:56→20:32)
[2017-10-20] MEDS: LEVOFLOXACIN 750 MG TAB PO SCH (07:57)
[2017-10-20] MEDS: oxyCODONE/ACETAMINOPHEN 5 MG/325 MG TAB PO PRN ×2 (07:57→17:27)
[2017-10-20] MEDS: DOCUSATE SODIUM 50 MG/SENNA 8.6 MG TAB PO SCH ×2 (07:57→20:32)
[2017-10-20 15:49] VITALS: BP 116/75; PULSE 62; RESP 18; TEMP 97.8; O2SAT 96
--- NOTE | 2017-10-20 19:30 | HHI.PR ---
Subjective Remarks Follow-up for right hip fracture. Patient is doing well. No acute concerns. No fever or chills. Objective Vitals Vital Signs Date Time Temp Pulse Resp B/P (MAP) Pulse Ox O2 Delivery O2 Flow Rate FiO2 10/20/17 15:49 97.8 62 18 116/75 (89) 96 10/20/17 07:44 96.8 56 19 138/70 (92) 98 10/20/17 07:22 Room Air 10/20/17 00:55 97.3 52 17 112/66 (81) 96 10/19/17 20:50 96.9 58 17 113/65 (81) 96 I/O 10/19/17 10/19/17 10/19/17 10/20/17 10/20/17 10/20/17 07:00 15:00 23:00 07:00 15:00 23:00 Intake Total 480 ml 720 ml 360 ml 240 ml 950 ml Output Total 500 ml 200 ml Balance -20 ml 720 ml 360 ml 240 ml 750 ml Intake Oral 480 ml 720 ml 360 ml 240 ml 950 ml Output Urine Total 500 ml 200 ml # Voids 6 2 2 3 # Bowel Movements 0 1 0 0 Objective Remarks GENERAL: Alert, NAD. SKIN: Warm and dry. HEAD: Normocephalic. EYES: No scleral icterus. No injection or drainage. NECK: Supple, trachea midline. No JVD or lymphadenopathy. CARDIOVASCULAR: Regular rate and rhythm without murmurs, gallops, or rubs. RESPIRATORY: Breath sounds equal bilaterally. No accessory muscle use. GASTROINTESTINAL: Abdomen soft, non-tender, nondistended. MUSCULOSKELETAL: No cyanosis, or edema. s/p right hip intramedullary rob fixation. BACK: Nontender without obvious deformity. No CVA tenderness. Procedures 09/13/2017 Right hip intramedullary rob fixation A/P Problem List: (1) Closed right hip fracture ICD Code: S72.001A - Fracture of unspecified part of neck of right femur, initial encounter for closed fracture Status: Acute (2) SIRS (systemic inflammatory response syndrome) ICD Code: R65.10 - Systemic inflammatory response syndrome (SIRS) of non- infectious origin without acute organ dysfunction (3) Encephalopathy acute ICD Code: G93.40 - Encephalopathy, unspecified Status: Acute Assessment and Plan Mr. Dove is a pleasant 62-year-old male who was admitted to the hospital after a fall. He sustained a right hip fracture. He underwent intramedullary rob fixation on 09/13/2017. Suspected HCAP vs aspiration PNA - Currently on Clindamycin PO 300mg Q6hrs and Levaquin 750mg Qday until 12/09. This is per ID recommendations. - Right hip fracture - Status post intramedullary rob fixation - s/p Right thigh wound irrigation and debridement 10/07/17 - Percocet, morphine for pain. - Lovenox 30 mg every 12 hours. - Continue with physical therapy. PT recommends SNF which might be difficult to arrange due to lack of insurance. - Alcohol abuse - continue CIWA protocol, thiamine, folic acid. - Depression - GERD - Continue home medications Prozac, PPI. - Nausea- - Possibly due to GERD. Improved On Phenergan. Full code. Lovenox. Discharge plan: Continue daily PT. Difficult discharge due to lack of insurance. No change in current management. Problem Qualifiers (1) Closed right hip fracture: Qualified Codes: S72.001A - Fracture of unspecified part of neck of right femur , initial encounter for closed fracture Shimon De Jesus DO Oct 20, 2017 19:30
[2017-10-20 20:45] VITALS: BP 106/67; PULSE 71; RESP 16; TEMP 97.4; O2SAT 96
[2017-10-21 00:50] VITALS: BP 105/63; PULSE 53; RESP 17; TEMP 96.7; O2SAT 96
[2017-10-21] MEDS: CLINDAMYCIN 150 MG CAP PO SCH ×5 (01:00→23:39)
[2017-10-21] MEDS: ENOXAPARIN SODIUM 30 MG/0.3 ML SYRINGE SQ SCH ×2 (01:01→12:30)
[2017-10-21 07:48] VITALS: BP 118/71; PULSE 56; RESP 19; TEMP 97.4; O2SAT 96
[2017-10-21] MEDS: DOCUSATE SODIUM 50 MG/SENNA 8.6 MG TAB PO SCH ×2 (08:11→21:46)
[2017-10-21] MEDS: FLUoxetine HCL 20 MG CAP PO SCH (08:11)
[2017-10-21] MEDS: THIAMINE HCL 100 MG TAB PO SCH (08:11)
[2017-10-21] MEDS: LEVOFLOXACIN 750 MG TAB PO SCH (08:11)
[2017-10-21] MEDS: BENZTROPINE MESYLATE 1 MG TAB PO SCH ×2 (08:11→21:46)
[2017-10-21] MEDS: SODIUM CHLORIDE 0.9% FLUSH 10 ML FLUSH IV FLUSH SCH ×2 (08:13→21:00)
[2017-10-21] MEDS: oxyCODONE/ACETAMINOPHEN 5 MG/325 MG TAB PO PRN ×2 (08:57→09:59)
--- NOTE | 2017-10-21 09:04 | HHI.PR ---
Subjective Remarks Follow-up for right hip fracture. Patient is doing well. Afebrile. Eating breakfast in bed. In good mood. Objective Vitals Vital Signs Date Time Temp Pulse Resp B/P (MAP) Pulse Ox O2 Delivery O2 Flow Rate FiO2 10/21/17 07:48 97.4 56 19 118/71 (87) 96 10/21/17 00:50 96.7 53 17 105/63 (77) 96 10/20/17 20:45 97.4 71 16 106/67 (80) 96 10/20/17 15:49 97.8 62 18 116/75 (89) 96 I/O 10/20/17 10/20/17 10/20/17 10/21/17 10/21/17 10/21/17 07:00 15:00 23:00 07:00 15:00 23:00 Intake Total 240 ml 950 ml 360 ml 360 ml Output Total 200 ml Balance 240 ml 750 ml 360 ml 360 ml Intake Oral 240 ml 950 ml 360 ml 360 ml Output Urine Total 200 ml # Voids 2 3 2 1 # Bowel Movements 0 0 0 Imaging Last Impressions Hip X-Ray 10/16/17 0000 Signed Impressions: Service Date/Time: Monday, October 16, 2017 19:57 - CONCLUSION: 1. Stable right femoral fracture intramedullary rob and compression screw fixation. No evidence for hardware failure or acute fracture. Sahil Gregorio MD Lower Extremity Ultrasound 10/04/17 0000 Signed Impressions: Service Date/Time: Wednesday, October 04, 2017 17:10 - CONCLUSION: Negative for deep venous thrombosis bilateral lower extremity. Elgin Willard MD Chest X-Ray 10/04/17 Signed Impressions: Service Date/Time: Wednesday, October 04, 2017 16:22 - CONCLUSION: Hyperaerated lungs. No focal infiltrates seen. Elgin Willard MD Thoracic Spine X-Ray 09/12/172052 Signed Impressions: Service Date/Time: Tuesday, September 12, 2017 22:42 - CONCLUSION: 1. Limited AP view of the thoracic spine demonstrates no gross fracture or subluxation. Sahil Gregorio MD Hip and Pelvis X-Ray 09/12/172052 Signed Impressions: Service Date/Time: Tuesday, September 12, 2017 22:38 - CONCLUSION: 1. Right femoral intertrochanteric fracture. Sahil Gregorio MD Cervical Spine X-Ray 09/12/172052 Signed Impressions: Service Date/Time: Tuesday, September 12, 2017 22:43 - CONCLUSION: 1. Limited lateral examination with nonvisualization of C7-T1. 2. Otherwise, no acute fracture or subluxation. 3. Degenerative spondylosis of the lower cervical spine. Sahil Gregorio MD Objective Remarks GENERAL: Alert, NAD. SKIN: Warm and dry. HEAD: Normocephalic. EYES: No scleral icterus. No injection or drainage. NECK: Supple, trachea midline. No JVD or lymphadenopathy. CARDIOVASCULAR: Regular rate and rhythm without murmurs, gallops, or rubs. RESPIRATORY: Breath sounds equal bilaterally. No accessory muscle use. GASTROINTESTINAL: Abdomen soft, non-tender, nondistended. MUSCULOSKELETAL: No cyanosis, or edema. s/p right hip intramedullary rob fixation. BACK: Nontender without obvious deformity. No CVA tenderness. Procedures 09/13/2017 Right hip intramedullary rob fixation A/P Problem List: (1) Closed right hip fracture ICD Code: S72.001A - Fracture of unspecified part of neck of right femur, initial encounter for closed fracture Status: Acute (2) SIRS (systemic inflammatory response syndrome) ICD Code: R65.10 - Systemic inflammatory response syndrome (SIRS) of non- infectious origin without acute organ dysfunction (3) Encephalopathy acute ICD Code: G93.40 - Encephalopathy, unspecified Status: Acute Assessment and Plan Mr. Dove is a pleasant 62-year-old male who was admitted to the hospital after a fall. He sustained a right hip fracture. He underwent intramedullary rob fixation on 09/13/2017. Suspected HCAP vs aspiration PNA - Currently on Clindamycin PO 300mg Q6hrs and Levaquin 750mg Qday until 12/09. This is per ID recommendations. - Right hip fracture - Status post intramedullary rob fixation - s/p Right thigh wound irrigation and debridement 10/07/17 - Percocet, morphine for pain. - Lovenox 30 mg every 12 hours. - Continue with physical therapy. PT recommends SNF which might be difficult to arrange due to lack of insurance. - Alcohol abuse - continue CIWA protocol, thiamine, folic acid. - Depression - GERD - Continue home medications Prozac, PPI. - Nausea- - Possibly due to GERD. Improved On Phenergan. Full code. Lovenox. 10/21/2017: No acute change in management. Continue placement efforts. Discussed with RN. Problem Qualifiers (1) Closed right hip fracture: Qualified Codes: S72.001A - Fracture of unspecified part of neck of right femur , initial encounter for closed fracture Shimon De Jesus DO Oct 21, 2017 09:04
[2017-10-21 19:00] VITALS: BP 102/62; PULSE 60; RESP 16; TEMP 98.3; O2SAT 99
[2017-10-22] MEDS: ENOXAPARIN SODIUM 30 MG/0.3 ML SYRINGE SQ SCH ×2 (01:44→12:14)
[2017-10-22 01:56] VITALS: BP 100/64; PULSE 62; RESP 16; TEMP 98.3; O2SAT 99
[2017-10-22 06:01] VITALS: BP 105/60; PULSE 64; RESP 16; TEMP 98.2; O2SAT 98
[2017-10-22] MEDS: CLINDAMYCIN 150 MG CAP PO SCH ×3 (06:03→16:55)
[2017-10-22] MEDS: oxyCODONE/ACETAMINOPHEN 5 MG/325 MG TAB PO PRN ×3 (07:37→16:55)
[2017-10-22] MEDS: BENZTROPINE MESYLATE 1 MG TAB PO SCH ×2 (07:37→21:22)
[2017-10-22] MEDS: LEVOFLOXACIN 750 MG TAB PO SCH (07:37)
[2017-10-22] MEDS: THIAMINE HCL 100 MG TAB PO SCH (07:37)
[2017-10-22] MEDS: DOCUSATE SODIUM 50 MG/SENNA 8.6 MG TAB PO SCH ×2 (07:37→21:19)
[2017-10-22] MEDS: FLUoxetine HCL 20 MG CAP PO SCH (07:37)
[2017-10-22 07:38] VITALS: BP 119/69; PULSE 59; RESP 19; TEMP 98.8; O2SAT 98
[2017-10-22] MEDS: SODIUM CHLORIDE 0.9% FLUSH 10 ML FLUSH IV FLUSH SCH ×2 (09:00→21:19)
--- NOTE | 2017-10-22 14:56 | HHI.PR ---
Subjective Remarks Follow-up for right hip fracture. Patient is doing well. Patient is currently doing well. Reports that he is gradually improving. No acute concerns. Objective Vitals Vital Signs Date Time Temp Pulse Resp B/P (MAP) Pulse Ox O2 Delivery O2 Flow Rate FiO2 10/22/17 07:38 98.8 59 19 119/69 (86) 98 10/22/17 06:01 98.2 64 16 105/60 (75) 98 10/22/17 01:56 98.3 62 16 100/64 (76) 99 10/21/17 21:46 Room Air 10/21/17 19:00 98.3 60 16 102/62 (75) 99 I/O 10/21/17 10/21/17 10/21/17 10/22/17 10/22/17 10/22/17 07:00 15:00 23:00 07:00 15:00 23:00 Intake Total 360 ml 980 ml 480 ml 980 ml Output Total 500 ml 300 ml Balance 360 ml 980 ml -20 ml 680 ml Intake Oral 360 ml 980 ml 480 ml 980 ml Output Urine Total 500 ml 300 ml # Voids 1 4 2 # Bowel Movements 0 Objective Remarks GENERAL: Alert, NAD. SKIN: Warm and dry. HEAD: Normocephalic. EYES: No scleral icterus. No injection or drainage. NECK: Supple, trachea midline. No JVD or lymphadenopathy. CARDIOVASCULAR: Regular rate and rhythm without murmurs, gallops, or rubs. RESPIRATORY: Breath sounds equal bilaterally. No accessory muscle use. GASTROINTESTINAL: Abdomen soft, non-tender, nondistended. MUSCULOSKELETAL: No cyanosis, or edema. s/p right hip intramedullary rob fixation. BACK: Nontender without obvious deformity. No CVA tenderness. Procedures 09/13/2017 Right hip intramedullary rob fixation A/P Problem List: (1) Closed right hip fracture ICD Code: S72.001A - Fracture of unspecified part of neck of right femur, initial encounter for closed fracture Status: Acute (2) SIRS (systemic inflammatory response syndrome) ICD Code: R65.10 - Systemic inflammatory response syndrome (SIRS) of non- infectious origin without acute organ dysfunction (3) Encephalopathy acute ICD Code: G93.40 - Encephalopathy, unspecified Status: Acute Assessment and Plan Mr. Dove is a pleasant 62-year-old male who was admitted to the hospital after a fall. He sustained a right hip fracture. He underwent intramedullary rob fixation on 09/13/2017. Suspected HCAP vs aspiration PNA - Currently on Clindamycin PO 300mg Q6hrs and Levaquin 750mg Qday until 12/09. This is per ID recommendations. - Right hip fracture - Status post intramedullary rob fixation - s/p Right thigh wound irrigation and debridement 10/07/17 - Percocet, morphine for pain. - Lovenox 30 mg every 12 hours. - Continue with physical therapy. PT recommends SNF which might be difficult to arrange due to lack of insurance. - Alcohol abuse - continue CIWA protocol, thiamine, folic acid. - Depression - GERD - Continue home medications Prozac, PPI. - Nausea- - Possibly due to GERD. Improved On Phenergan. Full code. Lovenox. 10/22/2017: No acute change in management. Continue placement efforts. Problem Qualifiers (1) Closed right hip fracture: Qualified Codes: S72.001A - Fracture of unspecified part of neck of right femur , initial encounter for closed fracture Shimon De Jesus DO Oct 22, 2017 14:56
[2017-10-22 20:45] VITALS: BP 101/64; PULSE 60; RESP 17; TEMP 96.1; O2SAT 97
[2017-10-23] MEDS: CLINDAMYCIN 150 MG CAP PO SCH ×4 (01:00→17:19)
[2017-10-23] MEDS: ENOXAPARIN SODIUM 30 MG/0.3 ML SYRINGE SQ SCH ×2 (01:00→11:58)
[2017-10-23] MEDS: MAGNESIUM HYDROXIDE SUSP 30 ML CUP PO PRN ×2 (05:33→21:47)
[2017-10-23] MEDS: SENNOSIDES 8.6 MG TAB PO PRN (05:33)
[2017-10-23] MEDS: LACTULOSE SYRUP 20 GM/30 ML CUP PO PRN (05:34)
[2017-10-23 08:00] VITALS: BP 116/68; PULSE 67; RESP 18; TEMP 97.9; O2SAT 99
[2017-10-23] MEDS: THIAMINE HCL 100 MG TAB PO SCH (08:51)
[2017-10-23] MEDS: LEVOFLOXACIN 750 MG TAB PO SCH (08:51)
[2017-10-23] MEDS: FLUoxetine HCL 20 MG CAP PO SCH (08:51)
[2017-10-23] MEDS: DOCUSATE SODIUM 50 MG/SENNA 8.6 MG TAB PO SCH ×2 (08:52→21:47)
[2017-10-23] MEDS: oxyCODONE/ACETAMINOPHEN 5 MG/325 MG TAB PO PRN ×2 (08:52→21:53)
[2017-10-23] MEDS: BENZTROPINE MESYLATE 1 MG TAB PO SCH ×2 (08:54→21:47)
[2017-10-23] MEDS: SODIUM CHLORIDE 0.9% FLUSH 10 ML FLUSH IV FLUSH SCH ×2 (09:00→21:22)
[2017-10-23] MEDS: PROMETHAZINE HCL 25 MG TAB PO PRN ×2 (09:00→17:19)
--- NOTE | 2017-10-23 18:36 | HHI.PR ---
Subjective Remarks Follow-up for right hip fracture. Patient is doing well. Resting in bed. Afebrile. Objective Vitals Vital Signs Date Time Temp Pulse Resp B/P (MAP) Pulse Ox O2 Delivery O2 Flow Rate FiO2 10/23/17 08:00 97.9 67 18 116/68 (84) 99 10/22/17 20:45 96.1 60 17 101/64 (76) 97 I/O 10/22/17 10/22/17 10/22/17 10/23/17 10/23/17 10/23/17 07:00 15:00 23:00 07:00 15:00 23:00 Intake Total 480 ml 980 ml 720 ml Output Total 500 ml 300 ml 450 ml Balance -20 ml 680 ml 270 ml Intake Oral 480 ml 980 ml 720 ml Output Urine Total 500 ml 300 ml 450 ml # Voids 2 # Bowel Movements 0 Objective Remarks GENERAL: Alert, NAD. SKIN: Warm and dry. HEAD: Normocephalic. EYES: No scleral icterus. No injection or drainage. NECK: Supple, trachea midline. No JVD or lymphadenopathy. CARDIOVASCULAR: Regular rate and rhythm without murmurs, gallops, or rubs. RESPIRATORY: Breath sounds equal bilaterally. No accessory muscle use. GASTROINTESTINAL: Abdomen soft, non-tender, nondistended. MUSCULOSKELETAL: No cyanosis, or edema. s/p right hip intramedullary rob fixation. BACK: Nontender without obvious deformity. No CVA tenderness. Procedures 09/13/2017 Right hip intramedullary rob fixation A/P Problem List: (1) Closed right hip fracture ICD Code: S72.001A - Fracture of unspecified part of neck of right femur, initial encounter for closed fracture Status: Acute (2) SIRS (systemic inflammatory response syndrome) ICD Code: R65.10 - Systemic inflammatory response syndrome (SIRS) of non- infectious origin without acute organ dysfunction (3) Encephalopathy acute ICD Code: G93.40 - Encephalopathy, unspecified Status: Acute Assessment and Plan Mr. Dove is a pleasant 62-year-old male who was admitted to the hospital after a fall. He sustained a right hip fracture. He underwent intramedullary rob fixation on 09/13/2017. Suspected HCAP vs aspiration PNA - Currently on Clindamycin PO 300mg Q6hrs and Levaquin 750mg Qday until 12/09. This is per ID recommendations. - Right hip fracture - Status post intramedullary rob fixation - s/p Right thigh wound irrigation and debridement 10/07/17 - Percocet, morphine for pain. - Lovenox 30 mg every 12 hours. - Continue with physical therapy. PT recommends SNF which might be difficult to arrange due to lack of insurance. - Alcohol abuse - continue CIWA protocol, thiamine, folic acid. - Depression - GERD - Continue home medications Prozac, PPI. - Nausea- - Possibly due to GERD. Improved On Phenergan. Full code. Lovenox. 10/23/2017: No acute change in management. Continue placement efforts. Problem Qualifiers (1) Closed right hip fracture: Qualified Codes: S72.001A - Fracture of unspecified part of neck of right femur , initial encounter for closed fracture Shimon De Jesus DO Oct 23, 2017 18:36
[2017-10-23 20:45] VITALS: BP 106/63; PULSE 69; RESP 17; TEMP 98.5; O2SAT 98
[2017-10-24] MEDS: CLINDAMYCIN 150 MG CAP PO SCH ×4 (01:23→17:29)
[2017-10-24] MEDS: ENOXAPARIN SODIUM 30 MG/0.3 ML SYRINGE SQ SCH ×2 (01:23→12:13)
[2017-10-24 08:00] VITALS: BP 123/79; PULSE 64; RESP 18; TEMP 99.2; O2SAT 97
[2017-10-24] MEDS: BENZTROPINE MESYLATE 1 MG TAB PO SCH ×2 (09:00→21:00)
[2017-10-24] MEDS: SODIUM CHLORIDE 0.9% FLUSH 10 ML FLUSH IV FLUSH SCH ×2 (09:00→21:00)
[2017-10-24] MEDS: FLUoxetine HCL 20 MG CAP PO SCH (09:09)
[2017-10-24] MEDS: DOCUSATE SODIUM 50 MG/SENNA 8.6 MG TAB PO SCH ×2 (09:10→21:33)
[2017-10-24] MEDS: THIAMINE HCL 100 MG TAB PO SCH (09:10)
[2017-10-24] MEDS: LEVOFLOXACIN 750 MG TAB PO SCH (09:10)
[2017-10-24] MEDS: oxyCODONE/ACETAMINOPHEN 5 MG/325 MG TAB PO PRN ×2 (09:36→17:29)
--- NOTE | 2017-10-24 17:14 | HHI.PR ---
Subjective Remarks Follow-up for right hip fracture. Patient is doing well. No acute concerns. Remains in good spirits. Objective Vitals Vital Signs Date Time Temp Pulse Resp B/P (MAP) Pulse Ox O2 Delivery O2 Flow Rate FiO2 10/24/17 08:00 99.2 64 18 123/79 (94) 97 10/23/17 20:45 98.5 69 17 106/63 (77) 98 I/O 10/23/17 10/23/17 10/23/17 10/24/17 10/24/17 10/24/17 07:00 15:00 23:00 07:00 15:00 23:00 Intake Total 720 ml 600 ml Output Total 450 ml 450 ml Balance 270 ml 150 ml Intake Oral 720 ml 600 ml Output Urine Total 450 ml 450 ml # Voids 1 # Bowel Movements 0 0 Objective Remarks GENERAL: Alert, NAD. SKIN: Warm and dry. HEAD: Normocephalic. EYES: No scleral icterus. No injection or drainage. NECK: Supple, trachea midline. No JVD or lymphadenopathy. CARDIOVASCULAR: Regular rate and rhythm without murmurs, gallops, or rubs. RESPIRATORY: Breath sounds equal bilaterally. No accessory muscle use. GASTROINTESTINAL: Abdomen soft, non-tender, nondistended. MUSCULOSKELETAL: No cyanosis, or edema. s/p right hip intramedullary rob fixation. BACK: Nontender without obvious deformity. No CVA tenderness. Procedures 09/13/2017 Right hip intramedullary rob fixation A/P Problem List: (1) Closed right hip fracture ICD Code: S72.001A - Fracture of unspecified part of neck of right femur, initial encounter for closed fracture Status: Acute (2) SIRS (systemic inflammatory response syndrome) ICD Code: R65.10 - Systemic inflammatory response syndrome (SIRS) of non- infectious origin without acute organ dysfunction (3) Encephalopathy acute ICD Code: G93.40 - Encephalopathy, unspecified Status: Acute Assessment and Plan Mr. Dove is a pleasant 62-year-old male who was admitted to the hospital after a fall. He sustained a right hip fracture. He underwent intramedullary rob fixation on 09/13/2017. Suspected HCAP vs aspiration PNA - Currently on Clindamycin PO 300mg Q6hrs and Levaquin 750mg Qday until 12/09. This is per ID recommendations. - Right hip fracture - Status post intramedullary rob fixation - s/p Right thigh wound irrigation and debridement 10/07/17 - Percocet, morphine for pain. - Lovenox 30 mg every 12 hours. - Continue with physical therapy. PT recommends SNF which might be difficult to arrange due to lack of insurance. - Alcohol abuse - continue CIWA protocol, thiamine, folic acid. - Depression - GERD - Continue home medications Prozac, PPI. - Nausea- - Possibly due to GERD. Improved On Phenergan. Full code. Lovenox. 10/24/2017: No acute change in management. Continue placement efforts. Problem Qualifiers (1) Closed right hip fracture: Qualified Codes: S72.001A - Fracture of unspecified part of neck of right femur , initial encounter for closed fracture Shimon De Jesus DO Oct 24, 2017 17:14
[2017-10-24 20:00] VITALS: BP 97/60; PULSE 62; RESP 16; TEMP 98; O2SAT 96
[2017-10-25] VITALS: BP 107/65; PULSE 55; RESP 16; TEMP 98.9; O2SAT 97
[2017-10-25] MEDS: CLINDAMYCIN 150 MG CAP PO SCH ×4 (00:26→17:47)
[2017-10-25] MEDS: ENOXAPARIN SODIUM 30 MG/0.3 ML SYRINGE SQ SCH ×2 (00:26→12:20)
[2017-10-25 08:00] VITALS: BP 121/71; PULSE 56; RESP 18; TEMP 98.5; O2SAT 98
[2017-10-25] MEDS: LEVOFLOXACIN 750 MG TAB PO SCH (08:28)
[2017-10-25] MEDS: DOCUSATE SODIUM 50 MG/SENNA 8.6 MG TAB PO SCH ×2 (08:28→20:32)
[2017-10-25] MEDS: BENZTROPINE MESYLATE 1 MG TAB PO SCH ×2 (08:28→20:32)
[2017-10-25] MEDS: FLUoxetine HCL 20 MG CAP PO SCH (08:28)
[2017-10-25] MEDS: THIAMINE HCL 100 MG TAB PO SCH (08:28)
[2017-10-25] MEDS: SODIUM CHLORIDE 0.9% FLUSH 10 ML FLUSH IV FLUSH SCH ×2 (08:29→20:32)
--- NOTE | 2017-10-25 15:28 | HHI.PR ---
Subjective Remarks Follow-up for right hip fracture. Doing well. No acute concerns. Objective Vitals Vital Signs Date Time Temp Pulse Resp B/P (MAP) Pulse Ox O2 Delivery O2 Flow Rate FiO2 10/25/17 08:00 98.5 56 18 121/71 (88) 98 10/25/17 00:00 98.9 55 16 107/65 (79) 97 10/24/17 20:00 98.0 62 16 97/60 (72) 96 I/O 10/24/17 10/24/17 10/24/17 10/25/17 10/25/17 10/25/17 07:00 15:00 23:00 07:00 15:00 23:00 Intake Total 600 ml 400 ml 200 ml 600 ml Output Total 450 ml 325 ml Balance 150 ml 400 ml 200 ml 275 ml Intake Oral 600 ml 400 ml 200 ml 600 ml Output Urine Total 450 ml 325 ml # Voids 1 1 1 2 # Bowel Movements 0 1 Objective Remarks GENERAL: Alert, NAD. SKIN: Warm and dry. HEAD: Normocephalic. EYES: No scleral icterus. No injection or drainage. NECK: Supple, trachea midline. No JVD or lymphadenopathy. CARDIOVASCULAR: Regular rate and rhythm without murmurs, gallops, or rubs. RESPIRATORY: Breath sounds equal bilaterally. No accessory muscle use. GASTROINTESTINAL: Abdomen soft, non-tender, nondistended. MUSCULOSKELETAL: No cyanosis, or edema. s/p right hip intramedullary rob fixation. BACK: Nontender without obvious deformity. No CVA tenderness. Procedures 09/13/2017 Right hip intramedullary rob fixation A/P Problem List: (1) Closed right hip fracture ICD Code: S72.001A - Fracture of unspecified part of neck of right femur, initial encounter for closed fracture Status: Acute (2) SIRS (systemic inflammatory response syndrome) ICD Code: R65.10 - Systemic inflammatory response syndrome (SIRS) of non- infectious origin without acute organ dysfunction (3) Encephalopathy acute ICD Code: G93.40 - Encephalopathy, unspecified Status: Acute Assessment and Plan Mr. Dove is a pleasant 62-year-old male who was admitted to the hospital after a fall. He sustained a right hip fracture. He underwent intramedullary rob fixation on 09/13/2017. Suspected HCAP vs aspiration PNA - Currently on Clindamycin PO 300mg Q6hrs and Levaquin 750mg Qday until 12/09. This is per ID recommendations. - Right hip fracture - Status post intramedullary rob fixation - s/p Right thigh wound irrigation and debridement 10/07/17 - Percocet, morphine for pain. - Lovenox 30 mg every 12 hours. - Continue with physical therapy. PT recommends SNF which might be difficult to arrange due to lack of insurance. - Alcohol abuse - continue CIWA protocol, thiamine, folic acid. - Depression - GERD - Continue home medications Prozac, PPI. - Nausea- - Possibly due to GERD. Improved On Phenergan. - Will add Zofran. Full code. Lovenox. 10/25/2017: No acute change in management. Continue placement efforts. Problem Qualifiers (1) Closed right hip fracture: Qualified Codes: S72.001A - Fracture of unspecified part of neck of right femur , initial encounter for closed fracture Shimon De Jesus DO Oct 25, 2017 15:28
[2017-10-25] MEDS: oxyCODONE/ACETAMINOPHEN 5 MG/325 MG TAB PO PRN (17:47)
[2017-10-25 20:00] VITALS: BP 109/55; PULSE 60; RESP 15; TEMP 99.5; O2SAT 94
[2017-10-26] VITALS: BP 118/67; PULSE 50; RESP 15; TEMP 96.7; O2SAT 95
[2017-10-26] MEDS: ENOXAPARIN SODIUM 30 MG/0.3 ML SYRINGE SQ SCH ×2 (01:25→13:00)
[2017-10-26 08:00] VITALS: BP 121/73; PULSE 60; RESP 17; TEMP 98.3; O2SAT 98
[2017-10-26] MEDS: DOCUSATE SODIUM 50 MG/SENNA 8.6 MG TAB PO SCH ×2 (09:00→21:37)
[2017-10-26] MEDS: FLUoxetine HCL 20 MG CAP PO SCH (09:00)
[2017-10-26] MEDS: THIAMINE HCL 100 MG TAB PO SCH (09:00)
[2017-10-26] MEDS: SODIUM CHLORIDE 0.9% FLUSH 10 ML FLUSH IV FLUSH SCH ×2 (09:00→21:39)
[2017-10-26] MEDS: BENZTROPINE MESYLATE 1 MG TAB PO SCH ×2 (09:00→21:37)
--- NOTE | 2017-10-26 20:25 | HHI.PR ---
Subjective Remarks Follow-up for right hip fracture. Remains in good spirit. No acute concerns. Objective Vitals Vital Signs Date Time Temp Pulse Resp B/P (MAP) Pulse Ox O2 Delivery O2 Flow Rate FiO2 10/26/17 08:00 98.3 60 17 121/73 (89) 98 10/26/17 00:00 96.7 50 15 118/67 (84) 95 I/O 10/25/17 10/25/17 10/25/17 10/26/17 10/26/17 10/26/17 07:00 15:00 23:00 07:00 15:00 23:00 Intake Total 200 ml 600 ml 700 ml 1080 ml Output Total 325 ml 300 ml 500 ml Balance 200 ml 275 ml 700 ml -300 ml 580 ml Intake Oral 200 ml 600 ml 700 ml 1080 ml Output Urine Total 325 ml 300 ml 500 ml # Voids 1 2 4 # Bowel Movements 1 0 Objective Remarks GENERAL: Alert, NAD. SKIN: Warm and dry. HEAD: Normocephalic. EYES: No scleral icterus. No injection or drainage. NECK: Supple, trachea midline. No JVD or lymphadenopathy. CARDIOVASCULAR: Regular rate and rhythm without murmurs, gallops, or rubs. RESPIRATORY: Breath sounds equal bilaterally. No accessory muscle use. GASTROINTESTINAL: Abdomen soft, non-tender, nondistended. MUSCULOSKELETAL: No cyanosis, or edema. s/p right hip intramedullary rob fixation. BACK: Nontender without obvious deformity. No CVA tenderness. Procedures 09/13/2017 Right hip intramedullary rob fixation A/P Problem List: (1) Closed right hip fracture ICD Code: S72.001A - Fracture of unspecified part of neck of right femur, initial encounter for closed fracture Status: Acute (2) SIRS (systemic inflammatory response syndrome) ICD Code: R65.10 - Systemic inflammatory response syndrome (SIRS) of non- infectious origin without acute organ dysfunction (3) Encephalopathy acute ICD Code: G93.40 - Encephalopathy, unspecified Status: Acute Assessment and Plan Mr. Dove is a pleasant 62-year-old male who was admitted to the hospital after a fall. He sustained a right hip fracture. He underwent intramedullary rob fixation on 09/13/2017. Suspected HCAP vs aspiration PNA - Currently on Clindamycin PO 300mg Q6hrs and Levaquin 750mg Qday until 12/09. This is per ID recommendations. - Right hip fracture - Status post intramedullary rob fixation - s/p Right thigh wound irrigation and debridement 10/07/17 - Percocet, morphine for pain. - Lovenox 30 mg every 12 hours. - Continue with physical therapy. PT recommends SNF which might be difficult to arrange due to lack of insurance. - Alcohol abuse - continue CIWA protocol, thiamine, folic acid. - Depression - GERD - Continue home medications Prozac, PPI. - Nausea- - Possibly due to GERD. Improved On Phenergan. - Already on PRN Zofran. Full code. Lovenox. 10/26/2017: No acute change in management. Continue placement efforts. Problem Qualifiers (1) Closed right hip fracture: Qualified Codes: S72.001A - Fracture of unspecified part of neck of right femur , initial encounter for closed fracture Shimon De Jesus DO Oct 26, 2017 20:25
[2017-10-26 21:10] VITALS: BP 107/59; PULSE 83; RESP 18; TEMP 98.6; O2SAT 94
[2017-10-27] MEDS: ENOXAPARIN SODIUM 30 MG/0.3 ML SYRINGE SQ SCH ×2 (01:47→12:13)
[2017-10-27 08:00] VITALS: BP 124/73; PULSE 56; RESP 18; TEMP 96; O2SAT 99
[2017-10-27] MEDS: DOCUSATE SODIUM 50 MG/SENNA 8.6 MG TAB PO SCH ×2 (08:51→21:19)
[2017-10-27] MEDS: BENZTROPINE MESYLATE 1 MG TAB PO SCH ×2 (08:51→21:19)
[2017-10-27] MEDS: THIAMINE HCL 100 MG TAB PO SCH (08:51)
[2017-10-27] MEDS: FLUoxetine HCL 20 MG CAP PO SCH (08:51)
[2017-10-27] MEDS: SODIUM CHLORIDE 0.9% FLUSH 10 ML FLUSH IV FLUSH SCH ×2 (08:52→21:21)
[2017-10-27] MEDS: oxyCODONE/ACETAMINOPHEN 5 MG/325 MG TAB PO PRN (08:57)
[2017-10-27 11:36] VITALS: BP 105/68; PULSE 73; RESP 18; TEMP 98.6; O2SAT 98
--- NOTE | 2017-10-27 12:00 | HHI.PR ---
Subjective Remarks Follow up hip pain. Patient states that his right hip pain is improving "very slowly". Also reports nausea. No other complaints at this time. Objective Vitals Vital Signs Date Time Temp Pulse Resp B/P (MAP) Pulse Ox O2 Delivery O2 Flow Rate FiO2 10/27/17 11:36 98.6 73 18 105/68 (80) 98 10/27/17 08:00 96.0 56 18 124/73 (90) 99 10/26/17 21:10 98.6 83 18 107/59 (75) 94 I/O 10/26/17 10/26/17 10/26/17 10/27/17 10/27/17 10/27/17 07:00 15:00 23:00 07:00 15:00 23:00 Intake Total 1080 ml 720 ml 720 ml Output Total 300 ml 500 ml Balance -300 ml 580 ml 720 ml 720 ml Intake Oral 1080 ml 720 ml 720 ml Output Urine Total 300 ml 500 ml # Voids 4 2 2 # Bowel Movements 0 0 0 Imaging Last Impressions Hip X-Ray 10/16/17 0000 Signed Impressions: Service Date/Time: Monday, October 16, 2017 19:57 - CONCLUSION: 1. Stable right femoral fracture intramedullary rob and compression screw fixation. No evidence for hardware failure or acute fracture. Sahil Gregorio MD Lower Extremity Ultrasound 10/04/17 0000 Signed Impressions: Service Date/Time: Wednesday, October 04, 2017 17:10 - CONCLUSION: Negative for deep venous thrombosis bilateral lower extremity. Elgin Willard MD Chest X-Ray 10/04/17 0000 Signed Impressions: Service Date/Time: Wednesday, October 04, 2017 16:22 - CONCLUSION: Hyperaerated lungs. No focal infiltrates seen. Elgin Willard MD Thoracic Spine X-Ray 09/12/172052 Signed Impressions: Service Date/Time: Tuesday, September 12, 2017 22:42 - CONCLUSION: 1. Limited AP view of the thoracic spine demonstrates no gross fracture or subluxation. Sahil Gregorio MD Hip and Pelvis X-Ray 09/12/172052 Signed Impressions: Service Date/Time: Tuesday, September 12, 2017 22:38 - CONCLUSION: 1. Right femoral intertrochanteric fracture. Sahil Gregorio MD Cervical Spine X-Ray 09/12/172052 Signed Impressions: Service Date/Time: Tuesday, September 12, 2017 22:43 - CONCLUSION: 1. Limited lateral examination with nonvisualization of C7-T1. 2. Otherwise, no acute fracture or subluxation. 3. Degenerative spondylosis of the lower cervical spine. Sahil Gregorio MD Objective Remarks General: Thin male in no acute distress. Sitting up in a chair. Heart: Regular rate and rhythm. No murmur. Lungs: Clear to auscultation bilaterally. No wheezes, rales, or rhonchi. Breathing is nonlabored. Abdomen: Soft, nontender, nondistended. Extremities: No lower extremity edema. Psych: Alert, answers questions appropriately. Procedures 09/13/2017 Right hip intramedullary rob fixation Urinary Catheter: No Vascular Central Line Catheter: No A/P Problem List: (1) Closed right hip fracture ICD Code: S72.001A - Fracture of unspecified part of neck of right femur, initial encounter for closed fracture Status: Acute (2) SIRS (systemic inflammatory response syndrome) ICD Code: R65.10 - Systemic inflammatory response syndrome (SIRS) of non- infectious origin without acute organ dysfunction (3) Encephalopathy acute ICD Code: G93.40 - Encephalopathy, unspecified Status: Acute Assessment and Plan 1. Right hip fracture: Status post intramedullary rob fixation. Status post right thigh wound irrigation and debridement on 10/07/17. Continue pain control , physical therapy. 2. Suspected care associated pneumonia versus aspiration pneumonia: Completed course of antibiotics. Stable on room air. 3. Alcohol abuse: CIWA protocol discontinued. Continue thiamine, folic acid. 4. GERD: Continue PPI. 5. Depression: Continue Prozac. 6. Nausea: Likely secondary to reflux. Continue antiemetics. 7. DVT prophylaxis: Lovenox. Discharge Planning Plan for discharge once arrangements are made for placement. No safe discharge plan at this time. Case management assisting with discharge planning. Problem Qualifiers (1) Closed right hip fracture: Qualified Codes: S72.001A - Fracture of unspecified part of neck of right femur , initial encounter for closed fracture Rafal Ramirez MD Oct 27, 2017 12:00
[2017-10-27 16:00] VITALS: BP 120/73; PULSE 63; RESP 18; TEMP 96.9; O2SAT 100
[2017-10-27 19:40] VITALS: BP 106/62; PULSE 60; RESP 18; TEMP 97.9; O2SAT 97
[2017-10-28] MEDS: ENOXAPARIN SODIUM 30 MG/0.3 ML SYRINGE SQ SCH ×2 (01:09→13:11)
[2017-10-28 08:00] VITALS: BP 127/81; PULSE 59; RESP 18; TEMP 98.8; O2SAT 98
[2017-10-28] MEDS: MAGNESIUM HYDROXIDE SUSP 30 ML CUP PO PRN (08:16)
[2017-10-28] MEDS: oxyCODONE/ACETAMINOPHEN 5 MG/325 MG TAB PO PRN (08:16)
[2017-10-28] MEDS: THIAMINE HCL 100 MG TAB PO SCH (08:17)
[2017-10-28] MEDS: SODIUM CHLORIDE 0.9% FLUSH 10 ML FLUSH IV FLUSH SCH ×2 (08:17→20:16)
[2017-10-28] MEDS: BENZTROPINE MESYLATE 1 MG TAB PO SCH ×2 (08:17→20:18)
[2017-10-28] MEDS: DOCUSATE SODIUM 50 MG/SENNA 8.6 MG TAB PO SCH ×2 (08:17→20:18)
[2017-10-28] MEDS: FLUoxetine HCL 20 MG CAP PO SCH (08:17)
--- NOTE | 2017-10-28 13:00 | HHI.PR ---
Subjective Remarks Follow up right hip pain. Patient states that his hip was painful this morning, but is doing better this afternoon. No dyspnea, cough, chest pain. He is having nausea. Objective Vitals Vital Signs Date Time Temp Pulse Resp B/P (MAP) Pulse Ox O2 Delivery O2 Flow Rate FiO2 10/28/17 08:00 98.8 59 18 127/81 (96) 98 10/27/17 19:40 97.9 60 18 106/62 (77) 97 10/27/17 16:00 96.9 63 18 120/73 (89) 100 I/O 10/27/17 10/27/17 10/27/17 10/28/17 10/28/17 10/28/17 07:00 15:00 23:00 07:00 15:00 23:00 Intake Total 1320 ml 720 ml 360 ml Balance 1320 ml 720 ml 360 ml Intake Oral 1320 ml 720 ml 360 ml # Voids 6 3 1 # Bowel Movements 0 0 0 Imaging Last Impressions Hip X-Ray 10/16/17 0000 Signed Impressions: Service Date/Time: Monday, October 16, 2017 19:57 - CONCLUSION: 1. Stable right femoral fracture intramedullary rob and compression screw fixation. No evidence for hardware failure or acute fracture. Sahil Gregorio MD Lower Extremity Ultrasound 10/04/17 0000 Signed Impressions: Service Date/Time: Wednesday, October 04, 2017 17:10 - CONCLUSION: Negative for deep venous thrombosis bilateral lower extremity. Elgin Willard MD Chest X-Ray 10/04/17 0000 Signed Impressions: Service Date/Time: Wednesday, October 04, 2017 16:22 - CONCLUSION: Hyperaerated lungs. No focal infiltrates seen. Elgin Willard MD Thoracic Spine X-Ray 09/12/172052 Signed Impressions: Service Date/Time: Tuesday, September 12, 2017 22:42 - CONCLUSION: 1. Limited AP view of the thoracic spine demonstrates no gross fracture or subluxation. Sahil Gregorio MD Hip and Pelvis X-Ray 09/12/172052 Signed Impressions: Service Date/Time: Tuesday, September 12, 2017 22:38 - CONCLUSION: 1. Right femoral intertrochanteric fracture. Sahil Gregorio MD Cervical Spine X-Ray 09/12/172052 Signed Impressions: Service Date/Time: Tuesday, September 12, 2017 22:43 - CONCLUSION: 1. Limited lateral examination with nonvisualization of C7-T1. 2. Otherwise, no acute fracture or subluxation. 3. Degenerative spondylosis of the lower cervical spine. Sahil Gregorio MD Objective Remarks General: Thin male in no acute distress. Sitting up in a chair. Heart: Regular rate and rhythm. No murmur. Lungs: Clear to auscultation bilaterally. No wheezes, rales, or rhonchi. Breathing is nonlabored. Abdomen: Soft, nontender, nondistended. Extremities: No lower extremity edema. Psych: Alert, answers questions appropriately. Procedures 09/13/2017 Right hip intramedullary rob fixation Urinary Catheter: No Vascular Central Line Catheter: No A/P Problem List: (1) Closed right hip fracture ICD Code: S72.001A - Fracture of unspecified part of neck of right femur, initial encounter for closed fracture Status: Acute (2) SIRS (systemic inflammatory response syndrome) ICD Code: R65.10 - Systemic inflammatory response syndrome (SIRS) of non- infectious origin without acute organ dysfunction (3) Encephalopathy acute ICD Code: G93.40 - Encephalopathy, unspecified Status: Acute Assessment and Plan 10/28/17: Continue current management. Awaiting placement. Case management has found a possible facility, but patient needs to be off all narcotics. He has only required pain medications twice in last 3 days. Stop Percocet. Ibuprofen as needed for pain. Monitor for GI symptoms. Add PPI. 1. Right hip fracture: Status post intramedullary rob fixation. Status post right thigh wound irrigation and debridement on 10/07/17. Continue pain control , physical therapy. 2. Suspected care associated pneumonia versus aspiration pneumonia: Completed course of antibiotics. Stable on room air. 3. Alcohol abuse: CIWA protocol discontinued. Continue thiamine, folic acid. 4. GERD: PPI. 5. Depression: Continue Prozac. 6. Nausea: Likely secondary to reflux. Continue antiemetics. 7. DVT prophylaxis: Lovenox. Discharge Planning Plan for discharge once arrangements are made for placement. No safe discharge plan at this time. Case management assisting with discharge planning. Problem Qualifiers (1) Closed right hip fracture: Qualified Codes: S72.001A - Fracture of unspecified part of neck of right femur , initial encounter for closed fracture Rafal Ramirez MD Oct 28, 2017 13:00
[2017-10-28] MEDS: IBUPROFEN 600 MG TAB PO PRN (13:10)
[2017-10-28] MEDS: PANTOPRAZOLE SOD 40 MG DELAYED RELEASE TAB PO SCH (13:10)
[2017-10-28 19:18] VITALS: BP 112/64; PULSE 54; RESP 15; TEMP 98; O2SAT 97
[2017-10-29] MEDS: ENOXAPARIN SODIUM 30 MG/0.3 ML SYRINGE SQ SCH (01:26)
[2017-10-29 08:00] VITALS: BP 124/74; PULSE 54; RESP 17; TEMP 97.9; O2SAT 98
[2017-10-29 08:17] LABS: AUTOMATED NEUTROPHIL # 1.9 TH/MM3 (1.8-7.7); BASOPHIL % 0.7 % (0.0-2.0); EOSINOPHIL # 0.2 TH/MM3 (0-0.4); EOSINOPHIL % 4.6 % (0.0-4.0); HEMATOCRIT 31.9 % (39.0-51.0); LYMPH % 39.2 % (9.0-44.0); LYMPHOCYTE # 1.6 TH/MM3 (1.0-4.8); MEAN CELL VOLUME 84.7 FL (80.0-100.0); MEAN CORPUSCULAR HEMOGLOBIN 29.2 PG (27.0-34.0); MEAN CORPUSCULAR HGB CONC 34.5 % (32.0-36.0); MEAN PLATELET VOLUME 7.6 FL (7.0-11.0); MONO % 8.6 % (0.0-8.0); MONOCYTE # 0.4 TH/MM3 (0-0.9); NEUT % 46.9 % (16.0-70.0); PLATELET COUNT 317 TH/MM3 (150-450); RED BLOOD COUNT 3.77 MIL/MM3 (4.50-5.90); RED CELL DISTRIBUTION WIDTH 13.9 % (11.6-17.2); WHITE BLOOD COUNT 4.1 TH/MM3 (4.0-11.0)
[2017-10-29] MEDS: FLUoxetine HCL 20 MG CAP PO SCH (08:29)
[2017-10-29] MEDS: BENZTROPINE MESYLATE 1 MG TAB PO SCH ×2 (08:29→21:06)
[2017-10-29] MEDS: THIAMINE HCL 100 MG TAB PO SCH (08:30)
[2017-10-29] MEDS: PANTOPRAZOLE SOD 40 MG DELAYED RELEASE TAB PO SCH (08:30)
[2017-10-29] MEDS: DOCUSATE SODIUM 50 MG/SENNA 8.6 MG TAB PO SCH ×2 (08:30→21:06)
[2017-10-29 08:38] LABS: BICARBONATE 29.2 MEQ/L (21.0-32.0); CALCIUM 8.7 MG/DL (8.5-10.1); CREATININE 0.86 MG/DL (0.60-1.30)
[2017-10-29] MEDS: SODIUM CHLORIDE 0.9% FLUSH 10 ML FLUSH IV FLUSH SCH ×2 (09:00→21:00)
[2017-10-29] MEDS: IBUPROFEN 600 MG TAB PO PRN (11:38)
--- NOTE | 2017-10-29 14:53 | HHI.PR ---
Subjective Remarks Follow up hip pain. Patient working with physical therapy, ambulating with a walker. Reporting discomfort due to activity. No other complaints at this time. Objective Vitals Vital Signs Date Time Temp Pulse Resp B/P (MAP) Pulse Ox O2 Delivery O2 Flow Rate FiO2 10/29/17 08:00 97.9 54 17 124/74 (91) 98 10/28/17 21:45 Room Air 10/28/17 19:18 98.0 54 15 112/64 (80) 97 I/O 10/28/17 10/28/17 10/28/17 10/29/17 10/29/17 10/29/17 07:00 15:00 23:00 07:00 15:00 23:00 Intake Total 360 ml 360 ml 480 ml Output Total 200 ml Balance 360 ml 360 ml 280 ml Intake Oral 360 ml 360 ml 480 ml Output Urine Total 200 ml # Voids 1 2 1 # Bowel Movements 0 1 0 Result Diagram: 10/29/17 0708 10/29/17 0708 Imaging Last Impressions Hip X-Ray 10/16/17 0000 Signed Impressions: Service Date/Time: Monday, October 16, 2017 19:57 - CONCLUSION: 1. Stable right femoral fracture intramedullary rob and compression screw fixation. No evidence for hardware failure or acute fracture. Sahil Gregorio MD Lower Extremity Ultrasound 10/04/17 0000 Signed Impressions: Service Date/Time: Wednesday, October 04, 2017 17:10 - CONCLUSION: Negative for deep venous thrombosis bilateral lower extremity. Elgin Willard MD Chest X-Ray 10/04/17 0000 Signed Impressions: Service Date/Time: Wednesday, October 04, 2017 16:22 - CONCLUSION: Hyperaerated lungs. No focal infiltrates seen. Elgin Willard MD Thoracic Spine X-Ray 09/12/172052 Signed Impressions: Service Date/Time: Tuesday, September 12, 2017 22:42 - CONCLUSION: 1. Limited AP view of the thoracic spine demonstrates no gross fracture or subluxation. Sahil Gregorio MD Hip and Pelvis X-Ray 09/12/172052 Signed Impressions: Service Date/Time: Tuesday, September 12, 2017 22:38 - CONCLUSION: 1. Right femoral intertrochanteric fracture. Sahil Gregorio MD Cervical Spine X-Ray 09/12/172052 Signed Impressions: Service Date/Time: Tuesday, September 12, 2017 22:43 - CONCLUSION: 1. Limited lateral examination with nonvisualization of C7-T1. 2. Otherwise, no acute fracture or subluxation. 3. Degenerative spondylosis of the lower cervical spine. Sahil Gregorio MD Objective Remarks General: Thin male in no acute distress. Heart: Regular rate and rhythm. No murmur. Lungs: Clear to auscultation bilaterally. No wheezes, rales, or rhonchi. Breathing is nonlabored. Abdomen: Soft, nontender, nondistended. Extremities: No lower extremity edema. Psych: Alert, answers questions appropriately. Procedures 09/13/2017 Right hip intramedullary rob fixation Urinary Catheter: No Vascular Central Line Catheter: No A/P Problem List: (1) Closed right hip fracture ICD Code: S72.001A - Fracture of unspecified part of neck of right femur, initial encounter for closed fracture Status: Acute (2) SIRS (systemic inflammatory response syndrome) ICD Code: R65.10 - Systemic inflammatory response syndrome (SIRS) of non- infectious origin without acute organ dysfunction (3) Encephalopathy acute ICD Code: G93.40 - Encephalopathy, unspecified Status: Acute Assessment and Plan 10/29/17: Continue current management. Awaiting placement. Case management has found a possible facility, but patient needs to be off all narcotics. Percocet discontinued. Ibuprofen as needed for pain. Monitor for GI symptoms. Continue PPI. Continue physical therapy. 1. Right hip fracture: Status post intramedullary rob fixation. Status post right thigh wound irrigation and debridement on 10/07/17. Continue pain control , physical therapy. 2. Suspected care associated pneumonia versus aspiration pneumonia: Completed course of antibiotics. Stable on room air. 3. Alcohol abuse: CIWA protocol discontinued. Continue thiamine, folic acid. 4. GERD: PPI. 5. Depression: Continue Prozac. 6. Nausea: Likely secondary to reflux. Continue antiemetics. 7. DVT prophylaxis: Lovenox. Discharge Planning Plan for discharge once arrangements are made for placement. No safe discharge plan at this time. Case management assisting with discharge planning. Problem Qualifiers (1) Closed right hip fracture: Qualified Codes: S72.001A - Fracture of unspecified part of neck of right femur , initial encounter for closed fracture Rafal Ramirez MD Oct 29, 2017 14:53
[2017-10-29 20:50] VITALS: BP 111/68; PULSE 61; RESP 17; TEMP 96.9; O2SAT 97
[2017-10-29] MEDS: MAGNESIUM HYDROXIDE SUSP 30 ML CUP PO PRN (21:06)
[2017-10-30 07:41] VITALS: BP 137/71; PULSE 54; RESP 18; TEMP 96.3; O2SAT 99
[2017-10-30] MEDS: ENOXAPARIN SODIUM 30 MG/0.3 ML SYRINGE SQ SCH (07:54)
[2017-10-30] MEDS: THIAMINE HCL 100 MG TAB PO SCH (07:55)
[2017-10-30] MEDS: BENZTROPINE MESYLATE 1 MG TAB PO SCH ×2 (07:55→20:56)
[2017-10-30] MEDS: PANTOPRAZOLE SOD 40 MG DELAYED RELEASE TAB PO SCH (07:55)
[2017-10-30] MEDS: FLUoxetine HCL 20 MG CAP PO SCH (07:55)
[2017-10-30] MEDS: DOCUSATE SODIUM 50 MG/SENNA 8.6 MG TAB PO SCH ×2 (07:56→20:56)
[2017-10-30] MEDS: SODIUM CHLORIDE 0.9% FLUSH 10 ML FLUSH IV FLUSH SCH ×2 (09:00→20:58)
--- NOTE | 2017-10-30 14:11 | HHI.PR ---
Subjective Remarks Follow up hip pain. Patient reports occasional nausea. Pain is adequately controlled. No chest pain or dyspnea. Objective Vitals Vital Signs Date Time Temp Pulse Resp B/P (MAP) Pulse Ox O2 Delivery O2 Flow Rate FiO2 10/30/17 07:41 96.3 54 18 137/71 (93) 99 10/29/17 22:55 Room Air 10/29/17 20:50 96.9 61 17 111/68 (82) 97 I/O 10/29/17 10/29/17 10/29/17 10/30/17 10/30/17 10/30/17 06:59 14:59 22:59 06:59 14:59 22:59 Intake Total 480 ml 600 ml 360 ml 240 ml 800 ml Output Total 200 ml 300 ml Balance 280 ml 600 ml 360 ml 240 ml 500 ml Intake Oral 480 ml 600 ml 360 ml 240 ml 800 ml Output Urine Total 200 ml 300 ml # Voids 1 4 1 2 2 # Bowel Movements 0 0 0 Result Diagram: 10/29/17 0708 10/29/17 0708 Imaging Last Impressions Hip X-Ray 10/16/17 0000 Signed Impressions: Service Date/Time: Monday, October 16, 2017 19:57 - CONCLUSION: 1. Stable right femoral fracture intramedullary rob and compression screw fixation. No evidence for hardware failure or acute fracture. Sahil Gregorio MD Lower Extremity Ultrasound 10/04/17 0000 Signed Impressions: Service Date/Time: Wednesday, October 04, 2017 17:10 - CONCLUSION: Negative for deep venous thrombosis bilateral lower extremity. Elgin Willard MD Chest X-Ray 10/04/17 0000 Signed Impressions: Service Date/Time: Wednesday, October 04, 2017 16:22 - CONCLUSION: Hyperaerated lungs. No focal infiltrates seen. Elgin Willard MD Thoracic Spine X-Ray 09/12/172052 Signed Impressions: Service Date/Time: Tuesday, September 12, 2017 22:42 - CONCLUSION: 1. Limited AP view of the thoracic spine demonstrates no gross fracture or subluxation. Sahil Gregorio MD Hip and Pelvis X-Ray 09/12/172052 Signed Impressions: Service Date/Time: Tuesday, September 12, 2017 22:38 - CONCLUSION: 1. Right femoral intertrochanteric fracture. Sahil Gregorio MD Cervical Spine X-Ray 09/12/172052 Signed Impressions: Service Date/Time: Tuesday, September 12, 2017 22:43 - CONCLUSION: 1. Limited lateral examination with nonvisualization of C7-T1. 2. Otherwise, no acute fracture or subluxation. 3. Degenerative spondylosis of the lower cervical spine. Sahil Gregorio MD Objective Remarks General: Thin male in no acute distress. Sitting up in a chair. Heart: Regular rate and rhythm. No murmur. Lungs: Clear to auscultation bilaterally. No wheezes, rales, or rhonchi. Breathing is nonlabored. Abdomen: Soft, nontender, nondistended. Extremities: No lower extremity edema. Psych: Alert, answers questions appropriately. Procedures 09/13/2017 Right hip intramedullary rob fixation Urinary Catheter: No Vascular Central Line Catheter: No A/P Problem List: (1) Closed right hip fracture ICD Code: S72.001A - Fracture of unspecified part of neck of right femur, initial encounter for closed fracture Status: Acute (2) SIRS (systemic inflammatory response syndrome) ICD Code: R65.10 - Systemic inflammatory response syndrome (SIRS) of non- infectious origin without acute organ dysfunction (3) Encephalopathy acute ICD Code: G93.40 - Encephalopathy, unspecified Status: Acute Assessment and Plan 10/30/17: Continue current management. Awaiting placement. Case management has found a possible facility, but patient needs to be off all narcotics. Percocet discontinued. Ibuprofen as needed for pain. Monitor for GI symptoms. Continue PPI. Continue physical therapy. Zofran as needed for nausea. 1. Right hip fracture: Status post intramedullary rob fixation. Status post right thigh wound irrigation and debridement on 10/07/17. Continue pain control , physical therapy. 2. Suspected care associated pneumonia versus aspiration pneumonia: Completed course of antibiotics. Stable on room air. 3. Alcohol abuse: CIWA protocol discontinued. Continue thiamine, folic acid. 4. GERD: PPI. 5. Depression: Continue Prozac. 6. Nausea: Likely secondary to reflux. Continue antiemetics. 7. DVT prophylaxis: Lovenox. Discharge Planning Plan for discharge once arrangements are made for placement. No safe discharge plan at this time. Case management assisting with discharge planning. Problem Qualifiers (1) Closed right hip fracture: Qualified Codes: S72.001A - Fracture of unspecified part of neck of right femur , initial encounter for closed fracture Rafal Ramirez MD Oct 30, 2017 14:11
[2017-10-30 20:30] VITALS: BP 108/63; PULSE 56; RESP 17; TEMP 98.6; O2SAT 96
[2017-10-31 08:00] VITALS: BP 124/79; PULSE 57; RESP 18; TEMP 98.1; O2SAT 98
[2017-10-31] MEDS: THIAMINE HCL 100 MG TAB PO SCH (08:34)
[2017-10-31] MEDS: BENZTROPINE MESYLATE 1 MG TAB PO SCH ×2 (08:35→20:05)
[2017-10-31] MEDS: DOCUSATE SODIUM 50 MG/SENNA 8.6 MG TAB PO SCH ×2 (08:35→20:05)
[2017-10-31] MEDS: PANTOPRAZOLE SOD 40 MG DELAYED RELEASE TAB PO SCH (08:35)
[2017-10-31] MEDS: FLUoxetine HCL 20 MG CAP PO SCH (08:35)
[2017-10-31] MEDS: PROMETHAZINE HCL 25 MG TAB PO PRN (08:36)
[2017-10-31] MEDS: IBUPROFEN 600 MG TAB PO PRN ×2 (08:36→20:05)
[2017-10-31] MEDS: SODIUM CHLORIDE 0.9% FLUSH 10 ML FLUSH IV FLUSH SCH ×3 (08:37→20:05)
[2017-10-31] MEDS: ENOXAPARIN SODIUM 30 MG/0.3 ML SYRINGE SQ SCH (08:37)
--- NOTE | 2017-10-31 13:07 | HHI.PR ---
Subjective Remarks The patient states that his nausea is much better. No complaints at this time. Objective Vitals Vital Signs Date Time Temp Pulse Resp B/P (MAP) Pulse Ox O2 Delivery O2 Flow Rate FiO2 10/31/17 08:00 98.1 57 18 124/79 (94) 98 10/30/17 21:00 Room Air 10/30/17 20:30 98.6 56 17 108/63 (78) 96 I/O 10/30/17 10/30/17 10/30/17 10/31/17 10/31/17 10/31/17 06:59 14:59 22:59 06:59 14:59 22:59 Intake Total 240 ml 800 ml 360 ml 360 ml Output Total 300 ml 500 ml Balance 240 ml 500 ml -140 ml 360 ml Intake Oral 240 ml 800 ml 360 ml 360 ml Output Urine Total 300 ml 500 ml # Voids 2 2 2 # Bowel Movements 0 0 0 Result Diagram: 10/29/17 0708 10/29/17 0708 Imaging Last Impressions Hip X-Ray 10/16/17 0000 Signed Impressions: Service Date/Time: Monday, October 16, 2017 19:57 - CONCLUSION: 1. Stable right femoral fracture intramedullary rob and compression screw fixation. No evidence for hardware failure or acute fracture. Sahil Gregorio MD Lower Extremity Ultrasound 10/04/17 0000 Signed Impressions: Service Date/Time: Wednesday, October 04, 2017 17:10 - CONCLUSION: Negative for deep venous thrombosis bilateral lower extremity. Elgin Willard MD Chest X-Ray 10/04/17 0000 Signed Impressions: Service Date/Time: Wednesday, October 04, 2017 16:22 - CONCLUSION: Hyperaerated lungs. No focal infiltrates seen. Elgin Willard MD Thoracic Spine X-Ray 09/12/172052 Signed Impressions: Service Date/Time: Tuesday, September 12, 2017 22:42 - CONCLUSION: 1. Limited AP view of the thoracic spine demonstrates no gross fracture or subluxation. Sahil Gregorio MD Hip and Pelvis X-Ray 09/12/172052 Signed Impressions: Service Date/Time: Tuesday, September 12, 2017 22:38 - CONCLUSION: 1. Right femoral intertrochanteric fracture. Sahil Gregorio MD Cervical Spine X-Ray 09/12/172052 Signed Impressions: Service Date/Time: Tuesday, September 12, 2017 22:43 - CONCLUSION: 1. Limited lateral examination with nonvisualization of C7-T1. 2. Otherwise, no acute fracture or subluxation. 3. Degenerative spondylosis of the lower cervical spine. Sahil Gregorio MD Objective Remarks General: Thin male in no acute distress. Heart: Regular rate and rhythm. No murmur. Lungs: Clear to auscultation bilaterally. No wheezes, rales, or rhonchi. Breathing is nonlabored. Abdomen: Soft, nontender, nondistended. Extremities: No lower extremity edema. Psych: Alert, answers questions appropriately. Procedures 09/13/17 Right hip intramedullary rob fixation 10/07/17 Right thigh wound irrigation and debridement Urinary Catheter: No Vascular Central Line Catheter: No A/P Problem List: (1) Closed right hip fracture ICD Code: S72.001A - Fracture of unspecified part of neck of right femur, initial encounter for closed fracture Status: Acute (2) SIRS (systemic inflammatory response syndrome) ICD Code: R65.10 - Systemic inflammatory response syndrome (SIRS) of non- infectious origin without acute organ dysfunction (3) Encephalopathy acute ICD Code: G93.40 - Encephalopathy, unspecified Status: Acute Assessment and Plan 10/31/17: Continue current management. Awaiting placement. Case management has found a possible facility, but patient needs to be off all narcotics. Percocet discontinued. Ibuprofen as needed for pain. Monitor for GI symptoms. Continue PPI. Continue physical therapy. Zofran as needed for nausea. 1. Right hip fracture: Status post intramedullary rob fixation. Status post right thigh wound irrigation and debridement on 10/07/17. Continue pain control , physical therapy. 2. Suspected care associated pneumonia versus aspiration pneumonia: Completed course of antibiotics. Stable on room air. 3. Alcohol abuse: CIWA protocol discontinued. Continue thiamine, folic acid. 4. GERD: PPI. 5. Depression: Continue Prozac. 6. Nausea: Likely secondary to reflux. Continue antiemetics. 7. DVT prophylaxis: Lovenox. Discharge Planning Plan for discharge once arrangements are made for placement. No safe discharge plan at this time. Case management assisting with discharge planning. Problem Qualifiers (1) Closed right hip fracture: Qualified Codes: S72.001A - Fracture of unspecified part of neck of right femur , initial encounter for closed fracture Rafal Ramirez MD Oct 31, 2017 13:07
[2017-10-31 19:03] VITALS: BP 116/73; PULSE 60; RESP 17; TEMP 98.6; O2SAT 95
[2017-11-01 08:00] VITALS: BP 126/76; PULSE 55; RESP 18; TEMP 96.3; O2SAT 98
[2017-11-01] MEDS: PANTOPRAZOLE SOD 40 MG DELAYED RELEASE TAB PO SCH (08:27)
[2017-11-01] MEDS: THIAMINE HCL 100 MG TAB PO SCH (08:27)
[2017-11-01] MEDS: ENOXAPARIN SODIUM 30 MG/0.3 ML SYRINGE SQ SCH (08:27)
[2017-11-01] MEDS: DOCUSATE SODIUM 50 MG/SENNA 8.6 MG TAB PO SCH ×2 (08:27→20:50)
[2017-11-01] MEDS: FLUoxetine HCL 20 MG CAP PO SCH (08:27)
[2017-11-01] MEDS: BENZTROPINE MESYLATE 1 MG TAB PO SCH ×2 (08:28→20:50)
[2017-11-01] MEDS: SODIUM CHLORIDE 0.9% FLUSH 10 ML FLUSH IV FLUSH SCH ×2 (08:31→20:50)
--- NOTE | 2017-11-01 14:34 | HHI.PR ---
Subjective Remarks Follow up nausea, hip pain. Patient states that he has only mild intermittent nausea. Pain is well controlled. Objective Vitals Vital Signs Date Time Temp Pulse Resp B/P (MAP) Pulse Ox O2 Delivery O2 Flow Rate FiO2 11/01/17 08:00 96.3 55 18 126/76 (93) 98 10/31/17 22:53 Room Air 10/31/17 20:52 18 10/31/17 19:03 98.6 60 17 116/73 (87) 95 I/O 10/31/17 10/31/17 10/31/17 11/01/17 11/01/17 11/01/17 07:00 15:00 23:00 07:00 15:00 23:00 Intake Total 360 ml 1000 ml 480 ml 360 ml Balance 360 ml 1000 ml 480 ml 360 ml Intake Oral 360 ml 1000 ml 480 ml 360 ml IV Total 0 ml # Voids 2 2 3 2 # Bowel Movements 0 0 1 0 Result Diagram: 10/29/17 0708 10/29/17 0708 Imaging Last Impressions Hip X-Ray 10/16/17 0000 Signed Impressions: Service Date/Time: Monday, October 16, 2017 19:57 - CONCLUSION: 1. Stable right femoral fracture intramedullary rob and compression screw fixation. No evidence for hardware failure or acute fracture. Sahil Gregorio MD Lower Extremity Ultrasound 10/04/17 0000 Signed Impressions: Service Date/Time: Wednesday, October 04, 2017 17:10 - CONCLUSION: Negative for deep venous thrombosis bilateral lower extremity. Elgin Willard MD Chest X-Ray 10/04/17 0000 Signed Impressions: Service Date/Time: Wednesday, October 04, 2017 16:22 - CONCLUSION: Hyperaerated lungs. No focal infiltrates seen. Elgin Willard MD Thoracic Spine X-Ray 09/12/172052 Signed Impressions: Service Date/Time: Tuesday, September 12, 2017 22:42 - CONCLUSION: 1. Limited AP view of the thoracic spine demonstrates no gross fracture or subluxation. Sahil Gregorio MD Hip and Pelvis X-Ray 09/12/172052 Signed Impressions: Service Date/Time: Tuesday, September 12, 2017 22:38 - CONCLUSION: 1. Right femoral intertrochanteric fracture. Sahil Gregorio MD Cervical Spine X-Ray 09/12/172052 Signed Impressions: Service Date/Time: Tuesday, September 12, 2017 22:43 - CONCLUSION: 1. Limited lateral examination with nonvisualization of C7-T1. 2. Otherwise, no acute fracture or subluxation. 3. Degenerative spondylosis of the lower cervical spine. Sahil Gregorio MD Objective Remarks General: Thin male in no acute distress. Heart: Regular rate and rhythm. No murmur. Lungs: Clear to auscultation bilaterally. No wheezes, rales, or rhonchi. Breathing is nonlabored. Abdomen: Soft, nontender, nondistended. Extremities: No lower extremity edema. Psych: Alert, answers questions appropriately. Procedures 09/13/17 Right hip intramedullary rob fixation 10/07/17 Right thigh wound irrigation and debridement Urinary Catheter: No Vascular Central Line Catheter: No A/P Problem List: (1) Closed right hip fracture ICD Code: S72.001A - Fracture of unspecified part of neck of right femur, initial encounter for closed fracture Status: Acute (2) SIRS (systemic inflammatory response syndrome) ICD Code: R65.10 - Systemic inflammatory response syndrome (SIRS) of non- infectious origin without acute organ dysfunction (3) Encephalopathy acute ICD Code: G93.40 - Encephalopathy, unspecified Status: Acute Assessment and Plan 11/01/17: Continue current management. Awaiting placement. Case management has found a possible facility, but patient needs to be off all narcotics. Percocet discontinued. Ibuprofen as needed for pain. Monitor for GI symptoms. Continue PPI. Continue physical therapy. Zofran as needed for nausea. 1. Right hip fracture: Status post intramedullary rob fixation. Status post right thigh wound irrigation and debridement on 10/07/17. Continue pain control , physical therapy. 2. Suspected care associated pneumonia versus aspiration pneumonia: Completed course of antibiotics. Stable on room air. 3. Alcohol abuse: CIWA protocol discontinued. Continue thiamine, folic acid. 4. GERD: PPI. 5. Depression: Continue Prozac. 6. Nausea: Likely secondary to reflux. Continue antiemetics. 7. DVT prophylaxis: Lovenox. Discharge Planning Plan for discharge once arrangements are made for placement. No safe discharge plan at this time. Case management assisting with discharge planning. Problem Qualifiers (1) Closed right hip fracture: Qualified Codes: S72.001A - Fracture of unspecified part of neck of right femur , initial encounter for closed fracture Rafal Ramirez MD Nov 01, 2017 14:33
[2017-11-01] MEDS: IBUPROFEN 600 MG TAB PO PRN (20:50)
[2017-11-01 20:55] VITALS: BP 118/72; PULSE 68; RESP 17; TEMP 97.4; O2SAT 96
[2017-11-02] MEDS: ENOXAPARIN SODIUM 30 MG/0.3 ML SYRINGE SQ SCH (07:59)
[2017-11-02 08:00] VITALS: BP 143/83; PULSE 55; RESP 19; TEMP 97; O2SAT 98
[2017-11-02] MEDS: BENZTROPINE MESYLATE 1 MG TAB PO SCH ×2 (08:00→20:22)
[2017-11-02] MEDS: FLUoxetine HCL 20 MG CAP PO SCH (08:00)
[2017-11-02] MEDS: THIAMINE HCL 100 MG TAB PO SCH (08:00)
[2017-11-02] MEDS: SODIUM CHLORIDE 0.9% FLUSH 10 ML FLUSH IV FLUSH SCH ×2 (08:00→20:21)
[2017-11-02] MEDS: PANTOPRAZOLE SOD 40 MG DELAYED RELEASE TAB PO SCH (08:00)
[2017-11-02] MEDS: DOCUSATE SODIUM 50 MG/SENNA 8.6 MG TAB PO SCH ×2 (08:00→20:22)
[2017-11-02] MEDS ORDERED: PROM25TA10 PO (10:53)
[2017-11-02] MEDS ORDERED: THIA100 PO (10:53)
--- NOTE | 2017-11-02 10:57 | HHI.PR ---
Subjective Remarks Follow up nausea, hip pain. Nausea is better. Pain is controlled with ibuprofen. No other complaints at this time. Objective Vitals Vital Signs Date Time Temp Pulse Resp B/P (MAP) Pulse Ox O2 Delivery O2 Flow Rate FiO2 11/02/17 08:00 97.0 55 19 143/83 (103) 98 11/01/17 23:01 Room Air 11/01/17 21:33 18 11/01/17 20:55 97.4 68 17 118/72 (87) 96 I/O 11/01/17 11/01/17 11/01/17 11/02/17 11/02/17 11/02/17 07:00 15:00 23:00 07:00 15:00 23:00 Intake Total 360 ml 1100 ml 720 ml Output Total 900 ml Balance 360 ml 200 ml 720 ml Intake Oral 360 ml 1100 ml 720 ml Output Urine Total 900 ml # Voids 2 3 3 # Bowel Movements 0 0 Result Diagram: 10/29/17 0708 10/29/17 0708 Imaging Last Impressions Hip X-Ray 10/16/17 0000 Signed Impressions: Service Date/Time: Monday, October 16, 2017 19:57 - CONCLUSION: 1. Stable right femoral fracture intramedullary rob and compression screw fixation. No evidence for hardware failure or acute fracture. Sahil Gregorio MD Lower Extremity Ultrasound 10/04/17 0000 Signed Impressions: Service Date/Time: Wednesday, October 04, 2017 17:10 - CONCLUSION: Negative for deep venous thrombosis bilateral lower extremity. Elgin Willard MD Chest X-Ray 10/04/17 0000 Signed Impressions: Service Date/Time: Wednesday, October 04, 2017 16:22 - CONCLUSION: Hyperaerated lungs. No focal infiltrates seen. Elgin Willard MD Thoracic Spine X-Ray 09/12/172052 Signed Impressions: Service Date/Time: Tuesday, September 12, 2017 22:42 - CONCLUSION: 1. Limited AP view of the thoracic spine demonstrates no gross fracture or subluxation. Sahil Gregorio MD Hip and Pelvis X-Ray 09/12/172052 Signed Impressions: Service Date/Time: Tuesday, September 12, 2017 22:38 - CONCLUSION: 1. Right femoral intertrochanteric fracture. Sahil Gregorio MD Cervical Spine X-Ray 09/12/172052 Signed Impressions: Service Date/Time: Tuesday, September 12, 2017 22:43 - CONCLUSION: 1. Limited lateral examination with nonvisualization of C7-T1. 2. Otherwise, no acute fracture or subluxation. 3. Degenerative spondylosis of the lower cervical spine. Sahil Gregorio MD Objective Remarks General: Thin male in no acute distress. Sitting up in a chair. Heart: Regular rate and rhythm. No murmur. Lungs: Clear to auscultation bilaterally. No wheezes, rales, or rhonchi. Breathing is nonlabored. Abdomen: Soft, nontender, nondistended. Extremities: No lower extremity edema. Psych: Alert, answers questions appropriately. Procedures 09/13/17 Right hip intramedullary rob fixation 10/07/17 Right thigh wound irrigation and debridement Urinary Catheter: No Vascular Central Line Catheter: No A/P Problem List: (1) Closed right hip fracture ICD Code: S72.001A - Fracture of unspecified part of neck of right femur, initial encounter for closed fracture Status: Acute (2) SIRS (systemic inflammatory response syndrome) ICD Code: R65.10 - Systemic inflammatory response syndrome (SIRS) of non- infectious origin without acute organ dysfunction (3) Encephalopathy acute ICD Code: G93.40 - Encephalopathy, unspecified Status: Acute Assessment and Plan 11/02/17: Continue current management. Awaiting placement. Case management has found a possible facility, but patient needs to be off all narcotics. Percocet discontinued. Ibuprofen as needed for pain. Monitor for GI symptoms. Continue PPI. Continue physical therapy. Zofran as needed for nausea. 1. Right hip fracture: Status post intramedullary rob fixation. Status post right thigh wound irrigation and debridement on 10/07/17. Continue pain control , physical therapy. 2. Suspected care associated pneumonia versus aspiration pneumonia: Completed course of antibiotics. Stable on room air. 3. Alcohol abuse: CIWA protocol discontinued. Continue thiamine, folic acid. 4. GERD: PPI. 5. Depression: Continue Prozac. 6. Nausea: Likely secondary to reflux. Continue antiemetics. 7. DVT prophylaxis: Lovenox while in hospital (to be discontinued on discharge) . Discharge Planning Plan for discharge once arrangements are made for placement. No safe discharge plan at this time. Case management assisting with discharge planning. Problem Qualifiers (1) Closed right hip fracture: Qualified Codes: S72.001A - Fracture of unspecified part of neck of right femur , initial encounter for closed fracture Rafal Ramirez MD Nov 02, 2017 10:57
[2017-11-02 21:25] VITALS: BP 108/59; PULSE 58; RESP 16; TEMP 96.9; O2SAT 98
[2017-11-03 08:00] VITALS: BP 140/84; PULSE 63; RESP 17; TEMP 96.5; O2SAT 100
[2017-11-03] MEDS: SODIUM CHLORIDE 0.9% FLUSH 10 ML FLUSH IV FLUSH SCH ×2 (09:00→20:26)
[2017-11-03] MEDS: THIAMINE HCL 100 MG TAB PO SCH (09:41)
[2017-11-03] MEDS: DOCUSATE SODIUM 50 MG/SENNA 8.6 MG TAB PO SCH ×2 (09:42→20:29)
[2017-11-03] MEDS: BENZTROPINE MESYLATE 1 MG TAB PO SCH ×2 (09:42→20:29)
[2017-11-03] MEDS: PANTOPRAZOLE SOD 40 MG DELAYED RELEASE TAB PO SCH (09:42)
[2017-11-03] MEDS: FLUoxetine HCL 20 MG CAP PO SCH (09:42)
[2017-11-03] MEDS: PROMETHAZINE HCL 25 MG TAB PO PRN ×2 (09:42→15:52)
[2017-11-03] MEDS: ENOXAPARIN SODIUM 30 MG/0.3 ML SYRINGE SQ SCH (09:47)
[2017-11-03] MEDS: IBUPROFEN 600 MG TAB PO PRN ×2 (09:47→15:57)
--- NOTE | 2017-11-03 13:09 | HHI.PR ---
Subjective Remarks The patient has no complaints at this time. Nausea is much better. Pain is well controlled. Ambulating with a walker twice daily with PT. Objective Vitals Vital Signs Date Time Temp Pulse Resp B/P (MAP) Pulse Ox O2 Delivery O2 Flow Rate FiO2 11/03/17 08:00 96.5 63 17 140/84 (102) 100 11/03/17 08:00 100 Room Air 11/02/17 21:27 Room Air 11/02/17 21:25 96.9 58 16 108/59 (75) 98 I/O 11/02/17 11/02/17 11/02/17 11/03/17 11/03/17 11/03/17 07:00 15:00 23:00 07:00 15:00 23:00 Intake Total 720 ml 480 ml 360 ml Balance 720 ml 480 ml 360 ml Intake Oral 720 ml 480 ml 360 ml # Voids 7 2 2 # Bowel Movements 1 0 0 Imaging Last Impressions Hip X-Ray 10/16/17 0000 Signed Impressions: Service Date/Time: Monday, October 16, 2017 19:57 - CONCLUSION: 1. Stable right femoral fracture intramedullary rob and compression screw fixation. No evidence for hardware failure or acute fracture. Sahil Gregorio MD Lower Extremity Ultrasound 10/04/17 0000 Signed Impressions: Service Date/Time: Wednesday, October 04, 2017 17:10 - CONCLUSION: Negative for deep venous thrombosis bilateral lower extremity. Elgin Willard MD Chest X-Ray 10/04/17 0000 Signed Impressions: Service Date/Time: Wednesday, October 04, 2017 16:22 - CONCLUSION: Hyperaerated lungs. No focal infiltrates seen. Elgin Willard MD Thoracic Spine X-Ray 09/12/172052 Signed Impressions: Service Date/Time: Tuesday, September 12, 2017 22:42 - CONCLUSION: 1. Limited AP view of the thoracic spine demonstrates no gross fracture or subluxation. Sahil Gregorio MD Hip and Pelvis X-Ray 09/12/172052 Signed Impressions: Service Date/Time: Tuesday, September 12, 2017 22:38 - CONCLUSION: 1. Right femoral intertrochanteric fracture. Sahil Gregorio MD Cervical Spine X-Ray 09/12/172052 Signed Impressions: Service Date/Time: Tuesday, September 12, 2017 22:43 - CONCLUSION: 1. Limited lateral examination with nonvisualization of C7-T1. 2. Otherwise, no acute fracture or subluxation. 3. Degenerative spondylosis of the lower cervical spine. Sahil Gregorio MD Objective Remarks General: Thin male in no acute distress. Sitting up in a chair. Heart: Regular rate and rhythm. No murmur. Lungs: Clear to auscultation bilaterally. No wheezes, rales, or rhonchi. Breathing is nonlabored. Abdomen: Soft, nontender, nondistended. Extremities: No lower extremity edema. Psych: Alert, answers questions appropriately. Procedures 09/13/17 Right hip intramedullary rob fixation 10/07/17 Right thigh wound irrigation and debridement Urinary Catheter: No Vascular Central Line Catheter: No A/P Problem List: (1) Closed right hip fracture ICD Code: S72.001A - Fracture of unspecified part of neck of right femur, initial encounter for closed fracture Status: Acute (2) SIRS (systemic inflammatory response syndrome) ICD Code: R65.10 - Systemic inflammatory response syndrome (SIRS) of non- infectious origin without acute organ dysfunction (3) Encephalopathy acute ICD Code: G93.40 - Encephalopathy, unspecified Status: Acute Assessment and Plan 11/03/17: Continue current management. Awaiting placement. Case management has found a possible facility, but patient needs to be off all narcotics. Percocet discontinued 10/28/17. Ibuprofen as needed for pain. Monitor for GI symptoms. Continue PPI. Continue physical therapy. Zofran as needed for nausea. 1. Right hip fracture: Status post intramedullary rob fixation. Status post right thigh wound irrigation and debridement on 10/07/17. Continue pain control , physical therapy. 2. Suspected care associated pneumonia versus aspiration pneumonia: Completed course of antibiotics. Stable on room air. 3. Alcohol abuse: CIWA protocol discontinued. Continue thiamine, folic acid. 4. GERD: PPI. 5. Depression: Continue Prozac. 6. Nausea: Likely secondary to reflux. Continue antiemetics. 7. DVT prophylaxis: Lovenox while in hospital (to be discontinued on discharge) . Discharge Planning Plan for discharge once arrangements are made for placement. No safe discharge plan at this time. Case management assisting with discharge planning. Problem Qualifiers (1) Closed right hip fracture: Qualified Codes: S72.001A - Fracture of unspecified part of neck of right femur , initial encounter for closed fracture Rafal Ramirez MD Nov 03, 2017 13:09
[2017-11-03 20:00] VITALS: BP 107/65; PULSE 77; RESP 16; TEMP 97.9; O2SAT 96
[2017-11-04 08:00] VITALS: BP 126/77; PULSE 58; RESP 17; TEMP 98.3; O2SAT 99
[2017-11-04] MEDS: DOCUSATE SODIUM 50 MG/SENNA 8.6 MG TAB PO SCH ×2 (08:26→20:19)
[2017-11-04] MEDS: BENZTROPINE MESYLATE 1 MG TAB PO SCH ×2 (08:27→20:18)
[2017-11-04] MEDS: THIAMINE HCL 100 MG TAB PO SCH (08:27)
[2017-11-04] MEDS: PANTOPRAZOLE SOD 40 MG DELAYED RELEASE TAB PO SCH (08:27)
[2017-11-04] MEDS: ENOXAPARIN SODIUM 30 MG/0.3 ML SYRINGE SQ SCH (08:27)
[2017-11-04] MEDS: FLUoxetine HCL 20 MG CAP PO SCH (08:27)
--- NOTE | 2017-11-04 09:12 | HHI.PR ---
Subjective Remarks Follow up for right hip fracture, difficult placement. The patient has no complaints today. Last BM yesterday. He has been ambulating the hallways with a walker. Vital signs reviewed and stable. Objective Vitals Vital Signs Date Time Temp Pulse Resp B/P (MAP) Pulse Ox O2 Delivery O2 Flow Rate FiO2 11/04/17 08:00 98.3 58 17 126/77 (93) 99 11/03/17 20:00 97.9 77 16 107/65 (79) 96 I/O 11/03/17 11/03/17 11/03/17 11/04/17 11/04/17 11/04/17 07:00 15:00 23:00 07:00 15:00 23:00 Intake Total 360 ml 480 ml 240 ml 240 ml Balance 360 ml 480 ml 240 ml 240 ml Intake Oral 360 ml 480 ml 240 ml 240 ml # Voids 2 4 2 2 # Bowel Movements 0 1 0 0 Imaging Last Impressions Hip X-Ray 10/16/17 0000 Signed Impressions: Service Date/Time: Monday, October 16, 2017 19:57 - CONCLUSION: 1. Stable right femoral fracture intramedullary rob and compression screw fixation. No evidence for hardware failure or acute fracture. Sahil Gregorio MD Lower Extremity Ultrasound 10/04/17 0000 Signed Impressions: Service Date/Time: Wednesday, October 04, 2017 17:10 - CONCLUSION: Negative for deep venous thrombosis bilateral lower extremity. Elgin Willard MD Chest X-Ray 10/04/17 0000 Signed Impressions: Service Date/Time: Wednesday, October 04, 2017 16:22 - CONCLUSION: Hyperaerated lungs. No focal infiltrates seen. Elgin Willard MD Thoracic Spine X-Ray 09/12/172052 Signed Impressions: Service Date/Time: Tuesday, September 12, 2017 22:42 - CONCLUSION: 1. Limited AP view of the thoracic spine demonstrates no gross fracture or subluxation. Sahil Gregorio MD Hip and Pelvis X-Ray 09/12/172052 Signed Impressions: Service Date/Time: Tuesday, September 12, 2017 22:38 - CONCLUSION: 1. Right femoral intertrochanteric fracture. Sahil Gregorio MD Cervical Spine X-Ray 09/12/172052 Signed Impressions: Service Date/Time: Tuesday, September 12, 2017 22:43 - CONCLUSION: 1. Limited lateral examination with nonvisualization of C7-T1. 2. Otherwise, no acute fracture or subluxation. 3. Degenerative spondylosis of the lower cervical spine. Sahil Gregorio MD Objective Remarks GENERAL: Well-nourished, well-developed pleasant male patient in NAD. SKIN: Warm and dry. No rash. HEENT: Normocephalic. Pupils equal and round. Mucous membranes pink and moist. CARDIOVASCULAR: Regular rate and rhythm. No murmur appreciated. RESPIRATORY: No accessory muscle use. Clear to auscultation. Breath sounds equal bilaterally. GASTROINTESTINAL: Abdomen soft, non-tender, nondistended. Normoactive bowel sounds x4. MUSCULOSKELETAL: No obvious deformities. Extremities without clubbing, cyanosis , or edema. NEUROLOGICAL: Awake and alert. No obvious cranial nerve deficits. Motor grossly within normal limits. Normal speech. PSYCHIATRIC: Appropriate mood and affect; insight and judgment normal. Procedures 09/13/17 Right hip intramedullary rob fixation 10/07/17 Right thigh wound irrigation and debridement Medications and IVs Current Medications Medications (Trade) Dose Ordered Sig/Micah Route Start Time Stop Time Status Last Admin (Tylenol) 650 mg Q4H PRN PO 09/12/17 23:15 10/04/17 15:03 (Zofran Inj) 4 mg Q6H PRN IVP 09/12/17 23:15 10/04/17 15:40 (Cogentin) 0.5 mg BID PO 09/14/17 21:00 11/04/17 08:27 (Vistaril) 50 mg BID PO 09/14/17 21:00 11/04/17 08:27 (PROzac) 40 mg DAILY PO 09/15/17 09:00 11/04/17 08:27 (Vitamin B1) 100 mg DAILY PO 09/30/17 09:00 11/04/17 08:27 (NS Flush) 2 ml UNSCH PRN IV FLUSH 10/07/17 12:30 (NS Flush) 2 ml BID IV FLUSH 10/07/17 21:00 10/29/17 09:00 (Morphine Inj) 5 mg Q3H PRN IV PUSH 10/07/17 12:30 (Phenergan) 25 mg Q4H PRN PO 10/07/17 12:30 11/03/17 15:52 (Phenergan Supp) 25 mg Q4H PRN RECTAL 10/07/17 12:30 10/30/17 15:42 (Ambien) 5 mg HS PRN PO 10/07/17 12:30 10/24/17 21:32 (Ivcky-Colace) 1 tab BID PO 10/07/17 21:00 11/04/17 08:26 (Milk Of Magnesia Liq) 30 ml Q12H PRN PO 10/07/17 12:30 10/29/17 21:06 (Senokot) 17.2 mg Q12H PRN PO 10/07/17 12:30 10/23/17 05:33 (Dulcolax Supp) 10 mg DAILY PRN RECTAL 10/07/17 12:30 10/18/17 12:51 (Lactulose Liq) 30 ml DAILY PRN PO 10/07/17 12:30 10/23/17 05:34 (Motrin) 600 mg Q6H PRN PO 10/28/17 12:45 11/03/17 15:57 (Protonix) 40 mg DAILY PO 10/28/17 13:00 11/04/17 08:27 (Lovenox Inj) 30 mg DAILY SQ 10/30/17 09:00 11/04/17 08:27 A/P Problem List: (1) Closed right hip fracture ICD Code: S72.001A - Fracture of unspecified part of neck of right femur, initial encounter for closed fracture Status: Acute (2) SIRS (systemic inflammatory response syndrome) ICD Code: R65.10 - Systemic inflammatory response syndrome (SIRS) of non- infectious origin without acute organ dysfunction (3) Encephalopathy acute ICD Code: G93.40 - Encephalopathy, unspecified Status: Acute Assessment and Plan 62-year-old pleasant male who was admitted to the hospital after a fall. He sustained a right hip fracture. He underwent intramedullary rob fixation on . He has been a difficult placement. Suspected HCAP vs aspiration PNA - Evaluated by ID - Completed Course of Clinda and Levaquin, discontinued on 10/25/17 - Patient stable on room air, Resolved. Right hip fracture - S/p intramedullary rob fixation on 09/13 - S/p Right thigh wound irrigation and debridement 10/07/17 - Ibuprofen prn pain - On Lovenox while in hospital, can be discontinued at discharge - Continue with physical therapy. PT recommends SNF which might be difficult to arrange due to lack of insurance. Alcohol abuse -not in alcohol withdrawal -continue CIWA protocol, thiamine, folic acid. Depression -continue patient's Prozac GERD/Nausea -Continue home medications PPI. -Continue Zofran prn Full code. Lovenox 30mg sq Discharge Planning Plan for discharge once arrangements are made for placement. No safe discharge plan at this time. Case management assisting with discharge planning. Problem Qualifiers (1) Closed right hip fracture: Qualified Codes: S72.001A - Fracture of unspecified part of neck of right femur , initial encounter for closed fracture Radha Anthony PA-C Nov 04, 2017 9:12 am
[2017-11-04] MEDS: ACETAMINOPHEN 325 MG TAB PO PRN (14:28)
[2017-11-04] MEDS: SODIUM CHLORIDE 0.9% FLUSH 10 ML FLUSH IV FLUSH SCH (20:17)
[2017-11-04 22:36] VITALS: BP 124/61; PULSE 69; RESP 18; TEMP 97.8; O2SAT 94
[2017-11-05 08:00] VITALS: BP 142/84; PULSE 63; RESP 18; TEMP 97.1; O2SAT 98
[2017-11-05] MEDS: SODIUM CHLORIDE 0.9% FLUSH 10 ML FLUSH IV FLUSH SCH ×2 (09:00→19:47)
[2017-11-05] MEDS: FLUoxetine HCL 20 MG CAP PO SCH (09:50)
[2017-11-05] MEDS: PANTOPRAZOLE SOD 40 MG DELAYED RELEASE TAB PO SCH (09:50)
[2017-11-05] MEDS: PROMETHAZINE HCL 25 MG TAB PO PRN ×2 (09:50→15:43)
[2017-11-05] MEDS: DOCUSATE SODIUM 50 MG/SENNA 8.6 MG TAB PO SCH ×2 (09:50→19:47)
[2017-11-05] MEDS: BENZTROPINE MESYLATE 1 MG TAB PO SCH ×2 (09:50→19:47)
[2017-11-05] MEDS: THIAMINE HCL 100 MG TAB PO SCH (09:50)
[2017-11-05] MEDS: IBUPROFEN 600 MG TAB PO PRN ×2 (09:51→19:47)
[2017-11-05] MEDS: ENOXAPARIN SODIUM 30 MG/0.3 ML SYRINGE SQ SCH (09:54)
--- NOTE | 2017-11-05 11:24 | HHI.PR ---
Subjective Remarks Follow up for right hip fracture, difficult placement. Patient seen and examined, sitting up in chair comfortably in no apparent distress. Denies any new acute complaints. Is pleasant. Eating well, and ambulating well. Vital signs are stable. Objective Vitals Vital Signs Date Time Temp Pulse Resp B/P (MAP) Pulse Ox O2 Delivery O2 Flow Rate FiO2 11/05/17 08:00 97.1 63 18 142/84 (103) 98 11/04/17 22:36 97.8 69 18 124/61 (82) 94 I/O 11/04/17 11/04/17 11/04/17 11/05/17 11/05/17 11/05/17 07:00 15:00 23:00 07:00 15:00 23:00 Intake Total 240 ml 480 ml 360 ml 360 ml Balance 240 ml 480 ml 360 ml 360 ml Intake Oral 240 ml 480 ml 360 ml 360 ml # Voids 2 4 2 1 # Bowel Movements 0 0 0 0 Imaging Last Impressions Hip X-Ray 10/16/17 0000 Signed Impressions: Service Date/Time: Monday, October 16, 2017 19:57 - CONCLUSION: 1. Stable right femoral fracture intramedullary rob and compression screw fixation. No evidence for hardware failure or acute fracture. Sahil Gregorio MD Lower Extremity Ultrasound 10/04/17 0000 Signed Impressions: Service Date/Time: Wednesday, October 04, 2017 17:10 - CONCLUSION: Negative for deep venous thrombosis bilateral lower extremity. Elgin Willard MD Chest X-Ray 10/04/17 0000 Signed Impressions: Service Date/Time: Wednesday, October 04, 2017 16:22 - CONCLUSION: Hyperaerated lungs. No focal infiltrates seen. Elgin Willard MD Thoracic Spine X-Ray 09/12/172052 Signed Impressions: Service Date/Time: Tuesday, September 12, 2017 22:42 - CONCLUSION: 1. Limited AP view of the thoracic spine demonstrates no gross fracture or subluxation. Sahil Gregorio MD Hip and Pelvis X-Ray 09/12/172052 Signed Impressions: Service Date/Time: Tuesday, September 12, 2017 22:38 - CONCLUSION: 1. Right femoral intertrochanteric fracture. Sahil Gregorio MD Cervical Spine X-Ray 09/12/172052 Signed Impressions: Service Date/Time: Tuesday, September 12, 2017 22:43 - CONCLUSION: 1. Limited lateral examination with nonvisualization of C7-T1. 2. Otherwise, no acute fracture or subluxation. 3. Degenerative spondylosis of the lower cervical spine. Sahil Gregorio MD Objective Remarks GENERAL: Well-nourished, well-developed pleasant male patient in [facility]. SKIN: Warm and dry. No rash. HEENT: Normocephalic. Pupils equal and round. Mucous membranes pink and moist. CARDIOVASCULAR: Regular rate and rhythm. No murmur appreciated. RESPIRATORY: No accessory muscle use. Clear to auscultation. Breath sounds equal bilaterally. GASTROINTESTINAL: Abdomen soft, non-tender, nondistended. Normoactive bowel sounds x4. MUSCULOSKELETAL: No obvious deformities. Extremities without clubbing, cyanosis , or edema. NEUROLOGICAL: Awake and alert. No obvious cranial nerve deficits. Motor grossly within normal limits. Normal speech. PSYCHIATRIC: Appropriate mood and affect; insight and judgment normal. Procedures 09/13/17 Right hip intramedullary rob fixation 10/07/17 Right thigh wound irrigation and debridement A/P Problem List: (1) Closed right hip fracture ICD Code: S72.001A - Fracture of unspecified part of neck of right femur, initial encounter for closed fracture Status: Acute (2) SIRS (systemic inflammatory response syndrome) ICD Code: R65.10 - Systemic inflammatory response syndrome (SIRS) of non- infectious origin without acute organ dysfunction (3) Encephalopathy acute ICD Code: G93.40 - Encephalopathy, unspecified Status: Acute Assessment and Plan 62-year-old anju male who was admitted to the hospital after a fall. He sustained a right hip fracture. He underwent intramedullary rob fixation on . He has been a difficult placement. Suspected HCAP vs aspiration PNA - Evaluated by ID - Completed Course of Clinda and Levaquin, discontinued on 10/25/17 - Patient stable on room air, Resolved. Right hip fracture - S/p intramedullary rob fixation on 09/13 - S/p Right thigh wound irrigation and debridement 10/07/17 - Ibuprofen prn pain - On Lovenox while in hospital, can be discontinued at discharge - Continue with physical therapy. PT recommends SNF which might be difficult to arrange due to lack of insurance. Alcohol abuse -not in alcohol withdrawal -continue CIWA protocol, thiamine, folic acid. Depression: Chronic. Continue patient's Prozac GERD/Nausea -Continue home medications PPI. -Continue Zofran prn Full code. Lovenox 30mg sq Discharge Planning Plan for discharge once arrangements are made for placement. No safe discharge plan at this time. Case management assisting with discharge planning. Problem Qualifiers (1) Closed right hip fracture: Qualified Codes: S72.001A - Fracture of unspecified part of neck of right femur , initial encounter for closed fracture Sera Hernandez Nov 05, 2017 11:24
[2017-11-05 19:08] VITALS: BP 110/62; PULSE 66; RESP 18; TEMP 97.9; O2SAT 96
[2017-11-06 08:00] VITALS: BP 133/82; PULSE 78; RESP 18; TEMP 96.7; O2SAT 100
[2017-11-06] MEDS: FLUoxetine HCL 20 MG CAP PO SCH (08:59)
[2017-11-06] MEDS: THIAMINE HCL 100 MG TAB PO SCH (08:59)
[2017-11-06] MEDS: BENZTROPINE MESYLATE 1 MG TAB PO SCH ×2 (08:59→21:50)
[2017-11-06] MEDS: DOCUSATE SODIUM 50 MG/SENNA 8.6 MG TAB PO SCH ×2 (08:59→21:50)
[2017-11-06] MEDS: PANTOPRAZOLE SOD 40 MG DELAYED RELEASE TAB PO SCH (08:59)
[2017-11-06] MEDS: SODIUM CHLORIDE 0.9% FLUSH 10 ML FLUSH IV FLUSH SCH ×2 (09:00→21:00)
[2017-11-06] MEDS: IBUPROFEN 600 MG TAB PO PRN ×2 (09:01→17:39)
[2017-11-06] MEDS: ENOXAPARIN SODIUM 30 MG/0.3 ML SYRINGE SQ SCH (09:01)
[2017-11-06] MEDS: PROMETHAZINE HCL 25 MG TAB PO PRN ×2 (09:58→17:39)
--- NOTE | 2017-11-06 17:32 | HHI.PR ---
Subjective Remarks late entry, patient seen at 1030 this morning Follow up for right hip fracture, difficult placement. Patient was seen and examined. Patient denies any acute medical complaints. Denies any fever or chills. Denies any chest pain or shortness of breath. Denies any nausea, vomiting or abdominal pain. States he is urinating without any difficulties. He is moving his bowels. Discussed with nursing staff, no acute issues noted. Objective Vitals Vital Signs Date Time Temp Pulse Resp B/P (MAP) Pulse Ox O2 Delivery O2 Flow Rate FiO2 11/06/17 08:00 96.7 78 18 133/82 (99) 100 11/05/17 19:08 97.9 66 18 110/62 (78) 96 I/O 11/05/17 11/05/17 11/05/17 11/06/17 11/06/17 11/06/17 07:00 15:00 23:00 07:00 15:00 23:00 Intake Total 360 ml 1200 ml 360 ml 480 ml Balance 360 ml 1200 ml 360 ml 480 ml Intake Oral 360 ml 1200 ml 360 ml 480 ml # Voids 1 4 3 3 # Bowel Movements 0 1 0 0 Imaging Last Impressions Hip X-Ray 10/16/17 0000 Signed Impressions: Service Date/Time: Monday, October 16, 2017 19:57 - CONCLUSION: 1. Stable right femoral fracture intramedullary rob and compression screw fixation. No evidence for hardware failure or acute fracture. Sahil Gregorio MD Lower Extremity Ultrasound 10/04/17 0000 Signed Impressions: Service Date/Time: Wednesday, October 04, 2017 17:10 - CONCLUSION: Negative for deep venous thrombosis bilateral lower extremity. Elgin Willard MD Chest X-Ray 10/04/17 0000 Signed Impressions: Service Date/Time: Wednesday, October 04, 2017 16:22 - CONCLUSION: Hyperaerated lungs. No focal infiltrates seen. Elgin Willard MD Thoracic Spine X-Ray 09/12/172052 Signed Impressions: Service Date/Time: Tuesday, September 12, 2017 22:42 - CONCLUSION: 1. Limited AP view of the thoracic spine demonstrates no gross fracture or subluxation. Sahil Gregorio MD Hip and Pelvis X-Ray 09/12/172052 Signed Impressions: Service Date/Time: Tuesday, September 12, 2017 22:38 - CONCLUSION: 1. Right femoral intertrochanteric fracture. Sahil Gregorio MD Cervical Spine X-Ray 09/12/172052 Signed Impressions: Service Date/Time: Tuesday, September 12, 2017 22:43 - CONCLUSION: 1. Limited lateral examination with nonvisualization of C7-T1. 2. Otherwise, no acute fracture or subluxation. 3. Degenerative spondylosis of the lower cervical spine. Sahil Gregorio MD Objective Remarks GENERAL: Well-nourished, well-developed pleasant male patient in NAD. Sitting up in bed. Awake and alert. SKIN: Warm and dry. No rash. HEENT: Normocephalic. EOMI. Sclera anicteric Mucous membranes pink and moist. CARDIOVASCULAR: Regular rate and rhythm. No murmur appreciated. RESPIRATORY: No accessory muscle use. Clear to auscultation. Breath sounds equal bilaterally. GASTROINTESTINAL: Abdomen soft, non-tender, nondistended. Normoactive bowel sounds x4. MUSCULOSKELETAL: No obvious deformities. Extremities without clubbing, cyanosis , or edema. NEUROLOGICAL: Awake and alert. No obvious cranial nerve deficits. Motor grossly within normal limits. Normal speech. PSYCHIATRIC: Appropriate mood and affect; insight and judgment normal. Procedures 09/13/17 Right hip intramedullary rob fixation 10/07/17 Right thigh wound irrigation and debridement Medications and IVs Current Medications Medications (Trade) Dose Ordered Sig/Micah Route Start Time Stop Time Status Last Admin (Tylenol) 650 mg Q4H PRN PO 09/12/17 23:15 11/04/17 14:28 (Zofran Inj) 4 mg Q6H PRN IVP 09/12/17 23:15 10/04/17 15:40 (Cogentin) 0.5 mg BID PO 09/14/17 21:00 11/06/17 08:59 (Vistaril) 50 mg BID PO 09/14/17 21:00 11/06/17 08:59 (PROzac) 40 mg DAILY PO 09/15/17 09:00 11/06/17 08:59 (Vitamin B1) 100 mg DAILY PO 09/30/17 09:00 11/06/17 08:59 (NS Flush) 2 ml UNSCH PRN IV FLUSH 2/14/18 12:30 (NS Flush) 2 ml BID IV FLUSH 10/07/17 21:00 10/29/17 09:00 (Phenergan) 25 mg Q4H PRN PO 10/07/17 12:30 11/06/17 09:58 (Phenergan Supp) 25 mg Q4H PRN RECTAL 10/07/17 12:30 10/30/17 15:42 (Ambien) 5 mg HS PRN PO 10/07/17 12:30 10/24/17 21:32 (Vicky-Colace) 1 tab BID PO 10/07/17 21:00 11/06/17 08:59 (Milk Of Magnesia Liq) 30 ml Q12H PRN PO 10/07/17 12:30 10/29/17 21:06 (Senokot) 17.2 mg Q12H PRN PO 10/07/17 12:30 10/23/17 05:33 (Dulcolax Supp) 10 mg DAILY PRN RECTAL 10/07/17 12:30 10/18/17 12:51 (Lactulose Liq) 30 ml DAILY PRN PO 10/07/17 12:30 10/23/17 05:34 (Motrin) 600 mg Q6H PRN PO 10/28/17 12:45 11/06/17 09:01 (Protonix) 40 mg DAILY PO 10/28/17 13:00 11/06/17 08:59 (Lovenox Inj) 30 mg DAILY SQ 10/30/17 09:00 11/06/17 09:01 A/P Problem List: (1) Closed right hip fracture ICD Code: S72.001A - Fracture of unspecified part of neck of right femur, initial encounter for closed fracture Status: Acute (2) SIRS (systemic inflammatory response syndrome) ICD Code: R65.10 - Systemic inflammatory response syndrome (SIRS) of non- infectious origin without acute organ dysfunction (3) Encephalopathy acute ICD Code: G93.40 - Encephalopathy, unspecified Status: Acute Assessment and Plan 62-year-old pleasant male who was admitted to the hospital after a fall. He sustained a right hip fracture. He underwent intramedullary rob fixation on . He has been a difficult placement. Suspected HCAP vs aspiration PNA - Evaluated by ID - Completed Course of Clinda and Levaquin, discontinued on 10/25/17 - Patient stable on room air, Resolved. Right hip fracture - S/p intramedullary rob fixation on 09/13 - S/p Right thigh wound irrigation and debridement 10/07/17 - Ibuprofen prn pain - On Lovenox while in hospital, can be discontinued at discharge - Continue with physical therapy. PT recommends SNF which might be difficult to arrange due to lack of insurance. Alcohol abuse -not in alcohol withdrawal -continue CIWA protocol, thiamine, folic acid. Depression: Chronic. Continue patient's Prozac GERD/Nausea -Continue home medications PPI. -Continue Zofran prn Full code. Lovenox 30mg sq Discharge Planning Difficult placement, case management requesting patient call [facility] but patient refusing. States father is going to pick him up on Thursday and take to a hotel. Patient looking into [facility]. Problem Qualifiers (1) Closed right hip fracture: Qualified Codes: S72.001A - Fracture of unspecified part of neck of right femur , initial encounter for closed fracture Nayla Ashley Nov 06, 2017 17:32
[2017-11-06 20:49] VITALS: BP 98/60; PULSE 57; RESP 17; TEMP 97.1; O2SAT 97
[2017-11-07 08:00] VITALS: BP 122/77; PULSE 78; RESP 18; TEMP 98.2; O2SAT 100
[2017-11-07] MEDS: FLUoxetine HCL 20 MG CAP PO SCH (08:45)
[2017-11-07] MEDS: THIAMINE HCL 100 MG TAB PO SCH (08:45)
[2017-11-07] MEDS: ENOXAPARIN SODIUM 30 MG/0.3 ML SYRINGE SQ SCH (08:45)
[2017-11-07] MEDS: DOCUSATE SODIUM 50 MG/SENNA 8.6 MG TAB PO SCH ×2 (08:45→20:18)
[2017-11-07] MEDS: IBUPROFEN 600 MG TAB PO PRN ×2 (08:46→17:22)
[2017-11-07] MEDS: BENZTROPINE MESYLATE 1 MG TAB PO SCH ×2 (08:46→20:18)
[2017-11-07] MEDS: PROMETHAZINE HCL 25 MG TAB PO PRN ×2 (08:46→17:22)
[2017-11-07] MEDS: PANTOPRAZOLE SOD 40 MG DELAYED RELEASE TAB PO SCH (08:46)
[2017-11-07] MEDS: SODIUM CHLORIDE 0.9% FLUSH 10 ML FLUSH IV FLUSH SCH ×2 (08:50→20:18)
--- NOTE | 2017-11-07 15:13 | HHI.PR ---
Subjective Remarks Follow up for right hip fracture, difficult placement. Patient was seen and examined. Patient denies any acute medical complaints. Denies any fever or chills. Denies any chest pain or shortness of breath. Denies any nausea, vomiting or abdominal pain. States he is urinating without any difficulties. He is moving his bowels. Discussed with nursing staff, no acute issues noted. 11-07 await family to come get him on Thursday Discussed with RN and patient No new complaints Objective Vitals Vital Signs Date Time Temp Pulse Resp B/P (MAP) Pulse Ox O2 Delivery O2 Flow Rate FiO2 11/07/17 09:46 18 11/07/17 08:00 98.2 78 18 122/77 (92) 100 11/06/17 21:50 Room Air 11/06/17 20:49 97.1 57 17 98/60 (73) 97 I/O 11/06/17 11/06/17 11/06/17 11/07/17 11/07/17 11/07/17 07:00 15:00 23:00 07:00 15:00 23:00 Intake Total 480 ml 480 ml Balance 480 ml 480 ml Intake Oral 480 ml 480 ml # Voids 3 2 # Bowel Movements 0 0 Imaging Last Impressions Hip X-Ray 10/16/17 0000 Signed Impressions: Service Date/Time: Monday, October 16, 2017 19:57 - CONCLUSION: 1. Stable right femoral fracture intramedullary rob and compression screw fixation. No evidence for hardware failure or acute fracture. Sahil Gregorio MD Lower Extremity Ultrasound 10/04/17 0000 Signed Impressions: Service Date/Time: Wednesday, October 04, 2017 17:10 - CONCLUSION: Negative for deep venous thrombosis bilateral lower extremity. Elgin Willard MD Chest X-Ray 10/04/17 0000 Signed Impressions: Service Date/Time: Wednesday, October 04, 2017 16:22 - CONCLUSION: Hyperaerated lungs. No focal infiltrates seen. Elgin Willard MD Thoracic Spine X-Ray [id number]/12/[id number] Signed Impressions: Service Date/Time: Tuesday, September 12, 2017 22:42 - CONCLUSION: 1. Limited AP view of the thoracic spine demonstrates no gross fracture or subluxation. Sahil Gregorio MD Hip and Pelvis X-Ray [id number]/12/172052 Signed Impressions: Service Date/Time: Tuesday, September 12, 2017 22:38 - CONCLUSION: 1. Right femoral intertrochanteric fracture. Sahil Gregorio MD Cervical Spine X-Ray [id number]/12/[id number] Signed Impressions: Service Date/Time: Tuesday, September 12, 2017 22:43 - CONCLUSION: 1. Limited lateral examination with nonvisualization of C7-T1. 2. Otherwise, no acute fracture or subluxation. 3. Degenerative spondylosis of the lower cervical spine. Sahil Gregorio MD Objective Remarks GENERAL: Well-nourished, well-developed pleasant male patient in NAD. Sitting up in bed. Awake and alert. SKIN: Warm and dry. No rash. HEENT: Normocephalic. EOMI. Sclera anicteric Mucous membranes pink and moist. Tongue is deviating to the right oral mucosa is moist No JVD no thyromegaly neck is supple CARDIOVASCULAR: Regular rate and rhythm. No murmur appreciated. S1-S2 no S3-S4 RESPIRATORY: No accessory muscle use. Clear to auscultation. Breath sounds equal bilaterally. GASTROINTESTINAL: Abdomen soft, non-tender, nondistended. Normoactive bowel sounds x4. MUSCULOSKELETAL: No obvious deformities. Extremities without clubbing, cyanosis , or edema. NEUROLOGICAL: Awake and alert. No obvious cranial nerve deficits. Motor grossly within normal limits. Normal speech. PSYCHIATRIC: Appropriate mood and affect; insight and judgment normal. Procedures 09/13/17 Right hip intramedullary rob fixation 10/07/17 Right thigh wound irrigation and debridement Medications and IVs Current Medications Lactated Ringer's 1,000 ml @ 999 mls/hr BOLUS ONCE IV Last administered on at 23:24; Start 09/12/17 at 23:00; Stop 09/13/17 at 00:00; Status DC Fentanyl Citrate (fentaNYL INJ) 25 mcg STAT ONCE IV PUSH Last administered on 09/12/17at 23:29; Start 09/12/17 at 23:00; Stop 09/12/17 at 23:01; Status DC Ondansetron HCl (Zofran Inj) 4 mg ONCE ONCE IV PUSH Last administered on at 23:24; Start 09/12/17 at 23:00; Stop 09/12/17 at 23:01; Status DC Sodium Chloride (NS Flush) 2 ml UNSCH PRN IV FLUSH FLUSH AFTER USING IV ACCESS ; Start 09/12/17 at 23:15; Stop 09/14/17 at 18:00; Status DC Sodium Chloride (NS Flush) 2 ml BID IV FLUSH Last administered on 09/14/17at 08: 32; Start 09/13/17 at 09:00; Stop 09/14/17 at 18:00; Status DC Acetaminophen (Tylenol) 650 mg Q4H PRN PO TEMP > 100.4 Last administered on at 14:28; Start 09/12/17 at 23:15 Ondansetron HCl (Zofran Inj) 4 mg Q6H PRN IVP NAUSEA OR VOMITING Last administered on 10/04/17at 15:40; Start 09/12/17 at 23:15 Morphine Sulfate (Morphine Inj) 2 mg Q3H PRN IV PUSH pain 1-5; Start 09/12/17 at 23:15; Stop 09/25/17 at 14:48; Status DC Morphine Sulfate (Morphine Inj) 4 mg Q3H PRN IV PUSH pain 6-10 Last administered on 09/13/17at 06:10; Start 09/12/17 at 23:15; Stop 09/25/17 at 14:48 ; Status DC Lactated Ringer's 1,000 ml @ 30 mls/hr Q24H PRN IV SEE LABEL COMMENTS Last administered on 09/13/17at 08:44; Start 09/13/17 at 00:45; Stop 09/16/17 at 00:44 ; Status DC Sodium Chloride 500 ml @ 30 mls/hr [id number] PRN IV SEE LABEL COMMENTS; Start at 00:45; Stop 09/16/17 at 00:44; Status DC Metoprolol Tartrate (Lopressor) 25 mg MOLD LOFT WORKER PRN PO SEE LABEL COMMENTS; Start 09/13/17 at 00:45; Stop 09/16/17 at 00:44; Status DC Povidone Iodine (Betadine 5% Antisepsis Kit) 1 applic MOLD LOFT WORKER PRN EACH NARE SEE LABEL COMMENTS; Start 09/13/17 at 00:45; Stop 09/16/17 at 00:44; Status DC Chlorhexidine Gluconate (Chlorhexidine 2% Cloth) 3 pack MOLD LOFT WORKER PRN TOPICAL SEE LABEL COMMENTS; Start 09/13/17 at 00:45; Stop 09/16/17 at 00:44; Status DC Folic Acid (Folate) 1 mg DAILY PO Last administered on 09/17/17at 08:42; Start 09/13/17 at 09:00; Stop 09/18/17 at 08:59; Status DC Thiamine HCl (Vitamin B1) 100 mg DAILY PO Last administered on 09/24/17at 08:18; Start 09/13/17 at 09:00; Stop 09/24/17 at 21:37; Status DC Pantoprazole Sodium (Protonix) 40 mg DAILY PO Last administered on 09/24/17at 08: 18; Start 09/13/17 at 09:00; Stop 09/24/17 at 21:37; Status DC Flumazenil (Romazicon Inj) 0.2 mg Q1M PRN IV PUSH SEE LABEL COMMENTS; Start at 06:30; Stop 09/24/17 at 21:37; Status DC Lorazepam (Ativan) 1 mg Q4H PRN PO CIWA 8 - 10; Start 09/13/17 at 06:30; Stop 09/24/17 at 21:37; Status DC Lorazepam (Ativan Inj) 1 mg Q4H PRN IV PUSH CIWA 8 - 10; Start 09/13/17 at 06: 30; Stop 09/24/17 at 21:37; Status DC Lorazepam (Ativan) 2 mg Q2H PRN PO CIWA 11-14; Start 09/13/17 at 06:30; Stop at 21:37; Status DC Lorazepam (Ativan Inj) 2 mg Q2H PRN IV PUSH CIWA 11-14; Start 09/13/17 at 06:30 ; Stop 09/24/17 at 21:37; Status DC Lorazepam (Ativan Inj) 2 mg Q1H PRN IV PUSH CIWA 15-20; Start 09/13/17 at 06:30 ; Stop 09/24/17 at 21:37; Status DC Lorazepam (Ativan Inj) 2 mg Q15M PRN IV PUSH CIWA > 20; Start 09/13/17 at 06:30 ; Stop 09/24/17 at 21:37; Status DC Haloperidol Lactate (Haldol Inj) 2 mg Q15M PRN IM SEE LABEL COMMENTS; Start at 06:30; Stop 09/24/17 at 21:37; Status DC Vancomycin HCl (Vancomycin Inj) 1,000 mg STK-MED ONCE .ROUTE Last administered on 09/13/17at 13:00; Start 09/13/17 at 11:48; Stop 09/13/17 at 11:49; Status DC Cefazolin Sodium/ Dextrose 50 ml @ As Directed STK-MED ONCE .ROUTE Last administered on 09/13/17at 13:00; Start 09/13/17 at 11:48; Stop 09/13/17 at 11:49 ; Status DC Gentamicin Sulfate (Gentamicin Inj) 240 mg STK-MED ONCE .ROUTE Last administered on 09/13/17at 13:28; Start 09/13/17 at 11:48; Stop 09/13/17 at 11:49 ; Status DC Midazolam HCl (Versed Inj) 2 mg STK-MED ONCE .ROUTE ; Start 09/13/17 at 14:14; Stop 09/13/17 at 14:15; Status DC Sodium Chloride (NS Flush) 2 ml UNSCH PRN IV FLUSH FLUSH AFTER USING IV ACCESS ; Start 09/13/17 at 14:30; Stop 10/07/17 at 13:10; Status DC Sodium Chloride (NS Flush) 2 ml BID IV FLUSH Last administered on 10/07/17at 09: 16; Start 09/13/17 at 21:00; Stop 10/07/17 at 13:10; Status DC Cefazolin Sodium 1000 mg/Sodium Chloride 100 ml @ 200 mls/hr Q6H IV Last administered on 09/14/17at 06:45; Start 09/13/17 at 19:00; Stop 09/14/17 at 07:29 ; Status DC Miscellaneous Information (Post-op Orders (for Pharmacy)) STAT ONCE XX ; Start 09/13/17 at 14:30; Stop 09/13/17 at 14:37; Status DC Enoxaparin Sodium (Lovenox Inj) 30 mg Q12H SQ Last administered on 10/07/17at 02 :13; Start 09/14/17 at 02:00; Stop 10/07/17 at 16:26; Status DC Oxycodone/ Acetaminophen (Percocet 5-325 Mg) 1 tab Q4H PRN PO PAIN LESS THAN 5 ON SCALE Last administered on 10/06/17 09:10; Start 09/13/17 at 14:30; Stop 10/07/17 at 16:28; Status DC Oxycodone/ Acetaminophen (Percocet 5-325 Mg) 2 tab Q4H PRN PO PAIN SCALE 5 TO 10 Last administered on 10/07/17at 22:04; Start 09/13/17 at 14:30; Stop 10/28/17 at 12:45; Status DC Ketorolac Tromethamine (Toradol Inj) 15 mg Q6H IVP Last administered on 08:46; Start 09/13/17 at 14:30; Stop 09/15/17 at 08:31; Status DC Promethazine HCl (Phenergan) 25 mg Q4H PRN PO NAUSEA OR VOMITING Last administered on 09/25/17 15:10; Start 09/13/17 at 14:30; Stop 10/07/17 at 16:29 ; Status DC Zolpidem Tartrate (Ambien) 5 mg HS PRN PO SLEEP; Start 09/13/17 at 21:00; Stop 10/07/17 at 13:06; Status DC Senna/Docusate Sodium (Vicky-Colace) 1 tab BID PO Last administered on 09:16; Start 09/13/17 at 21:00; Stop 10/07/17 at 13:08; Status DC Magnesium Hydroxide (Milk Of Magnesia Liq) 30 ml Q12H PRN PO Mild constipation Last administered on 10/06/17 09:10; Start 09/13/17 at 14:30; Stop 10/07/17 at 13:10; Status DC Sennosides (Senokot) 17.2 mg Q12H PRN PO Moderate constipation Last administered on 10/06/17 09:10; Start 09/13/17 at 14:30; Stop 10/07/17 at 13:09 ; Status DC Bisacodyl (Dulcolax Supp) 10 mg DAILY PRN RECTAL SEVERE CONSITIPATION Last administered on 10/01/17 09:28; Start 09/13/17 at 14:30; Stop 10/07/17 at 13:07 ; Status DC Lactulose (Lactulose Liq) 30 ml DAILY PRN PO SEVERE CONSITIPATION Last administered on 10/05/17at 08:41; Start 09/13/17 at 14:30; Stop 10/07/17 at 13:11 ; Status DC Miscellaneous Information ALL NURSING DEPARTME... UNSCH PRN .XX SEE LABEL COMMENTS; Start 09/13/17 at 14:05; Stop 09/14/17 at 14:04; Status DC Lactated Ringer's 1,000 ml @ As Directed STK-MED ONCE IV ; Start 09/13/17 at 12 :00; Stop 09/14/17 at 09:35; Status DC Sodium Chloride 250 ml @ As Directed STK-MED ONCE IV ; Start 09/13/17 at 12:00 ; Stop 09/14/17 at 09:35; Status DC Lidocaine HCl (Xylocaine-Mpf 1% Inj) 10 ml STK-MED ONCE OTHER ; Start 09/13/17 at 12:00; Stop 09/14/17 at 09:35; Status DC Phenylephrine HCl (Neosynephrine/ NS 1000 Mcg/10ml Syr) 2,000 mcg STK-MED ONCE IV ; Start 09/13/17 at 12:00; Stop 09/14/17 at 09:35; Status DC Dexamethasone Sodium Phosphate (Decadron Inj) 8 mg STK-MED ONCE IV ; Start 09/13 at 12:00; Stop 09/14/17 at 09:35; Status DC Ondansetron HCl (Zofran Inj) 4 mg STK-MED ONCE IV ; Start 09/13/17 at 12:00; Stop 09/14/17 at 09:35; Status DC Cefazolin Sodium (Ancef Inj) 2,000 mg STK-MED ONCE IV Last administered on 09/13at 12:00; Start 09/13/17 at 12:00; Stop 09/14/17 at 09:35; Status DC Propofol (Diprivan 200 Mg/20 ml Inj) 800 mg STK-MED ONCE IV ; Start 09/13/17 at 12:00; Stop 09/14/17 at 09:35; Status DC Sodium Chloride (Sodium Chloride 0.9% Inj) 20 ml STK-MED ONCE IV ; Start at 12:00; Stop 09/14/17 at 09:35; Status DC Benztropine Mesylate (Cogentin) 0.5 mg BID PO Last administered on 11/07/17at 08 :46; Start 09/14/17 at 21:00 Hydroxyzine Pamoate (Vistaril) 50 mg BID PO Last administered on 11/07/17at 08: 46; Start 09/14/17 at 21:00 Non-Formulary Medication 40 mg DAILY PO ; Start 09/15/17 at 09:00; Status UNV Non-Formulary Medication 20 mg DAILY PO ; Start 09/15/17 at 09:00; Stop at 09:00; Status DC Fluoxetine HCl (PROzac) 40 mg DAILY PO Last administered on 11/07/17at 08:45; Start 09/15/17 at 09:00 Thiamine HCl (Vitamin B1) 100 mg ONCE ONCE PO Last administered on 09/29/17at 13 :19; Start 09/29/17 at 12:00; Stop 09/29/17 at 12:01; Status DC Thiamine HCl (Vitamin B1) 100 mg DAILY PO Last administered on 11/07/17at 08:45 ; Start 09/30/17 at 09:00 Vancomycin HCl 1000 mg/Sodium Chloride 250 ml @ 250 mls/hr Q12H IV Last administered on 10/05/17at 08:40; Start 10/03/17 at 20:00; Stop 10/05/17 at 09:09 ; Status DC Pharmacy Profile Note 0 ml @ 0 mls/hr UNSCH OTHER ; Start 10/03/17 at 19:15; Stop 10/12/17 at 10:09; Status DC Piperacillin Sod/ Tazobactam Sod 100 ml @ 200 mls/hr Q8H IV Last administered on 10/05/17at 05:00; Start 10/03/17 at 20:00; Stop 10/05/17 at 11:00; Status DC Miscellaneous Information SPECIFIC LAB TO BE DRAWN:VANCO TROUGH DATE TO BE DR... ONCE ONCE .XX Last administered on 10/05/17at 07:39; Start 10/05/17 at 07 :45; Stop 10/05/17 at 07:46; Status DC Vancomycin HCl 1500 mg/Sodium Chloride 515 ml @ 257.5 mls/ hr Q12H IV Last administered on 10/12/17at 07:41; Start 10/05/17 at 20:00; Stop 10/12/17 at 10:09 ; Status DC Miscellaneous Information SPECIFIC LAB TO BE DRAWN:VANCO TROUGH DATE TO... ONCE ONCE .XX Last administered on 10/07/17at 08:05; Start 10/07/17 at 07:45; Stop 10/07/17 at 07:46; Status DC Levofloxacin (Levaquin) 750 mg DAILY PO Last administered on 10/25/17at 08:28; Start 10/05/17 at 11:00; Stop 10/25/17 at 23:00; Status DC Gentamicin Sulfate (Gentamicin Inj) 240 mg STK-MED ONCE .ROUTE Last administered on 10/07/17at 13:05; Start 10/07/17 at 12:05; Stop 10/07/17 at 12:06 ; Status DC Sodium Chloride (NS Flush) 2 ml UNSCH PRN IV FLUSH FLUSH AFTER USING IV ACCESS ; Start 10/07/17 at 12:30 Sodium Chloride (NS Flush) 2 ml BID IV FLUSH Last administered on 10/29/17at 09: 00; Start 10/07/17 at 21:00 Cefazolin Sodium 1000 mg/Sodium Chloride 100 ml @ 200 mls/hr Q6H IV Last administered on 10/08/17at 05:59; Start 10/07/17 at 17:00; Stop 10/08/17 at 05:29 ; Status DC Miscellaneous Information (Post-op Orders (for Pharmacy)) STAT ONCE XX ; Start 10/07/17 at 12:30; Stop 10/07/17 at 16:28; Status DC Enoxaparin Sodium (Lovenox Inj) 30 mg Q12H SQ Last administered on 10/29/17at 01: 26; Start 10/08/17 at 01:00; Stop 10/29/17 at 14:56; Status DC Morphine Sulfate (Morphine Inj) 5 mg Q3H PRN IV PUSH 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; Start 10/07/17 at 12:30; Stop 11/04/17 at 09:11; Status DC Oxycodone/ Acetaminophen (Percocet 5-325 Mg) 1 tab Q4H PRN PO PAIN LESS THAN 5 ON SCALE Last administered on 10/28/17 08:16; Start 10/07/17 at 12:30; Stop at 12:45; Status DC Promethazine HCl (Phenergan) 25 mg Q4H PRN PO NAUSEA OR VOMITING Last administered on 11/07/17 08:46; Start 10/07/17 at 12:30 Promethazine HCl (Phenergan Supp) 25 mg Q4H PRN RECTAL NAUSEA OR VOMITING Last administered on 10/30/17 15:42; Start 10/07/17 at 12:30 Zolpidem Tartrate (Ambien) 5 mg HS PRN PO SLEEP Last administered on 10/24/17 21:32; Start 10/07/17 at 12:30 Senna/Docusate Sodium (Vicky-Colace) 1 tab BID PO Last administered on 08:45; Start 10/07/17 at 21:00 Magnesium Hydroxide (Milk Of Magnesia Liq) 30 ml Q12H PRN PO Mild constipation Last administered on 10/29/17 21:06; Start 10/07/17 at 12:30 Sennosides (Senokot) 17.2 mg Q12H PRN PO Moderate constipation Last administered on 10/23/17 05:33; Start 10/07/17 at 12:30 Bisacodyl (Dulcolax Supp) 10 mg DAILY PRN RECTAL SEVERE CONSITIPATION Last administered on 10/18/17 12:51; Start 10/07/17 at 12:30 Lactulose (Lactulose Liq) 30 ml DAILY PRN PO SEVERE CONSITIPATION Last administered on 10/23/17 05:34; Start 10/07/17 at 12:30 Midazolam HCl (Versed Inj) 2 mg STK-MED ONCE .ROUTE ; Start 10/07/17 at 13:41; Stop 10/07/17 at 13:42; Status DC Fentanyl Citrate (fentaNYL INJ) 100 mcg STK-MED ONCE .ROUTE ; Start 10/07/17 at 13:41; Stop 10/07/17 at 13:42; Status DC Morphine Sulfate (*morphine INJ PERIprocedure ONLY) 4 mg STK-MED ONCE .ROUTE Last administered on 10/07/17at 13:42; Start 10/07/17 at 13:42; Stop 10/07/17 at 13:43; Status DC Ondansetron HCl (*ZOFRAN INJ PERIprocedural ONLY) 4 mg STK-MED ONCE .ROUTE ; Start 10/07/17 at 14:02; Stop 10/07/17 at 14:03; Status DC Miscellaneous Information ALL NURSING DEPARTME... UNSCH PRN .XX SEE LABEL COMMENTS; Start 10/07/17 at 13:35; Stop 10/08/17 at 13:48; Status DC Lidocaine HCl (Xylocaine-Mpf 1% Inj) 5 ml STK-MED ONCE OTHER ; Start 10/07/17 at 12:00; Stop 10/08/17 at 14:59; Status DC Rocuronium Barnett (Zemuron Inj) 50 mg STK-MED ONCE IV PUSH ; Start 10/07/17 at 12:00; Stop 10/08/17 at 14:59; Status DC Phenylephrine HCl (Neosynephrine/ NS 1000 Mcg/10ml Syr) 1,000 mcg STK-MED ONCE IV ; Start 10/07/17 at 12:00; Stop 10/08/17 at 14:59; Status DC Ephedrine Sulfate (ePHEDrine/NS 25 MG/5 ML SYR) 25 mg STK-MED ONCE IV ; Start at 12:00; Stop 10/08/17 at 14:59; Status DC Succinylcholine Chloride (Quelicin Inj) 200 mg STK-MED ONCE IV ; Start 10/07/17 at 12:00; Stop 10/08/17 at 14:59; Status DC Ketorolac Tromethamine (Toradol Inj) 30 mg STK-MED ONCE IV PUSH ; Start at 12:00; Stop 10/08/17 at 14:59; Status DC Dexamethasone Sodium Phosphate (Decadron Inj) 4 mg STK-MED ONCE IV ; Start 10/07 at 12:00; Stop 10/08/17 at 14:59; Status DC Ondansetron HCl (Zofran Inj) 4 mg STK-MED ONCE IV ; Start 10/07/17 at 12:00; Stop 10/08/17 at 14:59; Status DC Propofol (Diprivan 200 Mg/20 ml Inj) 200 mg STK-MED ONCE IV ; Start 10/07/17 at 12:00; Stop 10/08/17 at 14:59; Status DC Clindamycin HCl (Cleocin) 300 mg Q6HR PO Last administered on 10/25/17at 17:47; Start 10/12/17 at 12:00; Stop 10/25/17 at 23:00; Status DC Ibuprofen (Motrin) 600 mg Q6H PRN PO PAIN SCALE 1 TO 10 Last administered on at 08:46; Start 10/28/17 at 12:45 Pantoprazole Sodium (Protonix) 40 mg DAILY PO Last administered on 11/07/17at 08 :46; Start 10/28/17 at 13:00 Enoxaparin Sodium (Lovenox Inj) 30 mg DAILY SQ Last administered on 11/07/17at 08:45; Start 10/30/17 at 09:00 A/P Problem List: (1) Closed right hip fracture ICD Code: S72.001A - Fracture of unspecified part of neck of right femur, initial encounter for closed fracture Status: Acute (2) SIRS (systemic inflammatory response syndrome) ICD Code: R65.10 - Systemic inflammatory response syndrome (SIRS) of non- infectious origin without acute organ dysfunction (3) Encephalopathy acute ICD Code: G93.40 - Encephalopathy, unspecified Status: Acute Assessment and Plan 62-year-old pleasant male who was admitted to the hospital after a fall. He sustained a right hip fracture. He underwent intramedullary rob fixation on . He has been a difficult placement. Suspected HCAP vs aspiration PNA - Evaluated by ID - Completed Course of Clinda and Levaquin, discontinued on 10/25/17 - Patient stable on room air, Resolved. Right hip fracture - S/p intramedullary rob fixation on 09/13 - S/p Right thigh wound irrigation and debridement 10/07/17 - Ibuprofen prn pain - On Lovenox while in hospital, can be discontinued at discharge - Continue with physical therapy. PT recommends SNF which might be difficult to arrange due to lack of insurance. Alcohol abuse -not in alcohol withdrawal -continue CIWA protocol, thiamine, folic acid. Depression: Chronic. Continue patient's Prozac GERD/Nausea -Continue home medications PPI. -Continue Zofran prn Full code. Lovenox 30mg sq Discharge Planning Case management looking safe placement--family supposedly to come get him on Thursday Problem Qualifiers (1) Closed right hip fracture: Qualified Codes: S72.001A - Fracture of unspecified part of neck of right femur , initial encounter for closed fracture Haja Baig DO Nov 07, 2017 15:13
[2017-11-07 20:55] VITALS: BP 129/72; PULSE 56; RESP 17; TEMP 97.5; O2SAT 98
[2017-11-08 08:00] VITALS: BP 124/80; PULSE 70; RESP 18; TEMP 98.7; O2SAT 93
[2017-11-08] MEDS: DOCUSATE SODIUM 50 MG/SENNA 8.6 MG TAB PO SCH ×2 (08:54→21:49)
[2017-11-08] MEDS: PANTOPRAZOLE SOD 40 MG DELAYED RELEASE TAB PO SCH (08:54)
[2017-11-08] MEDS: THIAMINE HCL 100 MG TAB PO SCH (08:54)
[2017-11-08] MEDS: ENOXAPARIN SODIUM 30 MG/0.3 ML SYRINGE SQ SCH (08:54)
[2017-11-08] MEDS: FLUoxetine HCL 20 MG CAP PO SCH (08:54)
[2017-11-08] MEDS: BENZTROPINE MESYLATE 1 MG TAB PO SCH ×2 (08:54→21:49)
[2017-11-08] MEDS: ACETAMINOPHEN 325 MG TAB PO PRN (08:55)
[2017-11-08] MEDS: SODIUM CHLORIDE 0.9% FLUSH 10 ML FLUSH IV FLUSH SCH ×2 (08:58→21:01)
--- NOTE | 2017-11-08 10:49 | HHI.PR ---
Subjective Remarks Follow up for right hip fracture, difficult placement. Patient was seen and examined. Patient denies any acute medical complaints. Denies any fever or chills. Denies any chest pain or shortness of breath. Denies any nausea, vomiting or abdominal pain. States he is urinating without any difficulties. He is moving his bowels. Discussed with nursing staff, no acute issues noted. 3 await family to come get him on Thursday Discussed with RN and patient No new complaints 11-08 HOPEFULLY TO DC WITH FAMILY TOMORROW DW RN AND CM AND PT NO NEW COMPLAINTS Objective Vitals Vital Signs Date Time Temp Pulse Resp B/P (MAP) Pulse Ox O2 Delivery O2 Flow Rate FiO2 11/08/17 08:00 98.7 70 18 124/80 (95) 93 11/07/17 20:55 97.5 56 17 129/72 (91) 98 I/O 11/07/17 11/07/17 11/07/17 11/08/17 11/08/17 11/08/17 07:00 15:00 23:00 07:00 15:00 23:00 Intake Total 600 ml 360 ml Balance 600 ml 360 ml Intake Oral 600 ml 360 ml # Voids 3 2 # Bowel Movements 0 0 Imaging Last Impressions Hip X-Ray 10/16/17 0000 Signed Impressions: Service Date/Time: Monday, October 16, 2017 19:57 - CONCLUSION: 1. Stable right femoral fracture intramedullary rob and compression screw fixation. No evidence for hardware failure or acute fracture. Sahil Gregorio MD Lower Extremity Ultrasound 10/04/17 0000 Signed Impressions: Service Date/Time: Wednesday, October 04, 2017 17:10 - CONCLUSION: Negative for deep venous thrombosis bilateral lower extremity. Elgin Willard MD Chest X-Ray 10/04/17 0000 Signed Impressions: Service Date/Time: Wednesday, October 04, 2017 16:22 - CONCLUSION: Hyperaerated lungs. No focal infiltrates seen. Elgin Willard MD Thoracic Spine X-Ray [id number]/12/[id number] Signed Impressions: Service Date/Time: Tuesday, September 12, 2017 22:42 - CONCLUSION: 1. Limited AP view of the thoracic spine demonstrates no gross fracture or subluxation. Sahil Gregorio MD Hip and Pelvis X-Ray [id number]/12/172052 Signed Impressions: Service Date/Time: Tuesday, September 12, 2017 22:38 - CONCLUSION: 1. Right femoral intertrochanteric fracture. Sahil Gregorio MD Cervical Spine X-Ray [id number]/12/[id number] Signed Impressions: Service Date/Time: Tuesday, September 12, 2017 22:43 - CONCLUSION: 1. Limited lateral examination with nonvisualization of C7-T1. 2. Otherwise, no acute fracture or subluxation. 3. Degenerative spondylosis of the lower cervical spine. Sahil Gregorio MD Objective Remarks GENERAL: Well-nourished, well-developed pleasant male patient in NAD. Sitting up in bed. Awake and alert. SKIN: Warm and dry. No rash. HEENT: Normocephalic. EOMI. Sclera anicteric Mucous membranes pink and moist. Tongue is deviating to the right oral mucosa is moist No JVD no thyromegaly neck is supple CARDIOVASCULAR: Regular rate and rhythm. No murmur appreciated. S1-S2 no S3-S4 RESPIRATORY: No accessory muscle use. Clear to auscultation. Breath sounds equal bilaterally. GASTROINTESTINAL: Abdomen soft, non-tender, nondistended. Normoactive bowel sounds x4. MUSCULOSKELETAL: No obvious deformities. Extremities without clubbing, cyanosis , or edema. NEUROLOGICAL: Awake and alert. No obvious cranial nerve deficits. Motor grossly within normal limits. Normal speech. PSYCHIATRIC: Appropriate mood and affect; insight and judgment normal. Procedures 09/13/17 Right hip intramedullary rob fixation 10/07/17 Right thigh wound irrigation and debridement Medications and IVs Current Medications Lactated Ringer's 1,000 ml @ 999 mls/hr BOLUS ONCE IV Last administered on at 23:24; Start 09/12/17 at 23:00; Stop 09/13/17 at 00:00; Status DC Fentanyl Citrate (fentaNYL INJ) 25 mcg STAT ONCE IV PUSH Last administered on 09/12/17at 23:29; Start 09/12/17 at 23:00; Stop 09/12/17 at 23:01; Status DC Ondansetron HCl (Zofran Inj) 4 mg ONCE ONCE IV PUSH Last administered on at 23:24; Start 09/12/17 at 23:00; Stop 09/12/17 at 23:01; Status DC Sodium Chloride (NS Flush) 2 ml UNSCH PRN IV FLUSH FLUSH AFTER USING IV ACCESS ; Start 09/12/17 at 23:15; Stop 09/14/17 at 18:00; Status DC Sodium Chloride (NS Flush) 2 ml BID IV FLUSH Last administered on 09/14/17at 08: 32; Start 09/13/17 at 09:00; Stop 09/14/17 at 18:00; Status DC Acetaminophen (Tylenol) 650 mg Q4H PRN PO TEMP > 100.4 Last administered on at 08:55; Start 09/12/17 at 23:15 Ondansetron HCl (Zofran Inj) 4 mg Q6H PRN IVP NAUSEA OR VOMITING Last administered on 10/04/17at 15:40; Start 09/12/17 at 23:15 Morphine Sulfate (Morphine Inj) 2 mg Q3H PRN IV PUSH pain 1-5; Start 09/12/17 at 23:15; Stop 09/25/17 at 14:48; Status DC Morphine Sulfate (Morphine Inj) 4 mg Q3H PRN IV PUSH pain 6-10 Last administered on 09/13/17at 06:10; Start 09/12/17 at 23:15; Stop 09/25/17 at 14:48 ; Status DC Lactated Ringer's 1,000 ml @ 30 mls/hr Q24H PRN IV SEE LABEL COMMENTS Last administered on 09/13/17at 08:44; Start 09/13/17 at 00:45; Stop 09/16/17 at 00:44 ; Status DC Sodium Chloride 500 ml @ 30 mls/hr [id number] PRN IV SEE LABEL COMMENTS; Start at 00:45; Stop 09/16/17 at 00:44; Status DC Metoprolol Tartrate (Lopressor) 25 mg ENGINE WIPER PRN PO SEE LABEL COMMENTS; Start 09/13/17 at 00:45; Stop 09/16/17 at 00:44; Status DC Povidone Iodine (Betadine 5% Antisepsis Kit) 1 applic ENGINE WIPER PRN EACH NARE SEE LABEL COMMENTS; Start 09/13/17 at 00:45; Stop 09/16/17 at 00:44; Status DC Chlorhexidine Gluconate (Chlorhexidine 2% Cloth) 3 pack ENGINE WIPER PRN TOPICAL SEE LABEL COMMENTS; Start 09/13/17 at 00:45; Stop 09/16/17 at 00:44; Status DC Folic Acid (Folate) 1 mg DAILY PO Last administered on 09/17/17at 08:42; Start 09/13/17 at 09:00; Stop 09/18/17 at 08:59; Status DC Thiamine HCl (Vitamin B1) 100 mg DAILY PO Last administered on 09/24/17at 08:18; Start 09/13/17 at 09:00; Stop 09/24/17 at 21:37; Status DC Pantoprazole Sodium (Protonix) 40 mg DAILY PO Last administered on 09/24/17at 08: 18; Start 09/13/17 at 09:00; Stop 09/24/17 at 21:37; Status DC Flumazenil (Romazicon Inj) 0.2 mg Q1M PRN IV PUSH SEE LABEL COMMENTS; Start at 06:30; Stop 09/24/17 at 21:37; Status DC Lorazepam (Ativan) 1 mg Q4H PRN PO CIWA 8 - 10; Start 09/13/17 at 06:30; Stop 09/24/17 at 21:37; Status DC Lorazepam (Ativan Inj) 1 mg Q4H PRN IV PUSH CIWA 8 - 10; Start 09/13/17 at 06: 30; Stop 09/24/17 at 21:37; Status DC Lorazepam (Ativan) 2 mg Q2H PRN PO CIWA 11-14; Start 09/13/17 at 06:30; Stop at 21:37; Status DC Lorazepam (Ativan Inj) 2 mg Q2H PRN IV PUSH CIWA 11-14; Start 09/13/17 at 06:30 ; Stop 09/24/17 at 21:37; Status DC Lorazepam (Ativan Inj) 2 mg Q1H PRN IV PUSH CIWA 15-20; Start 09/13/17 at 06:30 ; Stop 09/24/17 at 21:37; Status DC Lorazepam (Ativan Inj) 2 mg Q15M PRN IV PUSH CIWA > 20; Start 09/13/17 at 06:30 ; Stop 09/24/17 at 21:37; Status DC Haloperidol Lactate (Haldol Inj) 2 mg Q15M PRN IM SEE LABEL COMMENTS; Start at 06:30; Stop 09/24/17 at 21:37; Status DC Vancomycin HCl (Vancomycin Inj) 1,000 mg STK-MED ONCE .ROUTE Last administered on 09/13/17at 13:00; Start 09/13/17 at 11:48; Stop 09/13/17 at 11:49; Status DC Cefazolin Sodium/ Dextrose 50 ml @ As Directed STK-MED ONCE .ROUTE Last administered on 09/13/17at 13:00; Start 09/13/17 at 11:48; Stop 09/13/17 at 11:49 ; Status DC Gentamicin Sulfate (Gentamicin Inj) 240 mg STK-MED ONCE .ROUTE Last administered on 09/13/17at 13:28; Start 09/13/17 at 11:48; Stop 09/13/17 at 11:49 ; Status DC Midazolam HCl (Versed Inj) 2 mg STK-MED ONCE .ROUTE ; Start 09/13/17 at 14:14; Stop 09/13/17 at 14:15; Status DC Sodium Chloride (NS Flush) 2 ml UNSCH PRN IV FLUSH FLUSH AFTER USING IV ACCESS ; Start 09/13/17 at 14:30; Stop 10/07/17 at 13:10; Status DC Sodium Chloride (NS Flush) 2 ml BID IV FLUSH Last administered on 10/07/17at 09: 16; Start 09/13/17 at 21:00; Stop 10/07/17 at 13:10; Status DC Cefazolin Sodium 1000 mg/Sodium Chloride 100 ml @ 200 mls/hr Q6H IV Last administered on 09/14/17at 06:45; Start 09/13/17 at 19:00; Stop 09/14/17 at 07:29 ; Status DC Miscellaneous Information (Post-op Orders (for Pharmacy)) STAT ONCE XX ; Start 09/13/17 at 14:30; Stop 09/13/17 at 14:37; Status DC Enoxaparin Sodium (Lovenox Inj) 30 mg Q12H SQ Last administered on 10/07/17at 02 :13; Start 09/14/17 at 02:00; Stop 10/07/17 at 16:26; Status DC Oxycodone/ Acetaminophen (Percocet 5-325 Mg) 1 tab Q4H PRN PO PAIN LESS THAN 5 ON SCALE Last administered on 10/06/17 09:10; Start 09/13/17 at 14:30; Stop 10/07/17 at 16:28; Status DC Oxycodone/ Acetaminophen (Percocet 5-325 Mg) 2 tab Q4H PRN PO PAIN SCALE 5 TO 10 Last administered on 10/07/17at 22:04; Start 09/13/17 at 14:30; Stop 10/28/17 at 12:45; Status DC Ketorolac Tromethamine (Toradol Inj) 15 mg Q6H IVP Last administered on at 08:46; Start 09/13/17 at 14:30; Stop 09/15/17 at 08:31; Status DC Promethazine HCl (Phenergan) 25 mg Q4H PRN PO NAUSEA OR VOMITING Last administered on 09/25/17 15:10; Start 09/13/17 at 14:30; Stop 10/07/17 at 16:29 ; Status DC Zolpidem Tartrate (Ambien) 5 mg HS PRN PO SLEEP; Start 09/13/17 at 21:00; Stop 10/07/17 at 13:06; Status DC Senna/Docusate Sodium (Vicky-Colace) 1 tab BID PO Last administered on 09:16; Start 09/13/17 at 21:00; Stop 10/07/17 at 13:08; Status DC Magnesium Hydroxide (Milk Of Magnesia Liq) 30 ml Q12H PRN PO Mild constipation Last administered on 10/06/17 09:10; Start 09/13/17 at 14:30; Stop 10/07/17 at 13:10; Status DC Sennosides (Senokot) 17.2 mg Q12H PRN PO Moderate constipation Last administered on 10/06/17 09:10; Start 09/13/17 at 14:30; Stop 10/07/17 at 13:09 ; Status DC Bisacodyl (Dulcolax Supp) 10 mg DAILY PRN RECTAL SEVERE CONSITIPATION Last administered on 10/01/17 09:28; Start 09/13/17 at 14:30; Stop 10/07/17 at 13:07 ; Status DC Lactulose (Lactulose Liq) 30 ml DAILY PRN PO SEVERE CONSITIPATION Last administered on 10/05/17at 08:41; Start 09/13/17 at 14:30; Stop 10/07/17 at 13:11 ; Status DC Miscellaneous Information ALL NURSING DEPARTME... UNSCH PRN .XX SEE LABEL COMMENTS; Start 09/13/17 at 14:05; Stop 09/14/17 at 14:04; Status DC Lactated Ringer's 1,000 ml @ As Directed STK-MED ONCE IV ; Start 09/13/17 at 12 :00; Stop 09/14/17 at 09:35; Status DC Sodium Chloride 250 ml @ As Directed STK-MED ONCE IV ; Start 09/13/17 at 12:00 ; Stop 09/14/17 at 09:35; Status DC Lidocaine HCl (Xylocaine-Mpf 1% Inj) 10 ml STK-MED ONCE OTHER ; Start 09/13/17 at 12:00; Stop 09/14/17 at 09:35; Status DC Phenylephrine HCl (Neosynephrine/ NS 1000 Mcg/10ml Syr) 2,000 mcg STK-MED ONCE IV ; Start 09/13/17 at 12:00; Stop 09/14/17 at 09:35; Status DC Dexamethasone Sodium Phosphate (Decadron Inj) 8 mg STK-MED ONCE IV ; Start 09/13 at 12:00; Stop 09/14/17 at 09:35; Status DC Ondansetron HCl (Zofran Inj) 4 mg STK-MED ONCE IV ; Start 09/13/17 at 12:00; Stop 09/14/17 at 09:35; Status DC Cefazolin Sodium (Ancef Inj) 2,000 mg STK-MED ONCE IV Last administered on 09/13at 12:00; Start 09/13/17 at 12:00; Stop 09/14/17 at 09:35; Status DC Propofol (Diprivan 200 Mg/20 ml Inj) 800 mg STK-MED ONCE IV ; Start 09/13/17 at 12:00; Stop 09/14/17 at 09:35; Status DC Sodium Chloride (Sodium Chloride 0.9% Inj) 20 ml STK-MED ONCE IV ; Start at 12:00; Stop 09/14/17 at 09:35; Status DC Benztropine Mesylate (Cogentin) 0.5 mg BID PO Last administered on 11/08/17at 08 :54; Start 09/14/17 at 21:00 Hydroxyzine Pamoate (Vistaril) 50 mg BID PO Last administered on 11/08/17at 08: 54; Start 09/14/17 at 21:00 Non-Formulary Medication 40 mg DAILY PO ; Start 09/15/17 at 09:00; Status UNV Non-Formulary Medication 20 mg DAILY PO ; Start 09/15/17 at 09:00; Stop at 09:00; Status DC Fluoxetine HCl (PROzac) 40 mg DAILY PO Last administered on 11/08/17at 08:54; Start 09/15/17 at 09:00 Thiamine HCl (Vitamin B1) 100 mg ONCE ONCE PO Last administered on 09/29/17at 13 :19; Start 09/29/17 at 12:00; Stop 09/29/17 at 12:01; Status DC Thiamine HCl (Vitamin B1) 100 mg DAILY PO Last administered on 11/08/17at 08:54 ; Start 09/30/17 at 09:00 Vancomycin HCl 1000 mg/Sodium Chloride 250 ml @ 250 mls/hr Q12H IV Last administered on 10/05/17at 08:40; Start 10/03/17 at 20:00; Stop 10/05/17 at 09:09 ; Status DC Pharmacy Profile Note 0 ml @ 0 mls/hr UNSCH OTHER ; Start 10/03/17 at 19:15; Stop 10/12/17 at 10:09; Status DC Piperacillin Sod/ Tazobactam Sod 100 ml @ 200 mls/hr Q8H IV Last administered on 10/05/17at 05:00; Start 10/03/17 at 20:00; Stop 10/05/17 at 11:00; Status DC Miscellaneous Information SPECIFIC LAB TO BE DRAWN:[facility]CO TROUGH DATE TO BE [facility].. ONCE ONCE .XX Last administered on 10/05/17at 07:39; Start 10/05/17 at 07 :45; Stop 10/05/17 at 07:46; Status DC Vancomycin HCl 1500 mg/Sodium Chloride 515 ml @ 257.5 mls/ hr Q12H IV Last administered on 10/12/17at 07:41; Start 10/05/17 at 20:00; Stop 10/12/17 at 10:09 ; Status DC Miscellaneous Information SPECIFIC LAB TO BE DRAWN:VANCO TROUGH DATE TO... ONCE ONCE .XX Last administered on 10/07/17at 08:05; Start 10/07/17 at 07:45; Stop 10/07/17 at 07:46; Status DC Levofloxacin (Levaquin) 750 mg DAILY PO Last administered on 10/25/17at 08:28; Start 10/05/17 at 11:00; Stop 10/25/17 at 23:00; Status DC Gentamicin Sulfate (Gentamicin Inj) 240 mg STK-MED ONCE .ROUTE Last administered on 10/07/17at 13:05; Start 10/07/17 at 12:05; Stop 10/07/17 at 12:06 ; Status DC Sodium Chloride (NS Flush) 2 ml UNSCH PRN IV FLUSH FLUSH AFTER USING IV ACCESS ; Start 10/07/17 at 12:30 Sodium Chloride (NS Flush) 2 ml BID IV FLUSH Last administered on 10/29/17at 09: 00; Start 10/07/17 at 21:00 Cefazolin Sodium 1000 mg/Sodium Chloride 100 ml @ 200 mls/hr Q6H IV Last administered on 10/08/17at 05:59; Start 10/07/17 at 17:00; Stop 10/08/17 at 05:29 ; Status DC Miscellaneous Information (Post-op Orders (for Pharmacy)) STAT ONCE XX ; Start 10/07/17 at 12:30; Stop 10/07/17 at 16:28; Status DC Enoxaparin Sodium (Lovenox Inj) 30 mg Q12H SQ Last administered on 10/29/17at 01: 26; Start 10/08/17 at 01:00; Stop 10/29/17 at 14:56; Status DC Morphine Sulfate (Morphine Inj) 5 mg Q3H PRN IV PUSH Pain >7 when off TRANSPORTATION CLERK; Start 10/07/17 at 12:30; Stop 11/04/17 at 09:11; Status DC Oxycodone/ Acetaminophen (Percocet 5-325 Mg) 1 tab Q4H PRN PO PAIN LESS THAN 5 ON SCALE Last administered on 10/28/17 08:16; Start 10/07/17 at 12:30; Stop at 12:45; Status DC Promethazine HCl (Phenergan) 25 mg Q4H PRN PO NAUSEA OR VOMITING Last administered on 11/07/17 17:22; Start 10/07/17 at 12:30 Promethazine HCl (Phenergan Supp) 25 mg Q4H PRN RECTAL NAUSEA OR VOMITING Last administered on 10/30/17 15:42; Start 10/07/17 at 12:30 Zolpidem Tartrate (Ambien) 5 mg HS PRN PO SLEEP Last administered on 10/24/17 21:32; Start 10/07/17 at 12:30 Senna/Docusate Sodium (Vicky-Colace) 1 tab BID PO Last administered on 08:54; Start 10/07/17 at 21:00 Magnesium Hydroxide (Milk Of Magnesia Liq) 30 ml Q12H PRN PO Mild constipation Last administered on 10/29/17 21:06; Start 10/07/17 at 12:30 Sennosides (Senokot) 17.2 mg Q12H PRN PO Moderate constipation Last administered on 10/23/17 05:33; Start 10/07/17 at 12:30 Bisacodyl (Dulcolax Supp) 10 mg DAILY PRN RECTAL SEVERE CONSITIPATION Last administered on 10/18/17 12:51; Start 10/07/17 at 12:30 Lactulose (Lactulose Liq) 30 ml DAILY PRN PO SEVERE CONSITIPATION Last administered on 10/23/17 05:34; Start 10/07/17 at 12:30 Midazolam HCl (Versed Inj) 2 mg STK-MED ONCE .ROUTE ; Start 10/07/17 at 13:41; Stop 10/07/17 at 13:42; Status DC Fentanyl Citrate (fentaNYL INJ) 100 mcg STK-MED ONCE .ROUTE ; Start 10/07/17 at 13:41; Stop 10/07/17 at 13:42; Status DC Morphine Sulfate (*morphine INJ PERIprocedure ONLY) 4 mg STK-MED ONCE .ROUTE Last administered on 10/07/17at 13:42; Start 10/07/17 at 13:42; Stop 10/07/17 at 13:43; Status DC Ondansetron HCl (*ZOFRAN INJ PERIprocedural ONLY) 4 mg STK-MED ONCE .ROUTE ; Start 10/07/17 at 14:02; Stop 10/07/17 at 14:03; Status DC Miscellaneous Information ALL NURSING DEPARTME... UNSCH PRN .XX SEE LABEL COMMENTS; Start 10/07/17 at 13:35; Stop 10/08/17 at 13:48; Status DC Lidocaine HCl (Xylocaine-Mpf 1% Inj) 5 ml STK-MED ONCE OTHER ; Start 10/07/17 at 12:00; Stop 10/08/17 at 14:59; Status DC Rocuronium Hiller (Zemuron Inj) 50 mg STK-MED ONCE IV PUSH ; Start 10/07/17 at 12:00; Stop 10/08/17 at 14:59; Status DC Phenylephrine HCl (Neosynephrine/ NS 1000 Mcg/10ml Syr) 1,000 mcg STK-MED ONCE IV ; Start 10/07/17 at 12:00; Stop 10/08/17 at 14:59; Status DC Ephedrine Sulfate (ePHEDrine/NS 25 MG/5 ML SYR) 25 mg STK-MED ONCE IV ; Start at 12:00; Stop 10/08/17 at 14:59; Status DC Succinylcholine Chloride (Quelicin Inj) 200 mg STK-MED ONCE IV ; Start 10/07/17 at 12:00; Stop 10/08/17 at 14:59; Status DC Ketorolac Tromethamine (Toradol Inj) 30 mg STK-MED ONCE IV PUSH ; Start at 12:00; Stop 10/08/17 at 14:59; Status DC Dexamethasone Sodium Phosphate (Decadron Inj) 4 mg STK-MED ONCE IV ; Start 10/07 at 12:00; Stop 10/08/17 at 14:59; Status DC Ondansetron HCl (Zofran Inj) 4 mg STK-MED ONCE IV ; Start 10/07/17 at 12:00; Stop 10/08/17 at 14:59; Status DC Propofol (Diprivan 200 Mg/20 ml Inj) 200 mg STK-MED ONCE IV ; Start 10/07/17 at 12:00; Stop 10/08/17 at 14:59; Status DC Clindamycin HCl (Cleocin) 300 mg Q6HR PO Last administered on 10/25/17at 17:47; Start 10/12/17 at 12:00; Stop 10/25/17 at 23:00; Status DC Ibuprofen (Motrin) 600 mg Q6H PRN PO PAIN SCALE 1 TO 10 Last administered on at 17:22; Start 10/28/17 at 12:45 Pantoprazole Sodium (Protonix) 40 mg DAILY PO Last administered on 11/08/17at 08 :54; Start 10/28/17 at 13:00 Enoxaparin Sodium (Lovenox Inj) 30 mg DAILY SQ Last administered on 11/08/17at 08:54; Start 10/30/17 at 09:00 A/P Problem List: (1) Closed right hip fracture ICD Code: S72.001A - Fracture of unspecified part of neck of right femur, initial encounter for closed fracture Status: Acute (2) SIRS (systemic inflammatory response syndrome) ICD Code: R65.10 - Systemic inflammatory response syndrome (SIRS) of non- infectious origin without acute organ dysfunction (3) Encephalopathy acute ICD Code: G93.40 - Encephalopathy, unspecified Status: Acute Assessment and Plan 62-year-old pleasant male who was admitted to the hospital after a fall. He sustained a right hip fracture. He underwent intramedullary rob fixation on . He has been a difficult placement. Suspected HCAP vs aspiration PNA - Evaluated by ID - Completed Course of Clinda and Levaquin, discontinued on 10/25/17 - Patient stable on room air, Resolved. Right hip fracture - S/p intramedullary rob fixation on 09/13 - S/p Right thigh wound irrigation and debridement 10/07/17 - Ibuprofen prn pain - On Lovenox while in hospital, can be discontinued at discharge - Continue with physical therapy. PT recommends SNF which might be difficult to arrange due to lack of insurance. Alcohol abuse -not in alcohol withdrawal -continue CIWA protocol, thiamine, folic acid. Depression: Chronic. Continue patient's Prozac GERD/Nausea -Continue home medications PPI. -Continue Zofran prn Full code. Lovenox 30mg sq TO GO WITH FAMILY TOMORROW PER CM AND RN AND PT Discharge Planning Case management looking safe placement--family supposedly to come get him on Thursday Problem Qualifiers (1) Closed right hip fracture: Qualified Codes: S72.001A - Fracture of unspecified part of neck of right femur , initial encounter for closed fracture Haja Baig DO Nov 08, 2017 10:49
[2017-11-08 20:00] VITALS: BP 115/70; PULSE 58; RESP 20; TEMP 98.3; O2SAT 97
[2017-11-09 08:00] VITALS: BP 149/87; PULSE 59; RESP 18; TEMP 96.8; O2SAT 99
[2017-11-09] MEDS: ENOXAPARIN SODIUM 30 MG/0.3 ML SYRINGE SQ SCH (09:00)
[2017-11-09] MEDS: SODIUM CHLORIDE 0.9% FLUSH 10 ML FLUSH IV FLUSH SCH (09:00)
[2017-11-09] MEDS: BENZTROPINE MESYLATE 1 MG TAB PO SCH (10:14)
[2017-11-09] MEDS: FLUoxetine HCL 20 MG CAP PO SCH (10:14)
[2017-11-09] MEDS: DOCUSATE SODIUM 50 MG/SENNA 8.6 MG TAB PO SCH (10:14)
[2017-11-09] MEDS: PROMETHAZINE HCL 25 MG TAB PO PRN (10:14)
[2017-11-09] MEDS: THIAMINE HCL 100 MG TAB PO SCH (10:14)
[2017-11-09] MEDS: PANTOPRAZOLE SOD 40 MG DELAYED RELEASE TAB PO SCH (10:15)
--- NOTE | 2017-11-09 16:49 | HHI.DS ---
Discharge Summary Admission Date Sep 12, 2017 at 23:11 Discharge Date: Nov 09, 2017 Admitting Diagnosis right hip fracture, intoxication, fall (1) Closed right hip fracture ICD Code: S72.001A - Fracture of unspecified part of neck of right femur, initial encounter for closed fracture Status: Acute (2) SIRS (systemic inflammatory response syndrome) ICD Code: R65.10 - Systemic inflammatory response syndrome (SIRS) of non- infectious origin without acute organ dysfunction (3) Encephalopathy acute ICD Code: G93.40 - Encephalopathy, unspecified Status: Acute Procedures 09/13/17 Right hip intramedullary rob fixation 10/07/17 Right thigh wound irrigation and debridement Brief History - From Admission Mr. Dove is a pleasant 62-year-old male with a history of COPD, bipolar disorder, alcohol abuse who presents to the emergency department on 09/12/2017 after a trip and fall. Patient was drinking in the evening on the day of admission. He denies any chest pain, shortness of breath, fever or chills. No changes in bowel or bladder habits. Imaging studies indicated right femoral intertrochanteric fracture. Patient was evaluated by orthopedic surgery and patient underwent surgical intervention on 09/13/2017. Imaging Last Impressions Hip X-Ray 10/16/17 0000 Signed Impressions: Service Date/Time: Monday, October 16, 2017 19:57 - CONCLUSION: 1. Stable right femoral fracture intramedullary rob and compression screw fixation. No evidence for hardware failure or acute fracture. Sahil Gregorio MD Lower Extremity Ultrasound 10/04/17 0000 Signed Impressions: Service Date/Time: Wednesday, October 04, 2017 17:10 - CONCLUSION: Negative for deep venous thrombosis bilateral lower extremity. Elgin Willard MD Chest X-Ray 10/04/17 0000 Signed Impressions: Service Date/Time: Wednesday, October 04, 2017 16:22 - CONCLUSION: Hyperaerated lungs. No focal infiltrates seen. Elgin Willard MD Thoracic Spine X-Ray 09/12/172052 Signed Impressions: Service Date/Time: Tuesday, September 12, 2017 22:42 - CONCLUSION: 1. Limited AP view of the thoracic spine demonstrates no gross fracture or subluxation. Sahil Gregorio MD Hip and Pelvis X-Ray 09/12/172052 Signed Impressions: Service Date/Time: Tuesday, September 12, 2017 22:38 - CONCLUSION: 1. Right femoral intertrochanteric fracture. Sahil Gregorio MD Cervical Spine X-Ray 09/12/172052 Signed Impressions: Service Date/Time: Tuesday, September 12, 2017 22:43 - CONCLUSION: 1. Limited lateral examination with nonvisualization of C7-T1. 2. Otherwise, no acute fracture or subluxation. 3. Degenerative spondylosis of the lower cervical spine. Sahil Gregorio MD PE at Discharge GENERAL: Well-nourished, well-developed pleasant male patient in NAD. Sitting up in bed. Awake and alert. SKIN: Warm and dry. No rash. HEENT: Normocephalic. EOMI. Sclera anicteric Mucous membranes pink and moist. Tongue is deviating to the right oral mucosa is moist No JVD no thyromegaly neck is supple CARDIOVASCULAR: Regular rate and rhythm. No murmur appreciated. S1-S2 no S3-S4 RESPIRATORY: No accessory muscle use. Clear to auscultation. Breath sounds equal bilaterally. GASTROINTESTINAL: Abdomen soft, non-tender, nondistended. Normoactive bowel sounds x4. MUSCULOSKELETAL: No obvious deformities. Extremities without clubbing, cyanosis , or edema. NEUROLOGICAL: Awake and alert. No obvious cranial nerve deficits. Motor grossly within normal limits. Normal speech. PSYCHIATRIC: Appropriate mood and affect; insight and judgment normal. Hospital Course Patient found to have right hip fracture. Underwent intramedullary rob fixation. Prolonged recovery with physical therapy due to pre-existing generalized weakness and chronic alcoholism. Patient was also treated for alcohol withdrawal, weaned off benzodiazepines. Patient is also treated for possible pneumonia on admission, however this resolved. Patient eventually was discharged home with family Around a summary from most recent progress note, please see below. 62-year-old pleasant male who was admitted to the hospital after a fall. He sustained a right hip fracture. He underwent intramedullary rob fixation on . He has been a difficult placement. Suspected HCAP vs aspiration PNA - Evaluated by ID - Completed Course of Clinda and Levaquin, discontinued on 10/25/17 - Patient stable on room air, Resolved. Right hip fracture - S/p intramedullary rob fixation on 09/13 - S/p Right thigh wound irrigation and debridement 10/07/17 - Ibuprofen prn pain - On Lovenox while in hospital, can be discontinued at discharge - Continue with physical therapy. PT recommends SNF which might be difficult to arrange due to lack of insurance. Alcohol abuse -not in alcohol withdrawal -continue CIWA protocol, thiamine, folic acid. Depression: Chronic. Continue patient's Prozac GERD/Nausea -Continue home medications PPI. -Continue Zofran prn Full code. Lovenox 30mg sq TO GO WITH FAMILY TOMORROW PER CM AND RN AND PT Pt Condition on Discharge: Good Discharge Disposition: Disch w/ Home Health Serv Discharge Time: > 30 minutes Discharge Instructions DIET: Follow Instructions for: As Tolerated, No Restrictions Activities you can perform: Weight Bearing as Danis Follow up Referrals: Appointment for Follow Up @ [facility] with VIKRAM PCP Follow-up - 2 Weeks New Medications: Cane/Aluminum/Adjustable (Cane/Aluminum/Adjustable) 1 Mis Mis EA .XX DIRECTED, #1 Walker with Front Wheels (Walker with Front Wheels) 1 Mis Mis EA .XX DIRECTED, #1 0 Refills Promethazine (Phenergan) 25 Mg Tablet 12.5 MG PO Q4H PRN for NAUSEA OR VOMITING, #30 TAB 0 Refills Thiamine HCl (Gnp Vitamin B-1) 100 Mg Tab 100 MG PO DAILY for Nutritional Supplement, #30 TAB Continued Medications: Benztropine (Benztropine) 0.5 Mg Tab 0.5 MG PO BID, #60 TAB 0 Refills Fluoxetine (Prozac) 40 Mg Cap 40 MG PO DAILY, #30 CAP 0 Refills Hydroxyzine Pamoate (Vistaril) 50 Mg Cap 50 MG PO BID, CAP 0 Refills Ibuprofen (Ibuprofen) 800 Mg Tab 800 MG PO TID for Arthritis Pain, TAB 0 Refills Omeprazole (Omeprazole) 20 Mg Tab 20 MG PO DAILY, #30 TAB 0 Refills Raoul Ordaz MD Nov 09, 2017 16:49
== END 2017-11-09 11:40 | disposition home or self-care (01) | DRG 480 ==
LOC: NEPD 20:25 → NEDA 23:11 → N06B 09-13 00:18 → N06A 09-17 17:50
PROVIDERS: ADMIT Internal Medicine; ATTEND Internal Medicine
PROC: 0QS606Z Reposition Right Upper Femur with Intramedullary Internal Fixation Device, Open Approach (ICD-10-PCS; principal; 2017-09-13 12:42)
PROC: 0JDL3ZZ Extraction of Right Upper Leg Subcutaneous Tissue and Fascia, Percutaneous Approach (ICD-10-PCS; 2017-10-07)
DX: S72.141A Displaced intertrochanteric fracture of right femur, initial encounter for closed fracture (principal); G93.41 Metabolic encephalopathy; J18.9 Pneumonia, unspecified organism; B15.9 Hepatitis A without hepatic coma; F10.239 Alcohol dependence with withdrawal, unspecified; L03.90 Cellulitis, unspecified; F25.9 Schizoaffective disorder, unspecified; J44.9 Chronic obstructive pulmonary disease, unspecified; W01.0XXA Fall on same level from slipping, tripping and stumbling without subsequent striking against object, initial encounter; Y93.9 Activity, unspecified; Y92.9 Unspecified place or not applicable; Y99.9 Unspecified external cause status; F10.229 Alcohol dependence with intoxication, unspecified; Y90.4 Blood alcohol level of 80-99 mg/100 ml; F31.9 Bipolar disorder, unspecified; Z80.1 Family history of malignant neoplasm of trachea, bronchus and lung; Z87.891 Personal history of nicotine dependence; K21.9 Gastro-esophageal reflux disease without esophagitis; K59.00 Constipation, unspecified; D64.9 Anemia, unspecified; K76.9 Liver disease, unspecified; R11.0 Nausea
CPT/HCPCS: 71045; 72020; 72040; 73502; 76000; 80048; 80053; 80202; 80307; 81001; 82565; 82607; 82728; 83540; 83550; 83735; 84100; 85025; 85610; 85652; 85730; 86140; 86403; 86850; 86900; 86901; 87015; 87040; 87070; 87102; 87116; 87147; 87186; 87205; 87206; 93005; 93970; 94150; C1713; J0330; J0690; J1100; J1580; J1650; J1885; J2250; J2270; J2370; J2405; J2543; J3010; J3370; J7040; J7050; J7120; L1960; Q0169

== ENCOUNTER 2017-11-18 16:18 | Inpatient (IN) | payer SELFPAY ==
[~2017-11-18] VITALS: Ht 182.9 cm; Wt 67.1 kg
[~2017-11-18 16:18] MED LIST changes: -ADVAI500I PO; -ALBU8I INH; +BENZ0.5T PO; -BENZ1TAB PO; +CANE/ALUMINUM/A1 MIS; -CLIN1CAP5 PO; -HYDR1CAP30 PO; +IBUP1TAB7 PO; -IBUP800T23 PO; -OMEP20CA5 PO; +OMEP20TA93 PO; -PARO40TA PO; -PERP8TAB7 PO; +PROM25TA10 PO; +PROZ40CA PO; +THIA100 PO; +VIST50CA PO; +WALKER WHEELS/F1 MIS
[2017-11-18 17:23] VITALS: BP 150/80; PULSE 98; RESP 16; TEMP 97.9; O2SAT 99
--- NOTE | 2017-11-18 18:06 | PD ---
HPI Chief Complaint: Pain: Acute or Chronic Time Seen by Provider: 17:53 Travel History International Travel<30 days: No Contact w/Intl Traveler<30days: No Traveled to known affect area: No History of Present Illness HPI 62-year-old chronic alcoholic presents to the ED via EMS for evaluation of 3 day history of 10/10 right hip pain. Patient endorses history of hip fracture in early August with IM rodding. No new trauma since discharge 3 days ago. Denies fever, chills, nausea, vomiting, chest pain, palpitations, shortness of breath. He is ambulatory at home on a walker. PFSH Past Medical History Asthma: Yes Blood Disorders: Yes (hep a) Depression: Yes Cancer: No Cardiovascular Problems: No COPD: Yes Endocrine: No GERD: Yes Genitourinary: No Musculoskeletal: No Neurologic: No Psychiatric: Yes Respiratory: Yes (copd) Integumentary: Yes (schizoeffective disorder) Immunizations Current: Yes Schizophrenia: Yes Past Surgical History Appendectomy: Yes Other Surgery: Yes (ing hernia) Social History Alcohol Use: Yes (DAILY) Tobacco Use: Yes (1/2 ppd) Substance Use: No Allergies-Medications (Allergen,Severity, Reaction): Coded Allergies: No Known Allergies (Unverified Allergy, Unknown, 11/18/17) Reported Meds & Prescriptions Reported Meds & Active Scripts Active Ibuprofen 600 Mg Tab 600 Mg PO Q8H PRN Gnp Vitamin B-1 (Thiamine HCl) 100 Mg Tab 100 Mg PO DAILY Phenergan (Promethazine HCl) 25 Mg Tablet 12.5 Mg PO Q4H PRN Walker with Front Wheels (Device) 1 Mis Mis Ea .XX DIRECTED Cane/Aluminum/Adjustable (Device) 1 Mis Mis Ea .XX DIRECTED Reported Ibuprofen 800 Mg Tab 800 Mg PO TID Benztropine (Benztropine Mesylate) 0.5 Mg Tab 0.5 Mg PO BID Omeprazole 20 Mg Tab 20 Mg PO DAILY Vistaril (Hydroxyzine Pamoate) 50 Mg Cap 50 Mg PO BID Prozac (Fluoxetine HCl) 40 Mg Cap 40 Mg PO DAILY Review of Systems Except as stated in HPI: all other systems reviewed are Neg Physical Exam Narrative GENERAL: Well-nourished, well-developed, foul-smelling, disheveled white male in no acute distress. SKIN: Focused skin assessment warm/dry. Surgical incisions of the right hip well-healed without signs of infection. HEAD: Normocephalic. EYES: No scleral icterus. No injection or drainage. NECK: Supple, trachea midline. No JVD or lymphadenopathy. CARDIOVASCULAR: Regular rate and rhythm without murmurs, gallops, or rubs. RESPIRATORY: Breath sounds equal bilaterally. No accessory muscle use. GASTROINTESTINAL: Abdomen soft, non-tender, nondistended. MUSCULOSKELETAL: No cyanosis, or edema. FOCUSED RIGHT LOWER EXTREMITY EXAM: 2+ DP pulse. No tenderness to palpation of the hip or length of the femur. Patient is able to wiggle the toes and flex and extend the knee. 5/5 strength of the LE muscle groups. Homans sign negative. Sensation intact to light touch distally. BACK: Nontender without obvious deformity. No CVA tenderness. Data Data Last Documented VS Vital Signs Date Time Temp Pulse Resp B/P (MAP) Pulse Ox O2 Delivery O2 Flow Rate FiO2 11/18/17 20:18 108 16 133/87 (102) 96 Room Air 11/18/17 17:23 97.9 Orders Orders Femur (Ap & Lat/2vws) (11/18/17 18:04) Acetamin-Hydrocod 325-5 Mg (Lowry 5-325 (11/18/17 18:15) Us Leg Venous Doppler (11/18/17 20:35) Psych Screen (11/18/17 21:34) MDM Medical Decision Making Medical Screen Exam Complete: Yes Emergency Medical Condition: Yes Differential Diagnosis Chronic pain versus drug seeking behavior versus malingering versus less likely DVT versus less likely wound infection versus other Narrative Course 62-year-old chronic alcoholic presents to the ED via EMS for evaluation of 3 day history of 10/10 right hip pain. Patient endorses history of hip fracture in early August with IM rodding. No new trauma since discharge 3 days ago. Denies fever, chills, nausea, vomiting, chest pain, palpitations, shortness of breath. He is ambulatory at home on a walker. Surgical incisions of the right hip are well healed without signs of infection. Focused right lower extremity exam reveals No tenderness to palpation over the anterolateral hip, 5/5 strength , Homans sign negative, neurovascular intact distally. Patient was administered 5 mg Lowry. X-ray of the hip reveals well-placed hardware from the ORIF area and no significant change identified from the prior postoperative study per radiology read. On recheck the patient is sleeping. At discharge patient states that he is unable to ambulate. I reviewed the patient's records , including PT notes that showed him fully weightbearing with walker and able to perform his exercises independently at discharge. Patient is again requesting pain medications. Ultrasound negative for DVT. Patient is now stating that he is suicidal. He is medically clear for psychiatric evaluation. Diagnosis Primary Impression: Right hip pain Referrals: Bon Boles Jr., MD Orthopedist Additional Instructions: Rest, hydrate. Resume ambulation with walker. Resume at home medications as previously prescribed. Take pain medications as prescribed. Follow-up with Dr. Ha. Return to the ED for worsening symptoms or any urgent or emergent medical condition. Med/Other Pt SpecificInfo: Prescription(s) given Scripts Ibuprofen (Ibuprofen) 600 Mg Tab 600 MG PO Q8H Y for PAIN, #15 TAB 0 Refills Prov: Alexi Rose MD 11/18/17 Disposition: 01 DISCHARGE HOME Condition: Stable Barbara Villa Nov 18, 2017 18:06
[2017-11-18] MEDS ORDERED: ACETAMINOPHEN/HYDROcodone 325 MG/5 MG TAB PO ONE (18:15)
--- NOTE | 2017-11-18 19:38 | RADRPT ---
EXAM DATE/TIME: 11/18/2017 19:04 [facility] COMPARISON: HIP RIGHT (AP&LAT 2/3VWS) W AP PELVIS, September 12, 2017, 22:38. HIP RIGHT (AP&LAT 2/3VWS) WO AP PELV IS, September 13, 2017, 13:43. HIP RIGHT (AP&LAT 2/3VWS) WO AP PELVIS, September 29, 2017, 13:27. HIP RIGHT (AP&LAT 2/3VWS) WO AP PELVIS, October 16, 2017, 19:57. INDICATIONS : Right hip pain with no history of trauma, but surgery right hip 10/16/17. MEDICAL HISTORY : Chronic obstructive pulmonary disease. Gastroesophageal reflux disease. SURGICAL HISTORY : Tonsillectomy. Appendectomy. lt hip prosthesis; orif rt hip ENCOUNTER: Initial ACUITY: 1 day PAIN SCORE: 9/10 LOCATION: Right hip FINDINGS: Again noted is surgical hardware with a short intramedullary rob and a compression screw in the right femoral neck. The hardware is well-placed. No new fracture is seen. The previously seen fracture can still faintly be seen. The right hip joint is normally aligned. CONCLUSION: Status post ORIF. The hardware is well-placed. No significant change is identified from the prior pos toperative study. Layo Orosco MD on November 18, 2017 at 19:34 Board Certified Radiologist. This report was verified electronically.
[2017-11-18] MEDS ORDERED: IBUP-232 PO (19:47)
[2017-11-18 20:18] VITALS: BP 133/87; PULSE 108; RESP 16; O2SAT 96
--- NOTE | 2017-11-18 22:07 | RADRPT ---
EXAM DATE/TIME: 11/18/2017 21:50 [facility] COMPARISON: No previous studies available for comparison. INDICATIONS : Right leg pain. MEDICAL HISTORY : Chronic obstructive pulmonary disease. Gastroesophageal reflux disease. Hepatitis A. Asthma. Schizoph kelechi. Inguinal hernia. SURGICAL HISTORY : Tonsillectomy.Appendectomy. Prosthetic left hip. ENCOUNTER: Subsequent ACUITY: 1 day PAIN SCORE: 3/10 LOCATION: Right leg. TECHNIQUE: Venous ultrasound of the leg was performed from the inguinal ligament to the proximal calf. Real-aarti e, color Doppler and spectral tracing, compression and augmentation techniques were used. FINDINGS: There is normal compressibility of the deep venous system from the inguinal region to the proximal ca lf. No echogenic clot is seen in the lumen of the common femoral, femoral, popliteal, and posterior tibial veins. There is a normal response of the venous system to proximal and distal augmentation an d respiration. CONCLUSION: No DVT. Layo Orosco MD on November 18, 2017 at 22:04 Board Certified Radiologist. This report was verified electronically.
[2017-11-19 07:44] VITALS: BP 165/94; PULSE 89; RESP 18; O2SAT 96
--- NOTE | 2017-11-19 12:47 | PD ---
History of Present Illness Chief Complaint: Pain: Acute or Chronic Time Seen by Provider: 12:15 Travel History International Travel<30 Days: No Contact w/Intl Traveler<30days: No Known affected area: No Legal Status Legal Status: Voluntary History of Present Illness: History of Present Illness HPI 62-year-old, single male with reported history of schizoaffective disorder and alcohol use disorder who presents to the ED presents to the ED via EMS for evaluation of 3 day history of 10/10 right hip pain. Patient was admitted to [facility] in August for treatment of a fall and subsequent hip fracture and was discharged on November 09. After patient was medically cleared and in the process of being discharge today he reported that he was feeling depressed and suicidal. A psychiatric evaluation was ordered. EMR reviewed. Patient has had several visits to the ED for alcohol related issues but has never been evaluated by the psychiatric department. Patient is seen. He is alert, oriented, exhibits appropriate hygiene and grooming. Affect is blunted. Decrease amount of eye contact. Irritable at times. Mood is described as depressed. Speech is clear, logical and of normal rate and tone. Patient does not appear to be internally stimulated and denies any hallucinations. I can elicit no delusions or paranoia. Patient continues to report suicidal ideation with intent of jumping in front of a train and goes on to tell me that [place] to the train tracks. He reports that for the last week he has been feeling increasingly depressed and hopeless due to his continued pain and his inability to get around like he used to. He is currently medicated with Prozac 40 mg and reports that he is medication compliant. He states that he is sleeping fair, interrupted due to pain. Adequate appetite. PFSH Past Medical History Asthma: Yes Blood Disorders: Yes (hep a) Depression: Yes Cancer: No Cardiovascular Problems: No COPD: Yes Endocrine: No GERD: Yes Genitourinary: No Musculoskeletal: No Neurologic: No Psychiatric: Yes Respiratory: Yes (copd) Integumentary: Yes (schizoeffective disorder) Immunizations Current: Yes Schizophrenia: Yes Past Surgical History Appendectomy: Yes Other Surgery: Yes (ing hernia) Psychiatric History Psychiatric History Hx Psychiatric Treatment: Reports he attempted suicide in 1989 by taking alcohol and pills. States he was at [facility] for 7 months and discharged in March. Claims he began to experience hallucinations, depression and panic attacks at age 13. History of Inpatient Treatment: Yes ([facility] in 2017. Reports first inpatient admission in his 20s after a suicide attempt) Guns or firearms in home: No Social History Single male who [place]. 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 Currently applying for disability. Hx Alcohol Use: Yes (DAILY) Hx Tobacco Use: Yes (1/2 ppd) Hx Substance Use: No Substance Use Type: Alcohol (Reports has a long history of alcohol abuse. His longest sobriety was while he was in the hospital earlier in the month.) Hx of Substance Use Treatment: Yes Family Psychiatric History None reported Allergies-Medications (Allergen,Severity, Reaction): Coded Allergies: No Known Allergies (Unverified Allergy, Unknown, 11/18/17) Reported Meds & Prescriptions Reported Meds & Active Scripts Active Ibuprofen 600 Mg Tab 600 Mg PO Q8H PRN Gnp Vitamin B-1 (Thiamine HCl) 100 Mg Tab 100 Mg PO DAILY Phenergan (Promethazine HCl) 25 Mg Tablet 12.5 Mg PO Q4H PRN Walker with Front Wheels (Device) 1 Mis Mis Ea .XX DIRECTED Cane/Aluminum/Adjustable (Device) 1 Mis Mis Ea .XX DIRECTED Reported Ibuprofen 800 Mg Tab 800 Mg PO TID Benztropine (Benztropine Mesylate) 0.5 Mg Tab 0.5 Mg PO BID Omeprazole 20 Mg Tab 20 Mg PO DAILY Vistaril (Hydroxyzine Pamoate) 50 Mg Cap 50 Mg PO BID Prozac (Fluoxetine HCl) 40 Mg Cap 40 Mg PO DAILY Review of Systems Musculoskeletal: COMPLAINS OF: Joint pain Psychiatric: COMPLAINS OF: Depression, Suicidal Ideation Mental Status Examination Appearance: Appropriate Consciousness: Alert Orientation: x4 Motor Activity: Other (Uses a walker due to recent hip surgery) Speech: Unremarkable Language: Adequate Fund of Knowledge: Adequate Attention and Concentration: Adequate Memory: Unremarkable Mood: Sad, Irritable Affect: Blunt Thought Process & Associations: Intact, Logical, Goal directed Thought Content: Appropriate Hallucination Type: None Delusion Type: None Suicidal Ideation: Yes Suicidal Plan: Yes Suicidal Intention: No Homicidal Ideation: No Homicidal Plan: No Homicidal Intention: No Insight: Fair Judgment: Impulsive MDM Medical Decision Making Medical Record Reviewed: Yes Assessment/Plan 62-year-old male with reported history of schizoaffective disorder, alcohol use disorder, who originally presented to the ED for evaluation of pain related to recent hip injury. After being medically cleared and during the process of discharge he then reported suicidal ideation and depression and a psychiatric evaluation was ordered. The patient reports feeling increasingly depressed in the past week with hopelessness as well as with suicidal ideation with plan of lying on the train tracks. The patient has made no attempt to harm himself. Patient continues to report that his depression is related or exacerbated by his continued pain. He is unable to contract for safety, has little community or family support at this time. Although he may be reporting feeling increasingly depressed and suicidal for purposes of obtaining further pain medication, or even bolstering a Social Security application it is felt by this clinician that he is at risk to act on his suicidal ideation due to continued pain, poor coping, inability to do the things that he wants to do, lack of support in the community as well as his recent forced sobriety due to hospitalization. Therefore an inpatient psychiatric admission is recommended for further observation, for stabilization, and to maintain safety. Orders Orders Femur (Ap & Lat/2vws) (11/18/17 18:04) Acetamin-Hydrocod 325-5 Mg ([place] 5-325 (11/18/17 18:15) Us Leg Venous Doppler (11/18/17 20:35) Psych Screen (11/18/17 21:34) Diet Regular Basic (11/19/17 Breakfast) Results Vital Signs Date Time Temp Pulse Resp B/P (MAP) Pulse Ox O2 Delivery O2 Flow Rate FiO2 11/19/17 07:44 89 18 165/94 (117) 96 Room Air 11/18/17 20:18 108 16 133/87 (102) 96 Room Air 11/18/17 17:23 97.9 98 16 150/80 (103) 99 Diagnosis Primary Impression: Right hip pain Additional Impressions: Adjustment disorder Schizoaffective disorder Admitting Information Admitting Physician Requests: Admit Referrals: Bon Boles Jr., MD Orthopedist Departure Forms: Tests/Procedures Patient Instructions: General Instructions Additional Instructions: Rest, hydrate. Resume ambulation with walker. Resume at home medications as previously prescribed. Take pain medications as prescribed. Follow-up with Dr. Ha. Return to the ED for worsening symptoms or any urgent or emergent medical condition. Prescriptions Ibuprofen (Ibuprofen) 600 Mg Tab 600 MG PO Q8H Y for PAIN, #15 TAB 0 Refills Prov: Alexi Rose MD 11/18/17 Disposition: 01 DISCHARGE HOME Condition: Stable Problem Qualifiers Additional Impressions: Adjustment disorder Qualified Codes: F43.21 - Adjustment disorder with depressed mood Schizoaffective disorder Qualified Codes: F25.1 - Schizoaffective disorder, depressive type Josselyn Torres Nov 19, 2017 12:47
[2017-11-19] MEDS ORDERED: MAGNESIUM HYDROXIDE SUSP 30 ML CUP PO PRN (13:00)
[2017-11-19] MEDS ORDERED: ALUMINUM/MAGNESIUM/SIMETH 30 ML CUP PO PRN (13:00)
[2017-11-19 13:30] VITALS: BP 160/80; PULSE 81; RESP 22; TEMP 98.4; O2SAT 98
[2017-11-19 13:31] VITALS: BP 160/88; PULSE 83; RESP 18; O2SAT 97
[2017-11-19] MEDS: ACETAMINOPHEN 325 MG TAB PO PRN ×2 (15:42→19:43)
[2017-11-19 16:00] VITALS: BP 157/90; PULSE 92; RESP 18; TEMP 98.2; O2SAT 98
[2017-11-19 18:28] VITALS: BP 131/70; PULSE 114; RESP 20; TEMP 98.5; O2SAT 95
[2017-11-19] MEDS ORDERED: PROMETHAZINE HCL 25 MG TAB PO PRN (20:30)
[2017-11-19] MEDS ORDERED: ACETAMINOPHEN/HYDROcodone 325 MG/5 MG TAB PO ONE (20:30)
[2017-11-19] MEDS ORDERED: PILL SPLITTER OTHER PRN (21:00)
[2017-11-19] MEDS: FLUoxetine HCL 20 MG CAP PO SCH (21:00)
[2017-11-19] MEDS: BENZTROPINE MESYLATE 1 MG TAB PO SCH (21:03)
[2017-11-19] MEDS: PANTOPRAZOLE SOD 20 MG DELAYED RELEASE TAB PO SCH (21:03)
[2017-11-19] MEDS: IBUPROFEN 600 MG TAB PO PRN (21:03)
[2017-11-19] MEDS: THIAMINE HCL 100 MG TAB PO SCH (21:03)
[2017-11-20 06:00] VITALS: BP 140/86; PULSE 73; RESP 16; TEMP 97.4; O2SAT 98
--- NOTE | 2017-11-20 09:32 | HHI.HP ---
Provisional Diagnosis Admission Date Nov 19, 2017 at 12:54 [place] I. Schizoaffective disorder, depressive type, alcohol use disorder [place] II. Unspecified personality disorder, rule out antisocial [place] III. COPD, recent hip replacement [place] IV. Family and social support [place] V. 50 Certification of Person's Competence To Provide Express and Informed Consent I have personally examined Dexter Dove , a person being served at [facility] on, Nov 20, 2017 09:16. Express and informed consent means consent voluntarily given in writing, by a competent person, after sufficient explanation and disclosure of the subject matter involved to enable the person to make a knowing and willful decision without any element of force, fraud, deceit, duress, or other form of constraint or coercion. This person is 18 years of age or older, is not now known to be incompetent to consent to treatment with a guardian advocate, and does not have a health care surrogate or proxy currently making medical treatment decisions. I have found this person to be one of the following: [x] Competent to provide express and informed consent, as defined above, for voluntary admission to this facility and is competent to provide express and informed consent for treatment. He/she has the consistent capacity to make well reasoned, willful, and knowing decisions concerning his or her medical or mental health treatment. The person fully and consistently understands the purpose of the admission for examination/placement and is fully capable of personally exercising all rights assured under [place] Incompetent to provide express and informed consent to voluntary admission, and this is incompetent to provide express and informed consent to treatment. The person must be transferred to involuntary status and a petition for a guardian advocate filed with the Circuit Court. [] Refusing to provide express and informed consent to voluntary admission but is competent to provide express and informed consent for treatment. The person must be discharged or transferred to involuntary status. Form shall be completed within 24 hours of a person's arrival at the receiving facility and filed in the clinical record of each person: 1. Admitted on a voluntary basis 2. Permitted to provide express and informed consent to his/her own treatment 3. Allowed to transfer from involuntary to voluntary status 4. Prior to permitting a person to consent to his or her own treatment after having been previously found incompetent to consent to treatment. History of Present Illness Capacity: Has Capacity HPI The patient is 62-year-old man, , domiciled alone, unemployed , on SSI process, with self-reported I cannot history of schizoaffective disorder and alcohol use disorder, for previous psychiatric hospitalizations, his last hospitalization was in March 2017 in [place], outpatient psychiatric care in [facility], he is on Prozac 40 mg, Vistaril 25 mg 3 times daily, multiple suicidal attempts, also history of self cutting behavior without SI, poor impulse control, multiple incarcerations, medical history of COPD, recent hip replacement, who presented yesterday to the ED presents via EMS for evaluation of 3 day history of 10/10 right hip pain. Patient was admitted to [facility] in August for treatment of a fall and subsequent hip fracture and was discharged on November 09. After patient was medically cleared and in the process of being discharge today he reported that he was feeling depressed and suicidal. A psychiatric evaluation was ordered. The patient was seen initially by Ms. Josselyn Torres, he was deemed for psychiatric admission: "Patient is seen. He is alert, oriented, exhibits appropriate hygiene and grooming. Affect is blunted. Decrease amount of eye contact. Irritable at times. Mood is described as depressed. Speech is clear, logical and of normal rate and tone. Patient does not appear to be internally stimulated and denies any hallucinations. I can elicit no delusions or paranoia. Patient continues to report suicidal ideation with intent of jumping in front of a train and goes on to tell me that he lives very close by to the train tracks. He reports that for the last week he has been feeling increasingly depressed and hopeless due to his continued pain and his inability to get around like he used to. He is currently medicated with Prozac 40 mg and reports that he is medication compliant. He states that he is sleeping fair, interrupted due to pain. Adequate appetite". Today in my psychiatric evaluation along with nursing charge Lillian and occupational therapist Jonatan the patient is calm, cooperative and pleasant. The patient reports that yesterday he was desperate on pain, feeling very hopeless, helpless, and he did state multiple times that he preferred to be . Today "with my pain under control, and feeling safe in this environment, I have to admit I feel much better". Patient reports that he has been living in [facility] and deplorable condition for many years, he has applied to SSI 2 times and he is now in his third appeal. He has poor family and social support. Is difficult to find a job for him due to his history of incarcerations." For this reason I am chronically depressed and persisted and thinking that I should kill myself". The patient reports that he has being in treatment of depression and anxiety successfully with Prozac 40 mg and Vistaril 25 mg twice daily every 3 months in [facility]. He denies the use of illegal drugs, he reports daily use of alcohol, 2-3 beers per day.. Review of Systems Constitutional: DENIES: Diaphoretic episodes, Fatigue, Fever, Weight gain, Weight loss, Chills, Dizziness, Change in appetite, Night Sweats Endocrine: DENIES: Heat/cold intolerance, Polydipsia, Polyuria, Polyphagia Eyes: DENIES: Blurred vision, Diplopia, Eye inflammation, Eye pain, Vision loss , Photosensitivity, Double Vision Ears, nose, mouth, throat: DENIES: Tinnitus, Hearing loss, Vertigo, Nasal discharge, Oral lesions, Throat pain, Hoarseness, Ear Pain, Running Nose, Epistaxis, Sinus Pain, Toothache, Odynophagia Respiratory: DENIES: Apneas, Cough, Snoring, Wheezing, Hemoptysis, Sputum production, Shortness of breath Cardiovascular: DENIES: Chest pain, Palpitations, Syncope, Dyspnea on Exertion , PND, Lower Extremity Edema, Orthopnea, Claudication Gastrointestinal: DENIES: Abdominal pain, Black stools, Bloody stools, Constipation, Diarrhea, Nausea, Vomiting, Difficulty Swallowing, Anorexia Genitourinary: DENIES: Sexual dysfunction, Urinary frequency, Urinary incontinence, Urgency, Hematuria, Dysuria, Nocturia, Penile Discharge, Testicular Pain, Testicular Swelling Musculoskeletal: DENIES: Joint pain, Muscle aches, Stiffness, Joint Swelling, Back pain, Neck pain Integumentary: DENIES: Abnormal pigmentation, Nail changes, Pruritus, Rash Hematologic/lymphatic: DENIES: Bruising, Lymphadenopathy Immunologic/allergic: DENIES: Eczema, Urticaria Neurologic: DENIES: Abnormal gait, Headache, Localized weakness, Paresthesias, Seizures, Speech Problems, Tremor, Poor Balance Psychiatric: COMPLAINS OF: Depression, Suicidal Ideation, DENIES: Anxiety, Confusion, Mood changes, Hallucinations, Agitation, Homicidal Ideation, Delusions Past Psych History Violence risk - self (6 mos) Increased Substance Abuse History Drugs/Alcohol past 12 months 2-3 beers per day Past Family Social History Coded Allergies: No Known Allergies (Unverified Allergy, Unknown, 11/18/17) Active Scripts Ibuprofen (Ibuprofen) 600 Mg Tab, 600 MG PO Q8H Y for PAIN, #15 TAB 0 Refills Prov:Alexi Rose MD 11/18/17 Thiamine HCl (Gnp Vitamin B-1) 100 Mg Tab, 100 MG PO DAILY for Nutritional Supplement, #30 TAB Prov:Rafal Ramirez MD 11/02/17 Promethazine (Phenergan) 25 Mg Tablet, 12.5 MG PO Q4H Y for NAUSEA OR VOMITING, #30 TAB 0 Refills Prov:Rafal Ramirez MD 11/02/17 Walker with Front Wheels (Walker with Front Wheels) 1 Mis Mis, EA .XX DIRECTED, #1 0 Refills Prov:Raoul Ordaz MD 10/01/17 Cane/Aluminum/Adjustable (Cane/Aluminum/Adjustable) 1 Mis Suri EA .XX DIRECTED, #1 Prov:Raoul Ordaz MD 10/01/17 Reported Medications Ibuprofen (Ibuprofen) 800 Mg Tab, 800 MG PO TID for Arthritis Pain, TAB 0 Refills 09/12/17 Benztropine (Benztropine) 0.5 Mg Tab, 0.5 MG PO BID, #60 TAB 0 Refills 09/12/17 Omeprazole (Omeprazole) 20 Mg Tab, 20 MG PO DAILY, #30 TAB 0 Refills 09/12/17 Hydroxyzine Pamoate (Vistaril) 50 Mg Cap, 50 MG PO BID, CAP 0 Refills 09/12/17 Fluoxetine (Prozac) 40 Mg Cap, 40 MG PO DAILY, #30 CAP 0 Refills 09/12/17 Current Medications Medications (Trade) Dose Ordered Sig/Micah Route Start Time Stop Time Status Last Admin (Tylenol) 650 mg Q4H PRN PO 11/19/17 13:00 11/19/17 19:43 (Milk Of Magnesia Liq) 30 ml DAILY PRN PO 11/19/17 13:00 (Mag-Al Plus Susp Liq) 30 ml Q6H PRN PO 11/19/17 13:00 (Cogentin) 0.5 mg BID PO 11/19/17 21:00 3/29/18 21:03 (Vistaril) 50 mg BID PO 11/19/17 21:00 11/19/17 21:03 (Motrin) 600 mg Q8H PRN PO 11/19/17 20:30 11/19/17 21:03 (Motrin) 800 mg TID PO 11/20/17 09:00 (Phenergan) 12.5 mg Q4H PRN PO 11/19/17 20:30 (Vitamin B1) 100 mg DAILY PO 11/19/17 20:30 11/19/17 21:03 (PROzac) 40 mg DAILY PO 11/19/17 21:00 (Protonix) 20 mg DAILY PO 11/19/17 21:00 11/19/17 21:03 (Pill Splitter) 1 ea UNSCH PRN OTHER 11/19/17 21:00 (SEROquel) 25 mg HS PO 11/20/17 21:00 UNV Family Psych History He reports that his mother has history of depression Social History Patient was born and raised in [place], he lives in [facility] in a rented room, he is a worse, no kids, unemployed, on SSI process, his highest level of education is some college Patient's Strengths (min. 2) Verbal communication, outpatient Physical Exam No tremors, no withdrawal symptoms, no EPS, no psychomotor agitation or retardation Vital Signs Vital Signs Date Time Temp Pulse Resp B/P (MAP) Pulse Ox O2 Delivery O2 Flow Rate FiO2 11/20/17 06:00 97.4 73 16 140/86 (104) 98 11/19/17 13:31 Room Air I/O 11/20/17 11/20/17 11/21/17 08:00 16:00 00:00 Intake Total 480 ml Balance 480 ml Mental Status Examination Appearance: Appropriate Consciousness: Alert Orientation: x4 Motor Activity: Other (Uses a walker due to recent hip surgery) Speech: Unremarkable Language: Adequate Fund of Knowledge: Adequate Attention and Concentration: Adequate Memory: Unremarkable Mood: Sad, Irritable Affect: Irritable Thought Process & Associations: Intact, Logical, Goal directed Thought Content: Appropriate Hallucination Type: None Delusion Type: None Suicidal Ideation: Yes Suicidal Plan: No Suicidal Intention: No Homicidal Ideation: No Homicidal Plan: No Homicidal Intention: No Insight: Fair Judgment: Impulsive Assessment & Plan Problem List: (1) Schizoaffective disorder ICD Codes: F25.9 - Schizoaffective disorder Status: Acute Assessment & Plan: Patient reports depressive symptoms in the context of acute pain and also multiple social stressors. There is a patient with psychiatric history of alcohol use disorder, schizoaffective disorder, multiple psychiatric hospitalizations and multiple suicidal attempts and self mutilating behavior. He also has history of poor impulse control, incarcerations and personality disorder. At this point the patient has an increased risk of danger to self, he will continue psychiatric hospitalization for stabilization. We will continue Prozac 40 mg, Vistaril 25 mg 3 times daily, I am adding Seroquel 25 mg at bedtime to help with sleep and also with poor impulse control. Brief supportive psychotherapy provided, motivation provided. Will consult hospitalist to help with pain. Patient will sign voluntary admission. Case was widely discussed with social sciences lecturer Meghan, nursing charge Jazmín. Assessment & Plan Estimated LOS: days Problem Qualifiers (1) Schizoaffective disorder: Qualified Codes: F25.1 - Schizoaffective disorder, depressive type Art Schrader MD Nov 20, 2017 09:32
[2017-11-20] MEDS: PANTOPRAZOLE SOD 20 MG DELAYED RELEASE TAB PO SCH (09:59)
[2017-11-20] MEDS: THIAMINE HCL 100 MG TAB PO SCH (10:00)
[2017-11-20] MEDS: IBUPROFEN 800 MG TAB PO SCH ×3 (10:01→17:49)
[2017-11-20] MEDS: BENZTROPINE MESYLATE 1 MG TAB PO SCH ×2 (10:01→21:10)
[2017-11-20] MEDS: FLUoxetine HCL 20 MG CAP PO SCH (10:01)
[2017-11-20 12:05] LABS: BLOOD UREA NITROGEN 12 MG/DL (7-18); CALCIUM 8.6 MG/DL (8.5-10.1); CHLORIDE 99 MEQ/L (98-107); CREATININE 0.75 MG/DL (0.60-1.30); GLOMERULAR FILTRATION RATE 105 ML/MIN (>89); GLUCOSE,RANDOM 124 MG/DL (74-106); SODIUM (NA) 132 MEQ/L (136-145)
[2017-11-20 12:07] LABS: CHOLESTEROL 192 MG/DL (120-200)
[2017-11-20 12:10] LABS: CHOLESTEROL/ HDL RATIO 1.77 RATIO; HDL CHOLESTEROL 108.1 MG/DL (40.0-60.0); LDL CHOLESTEROL 66 MG/DL (0-99); TRIGLYCERIDES 90 MG/DL (42-150)
[2017-11-20] MEDS ORDERED: ACETAMINOPHEN/HYDROcodone 325 MG/7.5 MG TAB PO PRN (14:45)
--- NOTE | 2017-11-20 14:45 | PD.CONS ---
HPI Service [facility] Consult Requested By Psychiatry Reason for Consult Hip pain Primary Care Physician No Primary Care Physician Diagnoses: History of Present Illness Mr. Renteria is a 63 years old male who recently had right hip total arthroplasty, patient admitted to the [facility] for management of schizoaffective disorder, hospitalist were asked to see patient regarding right hip pain Patient stated his pain is around 4 out of 10, no fever or chills, he had a x- ray of the hip which was unremarkable, also lower extremity ultrasound was unremarkable for DVT . Review of Systems All systems reviewed and was positive for what is mentioned in history of present illness otherwise negative Past Family Social History Allergies: Coded Allergies: No Known Allergies (Unverified Allergy, Unknown, 11/18/17) Past Medical History Arthritis status post right hip pain Family History Noncontributory Social History Non-smoker Physical Exam Vital Signs Vital Signs Date Time Temp Pulse Resp B/P (MAP) Pulse Ox O2 Delivery O2 Flow Rate FiO2 11/20/17 06:00 97.4 73 16 140/86 (104) 98 11/19/17 18:28 98.5 114 20 131/70 (90) 95 11/19/17 16:00 98.2 92 18 157/90 (112) 98 Physical Exam GENERAL: This is a well-nourished, well-developed patient, in no apparent distress. SKIN: No rashes, warm and dry HEAD: Atraumatic. Normocephalic. EYES: Pupils equal round and reactive. Extraocular motions intact. No scleral icterus. ENT: Nose without bleeding, or drainage, Airway patent. NECK: Trachea midline. Supple CARDIOVASCULAR: Regular rate and rhythm without murmurs, gallops, or rubs. RESPIRATORY: Fair air entry bilaterally. No wheezes, rales, or rhonchi. GASTROINTESTINAL: Abdomen soft, non-tender, nondistended. Positive bowel sounds MUSCULOSKELETAL: Extremities without clubbing, cyanosis, or edema. Pedal pulses appreciated, right hip surgical site dry and clean NEUROLOGICAL: Awake and alert. Moves all extremity. Normal speech.no focal neurological deficit Laboratory Laboratory Tests Test 11/20/17 11:25 Blood Urea Nitrogen 12 Creatinine 0.75 Random Glucose 124 Calcium Level 8.6 Sodium Level 132 Potassium Level 3.4 Chloride Level 99 Carbon Dioxide Level 24.0 Anion Gap 9 Estimat Glomerular Filtration Rate 105 Triglycerides Level 90 Cholesterol Level 192 LDL Cholesterol 66 HDL Cholesterol 108.1 Cholesterol/HDL Ratio 1.77 Result Diagram: 11/20/17 1125 Imaging Last Impressions Lower Extremity Ultrasound 11/18/172034 Signed Impressions: Service Date/Time: Saturday, November 18, 2017 21:50 - CONCLUSION: No DVT. Layo Orosco MD Femur X-Ray 11/18/17 180 Signed Impressions: Service Date/Time: Saturday, November 18, 2017 19:04 - CONCLUSION: Status post ORIF. The hardware is well-placed. No significant change is identified from the prior postoperative study. Layo Orosco MD Assessment and Plan Assessment and Plan 62 years old male with history of recent right total hip arthroplasty admitted to med psych department for schizoaffective disorder, we were consulted for right hip pain, I agree with x-ray and lower extremity ultrasound order which both came back negative I would place patient on [place] especially with a physical therapy continue physical therapy and monitor. BMP showed hypokalemia mild will replace otherwise patient seems to be stable We will sign off please reconsult as needed Discussed Condition With Patient and nurse Francine Larson MD Nov 20, 2017 14:45
[2017-11-20 16:49] LABS: HEMOGLOBIN A1C 4.6 % (4.3-6.0)
[2017-11-20] MEDS: ACETAMINOPHEN/HYDROcodone 325 MG/5 MG TAB PO PRN ×2 (17:15→21:09)
[2017-11-20 18:21] VITALS: BP 121/74; PULSE 98; RESP 18; TEMP 97.9; O2SAT 97
[2017-11-20] MEDS: QUEtiapine FUMARATE 25 MG TAB PO SCH (21:10)
[2017-11-21 06:00] VITALS: BP 143/84; PULSE 98; RESP 18; TEMP 99.2; O2SAT 98
[2017-11-21] MEDS: BENZTROPINE MESYLATE 1 MG TAB PO SCH ×2 (08:57→21:05)
[2017-11-21] MEDS: PANTOPRAZOLE SOD 20 MG DELAYED RELEASE TAB PO SCH (08:58)
[2017-11-21] MEDS: IBUPROFEN 800 MG TAB PO SCH ×3 (08:58→18:00)
[2017-11-21] MEDS: THIAMINE HCL 100 MG TAB PO SCH (08:58)
[2017-11-21] MEDS: FLUoxetine HCL 20 MG CAP PO SCH (08:59)
--- NOTE | 2017-11-21 15:03 | HHI.PYPN ---
Subjective Remarks Patient was seen and case discussed with nursing. Patient says his mood is improving and his suicidal ideation and is now fleeting. Describes it as "not as much." Denies any intent or plan. Patient complains of intermittent paranoia thinking the government may be after him. He has hallucinations were voices are making fun of him. He did just start Seroquel Mental Status Examination Appearance: Appropriate Consciousness: Alert Orientation: x4 Motor Activity: Other (Uses a walker due to recent hip surgery) Speech: Unremarkable Language: Adequate Fund of Knowledge: Adequate Attention and Concentration: Adequate Memory: Unremarkable Mood: Sad, Irritable Affect: Irritable Thought Process & Associations: Intact, Logical, Goal directed Thought Content: Hallucinations Hallucination Type: Auditory (making fun of him) Delusion Type: None Suicidal Ideation: Yes (leading) Suicidal Plan: No Suicidal Intention: No Homicidal Ideation: No Homicidal Plan: No Homicidal Intention: No Insight: Fair Judgment: Impulsive Results Vitals/IOs Vital Signs Date Time Temp Pulse Resp B/P (MAP) Pulse Ox O2 Delivery O2 Flow Rate FiO2 11/21/17 06:00 99.2 98 18 143/84 (103) 98 11/19/17 13:31 Room Air Intake and Output 11/21/17 11/21/17 11/22/17 08:00 16:00 00:00 Intake Total 0 ml 1320 ml Balance 0 ml 1320 ml Assessment & Plan Problem List: (1) Schizoaffective disorder ICD Codes: F25.9 - Schizoaffective disorder Status: Acute Assessment & Plan Consider titration of Seroquel in a couple days if hallucinations don't resolve Justification for Cont. Inpt. Patient would decompensate in a less restrictive setting Problem Qualifiers (1) Schizoaffective disorder: Qualified Codes: F25.1 - Schizoaffective disorder, depressive type Paul Armando DO Nov 21, 2017 15:03
[2017-11-21 18:13] VITALS: BP 117/60; PULSE 87; RESP 16; TEMP 98.1; O2SAT 97
[2017-11-21] MEDS: ACETAMINOPHEN/HYDROcodone 325 MG/5 MG TAB PO PRN (21:05)
[2017-11-21] MEDS: QUEtiapine FUMARATE 25 MG TAB PO SCH (21:05)
[2017-11-22 06:33] VITALS: BP 132/81; PULSE 83; RESP 17; TEMP 97.5; O2SAT 98
[2017-11-22] MEDS: THIAMINE HCL 100 MG TAB PO SCH (07:50)
[2017-11-22] MEDS: PANTOPRAZOLE SOD 20 MG DELAYED RELEASE TAB PO SCH (07:51)
[2017-11-22] MEDS: BENZTROPINE MESYLATE 1 MG TAB PO SCH ×2 (07:51→21:17)
[2017-11-22] MEDS: IBUPROFEN 800 MG TAB PO SCH ×3 (07:51→17:41)
[2017-11-22] MEDS: FLUoxetine HCL 20 MG CAP PO SCH (07:51)
--- NOTE | 2017-11-22 09:08 | HHI.PR ---
Subjective Remarks Patient seen and examined this morning. Afebrile vital signs stable. Patient reports that his pain is doing better now that he has [place]. He is taking the [place] as needed. Otherwise he has a scheduled ibuprofen. He is doing physical therapy and currently for the right hip fracture no further surgical plans. Overall doing well at this time and no major complaints. Objective Vitals Vital Signs Date Time Temp Pulse Resp B/P (MAP) Pulse Ox O2 Delivery O2 Flow Rate FiO2 11/22/17 06:33 97.5 83 17 132/81 (98) 98 11/21/17 22:05 20 11/21/17 19:00 8 11/21/17 18:13 98.1 87 16 117/60 (79) 97 I/O 11/21/17 11/21/17 11/21/17 11/22/17 11/22/17 11/22/17 07:00 15:00 23:00 07:00 15:00 23:00 Intake Total 0 ml 1320 ml 1680 ml 0 ml Balance 0 ml 1320 ml 1680 ml 0 ml Intake Oral 0 ml 1320 ml 1680 ml 0 ml # Voids 2 3 0 # Bowel Movements 2 Result Diagram: 11/20/17 1125 Imaging Last Impressions Lower Extremity Ultrasound 11/18/172034 Signed Impressions: Service Date/Time: Saturday, November 18, 2017 21:50 - CONCLUSION: No DVT. Layo Orosco MD Femur X-Ray 11/18/17 1804 Signed Impressions: Service Date/Time: Saturday, November 18, 2017 19:04 - CONCLUSION: Status post ORIF. The hardware is well-placed. No significant change is identified from the prior postoperative study. Layo Orosco MD Objective Remarks GENERAL: This is a well-nourished, well-developed patient, in no apparent distress. SKIN: No rashes, warm and dry HEAD: Atraumatic. Normocephalic. EYES: Pupils equal round and reactive. Extraocular motions intact. No scleral icterus. ENT: Nose without bleeding, or drainage, Airway patent. NECK: Trachea midline. Supple CARDIOVASCULAR: Regular rate and rhythm without murmurs, gallops, or rubs. RESPIRATORY: Fair air entry bilaterally. No wheezes, rales, or rhonchi. GASTROINTESTINAL: Abdomen soft, non-tender, nondistended. Positive bowel sounds MUSCULOSKELETAL: Extremities without clubbing, cyanosis, or edema. Pedal pulses appreciated, right hip surgical site dry and clean NEUROLOGICAL: Awake and alert. Moves all extremity. Normal speech.no focal neurological deficit Medications and IVs Current Medications Medications (Trade) Dose Ordered Sig/Micah Route Start Time Stop Time Status Last Admin (Tylenol) 650 mg Q4H PRN PO 11/19/17 13:00 11/19/17 19:43 (Milk Of Magnesia Liq) 30 ml DAILY PRN PO 11/19/17 13:00 (Mag-Al Plus Susp Liq) 30 ml Q6H PRN PO 11/19/17 13:00 (Cogentin) 0.5 mg BID PO 11/19/17 21:00 11/22/17 07:51 (Vistaril) 50 mg BID PO 11/19/17 21:00 11/22/17 07:51 (Motrin) 600 mg Q8H PRN PO 11/19/17 20:30 11/19/17 21:03 (Motrin) 800 mg TID PO 11/20/17 09:00 11/22/17 07:51 (Phenergan) 12.5 mg Q4H PRN PO 11/19/17 20:30 (Vitamin B1) 100 mg DAILY PO 11/19/17 20:30 11/22/17 07:50 (PROzac) 40 mg DAILY PO 11/19/17 21:00 11/22/17 07:51 (Protonix) 20 mg DAILY PO 11/19/17 21:00 11/22/17 07:51 (Pill Splitter) 1 ea UNSCH PRN OTHER 11/19/17 21:00 (SEROquel) 25 mg HS PO 11/20/17 21:00 11/21/17 21:05 ([place] 7.5-325 Mg) 1 tab Q4H PRN PO 11/20/17 14:45 11/23/17 14:44 ([place] 5-325 Mg) 1 tab Q4H PRN PO 11/20/17 14:45 11/23/17 14:44 11/21/17 21:05 A/P Problem List: (1) Schizoaffective disorder ICD Code: F25.9 - Schizoaffective disorder Status: Acute (2) Closed right hip fracture ICD Code: S72.001A - Fracture of unspecified part of neck of right femur, initial encounter for closed fracture Status: Acute Assessment and Plan This is a 62-year-old male with a history of recent right hip total hip arthroplasty, admitted to the [facility] psych department for schizoaffective disorder. 1. Schizoaffective disorder * Deferred to the psychiatric team 2. Pain control for the right hip status post total hip arthroplasty. * [place] as needed for pain control * Ibuprofen 800 mg scheduled for pain control 3. DVT prophylaxis * Physical therapy, ambulation, SCDs. Holding pharmacological anticoagulation due to fall risk Discharge Planning Discharge pending psychiatric clearance likely to rehab facility. Problem Qualifiers (1) Schizoaffective disorder: Qualified Codes: F25.1 - Schizoaffective disorder, depressive type Robert Thompson MD, R3 Nov 22, 2017 09:08
--- NOTE | 2017-11-22 14:16 | HHI.PYPN ---
Subjective Remarks Patient was seen and case discussed with nursing. Patient is pleasant and cooperative with exam. His mood has improved and he denies suicidal or homicidal ideation intent or plan. Does not have any complaints today. Reading a book Mental Status Examination Appearance: Appropriate Consciousness: Alert Orientation: x4 Motor Activity: Other (Uses a walker due to recent hip surgery) Speech: Unremarkable Language: Adequate Fund of Knowledge: Adequate Attention and Concentration: Adequate Memory: Unremarkable Mood: Sad, Irritable Affect: Irritable Thought Process & Associations: Intact, Logical, Goal directed Thought Content: Hallucinations Hallucination Type: Auditory (making fun of him) Delusion Type: None Suicidal Ideation: Yes (leading) Suicidal Plan: No Suicidal Intention: No Homicidal Ideation: No Homicidal Plan: No Homicidal Intention: No Insight: Fair Judgment: Impulsive Results Vitals/IOs Vital Signs Date Time Temp Pulse Resp B/P (MAP) Pulse Ox O2 Delivery O2 Flow Rate FiO2 11/22/17 06:33 97.5 83 17 132/81 (98) 98 11/19/17 13:31 Room Air Intake and Output 11/22/17 11/22/17 11/23/17 08:00 16:00 00:00 Intake Total 0 ml 480 ml Balance 0 ml 480 ml Assessment & Plan Problem List: (1) Schizoaffective disorder ICD Codes: F25.9 - Schizoaffective disorder Status: Acute Assessment & Plan Continue current treatment plan Justification for Cont. Inpt. Patient would decompensate in a less restrictive setting Problem Qualifiers (1) Schizoaffective disorder: Qualified Codes: F25.1 - Schizoaffective disorder, depressive type Paul Armando DO Nov 22, 2017 14:16
[2017-11-22 18:13] VITALS: BP 127/75; PULSE 86; RESP 18; TEMP 97.9; O2SAT 98
[2017-11-22] MEDS: QUEtiapine FUMARATE 25 MG TAB PO SCH (21:17)
[2017-11-22] MEDS: ACETAMINOPHEN/HYDROcodone 325 MG/5 MG TAB PO PRN (21:17)
[2017-11-23 05:59] VITALS: BP 120/72; PULSE 76; RESP 16; TEMP 98; O2SAT 95
[2017-11-23] MEDS: THIAMINE HCL 100 MG TAB PO SCH (08:27)
[2017-11-23] MEDS: BENZTROPINE MESYLATE 1 MG TAB PO SCH ×2 (08:27→20:32)
[2017-11-23] MEDS: FLUoxetine HCL 20 MG CAP PO SCH (08:28)
[2017-11-23] MEDS: IBUPROFEN 800 MG TAB PO SCH ×3 (08:28→17:34)
[2017-11-23] MEDS: PANTOPRAZOLE SOD 20 MG DELAYED RELEASE TAB PO SCH (08:28)
--- NOTE | 2017-11-23 10:54 | HHI.PR ---
Objective Vital Signs Date Time Temp Pulse Resp B/P (MAP) Pulse Ox O2 Delivery O2 Flow Rate FiO2 11/23/17 05:59 98.0 76 16 120/72 (88) 95 11/22/17 22:17 18 11/22/17 18:41 20 11/22/17 18:13 97.9 86 18 127/75 (92) 98 I/O 11/22/17 11/22/17 11/22/17 11/23/17 11/23/17 11/23/17 07:00 15:00 23:00 07:00 15:00 23:00 Intake Total 0 ml 1380 ml 1440 ml 240 ml Balance 0 ml 1380 ml 1440 ml 240 ml Intake Oral 0 ml 1380 ml 1440 ml 240 ml # Voids 0 2 3 3 Result Diagram: 11/20/17 1125 A/P Assessment and Plan hip fx 09/13/17- s/p orif s/p irrigation and debridement of wound - 10/07 repeat xray - no acute fx 11/18/17 hx of copd stable no acute issues will sign off Lana Vegas MD Nov 23, 2017 10:54
--- NOTE | 2017-11-23 11:35 | HHI.PYPN ---
Subjective Remarks Patient was seen today for psychiatric reevaluation. Patient is calm, cooperative, pleasant. He reports much improvement in his depression. He described his mood as "much better today". He has been compliant with his medications, no significant side effects reported. He denies distress, he denies pain at this moment. He denies suicidal or homicidal ideation, he denies visual and auditory hallucinations. Oriented 3. Documentation from weekend rounder reviewed. Review of Systems Except as stated in HPI: all other systems reviewed are Neg Mental Status Examination Appearance: Appropriate Consciousness: Alert Orientation: x4 Motor Activity: Other (Uses a walker due to recent hip surgery) Speech: Unremarkable Language: Adequate Fund of Knowledge: Adequate Attention and Concentration: Adequate Memory: Unremarkable Mood: Sad, Irritable Affect: Irritable Thought Process & Associations: Intact, Logical, Goal directed Thought Content: Hallucinations Hallucination Type: Auditory (making fun of him) Delusion Type: None Suicidal Ideation: Yes (leading) Suicidal Plan: No Suicidal Intention: No Homicidal Ideation: No Homicidal Plan: No Homicidal Intention: No Insight: Fair Judgment: Impulsive Results Vitals/IOs Vital Signs Date Time Temp Pulse Resp B/P (MAP) Pulse Ox O2 Delivery O2 Flow Rate FiO2 11/23/17 05:59 98.0 76 16 120/72 (88) 95 11/19/17 13:31 Room Air Intake and Output 11/23/17 11/23/17 11/23/17 07:59 15:59 23:59 Intake Total 240 ml Balance 240 ml Assessment & Plan Problem List: (1) Schizoaffective disorder ICD Codes: F25.9 - Schizoaffective disorder Status: Acute Assessment & Plan: Patient has showed a significant good response to psychotropic regimen. Continue current medications. Assessment & Plan Estimated LOS: days Justification for Cont. Inpt. Patient has an elevated risk to decompensate at a lower level of care. Problem Qualifiers (1) Schizoaffective disorder: Qualified Codes: F25.1 - Schizoaffective disorder, depressive type Art Schrader MD Nov 23, 2017 11:35
[2017-11-23 18:00] VITALS: BP 146/64; PULSE 77; RESP 16; TEMP 98; O2SAT 96
[2017-11-23] MEDS: QUEtiapine FUMARATE 25 MG TAB PO SCH (20:31)
[2017-11-23] MEDS: IBUPROFEN 600 MG TAB PO PRN (21:18)
[2017-11-24 06:19] VITALS: BP 130/66; PULSE 69; RESP 16; TEMP 98.1; O2SAT 97
[2017-11-24] MEDS: IBUPROFEN 600 MG TAB PO PRN (06:31)
[2017-11-24] MEDS: IBUPROFEN 800 MG TAB PO SCH (09:00)
[2017-11-24] MEDS: PANTOPRAZOLE SOD 20 MG DELAYED RELEASE TAB PO SCH (09:04)
[2017-11-24] MEDS: FLUoxetine HCL 20 MG CAP PO SCH (09:04)
[2017-11-24] MEDS: BENZTROPINE MESYLATE 1 MG TAB PO SCH (09:04)
[2017-11-24] MEDS: THIAMINE HCL 100 MG TAB PO SCH (09:04)
[2017-11-24] MEDS: ACETAMINOPHEN 325 MG TAB PO PRN (09:05)
[2017-11-24] MEDS ORDERED: SERO25TA PO (10:48)
[2017-11-24] MEDS ORDERED: PROM25TA10 PO (10:48)
[2017-11-24] MEDS ORDERED: PROZ40CA PO (10:48)
--- NOTE | 2017-11-24 11:22 | HHI.DS ---
Psychiatry Discharge Summary Inpatient Psychiatric care?: Yes Advance Directive: No Reason Not Provided: not wanted Mental Health AdvanceDirective: No Health Care Proxy: No Admission Admission Date Nov 19, 2017 at 12:54 Admission Diagnosis: (1) Schizoaffective disorder ICD Code: F25.9 - Schizoaffective disorder Brief History The patient is 62-year-old man, , domiciled alone, unemployed , on SSI process, with self-reported I cannot history of schizoaffective disorder and alcohol use disorder, for previous psychiatric hospitalizations, his last hospitalization was in March 2017 in [place], outpatient psychiatric care in [facility], he is on Prozac 40 mg, Vistaril 25 mg 3 times daily, multiple suicidal attempts, also history of self cutting behavior without SI, poor impulse control, multiple incarcerations, medical history of COPD, recent hip replacement, who presented yesterday to the ED presents via EMS for evaluation of 3 day history of 10/10 right hip pain. Patient was admitted to [facility] in August for treatment of a fall and subsequent hip fracture and was discharged on November 09. After patient was medically cleared and in the process of being discharge today he reported that he was feeling depressed and suicidal. A psychiatric evaluation was ordered. The patient was seen initially by Ms. Josselyn Torres, he was deemed for psychiatric admission: "Patient is seen. He is alert, oriented, exhibits appropriate hygiene and grooming. Affect is blunted. Decrease amount of eye contact. Irritable at times. Mood is described as depressed. Speech is clear, logical and of normal rate and tone. Patient does not appear to be internally stimulated and denies any hallucinations. I can elicit no delusions or paranoia. Patient continues to report suicidal ideation with intent of jumping in front of a train and goes on to tell me that he lives very close by to the train tracks. He reports that for the last week he has been feeling increasingly depressed and hopeless due to his continued pain and his inability to get around like he used to. He is currently medicated with Prozac 40 mg and reports that he is medication compliant. He states that he is sleeping fair, interrupted due to pain. Adequate appetite". Today in my psychiatric evaluation along with nursing charge Lillian and occupational therapist Jonatan the patient is calm, cooperative and pleasant. The patient reports that yesterday he was desperate on pain, feeling very hopeless, helpless, and he did state multiple times that he preferred to be . Today "with my pain under control, and feeling safe in this environment, I have to admit I feel much better". Patient reports that he has been living in port and deplorable condition for many years, he has applied to [facility] 2 times and he is now in his third appeal. He has poor family and social support. Is difficult to find a job for him due to his history of incarcerations." For this reason I am chronically depressed and persisted and thinking that I should kill myself". The patient reports that he has being in treatment of depression and anxiety successfully with Prozac 40 mg and Vistaril 25 mg twice daily every 3 months in [facility]. He denies the use of illegal drugs, he reports daily use of alcohol, 2-3 beers per day.. Tobacco Use In Past 30 Days: No Tobacco Past 30 Days Alcohol Use: 2-4 Times Per Month Hospital Course The patient was admitted in psychiatry with symptomatology of depression mostly consisting and hopelessness, helplessness, difficulty sleeping, irritability, mood swings, sadness, suicidal thoughts. Psychiatric and psychosocial assessment were performed. Safety measures were taken. Collateral information from family members was obtained. Patient was restarted in Prozac 20 mg that was increased to 40 mg. Patient also was started in Seroquel 25 mg at bedtime to help with depression and also with insomnia. The patient participated in individual counseling and also was consulted to hospitalist for underlying medical conditions. The patient showed a very good response to psychotropic regimen and psychotherapy. During his hospitalization he did not show any agitation, any aggressive behavior, he was mostly regressive, even childish at times, attention seeking. At the moment of discharge patient is at baseline, reports happy mood, denies depressive symptoms, denies suicidal and was ideation , denies visual and auditory hallucinations. Extensive support, motivation and psychoeducation provided Results Blood Pressure 130 / 66 Vital Signs Date Time Temp Pulse Resp B/P (MAP) Pulse Ox O2 Delivery O2 Flow Rate FiO2 11/24/17 06:19 98.1 69 16 130/66 (87) 97 Laboratory Results Test 11/20/17 11:25 Cholesterol Level 192 MG/DL (120-200) HDL Cholesterol 108.1 MG/DL (40.0-60.0) Hemoglobin A1c 4.6 % (4.3-6.0) LDL Cholesterol 66 MG/DL (0-99) Triglycerides Level 90 MG/DL (42-150) Summary of Procedures None Imaging Last Impressions Lower Extremity Ultrasound 11/18/172034 Signed Impressions: Service Date/Time: Saturday, November 18, 2017 21:50 - CONCLUSION: No DVT. Layo Orosco MD Femur X-Ray 11/18/174 Signed Impressions: Service Date/Time: Saturday, November 18, 2017 19:04 - CONCLUSION: Status post ORIF. The hardware is well-placed. No significant change is identified from the prior postoperative study. Layo Orosco MD Pending results at discharge: No Medications # of Antipsychotic meds at D/C: 1 Appropriate >1 Antipsych meds?: 1 Approp Antipsych med options 1 - Minimum of three failed multiple trials of monotherapy. 2 - Documented plan to taper to monotherapy due to previous use of multiple meds OR cross-taper in progress at D/C. 3 - Documentation of augmentation of Clozapine. 4 - Justification other than those listed in allowable values 1-3, document here : Discharge Discharge Date: Nov 24, 2017 Discharge Diagnosis: (1) Schizoaffective disorder ICD Code: F25.9 - Schizoaffective disorder Status: Acute Pt Condition on Discharge: Stable Discharge Disposition: Discharge Home Discharge Instructions Diet Instructions: Heart Healthy Diet Activities you can perform: Weight Bearing as Danis Scheduled Appointment: Vijay Carrasco Appointment Date: Nov 24, 2017 Appointment Time: 3:00pm Discharge Time > 30 minutes Mental Status Examination Appearance: Appropriate Consciousness: Alert Orientation: x4 Motor Activity: Other (Uses a walker due to recent hip surgery) Speech: Unremarkable Language: Adequate Fund of Knowledge: Adequate Attention and Concentration: Adequate Memory: Unremarkable Mood: Sad, Irritable Affect: Irritable Thought Process & Associations: Intact, Logical, Goal directed Thought Content: Hallucinations Hallucination Type: Auditory (making fun of him) Delusion Type: None Suicidal Ideation: Yes (leading) Suicidal Plan: No Suicidal Intention: No Homicidal Ideation: No Homicidal Plan: No Homicidal Intention: No Insight: Fair Judgment: Impulsive Discharge/Advance Care Plan Health Problems: (1) Schizoaffective disorder Goals to promote your health * To prevent worsening of your condition and complications * To maintain your health at the optimal level Directions to meet your goals Take your medications as prescribed Follow your dietary instruction Follow activity as directed Keep your appointments as scheduled Take your immunizations and boosters as scheduled If your symptoms worsen call your PCP, if no PCP go to Urgent Care Center or Emergency Room For 16/03 questions related to your inpatient stay or results of tests pending at discharge, please contact Dr. Art Schrader at Smoking is Dangerous to Your Health. Avoid second hand smoking Problem Qualifiers (1) Schizoaffective disorder: Qualified Codes: F25.1 - Schizoaffective disorder, depressive type Art Schrader MD Nov 24, 2017 11:22
== END 2017-11-24 12:45 | disposition home or self-care (01) | DRG 885 ==
LOC: NEPE 16:18 → NEDA 11-19 12:54 → H4EA 11-19 14:15
PROVIDERS: ADMIT Psychiatry & Neurology Psychiatry; ATTEND Psychiatry & Neurology Psychiatry
DX: F25.1 Schizoaffective disorder, depressive type (principal); R45.851 Suicidal ideations; F43.21 Adjustment disorder with depressed mood; J44.9 Chronic obstructive pulmonary disease, unspecified; F10.10 Alcohol abuse, uncomplicated; Z91.5 Personal history of self-harm; M25.551 Pain in right hip; E87.6 Hypokalemia; K21.9 Gastro-esophageal reflux disease without esophagitis; F17.210 Nicotine dependence, cigarettes, uncomplicated; F41.9 Anxiety disorder, unspecified; G47.00 Insomnia, unspecified; S72.001D Fracture of unspecified part of neck of right femur, subsequent encounter for closed fracture with routine healing; W19.XXXD Unspecified fall, subsequent encounter; Z96.641 Presence of right artificial hip joint; Z79.899 Other long term (current) drug therapy
CPT/HCPCS: 73552; 80048; 80061; 83036; 93971

== ENCOUNTER 2017-12-09 19:44 | Emergency (ER) | payer SELFPAY ==
[~2017-12-09] VITALS: Ht 188 cm; Wt 68.0 kg
[~2017-12-09 19:44] MED LIST changes: +IBUP-232 PO; +SERO25TA PO
[2017-12-09 20:51] VITALS: BP 170/85; PULSE 98; RESP 20; TEMP 98.8; O2SAT 100
--- NOTE | 2017-12-09 23:26 | PD ---
HPI Chief Complaint: GI Complaint Time Seen by Provider: 23:21 Travel History International Travel<30 days: No Contact w/Intl Traveler<30days: No Traveled to known affect area: No History of Present Illness HPI 62-year-old male presents to the emergency department by private transportation for evaluation of vomiting blood and right hip pain. Patient states he has been vomiting blood since yesterday. Patient complains of dizziness and lightheadedness. Patient complains of epigastric pain. Patient does take nonsteroidal anti-inflammatory medications. Patient denies any blood thinning agents. Patient states he also had a fall yesterday reinjuring his right hip. Patient states 1 month ago he had a hip fracture repaired and has had problems with this hip subsequently. Patient denies any head injury neck injury back injury chest pain shortness of breath palpitations or other extremity injury. Patient has not had a bowel movement since yesterday and denies noting any black or tarry stools. No prior history of GI bleed. The patient rates his discomfort 9/10 intensity. Patient is unable to identify exacerbating or alleviating factors. Patient also denies any recent respiratory illness or febrile illness. Patient has had no chest pain or pleuritic chest pain or shortness of breath. Patient denies any hemoptysis. PFSH Past Medical History Narrative Medical COPD hepatitis A alcoholism hip fracture schizoaffective disorder appendectomy; tobacco use alcohol use; nursing notes reviewed Asthma: Yes Blood Disorders: Yes (hep a) Depression: Yes Cancer: No Cardiovascular Problems: Yes (COPD) COPD: Yes Diabetes: No Endocrine: No Gastrointestinal Disorders: Yes GERD: Yes Genitourinary: No Headaches: No Musculoskeletal: No Psychiatric: Yes Respiratory: Yes (copd) Integumentary: Yes (schizoeffective disorder) Immunizations Current: Yes Schizophrenia: Yes Seizures: No Influenza Vaccination: Yes Past Surgical History Appendectomy: Yes Other Surgery: Yes (ing hernia) Social History Alcohol Use: Yes (DAILY) Tobacco Use: Yes (1/2 ppd) Substance Use: Yes (Patient admits to ETOH Hx. ) Allergies-Medications (Allergen,Severity, Reaction): Coded Allergies: No Known Allergies (Unverified Allergy, Unknown, 11/18/17) Reported Meds & Prescriptions Reported Meds & Active Scripts Active Phenergan (Promethazine HCl) 25 Mg Tablet 25 Mg PO Q6H PRN Omeprazole 20 Mg Tab 20 Mg PO DAILY Seroquel (Quetiapine Fumarate) 25 Mg Tab 25 Mg PO HS Phenergan (Promethazine HCl) 25 Mg Tablet 12.5 Mg PO Q4H PRN Prozac (Fluoxetine HCl) 40 Mg Cap 40 Mg PO DAILY Ibuprofen 600 Mg Tab 600 Mg PO Q8H PRN Gnp Vitamin B-1 (Thiamine HCl) 100 Mg Tab 100 Mg PO DAILY Walker with Front Wheels (Device) 1 Mis Mis Ea .XX DIRECTED Cane/Aluminum/Adjustable (Device) 1 Mis Mis Ea .XX DIRECTED Reported Ibuprofen 800 Mg Tab 800 Mg PO TID Benztropine (Benztropine Mesylate) 0.5 Mg Tab 0.5 Mg PO BID Omeprazole 20 Mg Tab 20 Mg PO DAILY Vistaril (Hydroxyzine Pamoate) 50 Mg Cap 50 Mg PO BID Review of Systems Except as stated in HPI: all other systems reviewed are Neg General / Constitutional: No: Fever, Chills HENT: Positive: Lightheadedness, No: Headaches, Congestion Cardiovascular: No: Chest Pain or Discomfort, Palpitations, Diaphoresis, Syncope Respiratory: No: Shortness of Breath, Hemoptysis Gastrointestinal: Positive: Vomiting, Abdominal Pain, Hematemesis, No: Nausea, Diarrhea, Hematochezia Genitourinary: No: Dysuria, Pelvic Pain Musculoskeletal: No: Myalgias, Arthralgias Skin: No Rash Neurologic: No: Weakness, Dizziness, Syncope Psychiatric: No: Anxiety Endocrine: No: Polyuria, Polydipsia Hematologic/Lymphatic: No: Easy Bruising, Lymph Node Enlargement Physical Exam Narrative GENERAL: Well-developed well-nourished male no acute distress no respiratory distress SKIN: Warm and dry. HEAD: Normocephalic. EYES: No scleral icterus. No injection or drainage. NECK: Supple, trachea midline. No JVD or lymphadenopathy. CARDIOVASCULAR: Regular rate and rhythm without murmurs, gallops, or rubs. RESPIRATORY: Breath sounds equal bilaterally. No accessory muscle use. GASTROINTESTINAL: Abdomen soft, non-tender, nondistended. Rectal exam: Normal sphincter tone yellow-brown mucus on exam glove no gross blood; Hemoccult test performed MUSCULOSKELETAL: No cyanosis, or edema. Right hip postoperative scar well healed no redness no induration nontender no increased warmth no fluctuance distally extremities are neurovascular tendon intact. BACK: Nontender without obvious deformity. No CVA tenderness. Data Data Last Documented VS Vital Signs Date Time Temp Pulse Resp B/P (MAP) Pulse Ox O2 Delivery O2 Flow Rate FiO2 12/10/17 02:32 94 18 149/84 (105) 89 18 141/83 (102) 102 18 145/81 (102) 12/10/17 02:07 99 Room Air 12/09/17 20:51 98.8 Orders Orders Complete Blood Count With Diff (12/09/17 23:21) Comprehensive Metabolic Panel (12/09/17 23:21) Lipase (12/09/17 23:21) Ammonia (12/09/17 23:21) Prothrombin Time / Inr (Pt) (12/09/17 23:21) Act Partial Throm Time (Ptt) (12/09/17 23:21) Alcohol (Ethanol) (12/09/17 23:21) Urinalysis - C+S If Indicated (12/09/17 23:21) Type And Screen (12/09/17 23:21) Chest, Single Ap (12/09/17 23:21) Ecg Monitoring (12/09/17 23:21) Iv Access Insert/Monitor (12/09/17 23:21) Oximetry (12/09/17 23:21) Sodium Chloride 0.9% Flush (Ns Flush) (12/09/17 23:30) Magnesium (Mg) (12/09/17 23:21) Electrocardiogram (12/09/17 ) Hip, Uni(Ap&Lat) W Ap Pelvis (12/09/17 ) Pantoprazole Inj (Protonix Inj) (12/10/17 01:15) Sodium Chlor 0.9% 1000 Ml Inj (Ns 1000 M (12/10/17 02:30) Orthostatic Vital Signs (12/10/17 02:17) Thiamine Inj (Thiamine Inj) (12/10/17 02:30) Mandatory Outpatient Referral (12/10/17 02:51) Ed Discharge Order (12/10/17 02:56) Labs Laboratory Tests Test 12/10/17 00:05 12/10/17 01:46 White Blood Count 7.5 TH/MM3 Red Blood Count 4.03 MIL/MM3 Hemoglobin 12.1 GM/DL Hematocrit 32.2 % Mean Corpuscular Volume 79.9 FL Mean Corpuscular Hemoglobin 29.9 PG Mean Corpuscular Hemoglobin Concent 37.4 % Red Cell Distribution Width 16.2 % Platelet Count 520 TH/MM3 Mean Platelet Volume 6.6 FL Neutrophils (%) (Auto) 64.1 % Lymphocytes (%) (Auto) 23.0 % Monocytes (%) (Auto) 11.0 % Eosinophils (%) (Auto) 0.6 % Basophils (%) (Auto) 1.3 % Neutrophils # (Auto) 4.8 TH/MM3 Lymphocytes # (Auto) 1.7 TH/MM3 Monocytes # (Auto) 0.8 TH/MM3 Eosinophils # (Auto) 0.0 TH/MM3 Basophils # (Auto) 0.1 TH/MM3 CBC Comment AUTO DIFF Differential Comment AUTO DIFF CONFIRMED Prothrombin Time 10.3 SEC Prothromb Time International Ratio 1.0 RATIO Activated Partial Thromboplast Time 30.9 SEC Blood Urea Nitrogen 4 MG/DL Creatinine 0.52 MG/DL Random Glucose 97 MG/DL Total Protein 8.8 GM/DL Albumin 3.1 GM/DL Calcium Level 8.7 MG/DL Magnesium Level 1.9 MG/DL Alkaline Phosphatase 161 U/L Aspartate Amino Transf (AST/SGOT) 19 U/L Alanine Aminotransferase (ALT/SGPT) 17 U/L Total Bilirubin 0.3 MG/DL Sodium Level 130 MEQ/L Potassium Level 3.5 MEQ/L Chloride Level 92 MEQ/L Carbon Dioxide Level 28.0 MEQ/L Anion Gap 10 MEQ/L Estimat Glomerular Filtration Rate 160 ML/MIN Ammonia 12 MCMOL/L Lipase 288 U/L Ethyl Alcohol Level 127 MG/DL Urine Color LIGHT-YELLOW Urine Turbidity CLEAR Urine pH 6.5 Urine Specific [place] 1.006 Urine Protein NEG mg/dL Urine Glucose (UA) NEG mg/dL Urine Ketones NEG mg/dL Urine Occult Blood NEG Urine Nitrite NEG Urine Bilirubin NEG Urine Urobilinogen LESS THAN 2.0 MG/DL Urine Leukocyte Esterase NEG Urine RBC LESS THAN 1 /hpf Urine WBC LESS THAN 1 /hpf Microscopic Urinalysis Comment CULT NOT INDICATED MDM Medical Decision Making Medical Screen Exam Complete: Yes Emergency Medical Condition: Yes Medical Record Reviewed: Yes Interpretation(s) EKG: Normal sinus rhythm rate [address] elevation LVH by voltage criterion Last Impressions Chest X-Ray 12/09/17 2384 Signed Impressions: Service Date/Time: Saturday, December 09, 2017 23:39 - CONCLUSION: No evidence of acute cardiopulmonary disease. Layo Sales MD Hip and Pelvis X-Ray 12/09/17 0000 Signed Impressions: Service Date/Time: Saturday, December 09, 2017 23:39 - CONCLUSION: No acute fracture or subluxation demonstrated. The subacute right intertrochanteric fracture is healing in unchanged, near anatomic alignment. Layo Sales MD CBC & BMP Diagram 12/10/17 00:05 Total Protein 8.8 H, Albumin 3.1 L, Calcium Level 8.7, Magnesium Level 1.9, Alkaline Phosphatase 161 H, Aspartate Amino Transf (AST/SGOT) 19, Alanine Aminotransferase (ALT/SGPT) 17, Total Bilirubin 0.3 Differential Diagnosis Gastritis, upper GI bleed, hemoptysis, anemia, alcohol use/abuse, hip contusion , fracture, dehydration, electrolyte disturbance, arrhythmia Narrative Course Patient placed on silver chaser IV access obtained specimens collected and sent for resulting Right hip pelvis x-ray reveals no subluxation dislocation or acute fracture CBC is automated differential minimal anemia hemoglobin 12.1 Patient resting comfortably no complaint of nausea no vomiting no abdominal pain voicing no other concerns or complaints. Lab values are resulted associated with the patient as well as imaging studies of his hip and pelvis. Patient stable for outpatient management and has been informed that a mandatory referral for clean room technician has been ordered. Patient's nurse in process of discharging and patient now mentions that he thinks he would like to harm himself and he wanted to talk to someone. Patient states that he has had this problem of wanting to hurt himself since he was a teenager. Patient states he has done things in the past such as taking pills are used a knife to harm himself. Patient does not have a plan at this time. Patient is ordered a psych screening and discharge is deferred at this time. [facility] Point of Care Internal Pos. & Neg. Controls: Passed Fecal Specimen Occult Blood: Negative Diagnosis Primary Impression: Alcoholic gastritis Qualified Codes: K29.20 - Alcoholic gastritis without bleeding Additional Impression: Contusion of hip, right Referrals: Front Load Trash Truck Driver call for appointment [facility] day Patient Instructions: General Instructions Additional Instructions: Follow clear liquid diet for next 12-24 hours advance as tolerated to bland/ brat diet and regular diet avoiding fried and fatty foods Discontinue alcohol use follow-up with [facility] for detox resources Follow-up with clean room technician call office to schedule follow-up appointment Take medication as prescribed as needed for nausea and/or vomiting and for management of gastritis reflux esophagitis Do not take nonsteroidal anti-inflammatory medication such as ibuprofen/Advil/ Motrin or Aleve/naproxen/Naprosyn Return to the emergency department for any concerns or change in condition May use ice intermittently to right hip for contusion discomfort or may use acetaminophen/Tylenol as needed for minor pain or for fever 100.4F or greater Med/Other Pt SpecificInfo: Prescription(s) given Scripts Promethazine (Phenergan) 25 Mg Tablet 25 MG PO Q6H Y for NAUSEA OR VOMITING, #7 TAB 0 Refills Prov: Lucina Nath MD 12/10/17 Omeprazole (Omeprazole) 20 Mg Tab 20 MG PO DAILY, #30 TAB 0 Refills Prov: Lucina Nath MD 12/10/17 Disposition: 01 DISCHARGE HOME Condition: Stable Lucina Nath MD Dec 09, 2017 23:26
[2017-12-09] MEDS ORDERED: SODIUM CHLORIDE 0.9% FLUSH 10 ML FLUSH IVF PRN (23:30)
[2017-12-10] VITALS (7 sets, daily range): BP systolic 140–158; BP diastolic 76–91; PULSE 82–107; RESP 16–20; O2SAT 96–99
--- NOTE | 2017-12-10 | RADRPT ---
EXAM DATE/TIME: 12/09/2017 23:39 [facility] COMPARISON: No previous studies available for comparison. INDICATIONS : Right leg pain from a fall one day ago. MEDICAL HISTORY : Chronic obstructive pulmonary disease. Gastroesophageal reflux disease. Hepatitis A. Inguinal her olga SURGICAL HISTORY : Tonsillectomy. Appendectomy. ORIF bilateral hips and left femur ENCOUNTER: Initial ACUITY: 1 day PAIN SCORE: 1/10 LOCATION: Right leg FINDINGS: The bony pelvis is intact and has normal morphology. Subacute intertrochanteric fracture of the right femur status post nail and rob fixation. The fractur e is healing in unchanged, near anatomic alignment. There is an old and solidly healed left intertrochanteric fracture status post nail and rob fixation. CONCLUSION: No acute fracture or subluxation demonstrated. The subacute right intertrochanteric fracture is heali ng in unchanged, near anatomic alignment. Layo Sales MD on December 09, 2017 at 23:57 Board Certified Radiologist. This report was verified electronically.
--- NOTE | 2017-12-10 00:01 | RADRPT ---
EXAM DATE/TIME: 12/09/2017 23:39 [facility] COMPARISON: No previous studies available for comparison. INDICATIONS : Vomiting. MEDICAL HISTORY : Chronic obstructive pulmonary disease. Gastroesophageal reflux disease. Hepatitis A. Inguinal her olga SURGICAL HISTORY : Tonsillectomy. Appendectomy. ORIF Bilateral hips and left femur ENCOUNTER: Initial ACUITY: 1 day PAIN SCORE: 0/10 LOCATION: Bilateral chest FINDINGS: A single view of the chest demonstrates the lungs to be symmetrically aerated without evidence of mas s, infiltrate or effusion. The cardiomediastinal contours are unremarkable. Osseous structures are particularly intact. Old bilateral rib fractures are again seen CONCLUSION: No evidence of acute cardiopulmonary disease. Layo Sales MD on December 09, 2017 at 23:59 Board Certified Radiologist. This report was verified electronically.
[2017-12-10 00:18] LABS: AUTOMATED NEUTROPHIL # 4.8 TH/MM3 (1.8-7.7); BASOPHIL # 0.1 TH/MM3 (0-0.2); BASOPHIL % 1.3 % (0.0-2.0); EOSINOPHIL % 0.6 % (0.0-4.0); HEMATOCRIT 32.2 % (39.0-51.0); HEMOGLOBIN 12.1 GM/DL (13.0-17.0); LYMPHOCYTE # 1.7 TH/MM3 (1.0-4.8); MEAN CELL VOLUME 79.9 FL (80.0-100.0); MEAN CORPUSCULAR HEMOGLOBIN 29.9 PG (27.0-34.0); MEAN PLATELET VOLUME 6.6 FL (7.0-11.0); MONOCYTE # 0.8 TH/MM3 (0-0.9); NEUT % 64.1 % (16.0-70.0); PLATELET COUNT 520 TH/MM3 (150-450); RED BLOOD COUNT 4.03 MIL/MM3 (4.50-5.90); RED CELL DISTRIBUTION WIDTH 16.2 % (11.6-17.2); WHITE BLOOD COUNT 7.5 TH/MM3 (4.0-11.0)
[2017-12-10 00:20] LABS: MEAN CORPUSCULAR HGB CONC 37.4 % (32.0-36.0)
[2017-12-10 00:27] LABS: PROTHROMBIN TIME - PATIENT 10.3 SEC (9.8-11.6)
[2017-12-10 00:50] LABS: ALBUMIN 3.1 GM/DL (3.4-5.0); ALT (GPT) 17 U/L (12-78); AST (GOT) 19 U/L (15-37); BLOOD UREA NITROGEN 4 MG/DL (7-18); CALCIUM 8.7 MG/DL (8.5-10.1); CHLORIDE 92 MEQ/L (98-107); CREATININE 0.52 MG/DL (0.60-1.30); GLOMERULAR FILTRATION RATE 160 ML/MIN (>89); GLUCOSE,RANDOM 97 MG/DL (74-106); MAGNESIUM 1.9 MG/DL (1.5-2.5); SODIUM (NA) 130 MEQ/L (136-145)
[2017-12-10 00:52] LABS: ALKALINE PHOSPHATASE 161 U/L (45-117); TOTAL BILIRUBIN ADULT 0.3 MG/DL (0.2-1.0); TOTAL PROTEIN 8.8 GM/DL (6.4-8.2)
[2017-12-10] MEDS ORDERED: PANTOPRAZOLE SODIUM 40 MG VIAL IV PUSH ONE (01:15)
[2017-12-10] MEDS ORDERED: THIAMINE INJ 100 MG in SODIUM CHLORIDE 0.9% INJ 100 ML IV ONE (02:30)
[2017-12-10] MEDS ORDERED: SODIUM CHLOR 0.9% 1000 ML INJ 1,000 ML IV ONE (02:30)
[2017-12-10 02:47] LABS: BILIRUBIN, URINE NEG (NEG); BLOOD, URINE NEG (NEG); GLUCOSE,URINE NEG (NEG); KETONE, URINE NEG (NEG); NITRITE,URINE NEG (NEG); PH, URINE 6.5 (5.0-8.5); URINE COLOR LIGHT-YELLOW (YELLW/STRAW); URINE LEUKOCYTE ESTERASE NEG (NEG)
[2017-12-10] MEDS ORDERED: PROM25TA10 PO (02:54)
[2017-12-10] MEDS ORDERED: OMEP20TA93 PO (02:54)
--- NOTE | 2017-12-10 13:34 | EKG ---
Date Performed: 12/10/2017 Time Performed: 00:08:15 PTAGE: 62 years EKG: Sinus rhythm WITH OCCASIONAL SUPRAVENTRICULAR PREMATURE COMPLEXES VOLTAGE CRITERIA FOR LVH POSSIBLE INFERIOR MYOC ARDIAL INFARCTION ABNORMAL ECG Since the PREVIOUS TRACING , no significant change noted PREVIOUS TRACIN09/12/2017 23.55 DOCTOR: Robert Patrick Interpretating Date/Time 12/10/2017 13:32:40
--- NOTE | 2017-12-10 14:12 | PD ---
History of Present Illness Chief Complaint: GI Complaint Time Seen by Provider: 14:00 Travel History International Travel<30 Days: No Contact w/Intl Traveler<30days: No Known affected area: No Legal Status Legal Status: Voluntary History of Present Illness: History of Present Illness HPI 62-year-old single, male with history of schizoaffective disorder, alcohol use disorder, who presents to the emergency department by private transportation for evaluation of vomiting blood and right hip pain. After he was medically evaluated and treated and during discharge process he reported to ED nurse that he thinks he would like to harm himself and he wanted to talk to someone. He denied having any plan at the time. A psychiatric screening was ordered and discharge was deferred. Patient is seen in J pod. He is alert, oriented, casually dressed and maintaining hygiene. His speech is clear, logical, goal-directed of normal rate and tone. There is no evidence of any psychosis, no porsche or hypomania. Patient's mood is nearly euthymic. He tells me that he believes "there was a misunderstanding and that someone got the wrong impression " while he was out in the Main ED. He states" they asked me if I have ever felt depressed and I said yes that I have in the past. I did not mean that I was currently suicidal or planning on hurting myself." He does tell me that since his discharge from our inpatient psychiatric unit he has continued to take his psychiatric medications. He also states that he continues to drink 2 beers per day. He reports that he sleeps fair and at times awakens due to pain, fair appetite. He attempts to keep himself busy during the day by watching television and going out for walks. Patient is concerned about not having insurance and being able to get the prescriptions that were given to him earlier in the morning. PFSH Past Medical History Asthma: Yes Blood Disorders: Yes (hep a) Depression: Yes Cancer: No Cardiovascular Problems: Yes (COPD) COPD: Yes Diabetes: No Endocrine: No Gastrointestinal Disorders: Yes GERD: Yes Genitourinary: No Headaches: No Musculoskeletal: No Psychiatric: Yes Respiratory: Yes (copd) Integumentary: Yes (schizoeffective disorder) Immunizations Current: Yes Schizophrenia: Yes Seizures: No Influenza Vaccination: Yes Past Surgical History Appendectomy: Yes Other Surgery: Yes (ing hernia) Psychiatric History Psychiatric History Hx Psychiatric Treatment: 5 lifetime psychiatric hospitalizations, including a recent 7 month stay at the [facility], per patient for "having committed over 40 thefts including "dine and dash" events. Previous suicidal gestures. History of self-injurious behavior. History of Inpatient Treatment: Yes Guns or firearms in home: No Social History Single, never , unemployed, lives by himself. In process of applying for disability. Extensive legal history for thefts. Hx Alcohol Use: Yes (DAILY) Hx Tobacco Use: Yes (1/2 ppd) Hx Substance Use: Yes (Patient admits to ETOH Hx. ) Substance Use Type: Alcohol (Reports drinks 2 beers per day. ) Hx of Substance Use Treatment: Yes Family Psychiatric History Negative Allergies-Medications (Allergen,Severity, Reaction): Coded Allergies: No Known Allergies (Unverified Allergy, Unknown, 11/18/17) Reported Meds & Prescriptions Reported Meds & Active Scripts Active Phenergan (Promethazine HCl) 25 Mg Tablet 25 Mg PO Q6H PRN Omeprazole 20 Mg Tab 20 Mg PO DAILY Seroquel (Quetiapine Fumarate) 25 Mg Tab 25 Mg PO HS Phenergan (Promethazine HCl) 25 Mg Tablet 12.5 Mg PO Q4H PRN Prozac (Fluoxetine HCl) 40 Mg Cap 40 Mg PO DAILY Ibuprofen 600 Mg Tab 600 Mg PO Q8H PRN Gnp Vitamin B-1 (Thiamine HCl) 100 Mg Tab 100 Mg PO DAILY Walker with Front Wheels (Device) 1 Mis Mis Ea .XX DIRECTED Cane/Aluminum/Adjustable (Device) 1 Mis Mis Ea .XX DIRECTED Reported Ibuprofen 800 Mg Tab 800 Mg PO TID Benztropine (Benztropine Mesylate) 0.5 Mg Tab 0.5 Mg PO BID Omeprazole 20 Mg Tab 20 Mg PO DAILY Vistaril (Hydroxyzine Pamoate) 50 Mg Cap 50 Mg PO BID Review of Systems Musculoskeletal: COMPLAINS OF: Joint pain Psychiatric: COMPLAINS OF: Depression Mental Status Examination Appearance: Appropriate Consciousness: Alert Orientation: x4 Motor Activity: Other (Uses a walker) Speech: Unremarkable Language: Adequate Fund of Knowledge: Adequate Attention and Concentration: Adequate Memory: Unremarkable Mood: Appropriate Affect: Appropriate Thought Process & Associations: Intact, Logical, Goal directed Thought Content: Appropriate Hallucination Type: None Delusion Type: None Suicidal Ideation: No Suicidal Plan: No Suicidal Intention: No Homicidal Ideation: No Homicidal Plan: No Homicidal Intention: No Insight: Adequate Judgment: Adequate MDM Medical Decision Making Medical Record Reviewed: Yes Assessment/Plan 62-year-old single, male with history of schizoaffective disorder, alcohol use disorder, who presents to the emergency department by private transportation for evaluation of vomiting blood and right hip pain. After he was medically evaluated and treated and during discharge process he reported to ED nurse that he thinks he would like to harm himself and he wanted to talk to someone. He denied having any plan at the time. A psychiatric screening was ordered and discharge was deferred. Patient was evaluated and he denies any current suicidal or homicidal ideation, intent or plan. He states it was a misunderstanding and that he does not need to be in the hospital. Reports he is medication compliant. He will follow up with [facility]. Patient is psychiatrically clear for discharge from ED. Orders Orders Complete Blood Count With Diff (12/09/17 23:21) Comprehensive Metabolic Panel (12/09/17 23:21) Lipase (12/09/17 23:21) Ammonia (12/09/17 23:21) Prothrombin Time / Inr (Pt) (12/09/17 23:21) Act Partial Throm Time (Ptt) (12/09/17 23:21) Alcohol (Ethanol) (12/09/17 23:21) Urinalysis - C+S If Indicated (12/09/17 23:21) Type And Screen (12/09/17 23:21) Chest, Single Ap (12/09/17 23:21) Ecg Monitoring (12/09/17 23:21) Iv Access Insert/Monitor (12/09/17 23:21) Oximetry (12/09/17 23:21) Sodium Chloride 0.9% Flush (Ns Flush) (12/09/17 23:30) Magnesium (Mg) (12/09/17 23:21) Electrocardiogram (12/09/17 ) Hip, Uni(Ap&Lat) W Ap Pelvis (12/09/17 ) Pantoprazole Inj (Protonix Inj) (12/10/17 01:15) Sodium Chlor 0.9% 1000 Ml Inj (Ns 1000 M (12/10/17 02:30) Orthostatic Vital Signs (12/10/17 02:17) Thiamine Inj (Thiamine Inj) (12/10/17 02:30) Mandatory Outpatient Referral (12/10/17 02:51) Ed Discharge Order (12/10/17 02:56) Psych Screen (12/10/17 04:20) Diet Regular Basic (12/10/17 Breakfast) Diet Regular Basic (12/10/17 Lunch) Results Vital Signs Date Time Temp Pulse Resp B/P (MAP) Pulse Ox O2 Delivery O2 Flow Rate FiO2 12/10/17 11:30 88 16 140/76 (97) 97 Room Air 12/10/17 07:30 86 20 144/82 (102) Room Air 97 12/10/17 04:28 87 18 158/89 (112) 98 Room Air 12/10/17 02:32 94 18 149/84 (105) 89 18 141/83 (102) 102 18 145/81 (102) 12/10/17 02:20 82 12/10/17 02:07 107 18 141/91 (108) 99 Room Air 12/10/17 00:10 96 Room Air 12/09/17 20:51 98.8 98 20 170/85 (113) 100 Laboratory Tests Test 12/10/17 00:05 12/10/17 01:46 White Blood Count 7.5 Red Blood Count 4.03 Hemoglobin 12.1 Hematocrit 32.2 Mean Corpuscular Volume 79.9 Mean Corpuscular Hemoglobin 29.9 Mean Corpuscular Hemoglobin Concent 37.4 Red Cell Distribution Width 16.2 Platelet Count 520 Mean Platelet Volume 6.6 Neutrophils (%) (Auto) 64.1 Lymphocytes (%) (Auto) 23.0 Monocytes (%) (Auto) 11.0 Eosinophils (%) (Auto) 0.6 Basophils (%) (Auto) 1.3 Neutrophils # (Auto) 4.8 Lymphocytes # (Auto) 1.7 Monocytes # (Auto) 0.8 Eosinophils # (Auto) 0.0 Basophils # (Auto) 0.1 CBC Comment AUTO DIFF Differential Comment AUTO DIFF CONFIRMED Prothrombin Time 10.3 Prothromb Time International Ratio 1.0 Activated Partial Thromboplast Time 30.9 Blood Urea Nitrogen 4 Creatinine 0.52 Random Glucose 97 Total Protein 8.8 Albumin 3.1 Calcium Level 8.7 Magnesium Level 1.9 Alkaline Phosphatase 161 Aspartate Amino Transf (AST/SGOT) 19 Alanine Aminotransferase (ALT/SGPT) 17 Total Bilirubin 0.3 Sodium Level 130 Potassium Level 3.5 Chloride Level 92 Carbon Dioxide Level 28.0 Anion Gap 10 Estimat Glomerular Filtration Rate 160 Ammonia 12 Lipase 288 Ethyl Alcohol Level 127 Urine Color LIGHT-YELLOW Urine Turbidity CLEAR Urine pH 6.5 Urine Specific Lyons 1.006 Urine Protein NEG Urine Glucose (UA) NEG Urine Ketones NEG Urine Occult Blood NEG Urine Nitrite NEG Urine Bilirubin NEG Urine Urobilinogen LESS THAN 2.0 Urine Leukocyte Esterase NEG Urine RBC LESS THAN 1 Urine WBC LESS THAN 1 Microscopic Urinalysis Comment CULT NOT INDICATED Diagnosis Primary Impression: Alcoholic gastritis Additional Impressions: Contusion of hip, right Schizoaffective disorder Alcohol abuse Psychiatrically Cleared: Yes Referrals: [facility]per call for appointment [facility] 1 day Departure Forms: Tests/Procedures Patient Instructions: General Instructions, Gastritis (ED), Suicide Prevention for Adults (ED), Hip Contusion (ED) Additional Instructions: Follow clear liquid diet for next 12-24 hours advance as tolerated to bland/ brat diet and regular diet avoiding fried and fatty foods Discontinue alcohol use follow-up with [facility] for detox resources 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 to schedule follow-up appointment Take medication as prescribed as needed for nausea and/or vomiting and for management of gastritis reflux esophagitis Do not take nonsteroidal anti-inflammatory medication such as ibuprofen/Advil/ Motrin or Aleve/naproxen/Naprosyn Return to the emergency department for any concerns or change in condition May use ice intermittently to right hip for contusion discomfort or may use acetaminophen/Tylenol as needed for minor pain or for fever 100.4F or greater Med/ Other Pt Specific Info: No Change to Meds Prescriptions Promethazine (Phenergan) 25 Mg Tablet 25 MG PO Q6H Y for NAUSEA OR VOMITING, #7 TAB 0 Refills Prov: Lucina Nath MD 12/10/17 Omeprazole (Omeprazole) 20 Mg Tab 20 MG PO DAILY, #30 TAB 0 Refills Prov: Lucina Nath MD 12/10/17 Disposition: 01 DISCHARGE HOME Condition: Stable Problem Qualifiers Primary Impression: Alcoholic gastritis Qualified Codes: K29.20 - Alcoholic gastritis without bleeding Additional Impressions: Schizoaffective disorder Qualified Codes: F25.1 - Schizoaffective disorder, depressive type Josselyn Torres Dec 10, 2017 14:12
== END 2017-12-10 15:28 | disposition home or self-care (01) ==
LOC: NEPC 19:44 → NEPJ 12-10 15:28
DX: K29.20 Alcoholic gastritis without bleeding (principal); S70.01XA Contusion of right hip, initial encounter; F20.9 Schizophrenia, unspecified; F17.200 Nicotine dependence, unspecified, uncomplicated; K21.9 Gastro-esophageal reflux disease without esophagitis; F10.20 Alcohol dependence, uncomplicated; Y90.6 Blood alcohol level of 120-199 mg/100 ml; W19.XXXA Unspecified fall, initial encounter; Z79.899 Other long term (current) drug therapy
CPT/HCPCS: 71045; 73502; 80053; 80307; 81001; 82140; 83690; 83735; 85025; 85610; 85730; 86850; 86900; 86901; 93005; 96365; 96366; 96375; 99285; C9113; J3411; J7030

== ENCOUNTER 2017-12-14 15:45 | Emergency (ER) | payer SELFPAY ==
[~2017-12-14] VITALS: Ht 182.9 cm; Wt 65.0 kg
[2017-12-14 16:09] VITALS: BP 169/99; PULSE 82; RESP 18; TEMP 99; O2SAT 99
--- NOTE | 2017-12-14 16:13 | RADRPT ---
EXAM DATE/TIME: 12/14/2017 16:01 [place] COMPARISON: HIP RIGHT (AP&LAT 2/3VWS) WO AP PELVIS, October 16, 2017, 19:57. INDICATIONS : Right hip abscess. MEDICAL HISTORY : Chronic obstructive pulmonary disease. Gastroesophageal reflux disease. Hepatitis A. Inguinal her olga. SURGICAL HISTORY : Tonsillectomy. Appendectomy. ORIF Bilateral hips and left femur ENCOUNTER: Initial ACUITY: 2 weeks PAIN SCORE: 9/10 LOCATION: Right hip FINDINGS: Multiple views of the right hip were obtained again demonstrate postsurgical changes status post open rigid internal fixation with intramedullary rob and interlocking cannulated screw. The hardware maryana ins intact. There's been resorption along the fracture line with patchy sclerosis. The alignment maryana ins anatomic. CONCLUSION: Partial interval healing. Korey Murphy MD on December 14, 2017 at 16:08 Board Certified Radiologist. This report was verified electronically.
[2017-12-14] MEDS ORDERED: LIDOCAINE HCL 1% PF 30 ML VIAL INFIL ONE (16:15)
[2017-12-14] MEDS ORDERED: ACETAMINOPHEN/HYDROcodone 325 MG/5 MG TAB PO ONE (16:30)
[2017-12-14 16:37] LABS: WHITE BLOOD COUNT 7.7 TH/MM3 (4.0-11.0)
[2017-12-14 16:38] LABS: AUTOMATED NEUTROPHIL # 5.1 TH/MM3 (1.8-7.7); BASOPHIL % 0.5 % (0.0-2.0); EOSINOPHIL # 0.2 TH/MM3 (0-0.4); EOSINOPHIL % 2.1 % (0.0-4.0); HEMATOCRIT 35.6 % (39.0-51.0); HEMOGLOBIN 12.1 GM/DL (13.0-17.0); LYMPH % 21.8 % (9.0-44.0); LYMPHOCYTE # 1.7 TH/MM3 (1.0-4.8); MEAN CORPUSCULAR HEMOGLOBIN 27.5 PG (27.0-34.0); MEAN CORPUSCULAR HGB CONC 33.9 % (32.0-36.0); MEAN PLATELET VOLUME 6.4 FL (7.0-11.0); MONO % 8.9 % (0.0-8.0); MONOCYTE # 0.7 TH/MM3 (0-0.9); NEUT % 66.7 % (16.0-70.0); PLATELET COUNT 444 TH/MM3 (150-450); RED BLOOD COUNT 4.39 MIL/MM3 (4.50-5.90)
[2017-12-14 16:58] LABS: ALBUMIN 2.8 GM/DL (3.4-5.0); ALT (GPT) 11 U/L (12-78); AST (GOT) 14 U/L (15-37); BICARBONATE 28.6 MEQ/L (21.0-32.0); BLOOD UREA NITROGEN 4 MG/DL (7-18); CALCIUM 8.7 MG/DL (8.5-10.1); CHLORIDE 99 MEQ/L (98-107); CREATININE 0.48 MG/DL (0.60-1.30); GLOMERULAR FILTRATION RATE 175 ML/MIN (>89); GLUCOSE,RANDOM 86 MG/DL (74-106); SODIUM (NA) 134 MEQ/L (136-145)
[2017-12-14 17:00] LABS: ALKALINE PHOSPHATASE 148 U/L (45-117); TOTAL BILIRUBIN ADULT 0.2 MG/DL (0.2-1.0); TOTAL PROTEIN 8.7 GM/DL (6.4-8.2)
--- NOTE | 2017-12-14 17:22 | PD ---
HPI Chief Complaint: Hip Injury Time Seen by Provider: 15:48 Travel History International Travel<30 days: No Contact w/Intl Traveler<30days: No Traveled to known affect area: No History of Present Illness HPI 62 YO M presents to the ED via EMS for evaluation of 9/10 pain of the right hip. Gradual onset since yesterday. Patient endorses redness, warmth and tenderness to touch of the previous surgical site of the right hip. He endorses oral temp of 100.0 yesterday. He states that the pain makes it difficult for him to walk. Denies history of MRSA. Per record review the patient had hip IM rodding by Dr. Boles 07/2017. He is requesting a meal. PFSH Past Medical History Asthma: Yes Blood Disorders: Yes (hep a) Depression: Yes Cancer: No Cardiovascular Problems: Yes COPD: Yes Diabetes: No Endocrine: No Gastrointestinal Disorders: Yes GERD: Yes Genitourinary: No Headaches: No Musculoskeletal: No Psychiatric: Yes Respiratory: Yes Integumentary: Yes (schizoeffective disorder) Immunizations Current: Yes Schizophrenia: Yes Seizures: No Tetanus Vaccination: Unknown Past Surgical History Appendectomy: Yes Other Surgery: Yes (ing hernia) Social History Alcohol Use: Yes (DAILY) Tobacco Use: Yes (1/2 ppd) Substance Use: No Allergies-Medications (Allergen,Severity, Reaction): Coded Allergies: No Known Allergies (Unverified Allergy, Unknown, 12/14/17) Reported Meds & Prescriptions Reported Meds & Active Scripts Active Ibuprofen 600 Mg Tab 600 Mg PO Q8H PRN Clindamycin (Clindamycin HCl) 150 Mg Cap 450 Mg PO Q6H 7 Days Seroquel (Quetiapine Fumarate) 25 Mg Tab 25 Mg PO HS Ibuprofen 600 Mg Tab 600 Mg PO Q8H PRN Walker with Front Wheels (Device) 1 Mis Mis Ea .XX DIRECTED Cane/Aluminum/Adjustable (Device) 1 Mis Mis Ea .XX DIRECTED Review of Systems Except as stated in HPI: all other systems reviewed are Neg Physical Exam Narrative GENERAL: Well-nourished, well-developed white male, smelling strongly of cigarette smoke, in no acute distress. SKIN: Focused skin assessment warm/dry. SKIN: There is an indurated area in the right hip, just over a previous surgical incision which measures about 2.5 cm in diameter. It is fluctuant but there is no pointing or drainage. There is a zone of inflammation around it but no lymphangitis. HEAD: Normocephalic. EYES: No scleral icterus. No injection or drainage. NECK: Supple, trachea midline. No JVD or lymphadenopathy. CARDIOVASCULAR: Regular rate and rhythm without murmurs, gallops, or rubs. RESPIRATORY: Breath sounds clear and equal bilaterally. No accessory muscle use. GASTROINTESTINAL: Abdomen soft, non-tender, nondistended. Active bowel sounds. MUSCULOSKELETAL: No cyanosis, or edema. FOCUSED RIGHT LOWER EXTREMITY EXAM: 2+ DP pulse. No tenderness to palpation of the anterior aspect of the hip. No pain elicited with internal and external rotation. Patient is able to flex the knee to 90 and extend the knee to 0. Sensation intact to light touch distally. Cap refill less than 3 seconds. BACK: Nontender without obvious deformity. No CVA tenderness. Data Data Last Documented VS Vital Signs Date Time Temp Pulse Resp B/P (MAP) Pulse Ox O2 Delivery O2 Flow Rate FiO2 12/14/17 19:37 12/14/17 16:09 99.0 82 18 99 Room Air Orders Orders Complete Blood Count With Diff (12/14/17 15:48) Comprehensive Metabolic Panel (12/14/17 15:48) Hip, Uni(Ap&Lat) Wo Ap Pelvis (12/14/17 15:48) Iv Access Insert/Monitor (12/14/17 15:48) Oximetry (12/14/17 15:48) Ecg Monitoring (12/14/17 15:48) Lidocaine Pf 1% Inj (Xylocaine-Mpf 1% In (12/14/17 16:15) Abscess Culture And Gram Stain (12/14/17 16:13) Acetamin-Hydrocod 325-5 Mg (Henderson 5-325 (12/14/17 16:30) Clindamycin 900 Mg/Ns Premix (Cleocin 90 (12/14/17 18:00) Ed Discharge Order (12/14/17 19:12) Labs Laboratory Tests Test 12/14/17 16:21 White Blood Count 7.7 TH/MM3 Red Blood Count 4.39 MIL/MM3 Hemoglobin 12.1 GM/DL Hematocrit 35.6 % Mean Corpuscular Volume 81.0 FL Mean Corpuscular Hemoglobin 27.5 PG Mean Corpuscular Hemoglobin Concent 33.9 % Red Cell Distribution Width 16.0 % Platelet Count 444 TH/MM3 Mean Platelet Volume 6.4 FL Neutrophils (%) (Auto) 66.7 % Lymphocytes (%) (Auto) 21.8 % Monocytes (%) (Auto) 8.9 % Eosinophils (%) (Auto) 2.1 % Basophils (%) (Auto) 0.5 % Neutrophils # (Auto) 5.1 TH/MM3 Lymphocytes # (Auto) 1.7 TH/MM3 Monocytes # (Auto) 0.7 TH/MM3 Eosinophils # (Auto) 0.2 TH/MM3 Basophils # (Auto) 0.0 TH/MM3 CBC Comment AUTO DIFF Differential Comment AUTO DIFF CONFIRMED Platelet Estimate HIGH Platelet Morphology Comment NORMAL Blood Urea Nitrogen 4 MG/DL Creatinine 0.48 MG/DL Random Glucose 86 MG/DL Total Protein 8.7 GM/DL Albumin 2.8 GM/DL Calcium Level 8.7 MG/DL Alkaline Phosphatase 148 U/L Aspartate Amino Transf (AST/SGOT) 14 U/L Alanine Aminotransferase (ALT/SGPT) 11 U/L Total Bilirubin 0.2 MG/DL Sodium Level 134 MEQ/L Potassium Level 4.1 MEQ/L Chloride Level 99 MEQ/L Carbon Dioxide Level 28.6 MEQ/L Anion Gap 6 MEQ/L Estimat Glomerular Filtration Rate 175 ML/MIN MDM Medical Decision Making Medical Screen Exam Complete: Yes Emergency Medical Condition: Yes Differential Diagnosis abscess versus cellulitis versus wound infection versus other Narrative Course 62 YO M presents to the ED via EMS for evaluation of 9/10 pain of the right hip. Patient endorses redness, warmth and tenderness to touch of the previous surgical site of the right hip. He endorses oral temp of 100.0 yesterday. He states that the pain makes it difficult for him to walk. Denies history of MRSA. Per record review the patient had hip IM rodding by Dr. Boles 07/2017. He is requesting a meal. Patient is afebrile on presentation. On physical exam there is an abscess of the proximal aspect of the surgical wound of the right hip. I suspect this is superficial. Exam is otherwise unremarkable. X- ray of the hip reveals intact prosthesis partially healed. There are no concerning abnormalities of the CBC or CMP. I spoke with Dr. Boles who is in agreement with I&D of the abscess, oral antibiotics and follow-up in the clinic this week. Patient is agreeable with this plan. I&D was performed. Please see my procedure note for details. Patient was administered 900 mg clindamycin IV and prescribed 7 days of clindamycin 3 times daily. He is instructed to follow-up with Dr. Boles this week. He is also instructed to return to the ED if he is unable to see Dr. Ha in the next 72 hours for wound recheck and packing removal. He indicated understanding of the instructions. He is stable and discharged home. Procedures Procedure Narrative INCISION AND DRAINAGE OF ABSCESS: The area was prepped and was sterilely draped. A subcutaneous wheal of 1 % Xylocaine with a total number 5 mL was used to anesthetize the area properly. A number 11 scalpel was used to make a 1 -cm incision across the area of the abscess. The abscess was drained, complex loculations were broken down, and irrigated with normal saline. Cultures were obtained. One half inch iodoform packing was placed in the wound. Sterile dressing applied. Patient advised to have packing removed in two days. Diagnosis Primary Impression: Abscess Referrals: Bon Boles Jr., MD Additional Instructions: Keep the wound clean, dry and covered. Begin the antibiotics tomorrow and take them until every dose is gone. Take ibuprofen as prescribed as needed for pain. Follow up with Dr. Boles this week as discussed. If unable to see Dr. Boles in the next 3 days return to the ED for packing removal and wound recheck. Return to the ED for worsening symptoms or any urgent/emergent medical condition. Med/Other Pt SpecificInfo: Prescription(s) given Scripts Ibuprofen (Ibuprofen) 600 Mg Tab 600 MG PO Q8H Y for PAIN, #12 TAB 0 Refills Prov: Oneal Trotter MD 12/14/17 Clindamycin (Clindamycin) 150 Mg Cap 450 MG PO Q6H for Infection for 7 Days, #84 CAP 0 Refills Prov: Oneal Trotter MD 12/14/17 Disposition: 01 DISCHARGE HOME Condition: Stable Barbara Villa Dec 14, 2017 17:22
[2017-12-14] MEDS ORDERED: CLINDAMYCIN 900 MG/NS PREMIX 50 ML IV ONE (18:00)
[2017-12-14] MEDS ORDERED: IBUP-232 PO (18:06)
[2017-12-14] MEDS ORDERED: CLIN150C14 PO (18:06)
== END 2017-12-14 20:14 | disposition home or self-care (01) ==
LOC: NEPE 15:45
DX: L02.415 Cutaneous abscess of right lower limb (principal); B95.62 Methicillin resistant Staphylococcus aureus infection as the cause of diseases classified elsewhere; F32.9 Major depressive disorder, single episode, unspecified; K21.9 Gastro-esophageal reflux disease without esophagitis; F17.200 Nicotine dependence, unspecified, uncomplicated; Z98.890 Other specified postprocedural states; Z87.09 Personal history of other diseases of the respiratory system; Z86.79 Personal history of other diseases of the circulatory system; Z86.59 Personal history of other mental and behavioral disorders
CPT/HCPCS: 10060; 73502; 80053; 85025; 86403; 87070; 87186; 87205; 96365

== ENCOUNTER 2017-12-28 14:41 | Emergency (ER) | payer SELFPAY | END 2017-12-28 19:45 | disposition home or self-care (01) | LOC: NEPD 14:41 | DX: R60.9 Edema, unspecified (principal); J44.9 Chronic obstructive pulmonary disease, unspecified; B15.9 Hepatitis A without hepatic coma; F20.9 Schizophrenia, unspecified; F17.210 Nicotine dependence, cigarettes, uncomplicated; Z79.2 Long term (current) use of antibiotics; Z79.899 Other long term (current) drug therapy | CPT/HCPCS: 93971; 99284 ==